=== PATIENT | female | born 1945 | race Caucasian/White ===

== ENCOUNTER 2018-04-07 05:28 | Emergency (ER) | payer MEDICARE, OTHER, SELFPAY ==
[2018-04-07 05:29] VITALS: BP 113/92; PULSE 96; RESP 18; TEMP 36.7; O2SAT 97; BMI 22.9
--- NOTE | 2018-04-07 06:00 | RAD_ITS ---
HISTORY: PT FELL HIT RT WRIST ON COUNTER AND HEARD A POP PAIN SWELLING BRUISING RT WRIST ALL OVER COMPARISON: None FINDINGS: XR right wrist 3 views Impacted, mildly comminuted fracture of the distal right radius with mild dorsal displacement and dorsal angulation of the major distal fracture fragment. The major component of the fracture is a transverse metaphyseal fracture. An additional longitudinal component of the radial fracture extends intra-articular. Additional mildly displaced fracture of the ulnar styloid process. No dislocation. RAD/Wrist min 3 Views IMPRESSION: 1. Comminuted, intra-articular fracture of the distal right radius. Details above. 2. Additional fracture of the ulnar styloid process. at 0642 Reported and signed by: Tushar Mcclendon MD Electronically Signed: Tushar Mcclendon, at 6:41 EST Tel , Service support ,
[2018-04-07] MEDS: oxyCODONE 5 MG Tablet 10 MG PO (06:09)
--- NOTE | 2018-04-07 07:15 | ED.VISSUMM ---
- ER Visit Summary Date of Service: 04/07/18 Chief Complaint: Wrist pain History of Present Illness: The patient is a 72 F who is right-hand dominant. She started to fall this morning and caught herself on a counter. She complains of pain to her right wrist. No other injuries or complaints. She is in pain management for chronic pain. She does not have an orthopedist currently. Physical Examination: Afebrile and vital signs unremarkable. Right wrist is tender to palpation with swelling, bruising, and a deformity. Skin is intact. She is neurovascular intact distally. Compartments soft. Otherwise exam unremarkable. Test Results: X-rays show a comminuted intra-articular fracture of the distal radius as well as an ulnar styloid fracture. Emergency Department Course and Treatment: Patient treated with oxycodone while awaiting results. X-rays showed a fracture. Patient declined manipulation. She was placed in an Ortho-Glass AP splint. She tolerated this well. Neurovascular intact distally after splinting. Patient was discussed with Dr. Bean, and she will follow-up in the office. Rest, ice, elevate. She is on opiates from pain management. Return for any complications or problems. Treatment Plan: As above Disposition: Discharge Impression: 1. Right distal radius fracture This note was generated with [employer] dictation software. It may contain incorrect words, spelling, and punctuation that were not noted in review of the chart prior to signing ED Disposition - Plan for ED Patient: Referrals: Mercedes Leonard MD [Primary Care Provider] -
--- NOTE | 2018-04-07 07:18 | ED.DEP ---
ED Disposition - Plan for ED Patient: Instructions: ED Fx Wrist General Referrals: Jared Bean MD [STAFF PHYSICIAN] -
[2018-04-07 07:51] VITALS: PULSE 110; RESP 16; O2SAT 92
== END 2018-04-07 07:52 | disposition home or self-care (01) ==
LOC: ED 05:51
PROVIDERS: Emergency Provider Emergency Medicine; Family Provider Internal Medicine; PCP Internal Medicine
DX: S52.571A Other intraarticular fracture of lower end of right radius, initial encounter for closed fracture (principal); W18.39XA Other fall on same level, initial encounter; Y93.89 Activity, other specified; Y92.9 Unspecified place or not applicable; I10 Essential (primary) hypertension
CPT/HCPCS: 29125; 73110; 99285

== ENCOUNTER 2018-07-26 08:04 | Emergency (ER) | payer MEDICARE, OTHER, SELFPAY ==
[2018-07-26 08:06] VITALS: BP 140/64; PULSE 113; RESP 18; TEMP 37.3; O2SAT 96; BMI 17.7
--- NOTE | 2018-07-26 08:19 | RAD_ITS ---
STUDY: X-RAY - LEFT WRIST REASON FOR EXAM: Female, 72 years old. Pain and deformity following a fall. TECHNIQUE: 3 view(s) of the wrist were obtained. COMPARISON: None. FINDINGS: Comminuted nondisplaced fracture of the distal radial metaphysis with dorsal facing. Nondisplaced avulsion fracture of the ulnar styloid. Normal radiocarpal articulation. Normal distal radioulnar articulation. Normal carpal bones. Normal carpal articulations. Normal carpometacarpal articulation of the thumb. Normal second through fifth carpometacarpal articulations. Healed fracture of the midshaft of the fourth metacarpal. Soft tissue swelling. RAD/Wrist min 3 Views IMPRESSION: Comminuted nondisplaced fracture of the distal radius with dorsal facing. Nondisplaced avulsion fracture of the ulnar styloid. Soft tissue swelling. Healed fracture of the midportion of the fourth metacarpal. Electronically Signed: Robb West, at 9:01 EDT , Service support ,
[2018-07-26] MEDS: HYDROmorphone 1 MG/ML Syringe SC (08:25)
--- NOTE | 2018-07-26 08:26 | ED.VISSUMM ---
- ER Visit Summary Date of Service: 07/26/18 Chief Complaint: Left wrist pain History of Present Illness: The patient is a 72 F who sustained a mechanical fall this morning. She has a left wrist deformity and pain. No other injuries. Physical Examination: Afebrile and vital signs unremarkable. Head and neck are atraumatic. Alert and oriented. Left wrist shows swelling and diffuse tenderness. Neurovascular intact distally. Skin is intact. The remainder of her arm and exam show no evidence of trauma. Test Results: X-rays pending. Emergency Department Course and Treatment: Patient treated with ice pack and subcutaneous Dilaudid while awaiting x-ray results. X-rays show a comminuted nondisplaced and dorsally angulated distal radius fracture with a fracture of the ulnar styloid. Dr. Weston reviewed the images. He felt that this would likely need surgery and he recommended following up with Dr. Bean early next week. Patient was placed in a AP splint, Ortho-Glass, by hi. She tolerated this well. She is neurovascularly intact distally afterwards. Patient will be discharged. Rest, ice, elevate. Continue her home oxycodone. Treatment Plan: As above Disposition: Discharge Impression: 1. Left distal radius fracture This note was generated with [employer] dictation software. It may contain incorrect words, spelling, and punctuation that were not noted in review of the chart prior to signing ED Disposition - Plan for ED Patient: Referrals: Mercedes Leonard MD [Primary Care Provider] -
--- NOTE | 2018-07-26 08:30 | ED.DCSUM_ITS ---
- ER Visit Summary Date of Service: 07/26/18 Chief Complaint: Left wrist pain History of Present Illness: The patient is a 72 F who sustained a mechanical fall this morning. She has a left wrist deformity and pain. No other injuries. Physical Examination: Afebrile and vital signs unremarkable. Head and neck are atraumatic. Alert and oriented. Left wrist shows swelling and diffuse tenderness. Neurovascular intact distally. Skin is intact. The remainder of her arm and exam show no evidence of trauma. Test Results: X-rays pending. Emergency Department Course and Treatment: Patient treated with ice pack and arzola bcutaneous Dilaudid while awaiting x-ray results. X-rays show a comminuted nondisplaced and dorsally angulated distal radius fracture with a fracture of the ulnar styloid. Dr. Weston reviewed the images. He felt that this would likely need surgery and he recommended following up with Dr. Bean early next week. Patient was placed in a AP splint, Ortho-Glass, by me. She tolerated this well. She is neurovascularly intact distally afterwards. Patient will be discharged. Rest, ice, elevate. Continue her home oxycodone. Treatment Plan: As above Disposition: Discharge Impression: 1. Left distal radius fracture This note was generated with [employer] dictation software. It may contain incorrect words, spelling, and punctuation that were not noted in review of the chart prior to signing ED Disposition - Plan for ED Patient: Referrals: Mercedes Leonard MD [Primary Care Provider] -
--- NOTE | 2018-07-26 10:08 | ED.DEP ---
ED Disposition - Plan for ED Patient: Instructions: ED Fx Wrist General Referrals: Jared Bean MD [STAFF PHYSICIAN] -
[2018-07-26 10:13] VITALS: BP 109/57; PULSE 84; RESP 16; O2SAT 95
== END 2018-07-26 10:14 | disposition home or self-care (01) ==
PROVIDERS: Emergency Provider Emergency Medicine; Family Provider Internal Medicine; PCP Internal Medicine
DX: S52.502A Unspecified fracture of the lower end of left radius, initial encounter for closed fracture (principal); S52.615A Nondisplaced fracture of left ulna styloid process, initial encounter for closed fracture; W19.XXXA Unspecified fall, initial encounter; Y93.9 Activity, unspecified; Y92.9 Unspecified place or not applicable
CPT/HCPCS: 29125; 73110; 96372; 99282

== ENCOUNTER → 2018-08-06 10:16 | Outpatient (CLI) | payer MEDICARE, OTHER, SELFPAY ==
[2018-07-26 08:06] VITALS: BMI 17.7
--- NOTE | 2018-08-06 10:37 | EKG12_ITS ---
Test Reason : PRE-OP Blood Pressure : / mmHG Vent. Rate : 053 BPM Atrial Rate : 053 BPM P-R Int : 164 ms QRS Dur : 080 ms QT Int : 424 ms P-R-T Axes : 078 083 072 degrees QTc Int : 397 ms Sinus bradycardia Possible Left atrial enlargement Early repolarization Borderline ECG Confirmed by DENNIS ELLSWORTH, RAYMOND ([id number]), film editor supervisor DEON HINSON ([id number]) on 08/07/2018 7:49:57 AM Referred By: Jared Bean Confirmed By:RAYMOND COLLINS MD
[2018-08-06 10:46] LABS: Absolute Lymphocyte Count 0.95 X10^3/ul (0.83-4.51); Absolute Neutrophil Count 5.4 X10^3/uL (2.0-7.7); Basophil# 0.01 X10^3/uL; Basophil% 0.2 % (0-1); Hematocrit 41.3 % (37-47); Hemoglobin 13.2 g/dl (12.0-15.0); Lymphocyte # 0.95 X10^3/ul (4.0); Lymphocyte % 14.3 % (19-41); Mean Corpuscular Hgb 30.6 pg (27.0-32.0); Mean Corpuscular Volume 95.6 fL (81-99); Mean Platelet Vol. 10.7 fl (6.2-12.0); Monocyte# 0.32 X10^3/uL; Monocyte% 4.8 % (0-10); Neutrophil # 5.35 X10^3/uL (2.7-7.7); Neutrophil % 80.5 % (47-70); Platelet Count 314 K/mm3 (150-450); RBC Distribution Width CV 13.8 % (11.6-14.6); RBC Distribution Width SD 46.5 fl (35.1-43.9); Red Blood Count 4.32 M/mm3 (4.2-5.4); White Blood Count 6.6 K/mm3 (4.4-11.0)
[2018-08-06 10:48] LABS: POSITIVE COUNT NO; POSITIVE DIFFERENTIAL NO; POSITIVE MORPHOLOGY NO
[2018-08-06 11:04] LABS: Anion Gap 9 (5-15); BUN 13 mg/dL (7-18); BUN/Creat Ratio 16.1 RATIO (10-20); Calcium,Total 9.5 mg/dL (8.5-10.1); Chloride 103 mmol/L (98-107); EST Glomerular Filtration Rate 75 mL/min (>60); Est Glom Filt Rate - Afr Amer 90 mL/min (>60); Glucose 114 mg/dL (74-106); Potassium 4.3 mmol/L (3.5-5.1); Sodium Level 139 mmol/L (136-145)
== END ==
PROVIDERS: Physician Assistant Surgical; Family Provider Internal Medicine; PCP Internal Medicine; Referring Provider Specialist; Visit Provider Specialist
DX: Z01.818 Encounter for other preprocedural examination (principal); Z01.810 Encounter for preprocedural cardiovascular examination
CPT/HCPCS: 36415; 80048; 85025; 93005

== ENCOUNTER 2018-10-23 21:10 | Emergency (ER) | payer MEDICARE, OTHER, SELFPAY ==
[2018-10-23 21:11] VITALS: BP 127/80; PULSE 88; RESP 18; TEMP 37.7; O2SAT 94; BMI 18.6
--- NOTE | 2018-10-23 22:00 | CT_ITS ---
STUDY: CT CERVICAL SPINE WITHOUT CONTRAST REASON FOR EXAM: Female, 72 years old. : Hit head RADIATION DOSAGE (If Supplied By Facility): CTDIvol = ( 12.82 ) mGy, DLP = ( 291.04 ) mGycm TECHNIQUE: High resolution transaxial imaging was performed without contrast material. Sagittal and coronal images were reconstructed. Individualized dose optimization techniques were used for this CT. COMPARISON: None FINDINGS: Normal craniovertebral junction. Normal anterior atlantoaxial articulation. Normal odontoid process. Normal cervical lordosis. Normal vertebral bodies and posterior osseous elements. C2-3: Normal endplates. Normal disc height and morphology. Normal central canal and intervertebral neuroforamina. C3-4: Normal endplates. Normal disc height and morphology. Normal central canal and narrowed right intervertebral neuroforamina. C4-5: Normal endplates. Normal disc height and morphology. Normal central canal and narrowed right intervertebral neuroforamina. C5-6: Normal endplates. Normal disc height and morphology. Normal central canal and narrowed left intervertebral neuroforamina. C6-7: Normal endplates. Normal disc height and morphology. Normal central canal and intervertebral neuroforamina. C7-T1: Normal endplates. Normal disc height and morphology. Normal central canal and intervertebral neuroforamina. Normal visualized soft tissue structures. CT/Spine Cervical without Contras IMPRESSION: No fracture Electronically Signed: Curtis Mckeon MD at 22:50 EDT , Service support ,
--- NOTE | 2018-10-23 22:00 | CT_ITS ---
STUDY: CT BRAIN WITHOUT CONTRAST REASON FOR EXAM: Female, 72 years old. Head injury status post fall. Laceration posteriorly. RADIATION DOSAGE (If Supplied By Facility): CTDIvol = ( 44.99 ) mGy, DLP = ( 745.49 ) mGycm TECHNIQUE: Transaxial CT imaging of the brain was performed without administration of intravenous contrast material. Individualized dose optimization techniques were used for this CT. COMPARISON: September 18, 2011 CT head FINDINGS: Normal soft tissue structures. Normal calvarium. Normal size ventricles and extra-axial spaces for the patient's age. Normal white matter tracts of the cerebral hemispheres. Normal basal ganglia and thalami. Normal brainstem. Normal cerebellum. There is no intracranial hemorrhage. There are no findings of an acute ischemic infarction. Normal visualized paranasal sinuses. CT/Brain/Head without Contrast IMPRESSION: Normal unenhanced CT scan of the brain. Electronically Signed: Curtis Mckeon MD at 22:39 EDT , Service support ,
--- NOTE | 2018-10-23 22:01 | RAD_ITS ---
STUDY: X-RAY CHEST REASON FOR EXAM: Female, 72 years old. Chest injury status post fall TECHNIQUE: Frontal and lateral COMPARISON: April 15, 2016 FINDINGS: Elevated right hemidiaphragm. Right upper lobe airspace disease. There is no demonstrated pleural abnormality. Normal size heart. Normal mediastinum and ebony. Normal visualized pulmonary arteries. Normal visualized aortic arch and descending thoracic aorta. Normal visualized thoracic spine. Normal visualized ribs, clavicles, and shoulders. There is no demonstrated abnormality of the visualized soft tissue structures of the upper abdomen. RAD/Chest PA and Lateral IMPRESSION: Right upper lobe airspace disease. Electronically Signed: Curtis Mckeon MD at 22:43 EDT , Service support ,
--- NOTE | 2018-10-23 22:05 | RAD_ITS ---
STUDY: X-RAY - PELVIS AND LEFT HIP REASON FOR EXAM: Female, 72 years old. Fell and injured left hip TECHNIQUE: 3 views of the pelvis and hip. COMPARISON: July 24, 2014 FINDINGS: Soft tissue calcifications right and left pelvis. Normal visualized soft tissue structures. Bilateral total hip arthroplasties. Cerclage wires noted proximal left femur. Normal bilateral iliac wings, sacroiliac joints and visualized sacrum. Normal bilateral superior and inferior pubic rami. Normal pubic symphysis. Normal bilateral ischial tuberosities. Normal visualized femoral head. Normal acetabulum. Normal hip joint. RAD/HIP, UNI W/ Pelvis 2-3 Views IMPRESSION: Bilateral hip arthroplasties. No acute fracture noted but sensitivity is limited due to demineralization. Electronically Signed: Curtis Mckeon MD at 22:57 EDT , Service support ,
[2018-10-23] MEDS: oxyCODONE 5 MG Tablet 20 MG PO (22:07)
[2018-10-23 23:11] VITALS: BP 126/79; PULSE 87; RESP 17; O2SAT 97
--- NOTE | 2018-10-23 23:44 | ED.VIS.GEN ---
History of Present Illness Chief Complaint: Fall Informant: Patient Onset: Today Narrative: Is a 72-year-old female with history of Crohn's disease, osteoporosis among other problems presenting with mechanical fall. Patient states she slipped and fell in her bathroom and hit her head on the bathtub. She denies any loss of consciousness. She states she is not on any anticoagulation. Patient states that she has a history of nerve problems to her left leg and does not have feeling in her left leg. This makes her unsteady and prone to falls. Patient states that what happened today. She has bleeding in the back of her head which did not stop which is why she came in. She is not sure when her last tetanus was. Patient does comment that she had a low-grade fever for the past few days. She has had associated cough. Patient denies any chest pain or difficulty breathing. She is currently taking Cipro and Flagyl for presumed Crohn's flare. Patient states she does not have any change in her bowel movements or diarrhea but because of the fever she started taking these antibiotics. Past Medical History - Allergies and Home Meds Allergies/Adverse Reactions: Allergies amlodipine [From Norvasc] Allergy (Verified 10/23/18 21:14) Unknown ampicillin Allergy (Verified 10/23/18 21:14) Hives celecoxib [From Celebrex] Allergy (Verified 10/23/18 21:14) Unknown cephalexin Allergy (Verified 10/23/18 21:14) Unknown cyclobenzaprine [From Flexeril] Allergy (Verified 10/23/18 21:14) Unknown levofloxacin [From Levaquin] Allergy (Verified 10/23/18 21:14) Unknown mesalamine [From Pentasa] Allergy (Verified 10/23/18 21:14) Unknown NSAIDS (Non-Steroidal Anti-Inflamma Allergy (Verified 10/23/18 21:14) Unknown Penicillins Allergy (Verified 10/23/18 21:14) Rash prochlorperazine [From Compazine] Allergy (Verified 10/23/18 21:14) Unknown sulfamethoxazole [From Bactrim] Allergy (Verified 10/23/18 21:14) Rash trazodone Allergy (Verified 10/23/18 21:14) Unknown trimethoprim [From Bactrim] Allergy (Verified 10/23/18 21:14) Rash zolpidem [From Ambien] Allergy (Verified 10/23/18 21:14) Unknown Primary Care Physician: Mercedes Leonard MD [Primary Care Provider] - Surgical History: hysterectomy - salpingo-oopherectomy., total hip arthroplasty - Bilateral with revision. Smoking Status: Never smoker - Family History Maternal Family History: Reports: No pertinent history Paternal Family History: Reports: No pertinent history Review of Systems All systems negative except as indicated General: Reports: Fever Respiratory: Reports: Cough Gastrointestinal: Denies: Abdominal pain Musculoskeletal: Reports: Extremity Pain - left hip Skin: Reports: Wounds - scalp Physical Exam Vital Signs/Narrative: Vital Signs Temp Pulse Resp BP Pulse Ox 10/23/18 23:11 87 17 126/79 H 97 10/23/18 21:11 99.9 F H 88 18 127/80 H 94 Inital Vital Signs reviewed: Yes General: Well developed, Cachectic, No Acute Distress Head: Normocephalic, Trauma - 1.5 cm linear scalp laceration, full-thickness and gaping over occiput Eyes: Perrl, EOMI ENT: Moist mucous membranes, No rhinorrhea, TM's clear, - - Septal hematoma, no signs of basilar skull fracture, no malocclusion Neck: Supple, Nontender Cardiovascular: Regular rate, Regular rhythm, No murmurs Respiratory: No distress, CTA bilaterally, Chest nontender Abdomen: Soft, Nontender, Nondistended, Normal bowel sounds Back: Nontender, Normal Inspection Extremities: No edema, Tenderness - Mild tenderness to palpation of the left hip diffusely Skin: Normal color, No rash, - - Scalp laceration, see head Neurological: Alert, Oriented x3, Cranial nerves II-XII grossly intact, Normal Strength, Normal Sensation, - - Patient has multiple almost uncontrolled large movements of her extremities Psychological: Normal affect, Normal Mood Diagnostic/Tx/Re-eval Chest X-Ray - ED: 2 View, Read by ED Physician, Read by Radiologist, Right Infiltrate Diagnostic Data Brain CT 10/23/18 22:00 IMPRESSION: Normal unenhanced CT scan of the brain. Electronically Signed: Curtis Mckeon MD at 22:39 EDT , Service support , Cervical Spine CT 10/23/18 22:00 IMPRESSION: No fracture Electronically Signed: Curtis Mckeon MD at 22:50 EDT , Service support , Chest X-Ray 10/23/18 22:01 IMPRESSION: Right upper lobe airspace disease. Electronically Signed: Curtis Mckeon MD at 22:43 EDT , Service support , Hip/Pelvis X-Ray 10/23/18 22:05 IMPRESSION: Bilateral hip arthroplasties. No acute fracture noted but sensitivity is limited due to demineralization. Electronically Signed: Curtis Mckeon MD at 22:57 EDT , Service support , - Medical Decision Making Patient is evaluated after fall. She appears nontoxic in no acute distress. She has normal vital signs. She is not hypoxic or tachypneic. Patient states she has had a low-grade fever and a cough. Chest x-ray is obtained as well as a left hip and head CT/C-spine. Patient does have a right upper lobe infiltrate. She will be treated with doxycycline. Is given first dose in the emergency room. Patient states she had been taking Cipro and Flagyl which she is instructed to stop taking. Patient does have a linear laceration of her scalp. 2 cruzito were placed after the wound is irrigated. Patient's tetanus is updated. Patient is a given her home dose of oxycodone in the emergency room. An oars report is checked to confirm patient's dosage is in fact 20 mg. Patient is encouraged to follow-up with her primary care physician. Patient is counseled on signs and symptoms requiring return to the emergency room. Patient verbalizes agreement and understand this plan. Patient discharged home in stable and improved condition. ED Disposition - Plan for ED Patient: Disposition: Home or Assisted Living Diagnosis: Pneumonia, Laceration of head, Fall, Need for tetanus booster Instructions: FALL, Mechanical, LACERATION, Scalp, PNEUMONIA (Adult) Prescriptions: Doxycycline 100 mg PO BID #14 cap Prescription Printed Referrals: Mercedes Leonard MD [Primary Care Provider] - Additional Instructions: Please follow-up with your primary care doctor in the next few days for reevaluation. Return to the emergency room if you develop worsening symptoms. 2 cruzito were placed in your scalp. They need to be removed in 5 to 7 days.
[2018-10-23] MEDS: Diphth,Pertuss(Acell),Tet Vac 0.5 ML Vial IM (23:46)
[2018-10-23] MEDS: Doxycycline 100 MG CAPSULE PO (23:50)
[2018-10-24 00:10] VITALS: RESP 17
--- NOTE | 2018-10-24 11:28 | ED.RN ---
Pt called to inquire about home care. States her cruzito came out while she was sleeping. States wound has minmal bleeding and verbalized understanding of home care. pt was encouraged to watch for signs of infection and cleanse wound twice daily. She also understands that the wound wouldn't be closed again due to time of initial wound.
== END 2018-10-24 00:12 | disposition home or self-care (01) ==
PROVIDERS: Emergency Provider Emergency Medicine; Family Provider Internal Medicine; PCP Internal Medicine
DX: S01.01XA Laceration without foreign body of scalp, initial encounter (principal); W01.0XXA Fall on same level from slipping, tripping and stumbling without subsequent striking against object, initial encounter; Y93.89 Activity, other specified; Y92.002 Bathroom of unspecified non-institutional (private) residence as the place of occurrence of the external cause; J18.9 Pneumonia, unspecified organism; K50.90 Crohn's disease, unspecified, without complications; M81.0 Age-related osteoporosis without current pathological fracture; Z79.899 Other long term (current) drug therapy
CPT/HCPCS: 12001; 70450; 71046; 72125; 73502; 90471; 90715; 99283

== ENCOUNTER 2019-03-18 12:19 | Emergency (ER) | payer MEDICARE, OTHER, SELFPAY ==
[2019-03-18 12:21] VITALS: BP 139/83; PULSE 87; RESP 16; TEMP 37.1; O2SAT 99; BMI 19.3
--- NOTE | 2019-03-18 12:45 | ED.DCSUM_ITS ---
History of Present Illness Chief Complaint: Fall Detail of Chief Complaint: Hip pain. Informant: Patient Onset: Days Context: Sudden Onset Timing: Continuous Quality: Pain Location: Stem of right total hip arthroplasty Current Severity: Mild Maximum Severity: Severe Worsened by: Rotation, weightbearing and active flexion Relieved by: Rest Associated Symptoms: None Narrative: Patient presents because of right hip pain. She is status post total hip arthroplasty right and left. She had a near fall and fall. She landed on her right side. She was told to land on her left because of osteo- porosis/osteopenia. She had complications secondary to septicemia with infected left hip joint. She denies fever, chills night sweats. She denies radicular pain. Denies bowel bladder dysfunction. She localizes the pain to the right greater trochanteric region and inferior the right inguinal crease. She also complains of pain proximal third of the femur/mid proximal right thigh. Prior similar symptoms: Yes Recent Illness/Hospitalization: No - Past Medical History (1) Closed left hip fracture Status: Acute (2) Wound infection Status: Acute (3) Anemia Status: Chronic (4) B12 deficiency Status: Chronic (5) Calcium deficiency Status: Chronic (6) Chronic pain Status: Chronic (7) Hypertension Status: Chronic (8) Irregular heartbeat Status: Chronic (9) Irritable bowel syndrome Status: Chronic (10) Neuropathic pain Status: Chronic (11) Opioid dependence Status: Chronic (12) palliative care Status: Chronic Past Medical History - Allergies and Home Meds Allergies/Adverse Reactions: Allergies amlodipine [From Norvasc] Allergy (Verified 03/18/19 12:33) Unknown ampicillin Allergy (Verified 03/18/19 12:33) Hives celecoxib [From Celebrex] Allergy (Verified 03/18/19 12:33) Unknown cephalexin Allergy (Verified 03/18/19 12:33) Unknown cyclobenzaprine [From Flexeril] Allergy (Verified 03/18/19 12:33) Unknown levofloxacin [From Levaquin] Allergy (Verified 03/18/19 12:33) Unknown mesalamine [From Pentasa] Allergy (Verified 03/18/19 12:33) Unknown NSAIDS (Non-Steroidal Anti-Inflamma Allergy (Verified 03/18/19 12:33) Unknown Penicillins Allergy (Verified 03/18/19 12:33) Rash prochlorperazine [From Compazine] Allergy (Verified 03/18/19 12:33) Unknown sulfamethoxazole [From Bactrim] Allergy (Verified 03/18/19 12:33) Rash trazodone Allergy (Verified 03/18/19 12:33) Unknown trimethoprim [From Bactrim] Allergy (Verified 03/18/19 12:33) Rash zolpidem [From Ambien] Allergy (Verified 03/18/19 12:33) Unknown Primary Care Physician: Jeovanny Parker DO [STAFF PHYSICIAN] - Mercedes Leonard MD [Primary Care Provider] - Prior records reviewed: Yes Surgical History: hysterectomy - salpingo-oopherectomy., total hip arthroplasty - Bilateral with revision. Lives: Spouse/ Significant Other Smoking Status: Never smoker Alcohol: None Drugs: None - Family History Maternal Family History: Reports: No pertinent history Paternal Family History: Reports: No pertinent history Review of Systems General: Denies: Chills, Fever, Malaise, Subjective, Sweats, Weight loss, - Cardiovascular: Denies: Chest pain, Palpitations Respiratory: Denies: Dyspnea, Cough, Dyspnea on exertion Gastrointestinal: Denies: Nausea, Vomiting Musculoskeletal: Reports: Extremity Pain. Denies: Myalgias, Arthralgias, Neck pain, Back pain, Swelling Skin: Denies: Rash, Wounds Neurological: Denies: Weakness, Parasthesia, Numbness Hematologic: Denies: Easy bruising, Easy bleeding Physical Exam Vital Signs/Narrative: Vital Signs Temp Pulse Resp BP Pulse Ox 03/18/19 12:21 98.7 F 87 16 139/83 H 99 Inital Vital Signs reviewed: Yes General: Well nourished, Well developed, No Acute Distress Head: Normocephalic, Atraumatic Eyes: Perrl, EOMI. Negative for: Pale conjunctiva, Scleral icterus Neck: Supple, Nontender, No lymphadenopathy, No JVD Cardiovascular: Regular rate, No murmurs, Normal S1, Normal S2, Irregular Respiratory: No distress, CTA bilaterally, Chest nontender Back: Nontender, Normal Inspection Extremities: No edema, Tenderness, - - Internal/external rotation proximal right thigh. Pain ovation over the right greater trochanteric region. Slight discomfort over the right initial tuberosity. There is no pain the patient over the iliac wing or the pubic symphysis.. Negative for: Nontender Skin: Normal color, No rash, No Trauma. Negative for: Cyanosis, Diaphoresis, Jaundice Neurological: Alert, Oriented x3, Cranial nerves II-XII grossly intact, Normal Strength, Normal Sensation Psychological: Normal affect, Normal Mood Diagnostic/Tx/Re-eval Chest X-Ray - ED: Read by ED Physician, - - Review x-ray of the right hip was obtained and reveals a nondisplaced sub-trochanteric fracture in hip with prosthetic device. 03/18/19 12:42 HIP, UNI W/ Pelvis 2-3 Views [RAD] Stat - Medical Decision Making Patient was offered pain medicine, which she declined. She states she is in pain management. X-ray was obtained to evaluate for fracture versus contusion Patient has been seen by Dr. Bean for her right and left wrist. She states that Dr. Bean specializes in the type of prosthetic she has. Dr. caden garcia is on-call. Residential Direct Support Professional was asked to page Dr. Bean. G reveals a greater trochanteric fracture. She was told nonweightbearing. She is able to navigate with crutches. She also was given a prescription for a wheelchair. She understands a follow-up with Dr. Bean in a week. ED Disposition - Plan for ED Patient: Disposition: Home or Assisted Living Diagnosis: Nondisplaced fracture of greater trochanter of left femur, initial encounter for closed fracture Instructions: Hip Safety: Getting Into and Out of Bed, Understanding Hip Fractures Referrals: Mercedes Leonard MD [Primary Care Provider] - Jared Bean MD [STAFF PHYSICIAN] - 1 Week Additional Instructions: Put no weight on your right foot/lower extremity.
--- NOTE | 2019-03-18 12:54 | RAD_ITS ---
STUDY: X-RAY - PELVIS AND RIGHT HIP REASON FOR EXAM: Female, 73 years old. RIGHT HIP PAIN AND LROM -- HX OF BILATERAL HIP SURGERIES x4 TECHNIQUE: 3 views of the pelvis and hip. COMPARISON: Comparison is made with prior examination dated October 23, 2018. FINDINGS: Moderate amount of fecal material is seen in the right hemicolon. Soft tissue calcifications overlying the right and left hemipelvis. There is narrowing with cortical sclerosis and osteophyte formation of the sacroiliac joint consistent with degenerative osteoarthritic changes. Normal bilateral superior and inferior pubic rami. There are degenerative changes of the pubic symphysis with articular narrowing and sclerosis. Normal bilateral ischial tuberosities. The patient is status post bilateral total hip replacement. RAD/HIP, UNI W/ Pelvis 2-3 Views IMPRESSION: Status post bilateral hip arthroplasties. No acute abnormality is seen. Electronically Signed: Robb West, at 13:16 EST , Service support ,
--- NOTE | 2019-03-18 13:29 | CT_ITS ---
STUDY: CT SCAN HEAD RIGHT REASON FOR EXAM: Female, 73 years old. GREATER TROCHANTERIC FX INVOLVING PROSTHESIS. RADIATION DOSAGE (If Supplied By Facility): CTDIvol = ( 13.21 ) mGy, DLP = ( 514.71 ) mGycm. Individualized dose optimization techniques were used for this CT.? TECHNIQUE: Multiple axial tomographic images of the hip joints were obtained. Coronal and sagittal reconstruction was obtained as well. COMPARISON: Comparison is made with prior radiograph done earlier today. FINDINGS: There is evidence of a nondisplaced fracture involving the greater trochanter of the proximal left femur. This extends towards the lateral aspect of the femoral component of the prosthetic hip joint. Soft tissue swelling. Dense calcification seen along the posterior aspect of the subcutaneous tissues. CT/Extremity Lower without Contra IMPRESSION: Nondisplaced transverse fracture through the greater tuberosity of the proximal left femur. There is no evidence of dislocation. Soft tissue swelling and soft tissue calcification. Electronically Signed: Robb West, at 14:25 EST , Service support ,
[2019-03-18] MEDS: oxyCODONE 5 MG Tablet 20 MG PO (14:12)
[2019-03-18 14:54] VITALS: RESP 18
== END 2019-03-18 16:10 | disposition home or self-care (01) ==
PROVIDERS: Emergency Provider Emergency Medicine; PCP Internal Medicine
DX: S72.114A Nondisplaced fracture of greater trochanter of right femur, initial encounter for closed fracture (principal); W19.XXXA Unspecified fall, initial encounter; Y93.9 Activity, unspecified; Y92.9 Unspecified place or not applicable; I10 Essential (primary) hypertension; F11.20 Opioid dependence, uncomplicated; Z96.643 Presence of artificial hip joint, bilateral
CPT/HCPCS: 73502; 73700; 99284

== ENCOUNTER 2019-11-28 08:46 | Inpatient (IN) | payer MEDICARE, OTHER, SELFPAY ==
[2019-11-28 08:47] VITALS: BP 117/87; PULSE 120; RESP 20; TEMP 36.4; O2SAT 97; BMI 19.3
--- NOTE | 2019-11-28 09:00 | CT_ITS ---
STUDY: CT ABDOMEN AND PELVIS WITH CONTRAST REASON FOR EXAM: Female, 74 years old. ABD PAIN ?? OBSTRUCTION RADIATION DOSAGE (If Supplied By Facility): CTDIvol = ( 10.07 ) mGy, DLP = ( 369.92 ) mGycm TECHNIQUE: Transaxial images were obtained from the dome of the diaphragm to the symphysis pubis without oral contrast. was administered. Sagittal and coronal images were reconstructed. Individualized dose optimization techniques were used for this CT. COMPARISON: Comparison is made with prior study dated 07/23/2012. FINDINGS: Small left pleural effusion with increased markings at the lung bases more prominent on the left side. Fluid distention of the distal esophagus. There is calcification of the mitral valve annulus. There is decreased attenuation of the liver consistent with steatosis. Normal gallbladder and extrahepatic biliary system. Normal spleen. Normal pancreas. Normal bilateral adrenal glands. Normal right kidney. Normal left kidney. Gaseous distention of the stomach. Normal small intestine. Marked degree of colonic distention. A large amount of fecal material is seen in the colon especially in the rectosigmoid colon. Colonic ileus should be ruled out. The small bowel is decompressed. There is non-visualization of the appendix. There is diffuse atherosclerotic calcification of the abdominal aorta, without a demonstrated aneurysm. Normal inferior vena cava. Normal retroperitoneum. Normal urinary bladder. There is absence of the uterus consistent with a prior hysterectomy. Dense calcific densities are seen in the soft tissues overlying the buttocks. There are mild degenerative changes of the visualized lumbar spine. Status post bilateral total hip replacement. CT/Abdomen/Pelvis W IV Cont ONLY IMPRESSION: Moderate degree of gaseous distention of the colon with a mild degree of fecal material within the colon more prominent in the rectosigmoid colon. The small bowel is decompressed. Fatty infiltration of the liver Electronically Signed: Robb West, at 11:22 EDT , Service support ,
--- NOTE | 2019-11-28 09:05 | ED.VISSUMM ---
- ER Visit Summary Date of Service: 11/28/19 Chief Complaint: Abdominal pain History of Present Illness: The patient is a 74 F history of chronic abdominal pain, Crohn's, irritable bowel and hypertension. Prior gastrectomy, appendectomy, cholecystectomy, hysterectomy and bilateral hip replacements. tells me that she has chronic abdominal pain for years. Show episodes of diarrhea followed by episodes of constipation. Seems like her pain is gotten worse in the last 6 months with more frequency and intensity. She denies any melena. No fever. No dysuria. Diffuse pain. She is also concerned she may have developed a left-sided abdominal hernia. Physical Examination: Older female vital signs stable. Heart rate 120. H EENT exam dry mucous membranes. Pupils round reactive light. Neck nontender. No lymphadenopathy. Lungs clear to auscultation. Heart tachycardic rate about 1 10-1 20 no murmur. Abdomen distended. Diffusely tender. Diminished bowel sounds. No pulsatile mass. Currently no obvious hernia. But she is distended. This could be consistent with a obstruction pattern. No pulsatile mass. Equal symmetrical femoral pulses. Moving all 4 extremities. No edema. Back nontender. Patient overall is thin and atrophied. Neurologically she is awake and alert. Answering questions and following commands. No focal deficits. Test Results: CBC white count of 7. Hemoglobin low at 9.6 she is more anemic than her prior baseline of 12. Chemistries unremarkable sodium 133 normal creatinine and gap. Liver enzymes slightly elevated lipase normal. UA negative. EKG was obtained by nursing was unremarkable normal sinus rhythm rate of 97 unchanged from July 2018. CAT scan the abdomen pelvis with IV contrast showed marked colonic distention rule out an ileus per the radiologist. Also constipation. A lot of this may be chronic. Emergency Department Course and Treatment: Patient will be treated with IV morphine for pain, Zofran for nausea and IV fluids for dehydration. Screening labs along with urinalysis and CAT scan are being obtained. She has acute on chronic abdominal pain and we are also evaluating her for possible obstruction versus other causes. Treatment Plan: Repeat exam patient is doing well at 1148. In light of her weight loss, nausea and vomiting and CT findings speak to the hospitalist about admission. They can also get surgical consultation. Disposition: Admission Impression: Acute on chronic abdominal pain Dehydration Marked colonic distention rule out colonic ileus This note was generated with Dragon dictation software. It may contain incorrect words, spelling, and punctuation that were not noted in review of the chart prior to signing ED Disposition - Plan for ED Patient: Referrals: Mercedes Leonard MD [Primary Care Provider] -
[2019-11-28 09:24] LABS: Absolute Lymphocyte Count 0.85 X10^3/uL (0.83-4.51); Absolute Neutrophil Count 5.1 X10^3/uL (2.0-7.7); Basophil# 0.04 X10^3/uL; Basophil% 0.6 % (0-1); Eosinophil# 0.01 X10^3/uL; Eosinophils% 0.1 % (0-5); Hematocrit 29.9 % (37-47); Hemoglobin 9.6 g/dL (12.0-15.0); Lymphocyte # 0.85 X10^3/ul (4.0); Lymphocyte % 11.9 % (19-41); Mean Corp Hgb Conc 32.1 g/dL (32-36); Mean Corpuscular Volume 96.5 fL (81-99); Mean Platelet Vol. 8.8 fl (6.2-12.0); Monocyte# 1.13 X10^3/uL; Monocyte% 15.9 % (0-10); NRBC Flagged by Analyzer 0 % (0-5); Neutrophil # 5.05 X10^3/uL (2.7-7.7); Neutrophil % 70.9 % (47-70); POSITIVE MORPHOLOGY YES; Platelet Count 559 K/mm3 (150-450); RBC Distribution Width CV 18.8 % (11.6-14.6); RBC Distribution Width SD 66.3 fl (35.1-43.9); White Blood Count 7.1 K/mm3 (4.4-11.0)
[2019-11-28 09:26] LABS: Differential Indicated SCAN CRITERIA MET
[2019-11-28 09:51] LABS: Differential Comment SCANNED; Hypochromasia 2+; Poikilocytosis 2+
[2019-11-28] MEDS: 0.9% Normal Saline 1,000 ML 1000 ML IV (09:55)
[2019-11-28] MEDS: Morphine 4 MG/ML Syringe IV ×2 (09:55→12:21)
[2019-11-28] MEDS: Ondansetron 4 MG/2 ML Vial IV (09:55)
--- NOTE | 2019-11-28 10:05 | EKG12_ITS ---
Test Reason : Blood Pressure : / mmHG Vent. Rate : 097 BPM Atrial Rate : 097 BPM P-R Int : 146 ms QRS Dur : 074 ms QT Int : 364 ms P-R-T Axes : 070 069 071 degrees QTc Int : 462 ms Normal sinus rhythm Cannot rule out Anterior infarct , age undetermined Abnormal ECG Confirmed by MARY ELLSWORTH, PIPER ([id number]), editorial assistant OLAF BAER ([id number]) on 12/12/2019 9:30:01 A M Referred By: SULEMAN Confirmed By:LINDA HERNANDEZ MD
[2019-11-28 10:13] LABS: AST(SGOT) 15 U/L (15-37); Alanine Aminotransfer ALT/SGPT 17 U/L (13-56); Albumin, Serum 1.7 g/dL (3.2-5.0); Alkaline Phosphatase 143 U/L (45-117); Anion Gap 8 (5-15); BUN 12 mg/dL (7-18); BUN/Creat Ratio 26.5 RATIO (10-20); Bilirubin, Direct 0.44 mg/dL (0.00-0.30); Calcium,Total 7.7 mg/dL (8.5-10.1); Chloride 99 mmol/L (98-107); Creatinine, Serum 0.45 mg/dL (0.55-1.02); EST Glomerular Filtration Rate 145 mL/min (>60); Est Glom Filt Rate - Afr Amer 175 mL/min (>60); Globulin 4.1 g/dL (2.2-4.2); Glucose 89 mg/dL (74-106); Lipase < 10 U/L (73-393); Protein, Total 5.8 g/dL (6.4-8.2); Sodium Level 133 mmol/L (136-145)
[2019-11-28 11:30] VITALS: BP 144/92; PULSE 93; RESP 14; O2SAT 97
[2019-11-28 11:32] LABS: Bacteria 0 SEEN /hpf (None Seen); Red Blood Cells-Urine 0 SEEN /hpf (0-5); White Blood Cells 0 SEEN /hpf (0-5)
[2019-11-28 11:35] LABS: Color, Urine Yellow (Yellow); Glucose, Dipstick Normal (Normal); Ketone-Dipstick 15 mg/dl (Negative); Leukocyte Esterase-Dipstick 25 /ul (Negative); Nitrite-Dipstick Negative (Negative); Occult Blood-Urine 10 /ul (Negative); Protein-Dipstick 15 mg/dl (Negative); Urine Clarity Clear (Clear); Urine Urobilinogen 4 mg/dl (Normal)
[2019-11-28 11:36] LABS: Urine Bilirubin Dipstick 1 mg/dL (Negative)
[2019-11-28 11:42] LABS: Mucous, Urine 1+ /hpf (<or=2+); Squamous Epithelial Cells - UA 0-5 SEEN /hpf (5-10)
[2019-11-28 11:43] LABS: Amorphous Sediment 1+
--- NOTE | 2019-11-28 12:18 | PCM.HP.STD ---
Problem List (1) Severe protein-calorie malnutrition Status: Acute (2) Constipation Status: Acute Qualifiers: Constipation type: unspecified constipation type Qualified Code(s): K59.00 - Constipation, unspecified (3) Chronic pain Status: Chronic Qualifiers: Chronic pain type: other chronic pain Qualified Code(s): G89.29 - Other chronic pain (4) Hypertension Status: Chronic Qualifiers: Hypertension type: essential hypertension Qualified Code(s): I10 - Essential (primary) hypertension (5) Vitamin D deficiency Status: Chronic (6) Anemia Status: Chronic Qualifiers: Anemia type: unspecified type Qualified Code(s): D64.9 - Anemia, unspecified History of Present Illness Date of Admission: 11/29/19 Chief Complaint: Abdominal pain and distension - ongoing for 1 week The patient is a 74 year old F with PMHx of undifferentiated connective tissue disease, hypertension, h/o falls with fractures, chronic pain syndrome comes in with complains of abdominal pain and distension ongoing for 1 week. Patient denied nausea, vomiting or fever or chills. She is on chronic fentanyl patch. She last had a bowel movement 3 days ago and was liquid. She denied any sick contacts. She has been loosing weight steadily over the last 6 months. She admits to anorexia but no night sweats. She has a colonoscopy 1 year ago which was reportedly unremarkable. Her vitals in ED show temp of 97.5F, HR 120, BP 117/87, RR 20, Spo2 97% on room air. Her WBC was 7.1, Hb 9.6, Plt was 559. Na 133, K 4.0, Cl 99, CO2 26.0, BUN 12, Cr 0.45, LFTs are unremarkable except for albumin 1.7. UA is unremarkable. CT scan of abdomen showed moderate degree of gaseous distension with large amount of fecal material in rectosigmoid colon. Small bowel is decompressed. Past Medical History Past Medical History (Chronic Problems): Chronic Problems Chronic pain (Chronic) Malingering (Chronic) Chronic nausea (Chronic) Abdominal pain (Chronic) palliative care (Chronic) Opioid dependence (Chronic) Irregular heartbeat (Chronic) Neuropathic pain (Chronic) Irritable bowel syndrome (Chronic) Hypertension (Chronic) Vitamin D deficiency (Chronic) Calcium deficiency (Chronic) Muscle spasm (Chronic) B12 deficiency (Chronic) Anemia (Chronic) Allergies amlodipine [From Norvasc] Allergy (Verified 11/28/19 08:49) Unknown ampicillin Allergy (Verified 11/28/19 08:49) Hives celecoxib [From Celebrex] Allergy (Verified 11/28/19 08:49) Unknown cephalexin Allergy (Verified 11/28/19 08:49) Unknown cyclobenzaprine [From Flexeril] Allergy (Verified 11/28/19 08:49) Unknown levofloxacin [From Levaquin] Allergy (Verified 11/28/19 08:49) Unknown mesalamine [From Pentasa] Allergy (Verified 11/28/19 08:49) Unknown NSAIDS (Non-Steroidal Anti-Inflamma Allergy (Verified 11/28/19 08:49) Unknown Penicillins Allergy (Verified 11/28/19 08:49) Rash prochlorperazine [From Compazine] Allergy (Verified 11/28/19 08:49) Unknown sulfamethoxazole [From Bactrim] Allergy (Verified 11/28/19 08:49) Rash trazodone Allergy (Verified 11/28/19 08:49) Unknown trimethoprim [From Bactrim] Allergy (Verified 11/28/19 08:49) Rash zolpidem [From Ambien] Allergy (Verified 11/28/19 08:49) Unknown Home Medications: Ambulatory Orders Medication Instructions Recorded Hyoscyamine Sulfate 0.125 mg SL PRN PRN 09/05/16 Multivitamin [Multiple Vitamins] 1 each PO DAILY 09/05/16 Clonidine HCl [Catapres] 0.1 - 0.2 mg PO TID 04/07/18 Ondansetron [Zofran Odt] 4 mg PO Q6H PRN 04/07/18 Cholecalciferol (VIT D3) [Vitamin 1,000 unit PO DAILY 07/26/18 D] Lisinopril [Zestril] 10 mg PO DAILY 10/23/18 Acetaminophen [Tylenol Extra 1,000 mg PO BID PRN PRN 11/28/19 Strength] Calcium Carbonate [Tums] 1,000 mg PO DAILY@0800 11/28/19 Cyanocobalamin (Vitamin B-12) 1,000 mcg IJ QMONTH 11/28/19 [Cyanocobalamin Injection] Oxycodone HCl 30 mg PO Q4H PRN PRN 11/28/19 fentaNYL patch [Duragesic patch] 25 mcg TRANSDERM. Q72H 11/28/19 Surgical History: hysterectomy - salpingo-oopherectomy., total hip arthroplasty - Bilateral with revision. 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 Denies: Chills, Fever, Weight Change Eyes: Denies: Blurred vision, Cataracts, Drainage, Eyelid Inflammation, Vision Change HEENT: Denies: Difficulty Hearing, Difficulty Swallowing, Head Aches, Hearing Changes, Sinus Congestion, Sinus Drainage Cardiovascular: Denies: Chest Pain, Chest Tightness, Edema, Light Headedness, Palpitations Respiratory: Denies: Cough, Shortness of breath at rest, Sputum production Gastrointestinal: Reports: Abdominal Pain, Constipation, Diarrhea. Denies: Hematemesis, Nausea, Vomiting Genitourinary: Denies: Dysuria, Frequency, Incontinence, Nocturia Musculoskeletal: Denies: Joint Pain, Joint Tenderness Skin: Denies: Rash, Wounds Neurological: Denies: Numbness, Tingling, Focal weakness Psychiatric: Denies: Anxiety, Depression, Homicidal Ideations, Suicidal Ideations Hematologic/ Lymphatic: Denies: Easy Bruising, Easy Bleeding VTE Information - Inpt Only VTE Present on Admission: No VTE Pharm Prophylaxis ordered?: Yes Patient Problems: Active and Suspected Problems Constipation (Acute) Severe protein-calorie malnutrition (Acute) - Physical Exam Vitals/I&O's: Vital Signs Temp Pulse Resp BP Pulse Ox 97.5 F L 93 14 144/92 H 97 11/28/19 08:47 11/28/19 11:30 11/28/19 11:30 11/28/19 11:30 11/28/19 11:30 Oxygen Delivery Method Room Air Weight: 54.431 kg Body Mass Index (BMI) 19.3 Intake and Output for Last 24 Hours 11/26/19 11/27/19 11/28/19 23:59 23:59 23:59 Intake Total 1000 / 1000 Balance 1000 / 1000 General: Alert, Oriented x3, Cooperative, - - cachetic, pale, moderately dehydrated, in discomfort, looks chronically unwell HEENT: Atraumatic, PERRLA, EOMI, Normocephalic Oral: Dry Mucosa Neck: Supple Lungs: Clear to auscultation, Normal air movement Cardiovascular: Regular rate, Regular Rhythm, Normal S1, Normal S2, No murmurs Abdomen: Bowel Sounds Present, Soft, Non Tender, No Hepato-splenomegaly, Distended, - - midline scar. Rectal exam showed good anal tone, soft stool in rectal vault, brown in color. Extremities: No edema Skin: No rashes, No breakdown Musculoskeletal: Tenderness - over the hip joints Neurological: Cranial nerves II-XII grossly intact Psych/Mental Status: Normal Affect, Appropriate Laboratory Results 11/28/19 08:57: WBC 7.1, RBC 3.10 L, Hgb 9.6 L, Hct 29.9 L, MCV 96.5, MCH 31.0, MCHC 32.1, RDW Std Deviation 66.3 H, RDW Coeff of Ama 18.8 H, Plt Count 559 H, MPV 8.8, Immature Gran % (Auto) 0.600, Neut % (Auto) 70.9 H, Lymph % (Auto) 11.9 L, [place] % (Auto) 15.9 H, Eos % (Auto) 0.1, Baso % (Auto) 0.6, Absolute Neuts (auto) 5.1, Absolute Lymphs (auto) 0.85, Nucleated RBC % 0, Differential Comment SCANNED, Hypochromasia 2+, Poikilocytosis 2+ 11/28/19 08:57: Sodium 133 L, Potassium 4.0, Chloride 99, Carbon Dioxide 26.0, Anion Gap 8, BUN 12, Creatinine 0.45 L, Estim Creat Clear Calc 43.70, Est GFR (MDRD) Af Amer 175, Est GFR (MDRD) Non-Af 145, BUN/Creatinine Ratio 26.5 H, Glucose 89, Calcium 7.7 L, Total Bilirubin 0.70, Direct Bilirubin 0.44 H, AST 15, ALT 17, Alkaline Phosphatase 143 H, Total Protein 5.8 L, Albumin 1.7 L, Globulin 4.1, Lipase < 10 L 11/28/19 11:28: Urine Color Yellow, Urine Clarity Clear, Urine pH 6.0, Ur Specific [place] 1.020, Urine Protein 15 H, Urine Glucose (UA) Normal, Urine Ketones 15 H, Urine Occult Blood 10 H, Urine Nitrite Negative, Urine Bilirubin 1 H, Urine Urobilinogen 4 H, Ur Leukocyte Esterase 25 H, Urine RBC 0 SEEN, Urine WBC 0 SEEN, Ur Squamous Epith Cells 0-5 SEEN, Amorphous Sediment 1+, Urine Bacteria 0 SEEN, Urine Mucus 1+ Assessment/Plan All Active Problems Constipation (Acute) Severe protein-calorie malnutrition (Acute) Closed left hip fracture (Acute) Wound infection (Acute) 1. Abdominal pain, distension with dilated colon on CT scan of abd/pelvis secondary to constipation in the setting of chronic opioid use s/p warm water enema with success General surgery consulted, repeat enema, full liquid diet, KUB in am 2. Severe protein calorie malnutrition, BMI 15.3, weapons officer consulted Progressive weight loss over 6 months Will get records from [facility]. 3. Chronic pain secondary to h/o fractures- hip and left wrist, continue on fentanyl. 4. Hypertension, controlled, continue on home clonidine 5. Anemia likely of chronic disease, Hb is 9.6 Will check iron stores 6. Undifferentiated connective tissue disease, not on treatment, will get records from [facility] 7. DVT PPx- SCDs, Heparin SC 8. Code status - Full code Discussed code status with patient and I explained the various types of code statuses- Full code, DNR-CCA and DNR-CC. Patient opted to be full code and wants aggressive measures. Time spent discussing code status: 16 minutes Inpatient E&M: 62799 Init Hosp L3 Procedures: 64171 Advncd Care Plan 30 Min
[2019-11-28 12:19] VITALS: BP 141/86; PULSE 90; RESP 16; TEMP 36.3; O2SAT 97
--- NOTE | 2019-11-28 12:23 | ED.RN ---
fentanyl patch is on left shoulder.
[2019-11-28 13:49] VITALS: BP 143/87; PULSE 89; RESP 16; O2SAT 98
[2019-11-28 14:57] VITALS: BP 144/83; PULSE 95; RESP 18; TEMP 36.5; O2SAT 98
[2019-11-28 15:04] VITALS: BMI 15.2
[2019-11-28] MEDS: Morphine 2 MG/ML Syringe IV ×2 (16:08→20:33)
[2019-11-28] MEDS: 0.9% Normal Saline 1,000 ML 75 ML IV (16:09)
--- NOTE | 2019-11-28 16:35 | PCM.NTREPORT ---
Nutrition Therapy Report - History Nutrition Services has been consulted to:: Manage nutrient details of diet order Current diet / nutrition support order:: NPO - Anthropometric Measurements Height:: 5 ft 6 in Weight:: 43 kg Body Mass Index (BMI):: 15.3 - Relevant Labs Relevant Labs:: RBC 3.10 M/mm3 (4.2-5.4) L 11/28/19 08:57 Hgb 9.6 g/dL (12.0-15.0) L 11/28/19 08:57 Hct 29.9 % (37-47) L 11/28/19 08:57 RDW Std Deviation 66.3 fl (35.1-43.9) H 11/28/19 08:57 RDW Coeff of Ama 18.8 % (11.6-14.6) H 11/28/19 08:57 Plt Count 559 K/mm3 (150-450) H 11/28/19 08:57 Neut % (Auto) 70.9 % (47-70) H 11/28/19 08:57 Lymph % (Auto) 11.9 % (19-41) L 11/28/19 08:57 [place] % (Auto) 15.9 % (0-10) H 11/28/19 08:57 Sodium 133 mmol/L (136-145) L 11/28/19 08:57 Creatinine 0.45 mg/dL (0.55-1.02) L 11/28/19 08:57 BUN/Creatinine Ratio 26.5 RATIO (10-20) H 11/28/19 08:57 Calcium 7.7 mg/dL (8.5-10.1) L 11/28/19 08:57 Direct Bilirubin 0.44 mg/dL (0.00-0.30) H 11/28/19 08:57 Alkaline Phosphatase 143 U/L (45-117) H 11/28/19 08:57 Total Protein 5.8 g/dL (6.4-8.2) L 11/28/19 08:57 Albumin 1.7 g/dL (3.2-5.0) L 11/28/19 08:57 Lipase < 10 U/L (73-393) L 11/28/19 08:57 - Assessment Food / Nutrition-Related History:: Pt and pts report pt w/ unintentional wt loss x 6 weeks d/t abdominal pain and state wt 6 wks ago was 130#. CBW 94.8#, wt hx per EMR: 03/18/19 120# 10/23/2018 114.8#, 141.9#. Wt loss 25.2#/21% x 9 months (severe); 35.2#/27% x 6 weeks (severe) per pt wt recall. +NFPE: severe temporal scooping/depression, severe orbital bone hollow look/depression, several clavicle bone protrusion, severe dorsal hand interosseous muscle depression. Pt reports following vegetarian diet. States I eat little bits throughout the day; sips on 1 bottle Ensure per day at home. Experiencing diarrhea and constipation d/t IBS & Crohn's disease- currently constipated, pt notes diarrhea yesterday. Abdomen firm, distended, tender w/ hypoactive BS. States ongoing nausea w/ episodes of vomiting at home- notes It's normal for me because of the problems with my stomach. - Nutrition Diagnosis Problem / Etiology / Signs & Symptoms (PES):: Severe malnutrition in the context of chronic illness related to altered GI function and inadequate oral intake as evidenced by severe unintentional wt loss of 25.2#/21% x 9 months (35.2#/27% x 6 weeks per pt wt recall), </=50% energy intake compared to estimated energy needs >/= 1 month, severe loss of muscle and subcutaneous fat, and BMI 15.3. Evidence of Malnutrition Exists:: Yes Severe PCM:: Chronic Illness - Nutrition Intervention Nutrition Prescription:: [id number] calories, 50-60 gram protein. - Food / Nutrient Delivery Interventions Nutrition support ordered as / adjusted to:: Pt NPO at this time. Agreeable to ONS once diet order able to be advanced. Once advanced will provide fortified foods at pt meals and provide ONS w/ medpass and meals. Rec consideration of alternative nutrition support in view of pt severe malnutrition if it is unlikely pt will be able to progress to diet order. Nutrition education provided?: No - MNT Monitoring Further MNT monitoring and evaluation required?: Yes MNT Follow-up in:: 3-5 days
[2019-11-28 16:41] VITALS: BMI 15.3
--- NOTE | 2019-11-28 17:28 | CON.PCM_ITS ---
Problem List (1) Constipation Status: Acute Qualifiers: Constipation type: unspecified constipation type Qualified Code(s): K59.00 - Constipation, unspecified Reason for Consult Date of Consultation: 11/28/19 History of Present Illness: The patient is a 74 year old F presented to the emergency room with constipation and abdominal pain. Patient denies any nausea or vomiting. Pain does not ra diate. She is not having any dysuria. She reports that she occasionally has constipation. She says it is never been this bad. Past Medical History Past Medical History (Chronic Problems): Chronic Problems Chronic pain (Chronic) Malingering (Chronic) Chronic nausea (Chronic) Abdominal pain (Chronic) palliative care (Chronic) Opioid dependence (Chronic) Irregular heartbeat (Chronic) Neuropathic pain (Chronic) Irritable bowel syndrome (Chronic) Hypertension (Chronic) Vitamin D deficiency (Chronic) Calcium deficiency (Chronic) Muscle spasm (Chronic) B12 deficiency (Chronic) Anemia (Chronic) Allergies amlodipine [From Norvasc] Allergy (Verified 11/28/19 08:49) Unknown ampicillin Allergy (Verified 11/28/19 08:49) Hives celecoxib [From Celebrex] Allergy (Verified 11/28/19 08:49) Unknown cephalexin Allergy (Verified 11/28/19 08:49) Unknown cyclobenzaprine [From Flexeril] Allergy (Verified 11/28/19 08:49) Unknown levofloxacin [From Levaquin] Allergy (Verified 11/28/19 08:49) Unknown mesalamine [From Pentasa] Allergy (Verified 11/28/19 08:49) Unknown NSAIDS (Non-Steroidal Anti-Inflamma Allergy (Verified 11/28/19 08:49) Unknown Penicillins Allergy (Verified 11/28/19 08:49) Rash prochlorperazine [From Compazine] Allergy (Verified 11/28/19 08:49) Unknown sulfamethoxazole [From Bactrim] Allergy (Verified 11/28/19 08:49) Rash trazodone Allergy (Verified 11/28/19 08:49) Unknown trimethoprim [From Bactrim] Allergy (Verified 11/28/19 08:49) Rash zolpidem [From Ambien] Allergy (Verified 11/28/19 08:49) Unknown Home Medications: Ambulatory Orders Medication Instructions Recorded Hyoscyamine Sulfate 0.125 mg SL PRN PRN 09/05/16 Multivitamin [Multiple Vitamins] 1 each PO DAILY 09/05/16 Clonidine HCl [Catapres] 0.1 - 0.2 mg PO TID 04/07/18 Ondansetron [Zofran Odt] 4 mg PO Q6H PRN 04/07/18 Cholecalciferol (VIT D3) [Vitamin 1,000 unit PO DAILY 07/26/18 D] Lisinopril [Zestril] 10 mg PO DAILY 10/23/18 Acetaminophen [Tylenol Extra 1,000 mg PO BID PRN PRN 11/28/19 Strength] Calcium Carbonate [Tums] 1,000 mg PO DAILY@0800 11/28/19 Cyanocobalamin (Vitamin B-12) 1,000 mcg IJ QMONTH 11/28/19 [Cyanocobalamin Injection] Oxycodone HCl 30 mg PO Q4H PRN PRN 11/28/19 fentaNYL patch [Duragesic patch] 25 mcg TRANSDERM. Q72H 11/28/19 Surgical History: hysterectomy - salpingo-oopherectomy., total hip arthroplasty - Bilateral with revision. 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 Denies: Diarrhea, Dyspepsia, Hematemesis, Hematochezia, Nausea, Vomiting Genitourinary: Denies: Dysuria, Frequency Skin: Denies: Jaundice Neurological: Denies: Balance problems Psychiatric: Denies: Anxiety Patient Problems: Active and Suspected Problems Constipation (Acute) - Physical Exam Vitals/I&O's: Vital Signs Temp Pulse Resp BP Pulse Ox 97.7 F L 95 18 144/83 H 98 11/28/19 14:57 11/28/19 14:57 11/28/19 14:57 11/28/19 14:57 11/28/19 14:57 Oxygen Delivery Method Room Air Weight: 94 lb 12.784 oz Body Mass Index (BMI) 15.3 Intake and Output for Last 24 Hours 11/26/19 11/27/19 11/28/19 23:59 23:59 23:59 Intake Total 1000 / 1000 Balance 1000 / 1000 General: Alert, Oriented x3, Cooperative Neck: No JVD Lungs: Normal air movement Abdomen: Soft, Non Tender, Distended Laboratory Results 11/28/19 08:57: WBC 7.1, RBC 3.10 L, Hgb 9.6 L, Hct 29.9 L, MCV 96.5, MCH 31.0, MCHC 32.1, RDW Std Deviation 66.3 H, RDW Coeff of Ama 18.8 H, Plt Count 559 H, MPV 8.8, Immature Gran % (Auto) 0.600, Neut % (Auto) 70.9 H, Lymph % (Auto) 11.9 L, [place] % (Auto) 15.9 H, Eos % (Auto) 0.1, Baso % (Auto) 0.6, Absolute Neuts (auto) 5.1, Absolute Lymphs (auto) 0.85, Nucleated RBC % 0, Differential Comment SCANNED, Hypochromasia 2+, Poikilocytosis 2+ 11/28/19 08:57: Sodium 133 L, Potassium 4.0, Chloride 99, Carbon Dioxide 26.0, Anion Gap 8, BUN 12, Creatinine 0.45 L, Estim Creat Clear Calc 43.70, Est GFR (MDRD) Af Amer 175, Est GFR (MDRD) Non-Af 145, BUN/Creatinine Ratio 26.5 H, Glucose 89, Calcium 7.7 L, Total Bilirubin 0.70, Direct Bilirubin 0.44 H, AST 15, ALT 17, Alkaline Phosphatase 143 H, Total Protein 5.8 L, Albumin 1.7 L, Globulin 4.1, Lipase < 10 L 11/28/19 11:28: Urine Color Yellow, Urine Clarity Clear, Urine pH 6.0, Ur Specific [place] 1.020, Urine Protein 15 H, Urine Glucose (UA) Normal, Urine Ketones 15 H, Urine Occult Blood 10 H, Urine Nitrite Negative, Urine Bilirubin 1 H, Urine Urobilinogen 4 H, Ur Leukocyte Esterase 25 H, Urine RBC 0 SEEN, Urine WBC 0 SEEN, Ur Squamous Epith Cells 0-5 SEEN, Amorphous Sediment 1+, Urine Bacteria 0 SEEN, Urine Mucus 1+ Current Medications Acetaminophen (Acetaminophen 325 Mg Tablet) 650 mg PO Q6H PRN PRN PRN Reason: Pain Score 1-10/Temp > 100.7 F Al Hydroxide/Mg Hydroxide (Mag Hydrox/Al Hydrox/Simeth 30 Ml Udc) 30 ml PO Q6H PRN PRN PRN Reason: Gastric Burning Albuterol Sulfate (Albuterol 2.5 Mg/3 Ml Vial.Neb.) 2.5 mg INHALATION Q2H PRN PRN PRN Reason: Shortness of Breath/Wheezing Bisacodyl (Bisacodyl 10 Mg Suppository) 10 mg RECTAL DAILY [facility] Clonidine (Clonidine Hcl 0.1 Mg Tablet) 0.1 mg PO TID MARK Fentanyl (Fentanyl 25 Mcg Patch) 25 mcg TRANSDERM. Q72H [facility] Sodium Chloride () 1,000 mls @ 75 mls/hr IV .[id number] [facility] Stop: 11/29/19 04:04 Last Admin: 11/28/19 16:09 Dose: 75 mls/hr Documented by: Morphine Sulfate (Morphine 2 Mg/Ml Syringe) 2 mg IV Q3H PRN PRN PRN Reason: Pain Score 6-10 Last Admin: 11/28/19 16:08 Dose: 2 mg Documented by: Senna/Docusate Sodium (Senna/Docusate Sodium 1 Tablet) 2 tablet PO BID PRN PRN PRN Reason: Constipation Sodium Chloride (0.9% Saline Lock 10 Ml Syringe) 10 - 40 ml IV UD PRN PRN Reason: SALINE FLUSH Assessment/Plan All Active Problems Constipation (Acute) Closed left hip fracture (Acute) Wound infection (Acute) 74-year-old female with constipation 1. I reviewed the patient's CT scan. The patient has a copious amount of stool in the rectosigmoid colon. She also has a lot of gas proximally. I believe this is the cause of her distention. Her small bowel is nondilated. The patient was disimpacted by Dr. Santana and had a bowel movement after having a fleets enema and a soapsuds enema. Patient is still mildly distended and having some abdominal pain. I would recommend a repeat soapsuds enema. I will order her a full liquid diet and order a KUB for the morning. Brennan Shukla MD Pager: [facility] [address] [place] [address], [address] [place] [address] Office:
[2019-11-28] MEDS: Senna/Docusate Sodium 1 Tablet 2 TABLET PO (20:33)
[2019-11-28] MEDS: cloNIDine HCl 0.1 MG Tablet PO (20:34)
[2019-11-28] MEDS: Acetaminophen 325 MG Tablet 650 MG PO (20:35)
[2019-11-28 20:40] VITALS: BP 124/74; PULSE 97; RESP 16; TEMP 37.3; O2SAT 97
[2019-11-29 02:14] VITALS: BP 134/79; PULSE 87; RESP 16; TEMP 36.6; O2SAT 96
[2019-11-29] MEDS: cloNIDine HCl 0.1 MG Tablet PO ×3 (05:39→20:10)
[2019-11-29] MEDS: Acetaminophen 325 MG Tablet 650 MG PO ×2 (05:42→15:36)
[2019-11-29] MEDS: Morphine 2 MG/ML Syringe IV (05:42)
[2019-11-29 05:45] LABS: Absolute Lymphocyte Count 0.88 X10^3/uL (0.83-4.51); Absolute Neutrophil Count 4.1 X10^3/uL (2.0-7.7); Basophil# 0.03 X10^3/uL; Basophil% 0.5 % (0-1); Eosinophil# 0.01 X10^3/uL; Eosinophils% 0.2 % (0-5); Hematocrit 30.3 % (37-47); Hemoglobin 9.4 g/dL (12.0-15.0); Lymphocyte # 0.88 X10^3/ul (4.0); Lymphocyte % 14.8 % (19-41); Mean Platelet Vol. 8.8 fl (6.2-12.0); Monocyte% 15.1 % (0-10); NRBC Flagged by Analyzer 0 % (0-5); Neutrophil # 4.07 X10^3/uL (2.7-7.7); Neutrophil % 68.2 % (47-70); POSITIVE MORPHOLOGY YES; Platelet Count 487 K/mm3 (150-450); RBC Distribution Width CV 19.5 % (11.6-14.6); RBC Distribution Width SD 70.8 fl (35.1-43.9); Red Blood Count 3.03 M/mm3 (4.2-5.4)
[2019-11-29 05:51] LABS: Differential Indicated SCAN CRITERIA MET
--- NOTE | 2019-11-29 05:55 | RAD_ITS ---
STUDY: X-RAY - ABDOMEN/PELVIS REASON FOR EXAM: Female, 74 years old. Ileus TECHNIQUE: Single AP view of the abdomen / pelvis. COMPARISON: Comparison is made with prior CT scan of the abdomen dated 11/28/2019. FINDINGS: There is an abundance of fecal material throughout the colon. There is less gaseous distention of the colon at this time. Contrast is seen within the bladder from the recent CT scan. A rectal tube is seen. Soft tissue calcifications overlying both buttocks. The patient is status post bilateral hip replacement. RAD/Abdomen Single View (Portable) IMPRESSION: Large amount of residual fecal material is seen in the colon. There is less colonic distention at this time. A rectal tube is seen. Electronically Signed: Robb West, at 9:47 EDT , Service support ,
[2019-11-29 06:05] LABS: ALB/GLOB Ratio 0.4 RATIO (0.9-2.4); AST(SGOT) 19 U/L (15-37); Alanine Aminotransfer ALT/SGPT 15 U/L (13-56); Albumin, Serum 1.5 g/dL (3.2-5.0); Alkaline Phosphatase 122 U/L (45-117); Anion Gap 5 (5-15); BUN 12 mg/dL (7-18); BUN/Creat Ratio 38.6 RATIO (10-20); Calcium,Total 7.1 mg/dL (8.5-10.1); Chloride 98 mmol/L (98-107); Creatinine, Serum 0.31 mg/dL (0.55-1.02); EST Glomerular Filtration Rate 223 mL/min (>60); Est Glom Filt Rate - Afr Amer 270 mL/min (>60); Estimated Creatinine Clearance 34.52 ml/min; Globulin 3.8 g/dL (2.2-4.2); Glucose 58 mg/dL (74-106); Potassium 3.6 mmol/L (3.5-5.1); Protein, Total 5.3 g/dL (6.4-8.2); Sodium Level 131 mmol/L (136-145)
[2019-11-29 06:10] LABS: Ferritin 381 ng/mL (8-252); Iron 39 ug/dL (50-170); Iron Binding Capacity,Total 59 ug/dL (250-450); PERCENT IRON SATURATION 66.1 % (15.0-55.0)
[2019-11-29 06:32] LABS: Differential Comment SCANNED
[2019-11-29 06:33] LABS: Anisocytosis 1+; Macrocytosis 1+
[2019-11-29 06:34] LABS: Hypochromasia 1+; Schistocytes RARE
[2019-11-29] MEDS: Magnesium Citrate 300 ML PO (08:14)
[2019-11-29] MEDS: Bisacodyl 10 MG Suppository RECTAL (08:14)
--- NOTE | 2019-11-29 08:35 | PN_ITS ---
Patient Problems: Active and Suspected Problems Constipation (Acute) Severe protein-calorie malnutrition (Acute) Reason for Visit: Follow-up on constipation/abdominal distention Subjective: Patient was seen and examined. She had 2 large bowel movements last night. Her abdominal distention and pain is improved. Complains of pain in her hips. Denies any fever or chills or nausea or vomiting. KUB still shows a large amount of stool. Objective: Physical exam: General: Alert, Oriented x3, Cooperative, - - cachetic, pale, moderately dehydrated, in discomfort, looks chronically unwell HEENT: Atraumatic, PERRLA, EOMI, Normocephalic Oral: Dry Mucosa Neck: Supple Lungs: Clear to auscultation, Normal air movement Cardiovascular: Regular rate, Regular Rhythm, Normal S1, Normal S2, No murmurs Abdomen: Bowel Sounds Present, Soft, Non Tender, No Hepato-splenomegaly, improved distention, - - midline scar. Extremities: No edema Skin: No rashes, No breakdown Musculoskeletal: Tenderness - over the hip joints Neurological: Cranial nerves II-XII grossly intact Psych/Mental Status: Normal Affect, Appropriate Vitals/I&O's: Vital Signs Temp Pulse Resp BP Pulse Ox 98 F 87 16 134/79 H 96 11/29/19 02:14 11/29/19 02:14 11/29/19 02:14 11/29/19 02:14 11/29/19 02:14 Oxygen Delivery Method Room Air Weight: 42.003 kg Body Mass Index (BMI) 15.3 Intake and Output for Last 24 Hours 11/27/19 11/28/19 11/29/19 23:59 23:59 23:59 Intake Total 1000 / 1000 1100 / 1100 Balance 1000 / 1000 1100 / 1100 Laboratory Results 11/28/19 08:57: WBC 7.1, RBC 3.10 L, Hgb 9.6 L, Hct 29.9 L, MCV 96.5, MCH 31.0, MCHC 32.1, RDW Std Deviation 66.3 H, RDW Coeff of Ama 18.8 H, Plt Count 559 H, MPV 8.8, Immature Gran % (Auto) 0.600, Neut % (Auto) 70.9 H, Lymph % (Auto) 11.9 L, [place] % (Auto) 15.9 H, Eos % (Auto) 0.1, Baso % (Auto) 0.6, Absolute Neuts (auto) 5.1, Absolute Lymphs (auto) 0.85, Nucleated RBC % 0, Differential Comment SCANNED, Hypochromasia 2+, Poikilocytosis 2+ 11/28/19 08:57: Sodium 133 L, Potassium 4.0, Chloride 99, Carbon Dioxide 26.0, Anion Gap 8, BUN 12, Creatinine 0.45 L, Estim Creat Clear Calc 43.70, Est GFR (MDRD) Af Amer 175, Est GFR (MDRD) Non-Af 145, BUN/Creatinine Ratio 26.5 H, Glucose 89, Calcium 7.7 L, Total Bilirubin 0.70, Direct Bilirubin 0.44 H, AST 15, ALT 17, Alkaline Phosphatase 143 H, Total Protein 5.8 L, Albumin 1.7 L, Globulin 4.1, Lipase < 10 L 11/28/19 11:28: Urine Color Yellow, Urine Clarity Clear, Urine pH 6.0, Ur Specific [place] 1.020, Urine Protein 15 H, Urine Glucose (UA) Normal, Urine Ketones 15 H, Urine Occult Blood 10 H, Urine Nitrite Negative, Urine Bilirubin 1 H, Urine Urobilinogen 4 H, Ur Leukocyte Esterase 25 H, Urine RBC 0 SEEN, Urine WBC 0 SEEN, Ur Squamous Epith Cells 0-5 SEEN, Amorphous Sediment 1+, Urine Bacteria 0 SEEN, Urine Mucus 1+ 11/29/19 05:35: WBC 6.0, RBC 3.03 L, Hgb 9.4 L, Hct 30.3 L, MCV 100.0 H, MCH 31.0, MCHC 31.0 L, RDW Std Deviation 70.8 H, RDW Coeff of Ama 19.5 H, Plt Count 487 H, MPV 8.8, Immature Gran % (Auto) 1.200 H, Neut % (Auto) 68.2, Lymph % (Auto) 14.8 L, [place] % (Auto) 15.1 H, Eos % (Auto) 0.2, Baso % (Auto) 0.5, Absolute Neuts (auto) 4.1, Absolute Lymphs (auto) 0.88, Nucleated RBC % 0, Differential Comment SCANNED, Hypochromasia 1+, Anisocytosis 1+, Macrocytosis 1+, Schistocytes RARE 11/29/19 05:35: Sodium 131 L, Potassium 3.6, Chloride 98, Carbon Dioxide 28.0, Anion Gap 5, BUN 12, Creatinine 0.31 L, Estim Creat Clear Calc 34.52, Est GFR (MDRD) Af Amer 270, Est GFR (MDRD) Non-Af 223, BUN/Creatinine Ratio 38.6 H, Glucose 58 L, Calcium 7.1 L, Total Bilirubin 0.70, AST 19, ALT 15, Alkaline Phosphatase 122 H, Total Protein 5.3 L, Albumin 1.5 L, Globulin 3.8, Albumin/Globulin Ratio 0.4 L 11/29/19 05:35: Iron 39 L, TIBC 59 L, Iron Saturation 66.1 H, Ferritin 381 H Current Medications Acetaminophen (Acetaminophen 325 Mg Tablet) 650 mg PO Q6H PRN PRN PRN Reason: Pain Score 1-10/Temp > 100.7 F Last Admin: 11/29/19 05:42 Dose: 650 mg Documented by: Al Hydroxide/Mg Hydroxide (Mag Hydrox/Al Hydrox/Simeth 30 Ml Udc) 30 ml PO Q6H PRN PRN PRN Reason: Gastric Burning Albuterol Sulfate (Albuterol 2.5 Mg/3 Ml Vial.Neb.) 2.5 mg INHALATION Q2H PRN PRN PRN Reason: Shortness of Breath/Wheezing Bisacodyl (Bisacodyl 10 Mg Suppository) 10 mg RECTAL DAILY [facility] Last Admin: 11/29/19 08:14 Dose: 10 mg Documented by: Bisacodyl (Bisacodyl 5 Mg Tablet) 5 mg PO DAILY [facility] Clonidine (Clonidine Hcl 0.1 Mg Tablet) 0.1 mg PO TID [facility] Last Admin: 11/29/19 05:39 Dose: 0.1 mg Documented by: Fentanyl (Fentanyl 25 Mcg Patch) 25 mcg TRANSDERM. Q72H [facility] Heparin Sodium (Porcine) (Heparin Injection (Vial) 5,000 Unit/Ml Vial) 5,000 unit SC Q12 [facility] Ferric Sodium Gluconate Complex 250 mg/ Sodium Chloride 270 mls @ 135 mls/hr IV DAILY [facility] Stop: 12/01/19 11:59 Sodium Chloride () 250 mls @ 15 mls/hr IV .[id number] PRN PRN Reason: Saline Flush Sodium Chloride () 250 mls @ 15 mls/hr IV .[id number] PRN PRN Reason: Additional IVPB Infusion Morphine Sulfate (Morphine 2 Mg/Ml Syringe) 2 mg IV Q3H PRN PRN PRN Reason: Pain Score 6-10 Last Admin: 11/29/19 05:42 Dose: 2 mg Documented by: Nutritional Formula (Lactose Free) (Ensure Enlive 120 Ml Liquid) 120 ml PO 4X/DAY MARK Last Admin: 11/29/19 08:13 Dose: 120 ml Documented by: Ondansetron HCl (Ondansetron 4 Mg/2 Ml Vial) 4 mg IV Q6H PRN PRN PRN Reason: NAUSEA/VOMITING Senna/Docusate Sodium (Senna/Docusate Sodium 1 Tablet) 2 tablet PO BID MARK Sodium Chloride (0.9% Saline Lock 10 Ml Syringe) 10 - 40 ml IV UD PRN PRN Reason: SALINE FLUSH Medical Necessity - Tobacco Use Smoking Status: Never smoker Tobacco Use: Non-smoker Assessment/Plan All Active Problems Constipation (Acute) Severe protein-calorie malnutrition (Acute) Closed left hip fracture (Acute) Wound infection (Acute) 1. Abdominal pain/distension with dilated colon on CT scan of abd/pelvis secondary to constipation in the setting of chronic opioid use Pain and distension has improved a lot. s/p warm water enema with success yesterday Repeat KUB still shows a large amount of stool. General surgery following, repeat enema, full liquid diet 2. Severe protein calorie malnutrition, BMI 15.3, traveling sales representative consulted Progressive weight loss over 6 months Waiting on records from [facility]. 3. Chronic pain secondary to h/o fractures- hip and left wrist, continue on fentanyl. 4. Hypertension, controlled, continue on home clonidine 5. Anemia likely of chronic disease/iron deficiency, Hb is 9.4 Continue on IV venofer 6. Undifferentiated connective tissue disease, not on treatment, waiting on records from [facility] 7. DVT PPx- SCDs, Heparin SC 8. Code status - Full code Inpatient E&M: 63873 Subs Hosp L2
[2019-11-29 08:57] VITALS: BP 128/69; PULSE 73; RESP 20; TEMP 37; O2SAT 94
[2019-11-29] MEDS: Ondansetron 4 MG/2 ML Vial IV (08:59)
[2019-11-29] MEDS: 0.9% Saline Lock 10 ML Syringe IV ×2 (08:59→11:50)
--- NOTE | 2019-11-29 10:20 | CASEMGMT ---
PEACE BARAKAT Face to Face with patient for initial transition planning/care coordination assessment. RN CM introduced self and role at [facility]. Patient lying in bed, alert and oriented, at bedside. Patient willing to participate in assessment and is able to answer all questions appropriately. Care providers, pharmacy, and demographics verified. Patient wishes to discharge home, with possible HHC. Also discussed possible SNF if recommended by therapy . Patient states she has no further needs or concerns at this time. CM to follow for discharge planning needs that may arise. PCP: Horacio Specialists: none Preferred Pharmacy: [facility] Insurance[facility] Benefit: yes Living Will/HPOA: yes, Heri Mazariegos LNOK: Living Arrangements: Patient lives with in a 1 story home with 2 steps and railing to enter the home. Patient states she is normally independent at home but has been assisting some. Transportation: DME/HHC: Patient states has shower chair, raised toilet, cane, walker, grab bars. Patient has previously been to TCU in the past. Disposition Plan: TBD by progress with therapy. Will provide list of HHC to patient to review. Claudia PAUL, RN, CM
[2019-11-29] MEDS: Sodium Ferric Gluconat 250 MG in 0.9% Normal Saline 250 ML 135 MG IV (10:31)
[2019-11-29] MEDS: Senna/Docusate Sodium 1 Tablet 2 TABLET PO ×2 (10:34→20:10)
[2019-11-29] MEDS: Heparin Injection (Vial) 5,000 UNIT/ML VIAL 5000 UNIT SC ×2 (10:34→20:11)
[2019-11-29] MEDS: Bisacodyl 5 MG Tablet PO (10:34)
--- NOTE | 2019-11-29 11:13 | CASEMGMT ---
Addendum entered by Claudia Huang 11/29/19 11:24: SW also spoke with pt regarding Palliative Care. Pt states she used to have Palliative Care services but not anymore. Pt denied wanting new referral being sent. Pt denied needing any additional help at home. Pt denied needing any DME or HHC. Pt states her plan is to return home at discharge. Original Note: Social Work Note SW received consult for helping pt cope with new diagnosis. SW in to speak with pt. Pt's Heri present in room. Pt gave this worker permission to speak with pt in front of her guest. Pt states that she lives with her at home, denied having any children. Pt states that she has good relationship with her and he is supportive. Pt states that she has additional family members that are supportive. SW asked pt how she is handling new diagnosis and pt stated I am used to it. Pt states that she feels supportive, denies any feelings of anxiety or depression. Pt denied any mental health hx. Pt denied additional needs or concerns at this time. Claudia Huang CHARGE COORDINATOR, CALKER
[2019-11-29] MEDS: Morphine 2 MG/ML Syringe 1 MG IV ×2 (11:49→20:07)
[2019-11-29 12:54] VITALS: BP 128/71; PULSE 102; RESP 20; TEMP 36.8; O2SAT 98
--- NOTE | 2019-11-29 14:25 | CASEMGMT ---
PEACE CM in to discuss HHC with patient and . RN CM provided list of HHC to patient and to review and select preferences. RN CM will follow-up with patient to make HHC referral.
[2019-11-29 15:33] VITALS: BP 143/71; PULSE 97; RESP 20; TEMP 37.2; O2SAT 100
[2019-11-29] MEDS: oxyCODONE 5 MG Tablet 30 MG PO ×2 (15:34→21:48)
[2019-11-29] MEDS: fentaNYL 25 MCG Patch TRANSDERM. (15:39)
--- NOTE | 2019-11-29 15:43 | NURSING ---
pt own duragesic patch removed from left shoulder area and wasted in narc container/liquid in med room - verified by Lucian RN.
[2019-11-29 19:57] VITALS: BP 140/81; PULSE 83; RESP 18; TEMP 36.8; O2SAT 96
[2019-11-30] MEDS: Ondansetron 4 MG/2 ML Vial IV (01:59)
[2019-11-30] MEDS: 0.9% Saline Lock 10 ML Syringe IV (02:00)
[2019-11-30] MEDS: Acetaminophen 325 MG Tablet 650 MG PO (02:09)
[2019-11-30] MEDS: Morphine 2 MG/ML Syringe 1 MG IV ×2 (02:10→08:50)
--- NOTE | 2019-11-30 06:21 | RAD_ITS ---
STUDY: X-RAY - ABDOMEN/PELVIS REASON FOR EXAM: Female, 74 years old. ABDOMINAL DISTENSION. TECHNIQUE: Single AP view of the abdomen / pelvis. COMPARISON: 11/29/2019. FINDINGS: Lung bases are excluded from [id number]. Moderately distended loops of primarily large bowel seen throughout the abdomen could represent ileus. No evidence for obstruction. Contrast in the area of the stomach is seen and not definitely seen previously. Probable fecal impaction in the rectosigmoid. Stable appearance of bilateral hip arthroplasties. Stable appearance of soft tissue calcifications in both lungs. RAD/Abdomen Single View (Portable) IMPRESSION: Probable diffuse ileus with fecal retention, probable fecal impaction in the rectosigmoid. Electronically Signed: Rick Hensley MD at 20:57 EDT , Service support ,
[2019-11-30 06:52] VITALS: BP 123/80; PULSE 82
[2019-11-30] MEDS: cloNIDine HCl 0.1 MG Tablet PO ×2 (06:52→13:23)
[2019-11-30] MEDS: oxyCODONE 5 MG Tablet 30 MG PO ×2 (07:00→13:14)
[2019-11-30 08:00] VITALS: BP 130/85; PULSE 88; RESP 18; TEMP 36.6; O2SAT 97
[2019-11-30] MEDS: Bisacodyl 5 MG Tablet PO (08:33)
[2019-11-30] MEDS: Senna/Docusate Sodium 1 Tablet 2 TABLET PO (08:33)
[2019-11-30] MEDS: Heparin Injection (Vial) 5,000 UNIT/ML VIAL 5000 UNIT SC (08:34)
--- NOTE | 2019-11-30 08:41 | PN.SURG_ITS ---
Patient Problems: Active and Suspected Problems Constipation (Acute) Severe protein-calorie malnutrition (Acute) Subjective: Patient is not complaining of any abdominal pain now. Objective: Abdomen is soft nontender - Physical Exam Vitals/I&O's: Vital Signs Temp Pulse Resp BP Pulse Ox 97.9 F 88 18 130/85 H 97 11/30/19 08:00 11/30/19 08:00 11/30/19 08:00 11/30/19 08:00 11/30/19 08:00 Oxygen Delivery Method Room Air Weight: 91 lb 4.342 oz Body Mass Index (BMI) 15.3 Intake and Output for Last 24 Hours 11/28/19 11/29/19 11/30/19 23:59 23:59 23:59 Intake Total 1000 / 1000 1974.5 / 2194.5 375.5 / 375.5 Balance 1000 / 1000 1974.5 / 2194.5 375.5 / 375.5 Current Medications Acetaminophen (Acetaminophen 325 Mg Tablet) 650 mg PO Q6H PRN PRN PRN Reason: Pain Score 1-10/Temp > 100.7 F Last Admin: 11/30/19 02:09 Dose: 650 mg Documented by: Al Hydroxide/Mg Hydroxide (Mag Hydrox/Al Hydrox/Simeth 30 Ml Udc) 30 ml PO Q6H PRN PRN PRN Reason: Gastric Burning Albuterol Sulfate (Albuterol 2.5 Mg/3 Ml Vial.Neb.) 2.5 mg INHALATION Q2H PRN PRN PRN Reason: Shortness of Breath/Wheezing Bisacodyl (Bisacodyl 10 Mg Suppository) 10 mg RECTAL DAILY [facility] Last Admin: 11/30/19 08:34 Dose: Not Given Documented by: Bisacodyl (Bisacodyl 5 Mg Tablet) 5 mg PO DAILY [facility] Last Admin: 11/30/19 08:33 Dose: 5 mg Documented by: Clonidine (Clonidine Hcl 0.1 Mg Tablet) 0.1 mg PO TID [facility] Last Admin: 11/30/19 06:52 Dose: 0.1 mg Documented by: Fentanyl (Fentanyl 25 Mcg Patch) 25 mcg TRANSDERM. Q72H [facility] Last Admin: 11/29/19 15:39 Dose: 25 mcg Documented by: Heparin Sodium (Porcine) (Heparin Injection (Vial) 5,000 Unit/Ml Vial) 5,000 unit SC Q12 [facility] Last Admin: 10/17/20 08:34 Dose: 5,000 unit Documented by: Ferric Sodium Gluconate Complex 250 mg/ Sodium Chloride 270 mls @ 135 mls/hr IV DAILY [facility] Stop: 12/01/19 11:59 Last Infusion: 11/29/19 12:54 Dose: Infused Documented by: Sodium Chloride () 250 mls @ 15 mls/hr IV .[id number] PRN PRN Reason: Saline Flush Last Admin: 11/30/19 05:40 Dose: 15 mls/hr Documented by: Sodium Chloride () 250 mls @ 15 mls/hr IV .[id number] PRN PRN Reason: Additional IVPB Infusion Pantoprazole Sodium 40 mg/ (Sodium Chloride) 110 mls @ 330 mls/hr IV Q12 [facility] Last Admin: 11/30/19 08:37 Dose: 330 mls/hr Documented by: Morphine Sulfate (Morphine 2 Mg/Ml Syringe) 1 mg IV Q4H PRN PRN PRN Reason: Pain Score 6-10 Last Admin: 11/30/19 02:10 Dose: 1 mg Documented by: Nutritional Formula (Lactose Free) (Ensure Enlive 120 Ml Liquid) 120 ml PO 4X/DAY [facility] Last Admin: 11/30/19 08:37 Dose: 120 ml Documented by: Ondansetron HCl (Ondansetron 4 Mg/2 Ml Vial) 4 mg IV Q6H PRN PRN PRN Reason: NAUSEA/VOMITING Last Admin: 11/30/19 01:59 Dose: 4 mg Documented by: Oxycodone HCl (Oxycodone 5 Mg Tablet) 30 mg PO Q6H PRN PRN PRN Reason: Pain Score 6-10 Last Admin: 11/30/19 07:00 Dose: 30 mg Documented by: Senna/Docusate Sodium (Senna/Docusate Sodium 1 Tablet) 2 tablet PO BID [facility] Last Admin: 11/30/19 08:33 Dose: 2 tablet Documented by: Sodium Chloride (0.9% Saline Lock 10 Ml Syringe) 10 - 40 ml IV UD PRN PRN Reason: SALINE FLUSH Last Admin: 11/30/19 02:00 Dose: 10 ml Documented by: Medical Necessity - Tobacco Use Smoking Status: Never smoker Tobacco Use: Non-smoker Assessment/Plan All Active Problems Constipation (Acute) Severe protein-calorie malnutrition (Acute) Closed left hip fracture (Acute) Wound infection (Acute) We will sign off Inpatient E&M: 74134 Subs Hosp L2
--- NOTE | 2019-11-30 09:57 | DCINST_ITS ---
- Discharge Diagnoses Current Active Problems: Current Active and Chronic Problems Constipation (Acute) Severe protein-calorie malnutrition (Acute) Chronic pain (Chronic) Hypertension (Chronic) Vitamin D deficiency (Chronic) Anemia (Chronic) Reason(s) for Visit for Discharge Instructions: Abdominal pain, distension, c onstipation You will use the following diet at home:: Regular Your food should be the consistency of: Regular Your liquids should be the consistency of: Regular/Thin Discharge Activity: Return to Normal Activity Additional Instructions: Take note off your stool softeners. Continue on your nutritional supplements. Follow-up with your primary care doctor and domestic travel consultant in 2 weeks. Allergies/Adverse Reactions: Allergies amlodipine [From Norvasc] Allergy (Verified 11/28/19 08:49) Unknown ampicillin Allergy (Verified 11/28/19 08:49) Hives celecoxib [From Celebrex] Allergy (Verified 11/28/19 08:49) Unknown cephalexin Allergy (Verified 11/28/19 08:49) Unknown cyclobenzaprine [From Flexeril] Allergy (Verified 11/28/19 08:49) Unknown levofloxacin [From Levaquin] Allergy (Verified 11/28/19 08:49) Unknown mesalamine [From Pentasa] Allergy (Verified 11/28/19 08:49) Unknown NSAIDS (Non-Steroidal Anti-Inflamma Allergy (Verified 11/28/19 08:49) Unknown Penicillins Allergy (Verified 11/28/19 08:49) Rash prochlorperazine [From Compazine] Allergy (Verified 11/28/19 08:49) Unknown sulfamethoxazole [From Bactrim] Allergy (Verified 11/28/19 08:49) Rash trazodone Allergy (Verified 11/28/19 08:49) Unknown trimethoprim [From Bactrim] Allergy (Verified 11/28/19 08:49) Rash zolpidem [From Ambien] Allergy (Verified 11/28/19 08:49) Unknown Medications to take at Discharge Hyoscyamine Sulfate 0.125 mg SL PRN PRN 09/05/16 Multivitamin [Multiple Vitamins] 1 each PO DAILY 09/05/16 Clonidine HCl [Catapres] 0.1 - 0.2 mg PO TID 04/07/18 Ondansetron [Zofran Odt] 4 mg PO Q6H PRN 04/07/18 Cholecalciferol (VIT D3) [Vitamin D3] 1,000 unit PO DAILY 07/26/18 Lisinopril [Zestril] 10 mg PO DAILY 10/23/18 Acetaminophen [Tylenol Extra Strength] 1,000 mg PO BID PRN PRN 11/28/19 Calcium Carbonate [Tums] 1,000 mg PO DAILY@0800 11/28/19 Cyanocobalamin (Vitamin B-12) [Cyanocobalamin Injection] 1,000 mcg IJ QMONTH 11/28/19 Oxycodone HCl 30 mg PO Q4H PRN PRN 11/28/19 fentaNYL patch [Duragesic patch] 25 mcg TRANSDERM. Q72H 11/28/19 Acetaminophen [Tylenol Tablet] 650 mg PO Q6H PRN PRN tab 11/30/19 Bisacodyl [Dulcolax] 5 mg PO DAILY #30 tab 11/30/19 Ensure Enlive 120 ml PO 4X/DAY 30 Days #120 liquid 11/30/19 Senna/Docusate Sodium [Senokot-S] 2 tab PO BID 30 Days #120 tab 11/30/19 The following prescriptions were given: Bisacodyl [Dulcolax] 5 mg PO DAILY #30 tab Transmission Status: Pending to [facility]/pharmacy #[id number] Ensure Enlive 120 ml PO 4X/DAY 30 Days #120 liquid Transmission Status: Pending to [facility]/pharmacy #[id number] Primary Care Physician: Mercedes Leonard MD [Primary Care Provider] - Please follow up with your Primary Care Physician in: within 2 weeks Test Results: Test results from this visit will be discussed in further detail at your follow- up appointment, if applicable. Proposed Discharge Date: 11/30/19
--- NOTE | 2019-11-30 10:01 | DS.PCM_ITS ---
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 - Secondary Discharge Diagnosis Chronic Problems: Chronic Problems Chronic pain (Chronic) Malingering (Chronic) Chronic nausea (Chronic) Abdominal pain (Chronic) palliative care (Chronic) Opioid dependence (Chronic) Irregular heartbeat (Chronic) Neuropathic pain (Chronic) Irritable bowel syndrome (Chronic) Hypertension (Chronic) Vitamin D deficiency (Chronic) Calcium deficiency (Chronic) Muscle spasm (Chronic) B12 deficiency (Chronic) Anemia (Chronic) Hospital Course and Treatment Imaging Results: Clinical Impression(s) from Imaging Studies Abdomen/Pelvis CT 11/28/19 09:00 IMPRESSION: Moderate degree of gaseous distention of the colon with a mild degree of fecal material within the colon more prominent in the rectosigmoid colon. The small bowel is decompressed. Fatty infiltration of the liver Electronically Signed: Robb West, at 11:22 EDT , Service support , KUB X-Ray 11/29/19 05:55 IMPRESSION: Large amount of residual fecal material is seen in the colon. There is less colonic distention at this time. A rectal tube is seen. Electronically Signed: Robb West at 9:47 EDT , Service support , General surgery Operations: None Procedures: None Summary of Care Provided: The patient is a 74 year old F with past medical history of autoimmune pernicious anemia with history of gastrectomy with conversion loop gastrojejunostomy, Carolee-en-Y gastrojejunostomy, history of Crohn's colitis Enterobacter diagnosed in 2017 but not on any medications, chronic back pain status post lumbar microdiscectomy with decompression x2, history of bilateral hip replacements who comes in with complaints of abdominal distention and pain. Her vitals were stable in the ED. Her labs were remarkable for anemia and severe hypoalbuminemia. CT of the abdomen/pelvis showed fluid distention of the distal esophagus, steatosis, gaseous distention of the colon with a large amount of fecal material in the colon especially rectosigmoid colon. Rectal exam showed the rectal vault filled with soft stools. Manual de-compaction was done followed by warm soap suds enema. Patient was also kept on a bowel regimen. She had episodes of vomiting which is not new for her. She will follow-up with her primary care doctor. Patient Problems: Active and Suspected Problems Constipation (Acute) Severe protein-calorie malnutrition (Acute) Subjective: On the day of discharge, patient was seen and examined. She denied any abdominal pain. She felt much improved. She had a bowel movement on morning of discharge. Objective: Physical exam: General: Alert, Oriented x3, Cooperative, - - cachetic, pale, looks chronically unwell HEENT: Atraumatic, PERRLA, EOMI, Normocephalic Oral: Dry Mucosa Neck: Supple Lungs: Clear to auscultation, Normal air movement Cardiovascular: Regular rate, Regular Rhythm, Normal S1, Normal S2, No murmurs Abdomen: Bowel Sounds Present, Soft, Non Tender, No Hepato-splenomegaly, improved distention, - - midline scar. Extremities: No edema Skin: No rashes, No breakdown Musculoskeletal: Tenderness - over the hip joints Neurological: Cranial nerves II-XII grossly intact Psych/Mental Status: Normal Affect, Appropriate - Physical Exam Vitals/I&O's: Vital Signs Temp Pulse Resp BP Pulse Ox 97.9 F 88 18 130/85 H 97 11/30/19 08:00 11/30/19 08:00 11/30/19 08:00 11/30/19 08:00 11/30/19 08:00 Oxygen Delivery Method Room Air Weight: 41.4 kg Body Mass Index (BMI) 15.3 Intake and Output for Last 24 Hours 11/28/19 11/29/19 11/30/19 23:59 23:59 23:59 Intake Total 1000 / 1000 1974.5 / 2194.5 485.5 / 485.5 Balance 1000 / 1000 1974.5 / 2194.5 485.5 / 485.5 Current Medications Acetaminophen (Acetaminophen 325 Mg Tablet) 650 mg PO Q6H PRN PRN PRN Reason: Pain Score 1-10/Temp > 100.7 F Last Admin: 11/30/19 02:09 Dose: 650 mg Documented by: Al Hydroxide/Mg Hydroxide (Mag Hydrox/Al Hydrox/Simeth 30 Ml Udc) 30 ml PO Q6H PRN PRN PRN Reason: Gastric Burning Albuterol Sulfate (Albuterol 2.5 Mg/3 Ml Vial.Neb.) 2.5 mg INHALATION Q2H PRN PRN PRN Reason: Shortness of Breath/Wheezing Bisacodyl (Bisacodyl 10 Mg Suppository) 10 mg RECTAL DAILY [facility] Last Admin: 11/30/19 08:34 Dose: Not Given Documented by: Bisacodyl (Bisacodyl 5 Mg Tablet) 5 mg PO DAILY [facility] Last Admin: 11/30/19 08:33 Dose: 5 mg Documented by: Clonidine (Clonidine Hcl 0.1 Mg Tablet) 0.1 mg PO TID [facility] Last Admin: 11/30/19 06:52 Dose: 0.1 mg Documented by: Fentanyl (Fentanyl 25 Mcg Patch) 25 mcg TRANSDERM. Q72H [facility] Last Admin: 11/29/19 15:39 Dose: 25 mcg Documented by: Heparin Sodium (Porcine) (Heparin Injection (Vial) 5,000 Unit/Ml Vial) 5,000 unit SC Q12 [facility] Last Admin: 11/30/19 08:34 Dose: 5,000 unit Documented by: Ferric Sodium Gluconate Complex 250 mg/ Sodium Chloride 270 mls @ 135 mls/hr IV DAILY [facility] Stop: 12/01/19 11:59 Last Infusion: 11/29/19 12:54 Dose: Infused Documented by: Sodium Chloride () 250 mls @ 15 mls/hr IV .[id number] PRN PRN Reason: Saline Flush Last Admin: 11/30/19 05:40 Dose: 15 mls/hr Documented by: Sodium Chloride () 250 mls @ 15 mls/hr IV .[id number] PRN PRN Reason: Additional IVPB Infusion Pantoprazole Sodium 40 mg/ (Sodium Chloride) 110 mls @ 330 mls/hr IV Q12 [facility] Last Infusion: 11/30/19 08:58 Dose: Infused Documented by: Morphine Sulfate (Morphine 2 Mg/Ml Syringe) 1 mg IV Q4H PRN PRN PRN Reason: Pain Score 6-10 Last Admin: 11/30/19 08:50 Dose: 1 mg Documented by: Nutritional Formula (Lactose Free) (Ensure Enlive 120 Ml Liquid) 120 ml PO 4X/DAY [facility] Last Admin: 11/30/19 08:37 Dose: 120 ml Documented by: Ondansetron HCl (Ondansetron 4 Mg/2 Ml Vial) 4 mg IV Q6H PRN PRN PRN Reason: NAUSEA/VOMITING Last Admin: 11/30/19 01:59 Dose: 4 mg Documented by: Oxycodone HCl (Oxycodone 5 Mg Tablet) 30 mg PO Q6H PRN PRN PRN Reason: Pain Score 6-10 Last Admin: 11/30/19 07:00 Dose: 30 mg Documented by: Senna/Docusate Sodium (Senna/Docusate Sodium 1 Tablet) 2 tablet PO BID [facility] Last Admin: 11/30/19 08:33 Dose: 2 tablet Documented by: Sodium Chloride (0.9% Saline Lock 10 Ml Syringe) 10 - 40 ml IV UD PRN PRN Reason: SALINE FLUSH Last Admin: 11/30/19 02:00 Dose: 10 ml Documented by: Discharge Diet: No Restrictions Discharge Activity: Return to Normal Activity Home Medications: Medications to take at Discharge Hyoscyamine Sulfate 0.125 mg SL PRN PRN 09/05/16 Multivitamin [Multiple Vitamins] 1 each PO DAILY 09/05/16 Clonidine HCl [Catapres] 0.1 - 0.2 mg PO TID 04/07/18 Ondansetron [Zofran Odt] 4 mg PO Q6H PRN 04/07/18 Cholecalciferol (VIT D3) [Vitamin D3] 1,000 unit PO DAILY 07/26/18 Lisinopril [Zestril] 10 mg PO DAILY 10/23/18 Acetaminophen [Tylenol Extra Strength] 1,000 mg PO BID PRN PRN 11/28/19 Calcium Carbonate [Tums] 1,000 mg PO DAILY@0800 11/28/19 Cyanocobalamin (Vitamin B-12) [Cyanocobalamin Injection] 1,000 mcg IJ QMONTH 11/28/19 Oxycodone HCl 30 mg PO Q4H PRN PRN 11/28/19 fentaNYL patch [Duragesic patch] 25 mcg TRANSDERM. Q72H 11/28/19 Acetaminophen [Tylenol Tablet] 650 mg PO Q6H PRN PRN tab 11/30/19 Bisacodyl [Dulcolax] 5 mg PO DAILY #30 tab 11/30/19 Ensure Enlive 120 ml PO 4X/DAY 30 Days #120 liquid 11/30/19 Senna/Docusate Sodium [Senokot-S] 2 tab PO BID 30 Days #120 tab 11/30/19 Following Prescriptions Were Given to Patient: Bisacodyl [Dulcolax] 5 mg PO DAILY #30 tab Transmission Status: Received by [facility]/pharmacy #[id number] Ensure Enlive 120 ml PO 4X/DAY 30 Days #120 liquid Transmission Status: Received by [facility]/pharmacy #[id number] Senna/Docusate Sodium [Senokot-S] 2 tab PO BID 30 Days #120 tab Transmission Status: Received by [facility]/pharmacy #[id number] Primary Care Physician: Mercedes Leonard MD [Primary Care Provider] - Please follow up with your Primary Care Physician in: within 2 weeks Disposition: Home Minutes spent on discharge:: 40 Patient Condition:: Stable Medical Necessity - Tobacco Use Smoking Status: Never smoker Tobacco Use: Non-smoker Meaningful Use Info Meaningful Use Diagnoses (Choose all that apply): None applicable Inpatient E&M: 70023 Disch Hosp
[2019-11-30] MEDS: Sodium Ferric Gluconat 250 MG in 0.9% Normal Saline 250 ML 135 MG IV (10:21)
--- NOTE | 2019-11-30 10:46 | CM.UR ---
Followed up with patient regarding HHC. Patient declines stating that she does this all the time. 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 Family present doesn't object. Alerted Lottie RN, Charge nurse. Rebecca Lang RN, [facility].
[2019-11-30 13:27] VITALS: BP 125/67; PULSE 89; RESP 18; TEMP 36.9; O2SAT 99
== END 2019-11-30 13:40 | disposition home or self-care (01) | DRG 391 ==
LOC: ED 09:14 → MS3 13:42
PROVIDERS: Admitting Provider Internal Medicine; Emergency Provider Emergency Medicine; PCP Internal Medicine; Visit Provider Internal Medicine
DX: K59.00 Constipation, unspecified (principal); E43 Unspecified severe protein-calorie malnutrition; Z68.1 Body mass index [BMI] 19.9 or less, adult; K50.10 Crohn's disease of large intestine without complications; K58.9 Irritable bowel syndrome, unspecified; D50.9 Iron deficiency anemia, unspecified; D51.0 Vitamin B12 deficiency anemia due to intrinsic factor deficiency; I10 Essential (primary) hypertension; E86.0 Dehydration; E55.9 Vitamin D deficiency, unspecified; E58 Dietary calcium deficiency; M62.838 Other muscle spasm; M79.2 Neuralgia and neuritis, unspecified; I49.9 Cardiac arrhythmia, unspecified; G89.4 Chronic pain syndrome; Z51.5 Encounter for palliative care; Z76.5 Malingerer [conscious simulation]; Z90.3 Acquired absence of stomach [part of]; Z90.710 Acquired absence of both cervix and uterus; Z90.49 Acquired absence of other specified parts of digestive tract; Z79.891 Long term (current) use of opiate analgesic; Z79.899 Other long term (current) drug therapy
CPT/HCPCS: 36415; 74018; 74177; 80048; 80053; 80076; 81001; 82728; 83540; 83550; 83690; 85025; 93005; 97162; 97166; 97530; 97535; 97802; 99251; 99285; J7030; J7050; P9612; Q9967; A4216; G0463; J2405; J2916

== ENCOUNTER 2019-12-10 20:57 | Emergency (ER) | payer MEDICARE, OTHER, SELFPAY ==
[2019-12-10 20:58] VITALS: TEMP 36.2; BMI 14.8
--- NOTE | 2019-12-10 20:59 | ED.RN ---
CALLED FOR EKG PER RN REQUEST, PULLED OLD EKGS FOR
[2019-12-10 21:03] VITALS: BP 151/99; PULSE 117; RESP 22; O2SAT 94
--- NOTE | 2019-12-10 21:04 | EKG12_ITS ---
Test Reason : SOB Blood Pressure : / mmHG Vent. Rate : 116 BPM Atrial Rate : 116 BPM P-R Int : 150 ms QRS Dur : 072 ms QT Int : 328 ms P-R-T Axes : 082 084 079 degrees QTc Int : 455 ms Sinus tachycardia Otherwise normal ECG Confirmed by MÓNICA ELLSWORTH, VICKY ([id number]), purchase request editor OLAF BAER ([id number]) on 12/12/2019 9:12:35 AM Referred By: MASSIMO Confirmed By:VICKY SALES MD
[2019-12-10 21:29] LABS: Absolute Lymphocyte Count 0.88 X10^3/uL (0.83-4.51); Absolute Neutrophil Count 14.2 X10^3/uL (2.0-7.7); Basophil# 0.04 X10^3/uL; Basophil% 0.3 % (0-1); Eosinophil# 0.02 X10^3/uL; Eosinophils% 0.1 % (0-5); Hematocrit 36.5 % (37-47); Hemoglobin 11.2 g/dL (12.0-15.0); Lymphocyte # 0.88 X10^3/ul (4.0); Lymphocyte % 5.5 % (19-41); Mean Corp Hgb Conc 30.7 g/dL (32-36); Mean Corpuscular Volume 107.7 fL (81-99); Mean Platelet Vol. 8.6 fl (6.2-12.0); Monocyte# 0.66 X10^3/uL; Monocyte% 4.1 % (0-10); NRBC Flagged by Analyzer 0 % (0-5); Neutrophil # 14.17 X10^3/uL (2.7-7.7); Neutrophil % 88.7 % (47-70); POSITIVE COUNT YES; POSITIVE MORPHOLOGY YES; RBC Distribution Width CV 21.6 % (11.6-14.6); RBC Distribution Width SD 87.5 fl (35.1-43.9); Red Blood Count 3.39 M/mm3 (4.2-5.4)
[2019-12-10 21:37] LABS: Differential Indicated SCAN CRITERIA MET
--- NOTE | 2019-12-10 21:51 | ED.VIS.GEN ---
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 Patient had difficulty getting off of her toilet today. Squad was called for lift assist. On arrival, the patient was tachypneic and hypoxic. She was brought in for further evaluation. Patient does not give much history at baseline. She was on a nonrebreather and was rather dyspneic. We had a difficult time obtaining a peripheral pulse ox. She does have some diminished aeration without wheezing or rhonchi. The patient was recently admitted for functional decline and constipation. At that time, she was noted to have rather significant weight loss. No definitive abnormalities were found to explain it. She has been at home. She states that she has been taking her medications. Prior similar symptoms: No Recent Illness/Hospitalization: Yes Past Medical History - Allergies and Home Meds Allergies/Adverse Reactions: Allergies amlodipine [From Norvasc] Allergy (Verified 11/28/19 08:49) Unknown ampicillin Allergy (Verified 11/28/19 08:49) Hives celecoxib [From Celebrex] Allergy (Verified 11/28/19 08:49) Unknown cephalexin Allergy (Verified 11/28/19 08:49) Unknown cyclobenzaprine [From Flexeril] Allergy (Verified 11/28/19 08:49) Unknown levofloxacin [From Levaquin] Allergy (Verified 11/28/19 08:49) Unknown mesalamine [From Pentasa] Allergy (Verified 11/28/19 08:49) Unknown NSAIDS (Non-Steroidal Anti-Inflamma Allergy (Verified 11/28/19 08:49) Unknown Penicillins Allergy (Verified 11/28/19 08:49) Rash prochlorperazine [From Compazine] Allergy (Verified 11/28/19 08:49) Unknown sulfamethoxazole [From Bactrim] Allergy (Verified 11/28/19 08:49) Rash trazodone Allergy (Verified 11/28/19 08:49) Unknown trimethoprim [From Bactrim] Allergy (Verified 11/28/19 08:49) Rash zolpidem [From Ambien] Allergy (Verified 11/28/19 08:49) Unknown Primary Care Physician: Mercedes Leonard MD [Primary Care Provider] - Prior records reviewed: Yes Past Medical History: - - Crohn's disease, chronic pain, hypertension Surgical History: hysterectomy - salpingo-oopherectomy., total hip arthroplasty - Bilateral with revision. Smoking Status: Never smoker - Family History Paternal Family History: Reports: Heart Disease, Hypertension Maternal Family History: Reports: No pertinent history Review of Systems ROS: Unable to Obtain Physical Exam Vital Signs/Narrative: Vital Signs Temp Pulse Resp BP Pulse Ox 12/10/19 21:03 117 H 22 H 151/99 H 94 12/10/19 20:58 97.2 F L Inital Vital Signs reviewed: Yes General: Cachectic, Acute Distress Head: Normocephalic, Atraumatic Eyes: Perrl, EOMI ENT: No rhinorrhea, Dry mucous membranes Neck: Supple, Nontender Cardiovascular: No murmurs, Tachycardia Respiratory: No distress, Chest nontender, Diminished Abdomen: Soft, Nontender, Nondistended, Normal bowel sounds Back: Nontender, Normal Inspection Extremities: Nontender, No edema Skin: Normal color, No rash Neurological: Cranial nerves II-XII grossly intact, Normal Strength, Normal Sensation, Inattentive Psychological: Normal affect, Normal Mood Diagnostic/Tx/Re-eval Clinical Impression(s) from Imaging Studies Chest X-Ray 12/10/19 21:54 IMPRESSION: No acute pulmonary findings. Electronically Signed: Wilber Laughlin MD at 22:18 EDT Tel , Service support , Chest CTA 12/10/19 22:16 IMPRESSION: No demonstrated pulmonary embolism or arterial dissection. Electronically Signed: Wilber Laughlin MD at 23:33 EDT Tel , Service support , Abnormal Lab Results 12/10/19 12/10/19 12/10/19 21:15 21:15 21:15 WBC 16.0 H RBC 3.39 L Hgb 11.2 L Hct 36.5 L MCV 107.7 H MCH 33.0 H MCHC 30.7 L RDW Std Deviation 87.5 H RDW Coeff of Ama 21.6 H Plt Count 788 H* MPV 8.6 Immature Gran % (Auto) 1.300 H Neut % (Auto) 88.7 H Lymph % (Auto) 5.5 L [place] % (Auto) 4.1 Eos % (Auto) 0.1 Baso % (Auto) 0.3 Absolute Neuts (auto) 14.2 H Absolute Lymphs (auto) 0.88 Nucleated RBC % 0 Diff Path Review May foll Platelet Estimate MKD INC RBC Morphology N CHROM Anisocytosis 1+ Macrocytosis 1+ Specimen Type Sample Site pH Bicarbonate Actual Total CO2 Base Excess O2 Saturation O2 % ABG pCO2 ABG pO2 O2 Delivery Device Sodium 133 L Potassium 4.8 Chloride 101 Carbon Dioxide 22.0 Anion Gap 10 BUN 25 H Creatinine 0.86 Estim Creat Clear Calc 35.56 Est GFR (MDRD) Af Amer 83 Est GFR (MDRD) Non-Af 69 BUN/Creatinine Ratio 29.0 H Glucose 243 H Lactic Acid 8.3 H* Calcium 8.7 Total Bilirubin 0.60 AST 17 ALT 21 Alkaline Phosphatase 155 H Troponin I 0.027 Total Protein 7.2 Albumin 2.2 L Globulin 5.0 H Albumin/Globulin Ratio 0.4 L Urine Color Urine Clarity Urine pH Ur Specific [place] Urine Protein Urine Glucose (UA) Urine Ketones Urine Occult Blood Urine Nitrite Urine Bilirubin Urine Urobilinogen Ur Leukocyte Esterase 12/10/19 12/10/19 22:01 23:30 WBC RBC Hgb Hct MCV MCH MCHC RDW Std Deviation RDW Coeff of Ama Plt Count MPV Immature Gran % (Auto) Neut % (Auto) Lymph % (Auto) [place] % (Auto) Eos % (Auto) Baso % (Auto) Absolute Neuts (auto) Absolute Lymphs (auto) Nucleated RBC % Diff Path Review Platelet Estimate RBC Morphology Anisocytosis Macrocytosis Specimen Type ART Sample Site R Radial pH 7.43 Bicarbonate Actual 20.9 L Total CO2 22 Base Excess -3 L O2 Saturation 100 H O2 % 100 ABG pCO2 31.5 L ABG pO2 278 H O2 Delivery Device NRB Sodium Potassium Chloride Carbon Dioxide Anion Gap BUN Creatinine Estim Creat Clear Calc Est GFR (MDRD) Af Amer Est GFR (MDRD) Non-Af BUN/Creatinine Ratio Glucose Lactic Acid Calcium Total Bilirubin AST ALT Alkaline Phosphatase Troponin I Total Protein Albumin Globulin Albumin/Globulin Ratio Urine Color Yellow Urine Clarity Clear Urine pH 5.0 Ur Specific [place] 1.015 Urine Protein 15 H Urine Glucose (UA) Normal Urine Ketones Negative Urine Occult Blood 10 H Urine Nitrite Positive H Urine Bilirubin Negative Urine Urobilinogen 1 H Ur Leukocyte Esterase 100 H - Rhythm Strip Rhythm Strip: Sinus Tach Rate: 110 Ectopy: None - EKG Initial EKG Interpretation: No Acute Injury Pattern, Sinus Tachycardia Prior: Unchanged - Medical Decision Making The patient presents with generalized weakness. She was not hypotensive. She was tachycardic on arrival. With fluids, she became much more alert. I did obtain a blood gas she had peripheral hypoxia, but there was no hypoxemia on her blood gas. I do feel it is likely because of her significant cachexia and diminished peripheral feet perfusion was causing the reported hypoxia. However, broad metabolic work-up was pursued. Patient does have leukocytosis. She is also thrombocytopenic. She underwent CT of the chest. There was no evidence of pulmonary embolus or infiltrative process. The patient's lactic is markedly elevated which I feel is likely multifactorial. She was given IV fluids and was feeling markedly improved. CT the abdomen does not show inflammatory process. Her urine does show evidence of infection. I did discuss options with the patient. She does not want to be hospitalized. She is aware that she has severe sepsis and this could be overwhelming. She states that she just wants to go home. She states she feels more comfortable at home. She is very aware of her significant debility with her Crohn's disease and malnutrition. She has no interest in hospitalization. She states she would never want to be on a ventilator or have CPR. The patient is awake and alert. I discussed this with she and her . She still wants to leave AGAINST MEDICAL ADVICE. The patient does have good insight to her comorbidities. I will treat her with Bactrim. I did children counselor her that if anything changes she should return. She is comfortable with this plan of care. Impression 1. Severe sepsis 2. UTI 3. Cachexia 4. Lactic acidosis ED Disposition - Plan for ED Patient: Instructions: ED CYSTITIS Female Adult Prescriptions: Smz/Tmp Ds [Bactrim Ds] 1 tab PO BID #14 tab Prescription Printed Referrals: Mercedes Leonard MD [Primary Care Provider] -
[2019-12-10 21:52] LABS: Platelet Count 788 K/mm3 (150-450)
[2019-12-10 21:53] LABS: ALB/GLOB Ratio 0.4 RATIO (0.9-2.4); AST(SGOT) 17 U/L (15-37); Alanine Aminotransfer ALT/SGPT 21 U/L (13-56); Albumin, Serum 2.2 g/dL (3.2-5.0); Alkaline Phosphatase 155 U/L (45-117); Anion Gap 10 (5-15); BUN 25 mg/dL (7-18); Calcium,Total 8.7 mg/dL (8.5-10.1); Chloride 101 mmol/L (98-107); Creatinine, Serum 0.86 mg/dL (0.55-1.02); EST Glomerular Filtration Rate 69 mL/min (>60); Est Glom Filt Rate - Afr Amer 83 mL/min (>60); Estimated Creatinine Clearance 35.56 ml/min; Glucose 243 mg/dL (74-106); Platelet Estimate MKD INC (ADEQ); Potassium 4.8 mmol/L (3.5-5.1); Protein, Total 7.2 g/dL (6.4-8.2); Red Cell Morphology N CHROM NORMAL (NORM C&C); Sodium Level 133 mmol/L (136-145)
[2019-12-10 21:54] LABS: Anisocytosis 1+; Macrocytosis 1+
--- NOTE | 2019-12-10 21:54 | RAD_ITS ---
STUDY: X-RAY CHEST REASON FOR EXAM: Female, 74 years old. SOB ... 70% ON ROOM AIR TECHNIQUE: Single frontal view of the chest. COMPARISON: 10/23/2018 FINDINGS: The lungs are clear and expanded. There is no demonstrated pleural abnormality. Normal size heart. Normal mediastinum and ebony. Normal visualized pulmonary arteries. Normal visualized aortic arch and descending thoracic aorta. Normal visualized thoracic spine. Normal visualized ribs, clavicles, and shoulders. There is no demonstrated abnormality of the visualized soft tissue structures of the upper abdomen. RAD/Chest 1 View (Portable) IMPRESSION: No acute pulmonary findings. Electronically Signed: Wilber Laughlin MD at 22:18 EDT Tel , Service support ,
[2019-12-10 21:58] LABS: Lactic Acid 8.3 mmol/L (0.4-1.9)
[2019-12-10 22:05] LABS: Base Excess -3 mmol/L (-2 to +2); Bicarbonate 20.9 mmol/L (22-26); Blood Gas Specimen Type ART; FI02 100; O2 Delivery Device NRB; PO2 278 mmHG (75-100); SITE R Radial; SO2 100 % (95-99); Total Carbon Dioxide 22 mmol/L; pCO2 31.5 mmHg (35-45); pH 7.43 (7.35-7.45)
--- NOTE | 2019-12-10 22:16 | CT_ITS ---
STUDY: CTA CHEST REASON FOR EXAM: Female, 74 years old. HYPOXIA,ABDOMINAL PAIN,ELEVATED WBC AND LACTIC ACID -- HX:HTN,CROHN''S,KIDNEY STONES -- SURGERY:APPY,GB,GASTRECTOMY,BACK X 3,LOW/BSO,BILAT HIPS RADIATION DOSAGE (If Supplied By Facility): CTDIvol = ( 8.36 ) mGy, DLP = ( 555.50 ) mGycm TECHNIQUE: The examination was performed with the intravenous administration of IV 75mL [id number]-370. Post-processing of the angiographic images was performed, with multiplanar reformation and 3D reconstruction. Individualized dose optimization techniques were used for this CT. COMPARISON: None. FINDINGS: Normal enhancement of the main pulmonary artery and right and left pulmonary arteries. Normal enhancement of the bilateral peripheral pulmonary arteries. There is no demonstrated pulmonary embolism. Normal thoracic aorta and visualized great vessels. There is no demonstrated aortic dissection. Normal heart and pericardium. Normal mediastinum. Normal hilar regions. Normal visualized trachea and bronchi. The lungs are well expanded. Normal pulmonary parenchyma. Normal pleura. Normal chest wall structures. Normal osseous structures. Normal visualized upper abdomen. CT/CTA Chest W/WO Contrast IMPRESSION: No demonstrated pulmonary embolism or arterial dissection. Electronically Signed: Wilber Laughlin MD at 23:33 EDT Tel , Service support ,
--- NOTE | 2019-12-10 22:17 | CT_ITS ---
STUDY: CT ABDOMEN AND PELVIS WITH CONTRAST REASON FOR EXAM: Female, 74 years old. HYPOXIA,ABDOMINAL PAIN,ELEVATED WBC -- HX:HTN,KIDNEY STONES,CROHN''S -- SURGERY:APPY,GB,BACK X 3,BILAT HIPS,LOW/BSO,GASTRECTOMY RADIATION DOSAGE (If Supplied By Facility): CTDIvol = ( 8.36 ) mGy, DLP = ( 555.50 ) mGycm TECHNIQUE: Transaxial images were obtained from the dome of the diaphragm to the symphysis pubis without oral contrast. IV 75mL Isovue-370 was administered. Sagittal and coronal images were reconstructed. Individualized dose optimization techniques were used for this CT. COMPARISON: 11/28/2019, 07/23/2012 FINDINGS: The visualized lung bases are unremarkable. The visualized portions of the heart are within normal limits. There is decreased attenuation of the liver consistent with steatosis. Cholecystectomy. The common bile duct measures 12 mm in diameter, and is stable in appearance compared to 2012. Normal spleen. Normal pancreas. Normal bilateral adrenal glands. Normal right kidney. Normal left kidney. Postoperative gastric changes. Normal small intestine. Normal colon. Appendectomy. Normal abdominal aorta. Normal inferior vena cava. Normal retroperitoneum. Normal urinary bladder. Normal abdominal wall. There are diffuse degenerative changes of the visualized lumbar spine. Bilateral hip prostheses. CT/Abdomen/Pelvis W IV Cont ONLY IMPRESSION: No evidence of acute intestinal pathology or acute obstructive uropathy. No evidence of abscess. Electronically Signed: Wilber Laughlin MD at 23:39 EDT Tel , Service support ,
[2019-12-10] MEDS: 0.9% Normal Saline 1,000 ML 999 ML IV ×2 (22:18→23:45)
[2019-12-10 22:20] VITALS: BP 117/87; PULSE 100; RESP 15; TEMP 36.4; O2SAT 96
[2019-12-10 23:35] LABS: Mucous, Urine 0 SEEN /hpf (<or=2+); Squamous Epithelial Cells - UA 0 SEEN /hpf (5-10)
[2019-12-10 23:37] LABS: Glucose, Dipstick Normal (Normal); Ketone-Dipstick Negative (Negative); Leukocyte Esterase-Dipstick 100 /ul (Negative); Nitrite-Dipstick Positive (Negative); Occult Blood-Urine 10 /ul (Negative); Protein-Dipstick 15 mg/dl (Negative); Specific Gravity, Urine 1.015 (1.002-1.030); Urine Bilirubin Dipstick Negative (Negative); Urine Urobilinogen 1 mg/dl (Normal)
[2019-12-10 23:39] LABS: Color, Urine Yellow (Yellow); Urine Clarity Clear (Clear)
[2019-12-10 23:44] VITALS: BP 144/97; PULSE 99; RESP 18; TEMP 36.6; O2SAT 97
[2019-12-10 23:49] LABS: Bacteria 4+ /hpf (None Seen); Red Blood Cells-Urine 0-5 SEEN /hpf (0-5); White Blood Cells 0-5 SEEN /hpf (0-5)
[2019-12-11 00:11] VITALS: BP 132/83; PULSE 95; RESP 14; O2SAT 100
[2019-12-11] MEDS: Smz/Tmp Ds Tablet 1 TABLET PO (00:16)
[2019-12-11 01:26] LABS: Reflex Lactate? Y
[2019-12-11 13:42] LABS: Pathologist Review Reviewed
== END 2019-12-11 00:31 | disposition left against medical advice (07) ==
PROVIDERS: Emergency Provider Emergency Medicine; PCP Internal Medicine
DX: A41.9 Sepsis, unspecified organism (principal); N39.0 Urinary tract infection, site not specified; R65.20 Severe sepsis without septic shock; R64 Cachexia; E87.2 Acidosis; I10 Essential (primary) hypertension; K50.90 Crohn's disease, unspecified, without complications; Z53.29 Procedure and treatment not carried out because of patient's decision for other reasons
CPT/HCPCS: 36600; 71045; 71275; 74177; 80053; 81001; 82803; 83605; 84484; 85025; 87040; 87635; 93005; 96360; 96361; 99285; P9612; Q9967; A4216; U0002

== ENCOUNTER 2021-06-18 02:32 | Emergency (ER) | payer MEDICARE, OTHER, SELFPAY ==
[2021-06-18] VITALS (8 sets, daily range): BP systolic 115–173; BP diastolic 67–98; PULSE 110–139; RESP 15–22; TEMP 36.1–36.9; O2SAT 88–95
--- NOTE | 2021-06-18 02:49 | EDS_ITS ---
HPI History of Present Illness Chief Complaint: Lower Extremity Injury Narrative Narrative: Patient presents via EMS with pain in her right hip and inability to ask she states she has had total hip arthroplasty in the past, but there is a fracture along the trochanter up high in her right hip that was diagnosed 4 years ago. She has been unable to have surgery because she has had problems like pneumonia, and multiple medical problems. She states she uses a wheelchair and crutches when she can and takes opiate medication. She states that she was lying in bed and was unable to put her right knee down because of pain in her groin area. She has multiple medication allergies as well. [facility] Medical History (Updated 06/18/21 @ 04:[address] Bonilla Lott, DO) Anemia B12 deficiency Hypertension Irritable bowel syndrome Neuropathic pain Opioid dependence Severe protein-calorie malnutrition Home Medications hyoscyamine sulfate 0.125 mg SUBLINGUAL PRN PRN 09/05/16 [History Last Taken 11/26/19] multivitamin [Multiple Vitamins] 1 ea PO DAILY 09/05/16 [History Last Taken 11/27/19] clonidine HCl 0.1 - 0.2 mg PO TID 04/07/18 [History Last Taken 11/28/19] ondansetron 4 mg PO Q6H PRN 04/07/18 [History Last Taken Unknown] cholecalciferol (vitamin D3) [Vitamin D3] 1,000 unit PO DAILY 07/26/18 [History Last Taken 11/26/19] lisinopril 10 mg PO DAILY 10/23/18 [History Last Taken Unknown] acetaminophen 1,000 mg PO BID PRN PRN 11/28/19 [History Last Taken 11/26/19] calcium carbonate 1,000 mg PO DAILY@0800 11/28/19 [History Last Taken 11/27/19] cyanocobalamin (vitamin B-12) 1,000 mcg IM QMONTH 11/28/19 [History Last Taken 11/13/19] fentanyl 12 mcg TRANSDERM. Q72H 11/28/19 [History Last Taken 11/27/19] oxycodone 20 mg PO Q4H PRN PRN 11/28/19 [History Last Taken 11/27/19] Allergy/AdvReac Type Severity Reaction Status Date / Time amlodipine [From [facility]] Allergy Unknown Verified 11/28/19 08:49 ampicillin Allergy Hives Verified 11/28/19 08:49 celecoxib [From Celebrex] Allergy Unknown Verified 11/28/19 08:49 cephalexin Allergy Unknown Verified 11/28/19 08:49 cyclobenzaprine Allergy Unknown Verified 11/28/19 08:49 [From Flexeril] levofloxacin [From Levaquin] Allergy Unknown Verified 11/28/19 08:49 mesalamine [From Pentasa] Allergy Unknown Verified 11/28/19 08:49 NSAIDS (Non-Steroidal Allergy Unknown Verified 11/28/19 08:49 Anti-Inflamma Penicillins Allergy Rash Verified 11/28/19 08:49 prochlorperazine Allergy Unknown Verified 11/28/19 08:49 [From Compazine] sulfamethoxazole Allergy Rash Verified 11/28/19 08:49 [From Bactrim] trazodone Allergy Unknown Verified 11/28/19 08:49 trimethoprim [From Bactrim] Allergy Rash Verified 11/28/19 08:49 zolpidem [From Ambien] Allergy Unknown Verified 11/28/19 08:49 Family History (Updated 06/18/21 @ 03:[address] Magdalene Krishnamurthy MD) Father Heart disease Hypertension Surgical History (Updated 06/18/21 @ 03:[address] Magdalene Krishnamurthy MD) History of bilateral salpingo-oophorectomy History of hysterectomy Status post bilateral total hip replacement Social History (Updated 06/18/21 @ 03:[address] Magdalene Krishnamurthy MD) household members: spouse Smoking Status: Never smoker alcohol intake: never substance use type: does not use ROS ROS ED ROS Narrative Constitutional: No fever, no chills. HEENT: No sore throat. No neck pain. No loss of vision. No rhinorrhea. Cardiovascular: No chest pain. No palpitations. No pedal edema. Respiratory: No cough, no shortness of breath. Abdominal: No abdominal pain. No nausea. No vomiting. Genitourinary: No dysuria. No hematuria. Musculoskeletal: No myalgias. Right hip and groin pain. Unable to straighten out right lower extremity secondary to pain. Neurologic: No headaches. No dizziness. No lightheadedness. Skin: No rash. No change in color. Psychiatric: No depression. No anxiety. EXAM Physical Exam Narrative Exam Narrative: Afebrile. Vital signs noted. HEENT: Normocephalic. Atraumatic. PERRL, EOMI. Neck soft and supple. No point tenderness or step off. Cardiovascular: Tachycardia. No murmurs, rubs, or gallops appreciated. Respiratory: No tachypnea. Lungs clear to auscultation bilaterally. Gastrointestinal: Abdomen soft, nontender, with normoactive bowel sounds. No rebound or guarding. Neurological: Awake. Alert. Nonfocal, nonlateralizing. Skin: No rash. Normal color. No pallor. Musculoskeletal: No pedal edema. Decreased range of motion right hip secondary to pain. Pelvis stable. Able to move toes on right foot. Right knee held in flexed position. Const Vital Signs: 06/18/21 02:33 06/18/21 03:51 06/18/21 04:05 Temperature 97 F L Temperature Source Temporal Pulse Rate 122 H Pulse Rate [1 (Initial Baseline)] 139 H Pulse Rate [2] 122 H Pulse Rate [3] 132 H Respiratory Rate 20 H Respiratory Rate [1 (Initial Baseline)] 21 H Respiratory Rate [2] 15 Respiratory Rate [3] 18 Blood Pressure 156/89 H Blood Pressure [1 (Initial Baseline)] 173/89 H Blood Pressure [2] 115/71 Blood Pressure [3] 128/81 H Blood Pressure Mean 111 Pulse Ox 92 Oxygen Delivery Method Room Air Nasal Cannula Oxygen Delivery Method [1 (Initial Baseline)] Nasal Cannula Oxygen Delivery Method [2] Nasal Cannula Oxygen Delivery Method [3] Non-Rebreather Oxygen Flow Rate (L/min) 2 Oxygen Flow Rate (L/min) [1 (Initial Baseline)] 2 Oxygen Flow Rate (L/min) [2] 5 Oxygen Flow Rate (L/min) [3] 15 06/18/21 04:08 06/18/21 04:38 06/18/21 04:45 Temperature Temperature Source Pulse Rate 139 H Pulse Rate [1 (Initial Baseline)] 129 H Pulse Rate [2] Pulse Rate [3] Respiratory Rate 21 H Respiratory Rate [1 (Initial Baseline)] 22 H Respiratory Rate [2] Respiratory Rate [3] Blood Pressure 173/98 H Blood Pressure [1 (Initial Baseline)] 160/92 H Blood Pressure [2] Blood Pressure [3] Blood Pressure Mean Pulse Ox 95 Oxygen Delivery Method Nasal Cannula Nasal Cannula Oxygen Delivery Method [1 (Initial Baseline)] Nasal Cannula Oxygen Delivery Method [2] Oxygen Delivery Method [3] Oxygen Flow Rate (L/min) 2 2 Oxygen Flow Rate (L/min) [1 (Initial Baseline)] 4 Oxygen Flow Rate (L/min) [2] Oxygen Flow Rate (L/min) [3] 06/18/21 04:49 06/18/21 04:59 06/18/21 05:31 Temperature 98.4 F Temperature Source Pulse Rate 110 H Pulse Rate [1 (Initial Baseline)] Pulse Rate [2] Pulse Rate [3] Respiratory Rate 20 H Respiratory Rate [1 (Initial Baseline)] Respiratory Rate [2] Respiratory Rate [3] Blood Pressure 138/80 H Blood Pressure [1 (Initial Baseline)] Blood Pressure [2] Blood Pressure [3] Blood Pressure Mean Pulse Ox 92 Oxygen Delivery Method Nasal Cannula Nasal Cannula Oxygen Delivery Method [1 (Initial Baseline)] Oxygen Delivery Method [2] Oxygen Delivery Method [3] Oxygen Flow Rate (L/min) 2 2 Oxygen Flow Rate (L/min) [1 (Initial Baseline)] Oxygen Flow Rate (L/min) [2] Oxygen Flow Rate (L/min) [3] MDM MDM MDM Narrative Medical decision making narrative: She was administered morphine and Zofran. X- rays were obtained of the right hip and pelvis. X-ray was interpreted by myself, the emergency physician, which does show dislocation of her artificial hip on the right. There is no evidence of fracture, and there is noted osteopenia. In discussion with the patient and her , they state that this is her seventh hip dislocation. Her was concerned about the left- sided fracture. He was told that this is the right side and that there is no evidence of fracture, and that there is need to get her right hip in place/reduced. Initial attempt was made after placing the patient on a optical effects camera operator and oxygen. She received a total of 200 mg of propofol intravenously. She experienced a brief oxygen desaturation which resolved after turning up her oxygen and temporarily placing her on a nonrebreather. Jaw thrust maneuver was performed and she had return of good oxygenation. However, attempt was made at closed reduction by myself, but was unsuccessful as moderate sedation had not been achieved and she was resisting closed reduction techniques. I discussed the patient with Dr. Lott. An additional 100 mg of propofol was given, and he performed closed reduction of her right hip prosthesis. She was placed in a knee immobilizer. Postreduction x-rays were interpreted by myself, the ED physician, shows reduction of her right YAA. She was told to keep her leg straight even while in a seated position and to use her crutches which she has at home. She will follow-up with orthopedics, either Dr. Bean or Dr. Lott next week. She will continue her analgesics. She was discharged home in improved and stable condition. Radiography Diagnostic Testing: Clinical Impression(s) from Imaging Studies Hip/Pelvis X-Ray 06/18/21 03:15 IMPRESSION: There is dislocation of right hip arthroplasty. Osteoporosis based on there is no evidence of fracture. Electronically Signed: Demario Lopez MD at 3:54 EDT , Hip X-Ray 06/18/21 04:50 IMPRESSION: Reduced dislocation of the right hip joint. Electronically Signed: Demario Lopez MD at 5:32 EDT , Discharge Plan Triage Chief Complaint: Lower Extremity Injury ED Provider: Elia Amor Dx/Rx/DC Orders Clinical Impression: Hip dislocation, right, S/P closed reduction of dislocated total hip prosthesis, Tachycardia Instructions: ED Procedural Sedation, (Adult), ED Hip Replace Dislocation Reduc Prescriptions: No Action multivitamin [Multiple Vitamins] 1 EACH tablet 1 ea PO DAILY RF: 0 hyoscyamine sulfate 0.125 MG tablet, sublingual 0.125 mg sublingual PRN PRN (Reason: CROHNS) RF: 0 clonidine HCl 0.1 MG tablet 0.1 - 0.2 mg PO TID RF: 0 ondansetron 4 MG tablet 4 mg PO Q6H PRN RF: 0 cholecalciferol (vitamin D3) [Vitamin D3] 1,000 UNIT tablet 1,000 unit PO DAILY RF: 0 lisinopril 10 tablet 10 mg PO DAILY RF: 0 acetaminophen 500 MG tablet 1,000 mg PO BID PRN PRN (Reason: Pain 1-10 Or Fever) RF: 0 cyanocobalamin (vitamin B-12) 1,000 MCG/ML solution 1,000 mcg IM QMONTH RF: 0 oxycodone 30 MG tablet 20 mg PO Q4H PRN PRN (Reason: Pain 1-10 Or Fever) RF: 0 calcium carbonate 500 MG tablet 1,000 mg PO DAILY@0800 RF: 0 fentanyl 25 MCG patch 12 mcg TRANSDERM. Q72H RF: 0 Primary Care Provider: Mercedes Leonard Referrals: Mercedes Leonard MD [Primary Care Provider] - Bonilla Lott DO [STAFF PHYSICIAN] - 5-7 Days Jared Bean MD [STAFF PHYSICIAN] - 5-7 Days Activity Restrictions/Additional Instructions: Your right hip prosthesis was dislocated. You underwent procedural sedation for closed reduction. Keep knee immobilizer in place. Do not sit and your wh eelchair or in a seated position with your right knee bent. Follow-up in [address] Bean or Dr. Lott with orthopedics. Continue your analgesics as previously directed. Disposition Disposition: Home, Self Care Discharge Date/Time: 06/18/21 05:34
[2021-06-18] MEDS: Morphine 4 MG/ML Syringe IV (02:50)
[2021-06-18] MEDS: Ondansetron 4 MG/2 ML Vial IV (02:57)
--- NOTE | 2021-06-18 03:15 | RAD_ITS ---
STUDY: X-RAY - PELVIS AND RIGHT HIP REASON FOR EXAM: Female, 75 years old. Pain TECHNIQUE: 3 views of the pelvis and hip. COMPARISON: None. FINDINGS: There is a non-specific bowel gas pattern. Normal visualized soft tissue structures. There is diffuse demineralization of the osseous structures. There is narrowing with cortical sclerosis and osteophyte formation of the sacroiliac joint consistent with degenerative osteoarthritic changes. Normal bilateral superior and inferior pubic rami. There is narrowing with sclerosis of the pubic symphysis. Normal bilateral ischial tuberosities. There is dislocation of right hip arthroplasty. RAD/HIP, UNI W/ Pelvis 2-3 Views IMPRESSION: There is dislocation of right hip arthroplasty. Osteoporosis based on there is no evidence of fracture. Electronically Signed: Demario Lopez MD at 3:54 EDT ,
[2021-06-18] MEDS: Propofol 200 MG/20 ML Vial IV BOLUS ×2 (04:06→04:57)
--- NOTE | 2021-06-18 04:49 | CONS.ORTHO ---
HPI Consult Data Date of Consult: 06/18/21 HPI Narrative HPI Narrative: MYNOR ROMERO, is a 75 F who presents to [facility] emergency department after dislocating her right total hip arthroplasty in bed earlier this evening. She states she has dislocated her right hip 7 times since the index procedure performed 15 years ago. She states she has had discussions of revision surgery in the past but due to multiple comorbidities has not been a candidate for revision right total hip arthroplasty. She states she was simply straightening out her knee in bed tonight and felt her hip dislocate. She thinks she may have internally rotated her hip around the same time. Denies any numbness or tingling. ED physician attempted closed reduction earlier this morning and was unable to. I was consulted from the emergency department for another attempted closed reduction. [facility] Medical History (Updated 06/18/21 @ 04:[address] Bonilla Lott, ) Anemia B12 deficiency Hypertension Irritable bowel syndrome Neuropathic pain Opioid dependence Severe protein-calorie malnutrition Home Medications hyoscyamine sulfate 0.125 mg SUBLINGUAL PRN PRN 09/05/16 [History Last Taken 11/26/19] multivitamin [Multiple Vitamins] 1 ea PO DAILY 09/05/16 [History Last Taken 11/27/19] clonidine HCl 0.1 - 0.2 mg PO TID 04/07/18 [History Last Taken 11/28/19] ondansetron 4 mg PO Q6H PRN 04/07/18 [History Last Taken Unknown] cholecalciferol (vitamin D3) [Vitamin D3] 1,000 unit PO DAILY 07/26/18 [History Last Taken 11/26/19] lisinopril 10 mg PO DAILY 10/23/18 [History Last Taken Unknown] acetaminophen 1,000 mg PO BID PRN PRN 11/28/19 [History Last Taken 11/26/19] calcium carbonate 1,000 mg PO DAILY@0800 11/28/19 [History Last Taken 11/27/19] cyanocobalamin (vitamin B-12) 1,000 mcg IM QMONTH 11/28/19 [History Last Taken 11/13/19] fentanyl 12 mcg TRANSDERM. Q72H 11/28/19 [History Last Taken 11/27/19] oxycodone 20 mg PO Q4H PRN PRN 11/28/19 [History Last Taken 11/27/19] bisacodyl 5 mg PO DAILY #30 tab 11/30/19 [Rx Last Taken Unknown] sulfamethoxazole-trimethoprim 1 tab PO BID #14 tab 12/10/19 [Rx Last Taken Unknown] Allergy/AdvReac Type Severity Reaction Status Date / Time amlodipine [From Norvasc] Allergy Unknown Verified 11/28/19 08:49 ampicillin Allergy Hives Verified 11/28/19 08:49 celecoxib [From Celebrex] Allergy Unknown Verified 11/28/19 08:49 cephalexin Allergy Unknown Verified 11/28/19 08:49 cyclobenzaprine Allergy Unknown Verified 11/28/19 08:49 [From Flexeril] levofloxacin [From Levaquin] Allergy Unknown Verified 11/28/19 08:49 mesalamine [From Pentasa] Allergy Unknown Verified 11/28/19 08:49 NSAIDS (Non-Steroidal Allergy Unknown Verified 11/28/19 08:49 Anti-Inflamma Penicillins Allergy Rash Verified 11/28/19 08:49 prochlorperazine Allergy Unknown Verified 11/28/19 08:49 [From Compazine] sulfamethoxazole Allergy Rash Verified 11/28/19 08:49 [From Bactrim] trazodone Allergy Unknown Verified 11/28/19 08:49 trimethoprim [From Bactrim] Allergy Rash Verified 11/28/19 08:49 zolpidem [From Ambien] Allergy Unknown Verified 11/28/19 08:49 Family History (Updated 06/18/21 @ 03:[address] Magdalene Krishnamurthy MD) Father Heart disease Hypertension Surgical History (Updated 06/18/21 @ 03:[address] Magdalene Krishnamurthy MD) History of bilateral salpingo-oophorectomy History of hysterectomy Status post bilateral total hip replacement Social History (Updated 06/18/21 @ 03:[address] Magdalene Krishnamurthy MD) household members: spouse Smoking Status: Never smoker alcohol intake: never substance use type: does not use ROS ROS Narrative 12 point review of systems obtained, negative unless otherwise noted in HPI. Vital Signs Vital Signs Vital Signs: 06/18/21 02:33 06/18/21 03:51 06/18/21 04:05 Temperature 97 F L Temperature Source Temporal Pulse Rate 122 H Pulse Rate [1 (Initial Baseline)] 139 H Pulse Rate [2] 122 H Pulse Rate [3] 132 H Respiratory Rate 20 H Respiratory Rate [1 (Initial Baseline)] 21 H Respiratory Rate [2] 15 Respiratory Rate [3] 18 Blood Pressure 156/89 H Blood Pressure [1 (Initial Baseline)] 173/89 H Blood Pressure [2] 115/71 Blood Pressure [3] 128/81 H Blood Pressure Mean 111 Pulse Ox 92 Oxygen Delivery Method Room Air Nasal Cannula Oxygen Delivery Method [1 (Initial Baseline)] Nasal Cannula Oxygen Delivery Method [2] Nasal Cannula Oxygen Delivery Method [3] Non-Rebreather Oxygen Flow Rate (L/min) 2 Oxygen Flow Rate (L/min) [1 (Initial Baseline)] 2 Oxygen Flow Rate (L/min) [2] 5 Oxygen Flow Rate (L/min) [3] 15 06/18/21 04:08 06/18/21 04:38 06/18/21 04:45 Temperature Temperature Source Pulse Rate 139 H Pulse Rate [1 (Initial Baseline)] 129 H Pulse Rate [2] Pulse Rate [3] Respiratory Rate 21 H Respiratory Rate [1 (Initial Baseline)] 22 H Respiratory Rate [2] Respiratory Rate [3] Blood Pressure 173/98 H Blood Pressure [1 (Initial Baseline)] 160/92 H Blood Pressure [2] Blood Pressure [3] Blood Pressure Mean Pulse Ox 95 Oxygen Delivery Method Nasal Cannula Nasal Cannula Oxygen Delivery Method [1 (Initial Baseline)] Nasal Cannula Oxygen Delivery Method [2] Oxygen Delivery Method [3] Oxygen Flow Rate (L/min) 2 2 Oxygen Flow Rate (L/min) [1 (Initial Baseline)] 4 Oxygen Flow Rate (L/min) [2] Oxygen Flow Rate (L/min) [3] Weight Weight: 120 lb Body Mass Index (BMI) 20.0 Physical Exam Narrative General -A&Ox3, NAD, appears stated age. Vital signs stable, afebrile. Respiratory -normal work of breathing, no intercostal retractions. CV -pulses regular, brisk capillary refill ?4 limbs. Abdomen-soft, nontender, nondistended. No guarding, rigidity, rebound tenderness. Musculoskeletal/neurologic -full range of motion nontender throughout bilateral upper extremities, left lower extremity with full sensation and strength in all dermatomes and myotomes. No midline cervical tenderness. Right lower extremity-shortened, internally rotated and flexed right hip. Pain with logroll of the right lower extremity. Nontender throughout the right knee femoral shaft, tibial shaft and left foot/ankle. Brisk capillary refill. Sensation intact light touch L3-S1 dermatomes. DF, PF, EHL intact. DP, PT 2+. Pelvis is stable, nontender. Skin is intact without lacerations, abrasions. No ecchymosis noted. Radiology Impression Hip/Pelvis X-Ray 06/18/21 03:15 IMPRESSION: There is dislocation of right hip arthroplasty. Osteoporosis based on there is no evidence of fracture. Electronically Signed: Demario Lopez MD at 3:54 EDT Reading Location ID and State: [facility] / [place] Tel , Service support , Assessment & Plan Assessment/Plan (1) Dislocation of internal right hip prosthesis: QUALIFIERS: Encounter type: initial encounter Qualified Code(s): T84.020A - Dislocation of internal right hip prosthesis, initial encounter PLAN: Patient sustained a closed, atraumatic right total hip dislocation. Recommending a repeat attempt at closed reduction under conscious sedation in the emergency department. Informed consent obtained from patient. Procedure note: Preprocedure diagnosis: Closed right total hip arthroplasty dislocation Post procedure diagnosis: Closed right total hip arthroplasty dislocation Procedure: Closed reduction right total hip arthroplasty dislocation Complications: None apparent Anesthesia: Propofol per ED physician EBL: None Procedure details: Informed consent obtained. We performed timeout with all parties in attendance in agreement with side, site, procedure to be performed. No concerns were voiced and elected to proceed. Conscious sedation was administered by the emergency room physician. After adequate anesthesia, I applied a combination of forces of hip flexion, internal rotation, and longitudinal traction. A palpable and audible clunk was appreciated. The hip was then externally rotated and brought into extension. The knee immobilizer was placed. Leg lengths were restored. Post procedure x-rays were obtained and revealed a reduced right total hip arthroplasty. Patient was neurovascularly intact following closed reduction. Post procedure plan: Knee immobilizer at all times except for hygiene Follow-up with myself or Dr. Bean who she has seen in the past in the next 5 to 7 days. Weightbearing as tolerated right lower extremity
--- NOTE | 2021-06-18 04:50 | RAD_ITS ---
STUDY: X-RAY - PELVIS AND RIGHT HIP REASON FOR EXAM: Female, 75 years old. post reduction TECHNIQUE: 2 views of the pelvis and hip. COMPARISON: None. FINDINGS: There is a non-specific bowel gas pattern. Normal visualized soft tissue structures. There is diffuse demineralization of the osseous structures. There is narrowing with cortical sclerosis and osteophyte formation of the sacroiliac joint consistent with degenerative osteoarthritic changes. Normal bilateral superior and inferior pubic rami. There are degenerative changes of the pubic symphysis with articular narrowing and sclerosis. Normal bilateral ischial tuberosities. Reduced dislocation of the right hip joint. RAD/Hip Min 2 Views (Portable) IMPRESSION: Reduced dislocation of the right hip joint. Electronically Signed: Demario Lopez MD at 5:32 EDT ,
--- NOTE | 2021-06-22 14:42 | CM.ED ---
ER RNCM DC F/u Call: ED Visit 06/18/21 for Rt hip dislocation, Reduction of Rt YAA with brace placed. Called patient's listed home number on demographics. Patient answered and this greeting card writer introduced self and role. Patient states doing much better and the pain to her Rt hip has resolved. Has been wearing the brace. Has not f/u with Dr Lott or dr Bean yet and states just needs to call. Told to f/u in a week. Denies any further concerns at this time and states trying to be really careful as her Rt hip has dislocated several times. Sarahy Ramirez RNCM
== END 2021-06-18 05:34 | disposition home or self-care (01) ==
PROVIDERS: Emergency Provider Emergency Medicine; PCP Internal Medicine; Visit Provider Emergency Medicine
DX: T84.020A Dislocation of internal right hip prosthesis, initial encounter (principal); X58.XXXA Exposure to other specified factors, initial encounter; I10 Essential (primary) hypertension; D64.9 Anemia, unspecified; Z79.899 Other long term (current) drug therapy
CPT/HCPCS: 27265; 73502; 96361; 96374; 96375; 99156; 99285; A4216; J2405

== ENCOUNTER 2021-07-12 02:58 | Emergency (ER) | payer MEDICARE, OTHER, SELFPAY ==
[2021-07-12] VITALS (7 sets, daily range): BP systolic 138–157; BP diastolic 86–94; PULSE 103–127; RESP 17–29; TEMP 37; O2SAT 92–100; BMI 18.6
--- NOTE | 2021-07-12 03:13 | EDS_ITS ---
HPI History of Present Illness Chief Complaint: Lower Extremity Injury Informant: patient Narrative Narrative: Patient complains of right hip dislocation. She states she got up to go the bathroom. She tightened her brace. She was walking and her hip came out. She did not fall or hurt her self in any way. She has had 7 or 8 prior hip dislocations including one earlier this month. Her original replacement was either 1994 or 1997. She denies any other complaints today except that right hip. [facility] Medical History Anemia B12 deficiency Hypertension Irritable bowel syndrome Neuropathic pain Opioid dependence Severe protein-calorie malnutrition Home Medications hyoscyamine sulfate 0.125 mg SUBLINGUAL PRN PRN 09/05/16 [History Last Taken 11/26/19] multivitamin [Multiple Vitamins] 1 ea PO DAILY 09/05/16 [History Last Taken 11/27/19] clonidine HCl 0.1 - 0.2 mg PO TID 04/07/18 [History Last Taken 11/28/19] ondansetron 4 mg PO Q6H PRN 04/07/18 [History Last Taken Unknown] cholecalciferol (vitamin D3) [Vitamin D3] 2,000 unit PO DAILY 07/26/18 [History Last Taken 11/26/19] lisinopril 10 mg PO DAILY 10/23/18 [History Last Taken Unknown] acetaminophen 1,000 mg PO BID PRN PRN 11/28/19 [History Last Taken 11/26/19] cyanocobalamin (vitamin B-12) 1,000 mcg IM QMONTH 11/28/19 [History Last Taken 11/13/19] fentanyl 12 mcg TRANSDERM. Q72H 11/28/19 [History Last Taken 11/27/19] oxycodone 20 mg PO Q4H PRN PRN 11/28/19 [History Last Taken 11/27/19] calcium carbonate-vitamin D2 [Calcium + Vitamin D] 2 tab PO DAILY 07/12/21 [History Last Taken Unknown] Allergy/AdvReac Type Severity Reaction Status Date / Time amlodipine [From Norvasc] Allergy Unknown Verified 11/28/19 08:49 ampicillin Allergy Hives Verified 11/28/19 08:49 celecoxib [From Celebrex] Allergy Unknown Verified 11/28/19 08:49 cephalexin Allergy Unknown Verified 11/28/19 08:49 cyclobenzaprine Allergy Unknown Verified 11/28/19 08:49 [From Flexeril] levofloxacin [From Levaquin] Allergy Unknown Verified 11/28/19 08:49 mesalamine [From Pentasa] Allergy Unknown Verified 11/28/19 08:49 NSAIDS (Non-Steroidal Allergy Unknown Verified 11/28/19 08:49 Anti-Inflamma Penicillins Allergy Rash Verified 11/28/19 08:49 prochlorperazine Allergy Unknown Verified 11/28/19 08:49 [From Compazine] sulfamethoxazole Allergy Rash Verified 11/28/19 08:49 [From Bactrim] trazodone Allergy Unknown Verified 11/28/19 08:49 trimethoprim [From Bactrim] Allergy Rash Verified 11/28/19 08:49 zolpidem [From Ambien] Allergy Unknown Verified 11/28/19 08:49 Family History Father Heart disease Hypertension Surgical History History of bilateral salpingo-oophorectomy History of hysterectomy Status post bilateral total hip replacement Social History household members: spouse Smoking Status: Never smoker alcohol intake: never substance use type: does not use ROS ROS ED Constitutional Constitutional ED: Denies chills or fever(s) ENT ENT ED: Denies sore throat Cardiovascular Cardiovascular: Denies chest pain or palpitations Respiratory/Chest Respiratory/Chest: Denies cough or dyspnea Gastrointestinal Gastrointestinal: Denies diarrhea, nausea or vomiting Genitourinary Genitourinary ED: Denies dysuria Musculoskeletal Musculoskeletal: Reports arthralgias and other Details: See history of present illness Integumentary Denies rash Neurologic Neurologic: Denies headache(s) Endocrine Endocrinology: Denies polydipsia or polyuria Allergic/Immunologic Allergic/Immunologic ED: Denies urticaria EXAM Physical Exam Narrative Exam Narrative: Last meal was about 4 PM yesterday. Const Vital Signs: 07/12/21 02:59 07/12/21 04:04 07/12/21 05:45 Temperature 98.6 F Temperature Source Temporal Pulse Rate 127 H Respiratory Rate 20 H Blood Pressure 147/86 H Blood Pressure Mean 106 Pulse Ox 92 Oxygen Delivery Method Room Air Room Air Oxygen Delivery Method [1 (Initial Baseline)] Non-Rebreather Oxygen Delivery Method [2] Non-Rebreather Oxygen Flow Rate (L/min) Oxygen Flow Rate (L/min) [1 (Initial Baseline)] 15 Oxygen Flow Rate (L/min) [2] 15 07/12/21 05:47 07/12/21 05:50 07/12/21 05:55 Temperature Temperature Source Pulse Rate 112 H Respiratory Rate 29 H Blood Pressure 156/91 H Blood Pressure Mean Pulse Ox 99 Oxygen Delivery Method Nasal Cannula Non-Rebreather Nasal Cannula Oxygen Delivery Method [1 (Initial Baseline)] Oxygen Delivery Method [2] Oxygen Flow Rate (L/min) 2 15 2 Oxygen Flow Rate (L/min) [1 (Initial Baseline)] Oxygen Flow Rate (L/min) [2] Positive well nourished and well developed General Appearance ED: well developed; Negative for cyanotic or diaphoretic HEENT Reports moist mucous membranes HEENT Narrative: Mallampati 1?2. Negative for trauma Eyes General Eye ED: Negative for pale conjunctiva Neck no lymphadenopathy General: Negative for tenderness Chest Wall inspection of chest normal Resp normal respiratory effort and clear to auscultation bilaterally Cardio regular rate GI normal to inspection, nondistended, normoactive bowel sounds and non-tender Palpation: soft Extremity Extremity Narrative: Right hip does appear to be shortened compared to the left Neuro oriented x3 Sensorium / Orientation: alert Psych mental status grossly normal Skin no rashes or lesions noted MDM MDM MDM Narrative Medical decision making narrative: X-rays show superior dislocation of the right hip without signs of fracture. Procedure: Procedural sedation and hip reduction: I discussed risks benefits and options with the patient. She has had this done about 7 times before so she was comfortable. I explained we would use the same medication. I had reviewed her prior reports and noted that she took a little bit more meds than 1 would normally expect for somebody of her size. Her last meal was over 12 hours ago. No complications with anesthesia. Normal airway and exam. Timeout was done with her nursing staff and myself in the room. Patient was on end-tidal CO2. I noticed that she had a very subtle desaturation on the last sedation. Therefore I did put her on 15 L nonrebreather for extra oxygen. We gave her 40 mg of propofol initially as a trial. This had almost no effect at all on her. I then gave an additional 60. We attempted reduction but she was still not relaxed and more awake. We gave another 50 mg for a total of 150 mg of propofol. With internal rotation and traction we were able to get it reduced. We had tried Captain Michael and vertical traction without success. We had good solid click. Good range of motion afterwards. Good length. Patient then woke up. She felt good. Pain was much relieved. Post reduction films are ordered and pending. Post reduction hip film 2 view looked at by me looks to be in good position. No fracture. Patient is rechecked. She feels great now. She states she has pain medicine at home through Dr. Leonard. She does not need anything. She has talked to Dr. Bean about hip surgery. They are trying to hold off because she has some illness issues and autoimmune diseases. All questions were answered. Her and her were okay with plan for follow-up Radiography Diagnostic Testing: Clinical Impression(s) from Imaging Studies Hip/Pelvis X-Ray 07/12/21 04:00 IMPRESSION: Superior dislocation of right hip arthroplasty. Electronically Signed: Tushar Palma MD at 5:12 EDT , Procedures Other Procedures Procedure(s): See MDM Discharge Plan Triage Chief Complaint: Lower Extremity Injury ED Provider: Byron Saldivar Dx/Rx/DC Orders Clinical Impression: Dislocation of hip, right, closed, S/P closed reduction of dislocated total hip prosthesis Instructions: ED Hip Replace Dislocation Reduc Prescriptions: No Action multivitamin [Multiple Vitamins] 1 EACH tablet 1 ea PO DAILY RF: 0 hyoscyamine sulfate 0.125 MG tablet, sublingual 0.125 mg sublingual PRN PRN (Reason: CROHNS) RF: 0 clonidine HCl 0.1 MG tablet 0.1 - 0.2 mg PO TID RF: 0 ondansetron 4 MG tablet 4 mg PO Q6H PRN RF: 0 cholecalciferol (vitamin D3) [Vitamin D3] 1,000 UNIT tablet 2,000 unit PO DAILY RF: 0 lisinopril 10 tablet 10 mg PO DAILY RF: 0 acetaminophen 500 MG tablet 1,000 mg PO BID PRN PRN (Reason: Pain 1-10 Or Fever) RF: 0 cyanocobalamin (vitamin B-12) 1,000 MCG/ML solution 1,000 mcg IM QMONTH RF: 0 oxycodone 30 MG tablet 20 mg PO Q4H PRN PRN (Reason: Pain 1-10 Or Fever) RF: 0 fentanyl 25 MCG patch 12 mcg TRANSDERM. Q72H RF: 0 Calcium + Vitamin D 600 mg calcium- 200 unit Tablet 2 tab PO DAILY RF: 0 Primary Care Provider: Mercedes Leonard Referrals: Mercedes Leonard MD [Primary Care Provider] - Jared eBan MD [STAFF PHYSICIAN] - 3-5 Days Disposition Disposition: Home, Self Care
[2021-07-12] MEDS: Ondansetron 4 MG/2 ML Vial IV (03:29)
[2021-07-12] MEDS: Morphine 4 MG/ML Syringe IV (03:30)
--- NOTE | 2021-07-12 04:00 | RAD_ITS ---
STUDY: X-RAY - PELVIS AND RIGHT HIP REASON FOR EXAM: Female, 75 years old. pain TECHNIQUE: 4 views of the pelvis and right hip. COMPARISON: June 18, 2021. FINDINGS: Superior dislocation of the right femoral head prosthesis relative to glenoid. No perihardware lucency or evidence of hardware failure. No fracture. Left hip arthroplasty in appropriate position without evidence of hardware failure. RAD/HIP, UNI W/ Pelvis 2-3 Views IMPRESSION: Superior dislocation of right hip arthroplasty. Electronically Signed: Tushar Palma MD at 5:12 EDT ,
[2021-07-12] MEDS: Propofol 200 MG/20 ML Vial IV BOLUS (05:44)
--- NOTE | 2021-07-12 06:03 | RAD_ITS ---
STUDY: X-RAY - PELVIS AND RIGHT HIP REASON FOR EXAM: Female, 75 years old. Post reduction TECHNIQUE: AP pelvis with crosstable lateral right hip COMPARISON: None. FINDINGS: Right hip arthroplasty femoral head appears centered within the acetabular cup. Unchanged normal left hip arthroplasty alignment. No perihardware lucency or fracture. RAD/Hip 1 view with Pelvis IMPRESSION: Successful right hip arthroplasty reduction. Electronically Signed: Tushar Palma MD at 6:56 EDT ,
== END 2021-07-12 06:36 | disposition home or self-care (01) ==
PROVIDERS: Emergency Provider Emergency Medicine; PCP Internal Medicine; Visit Provider Emergency Medicine
DX: T84.020A Dislocation of internal right hip prosthesis, initial encounter (principal); X58.XXXA Exposure to other specified factors, initial encounter; Z96.643 Presence of artificial hip joint, bilateral; I10 Essential (primary) hypertension; D64.9 Anemia, unspecified; Z79.891 Long term (current) use of opiate analgesic; Z79.899 Other long term (current) drug therapy
CPT/HCPCS: 27265; 73501; 73502; 96374; 96375; 99156; 99285; A4216; J2405

== ENCOUNTER 2021-10-03 20:23 | Emergency (ER) | payer MEDICARE, OTHER, SELFPAY ==
[2021-10-03 20:25] VITALS: BP 139/85; PULSE 60; RESP 25; TEMP 36.2; O2SAT 92; BMI 18.5
--- NOTE | 2021-10-03 20:48 | EDS_ITS ---
HPI History of Present Illness Chief Complaint: Lower Extremity Injury Detail of Chief Complaint: Right hip dislocation Informant: patient Onset/Context/Timing Onset: Today Current Severity: Moderate Maximum Severity: Moderate Narrative Narrative: Patient presents with recurrent right hip dislocation. She reportedly was lying in bed tonight reading when her right hip dislocated. This would be her ninth hip dislocation. She states that she has been referred to a specialist at [facility] as far as whether she will need another surgery. Last p.o. intake was 3 hours ago. [facility] Medical History Anemia B12 deficiency Hypertension Irritable bowel syndrome Neuropathic pain Opioid dependence Severe protein-calorie malnutrition Home Medications hyoscyamine sulfate 0.125 mg sublingual tablet 0.125 mg sublingual PRN PRN CROHNS 09/05/16 [History Last Taken 11/26/19] multivitamin (Multiple Vitamins tablet) 1 ea PO DAILY SUPPLEMENT 09/05/16 [Hist ory Last Taken 11/27/19] clonidine HCl 0.1 mg tablet 0.1 - 0.2 mg PO TID BP 04/07/18 [History Last Taken 11/28/19] ondansetron 4 mg disintegrating tablet 4 mg PO Q6H PRN NAUSEA 04/07/18 [History Last Taken Unknown] cholecalciferol (vitamin D3) 25 mcg (1,000 unit) tablet (Vitamin D3) 2,000 unit PO DAILY SUPPLEMENT 07/26/18 [History Last Taken 11/26/19] lisinopril 10 mg tablet 10 mg PO DAILY BP 10/23/18 [History Last Taken Unknown] acetaminophen 500 mg tablet 1,000 mg PO BID PRN PRN Pain 1-10 Or Fever 11/28/19 [History Last Taken 11/26/19] cyanocobalamin (vitamin B-12) 1,000 mcg/mL injection solution 1,000 mcg IM QMONTH SUPPLEMENT 11/28/19 [History Last Taken 11/13/19] oxycodone 30 mg tablet 20 mg PO Q4H PRN PRN Pain 1-10 Or Fever 11/28/19 [History Last Taken 11/27/19] calcium carb-ergocalciferol (vit D2) 600 mg calcium-200 unit tablet 2 tab PO DAILY 07/12/21 [History Last Taken Unknown] Allergy/AdvReac Type Severity Reaction Status Date / Time amlodipine [From Norvasc] Allergy Unknown Verified 11/28/19 08:49 ampicillin Allergy Hives Verified 11/28/19 08:49 celecoxib [From Celebrex] Allergy Unknown Verified 11/28/19 08:49 cephalexin Allergy Unknown Verified 11/28/19 08:49 cyclobenzaprine Allergy Unknown Verified 11/28/19 08:49 [From Flexeril] levofloxacin [From Levaquin] Allergy Unknown Verified 11/28/19 08:49 mesalamine [From Pentasa] Allergy Unknown Verified 11/28/19 08:49 NSAIDS (Non-Steroidal Allergy Unknown Verified 11/28/19 08:49 Anti-Inflamma Penicillins Allergy Rash Verified 11/28/19 08:49 prochlorperazine Allergy Unknown Verified 11/28/19 08:49 [From Compazine] sulfamethoxazole Allergy Rash Verified 11/28/19 08:49 [From Bactrim] trazodone Allergy Unknown Verified 11/28/19 08:49 trimethoprim [From Bactrim] Allergy Rash Verified 11/28/19 08:49 zolpidem [From Ambien] Allergy Unknown Verified 11/28/19 08:49 Family History Father Heart disease Hypertension Surgical History History of bilateral salpingo-oophorectomy History of hysterectomy Status post bilateral total hip replacement Social History household members: spouse Smoking Status: Never smoker alcohol intake: never substance use type: does not use ROS ROS ED Constitutional Constitutional ED: Denies chills or fever(s) Eyes Eyes: Denies change in vision or discharge from eye(s) ENT ENT ED: Denies discharge from eye(s), rhinorrhea or sore throat Cardiovascular Cardiovascular: Denies chest pain or palpitations Respiratory/Chest Respiratory/Chest: Denies cough or dyspnea Gastrointestinal Gastrointestinal: Denies abdominal pain, diarrhea, nausea or vomiting Genitourinary Genitourinary ED: Denies dysuria Musculoskeletal Musculoskeletal: Reports extremity pain; Denies back pain Integumentary Denies Abrasions or rash Neurologic Neurologic: Denies headache(s), paresthesias or weakness Allergic/Immunologic Allergic/Immunologic ED: Denies lip swelling or urticaria EXAM Physical Exam Const Vital Signs: 10/03/21 20:25 10/03/21 21:31 10/03/21 21:38 Temperature 97.2 F L 99 F Temperature Source Oral Pulse Rate 60 109 H Pulse Rate [1 (Initial Baseline)] 112 H Pulse Rate [2] 100 Pulse Rate [3] 101 H Pulse Rate [4] 106 H Respiratory Rate 25 H 18 Respiratory Rate [1 (Initial Baseline)] 19 H Respiratory Rate [2] 13 Respiratory Rate [3] 24 H Respiratory Rate [4] 22 H Blood Pressure 139/85 H 140/80 H Blood Pressure [1 (Initial Baseline)] 149/82 H Blood Pressure [3] 115/62 Blood Pressure Mean 103 Pulse Ox 92 95 Oxygen Delivery Method Room Air Nasal Cannula Oxygen Delivery Method [1 (Initial Baseline)] Non-Rebreather Oxygen Delivery Method [2] Non-Rebreather Oxygen Delivery Method [3] Non-Rebreather Oxygen Delivery Method [4] Nasal Cannula Oxygen Flow Rate (L/min) 2 Oxygen Flow Rate (L/min) [1 (Initial Baseline)] 10 Oxygen Flow Rate (L/min) [2] 10 Oxygen Flow Rate (L/min) [3] 10 Oxygen Flow Rate (L/min) [4] 6 10/03/21 21:54 10/03/21 21:59 10/03/21 22:05 Temperature Temperature Source Pulse Rate Pulse Rate [1 (Initial Baseline)] Pulse Rate [2] Pulse Rate [3] Pulse Rate [4] Respiratory Rate Respiratory Rate [1 (Initial Baseline)] Respiratory Rate [2] Respiratory Rate [3] Respiratory Rate [4] Blood Pressure Blood Pressure [1 (Initial Baseline)] Blood Pressure [3] Blood Pressure Mean Pulse Ox Oxygen Delivery Method Nasal Cannula Nasal Cannula Room Air Oxygen Delivery Method [1 (Initial Baseline)] Oxygen Delivery Method [2] Oxygen Delivery Method [3] Oxygen Delivery Method [4] Oxygen Flow Rate (L/min) 6 3 Oxygen Flow Rate (L/min) [1 (Initial Baseline)] Oxygen Flow Rate (L/min) [2] Oxygen Flow Rate (L/min) [3] Oxygen Flow Rate (L/min) [4] Positive well nourished and well developed General Appearance ED: well developed HEENT Reports normocephalic and head/scalp atraumatic Eyes PERRL and EOMs intact bilaterally Neck supple Chest Wall inspection of chest normal and palpation of chest normal Resp normal respiratory effort and clear to auscultation bilaterally Cardio regular rate and regular rhythm GI normal to inspection, nondistended, normoactive bowel sounds GI Narrative: Mild epigastric tenderness. Palpation: soft Back/Spine no CVA tenderness Extremity Extremity Narrative: Right leg shortened. Tenderness of the right hip. Good distal pulses and can wiggle toes. Normal sensation. Neuro oriented x3 and no sensory deficits noted Sensorium / Orientation: alert Psych mental status grossly normal Skin no rashes or lesions noted MDM MDM MDM Narrative Medical decision making narrative: Patient given morphine and Zofran for pain control. Patient sent for x-rays of the pelvis and right hip. Radiography Diagnostic Testing: Clinical Impression(s) from Imaging Studies Hip/Pelvis X-Ray 10/03/21 21:10 IMPRESSION: Dislocation of the right hip arthroplasty. Electronically Signed: Theo Louie MD at 21:25 EDT , Treatment and Re-Evaluation Narrative: Pelvis and right hip x-rays from interpretation reveal dislocation of the right hip. Patient is consented for procedural sedation and closed reduction of her hip. Patient is given propofol and right hip was reduced. Please see procedure note for details. Repeat x-rays reveal good reduction of the dislocation per my review. Knee immobilizer is in place. Patient be discharged home and will follow up with her orthopedic physician at [facility]. Procedures Procedural Sedation Right hip reduction: Consent Signed: Yes Any Problems With Anesthesia: No You/Your family experience fever (hyperthermia) w/anesthesia: No Sedation medication: Propofol Dose: 100 Route: IV Total Moderate Sedation Units: 9 Mallampati Score: Class I ASA Classification: I Comment:: I did review prior notes indicating patient did require anywhere from 150 to 200 mg of propofol for sedation. Patient initially given 70 mg IV. She received good sedation. Attempt at right hip reduction was performed with traction and internal rotation. Patient began to wake up and sit up. She was given an additional 30 mg of propofol for a total of 100 mg. With traction and internal rotation right hip was able to be reduced. He was placed in immobilizer. Total sedation time was 9 minutes. Discharge Plan Triage Chief Complaint: Lower Extremity Injury ED Provider: Chhaya Real Dx/Rx/DC Orders Clinical Impression: Dislocation of right hip Instructions: ED Hip Replace Dislocation Reduc Prescriptions: No Action multivitamin [Multiple Vitamins] 1 EACH tablet 1 ea PO DAILY hyoscyamine sulfate 0.125 MG tablet, sublingual 0.125 mg sublingual PRN PRN (Reason: CROHNS) Rx Instructions: 1-2 tabs under the tongue before meals and at bedtime clonidine HCl 0.1 MG tablet 0.1 - 0.2 mg PO TID Rx Instructions: BP DEPENDENT ondansetron 4 MG tablet 4 mg PO Q6H PRN cholecalciferol (vitamin D3) [Vitamin D3] 1,000 UNIT tablet 2,000 unit PO DAILY lisinopril 10 tablet 10 mg PO DAILY Rx Instructions: 1-2 tabs, adjust based on blood pressure readings at home acetaminophen 500 MG tablet 1,000 mg PO BID PRN PRN (Reason: Pain 1-10 Or Fever) cyanocobalamin (vitamin B-12) 1,000 MCG/ML solution 1,000 mcg IM QMONTH oxycodone 30 MG tablet 20 mg PO Q4H PRN PRN (Reason: Pain 1-10 Or Fever) Calcium + Vitamin D 600 mg calcium- 200 unit Tablet 2 tab PO DAILY Primary Care Provider: Mercedes Leonard Referrals: Mercedes Leonard MD [Primary Care Provider] - Activity Restrictions/Additional Instructions: Follow-up with your orthopedic physician at [facility]. Disposition Disposition: Home, Self Care
[2021-10-03] MEDS: Morphine 4 MG/ML Syringe IV (20:59)
[2021-10-03] MEDS: Ondansetron 4 MG/2 ML Vial IV (20:59)
--- NOTE | 2021-10-03 21:10 | RAD_ITS ---
STUDY: X-RAY - PELVIS AND RIGHT HIP REASON FOR EXAM: Female, 75 years old. dislocation TECHNIQUE: 3 views of the pelvis and hip. COMPARISON: 06/18/2021 FINDINGS: There is a non-specific bowel gas pattern. Normal visualized soft tissue structures. Normal bilateral iliac wings, sacroiliac joints and visualized sacrum. Normal bilateral superior and inferior pubic rami. Normal pubic symphysis. Normal bilateral ischial tuberosities. Status post right hip arthroplasty. Superior dislocation of the femoral head portion of the prosthesis.. RAD/HIP, UNI W/ Pelvis 2-3 Views IMPRESSION: Dislocation of the right hip arthroplasty. Electronically Signed: Theo Louie MD at 21:25 EDT ,
[2021-10-03 21:31] VITALS: BP 140/80; PULSE 109; RESP 18; TEMP 37.2; O2SAT 95
[2021-10-03 21:38] VITALS: BP 115/62; BP 149/82; PULSE 100; PULSE 101; PULSE 106; PULSE 112; RESP 13; RESP 19; RESP 22; RESP 24; O2SAT 100; O2SAT 98
[2021-10-03] MEDS: Propofol 200 MG/20 ML Vial IV BOLUS (21:41)
[2021-10-03 21:54] VITALS: BP 140/76; O2SAT 99
[2021-10-03 21:59] VITALS: BP 137/75; O2SAT 98
[2021-10-03 22:05] VITALS: BP 138/78; O2SAT 95
--- NOTE | 2021-10-03 22:10 | RAD_ITS ---
STUDY: X-RAY - PELVIS AND RIGHT HIP REASON FOR EXAM: Female, 75 years old. post reduction TECHNIQUE: 2 views of the pelvis and hip. COMPARISON: 10/04/2019 04/05/2018 FINDINGS: There is a non-specific bowel gas pattern. Normal visualized soft tissue structures. Normal bilateral iliac wings, sacroiliac joints and visualized sacrum. Normal bilateral superior and inferior pubic rami. Normal pubic symphysis. Normal bilateral ischial tuberosities. Interval reduction of the hip arthroplasty prosthesis.. RAD/Hip Min 2 Views (Portable) IMPRESSION: Interval reduction of the hip arthroplasty prosthesis. Electronically Signed: Theo Louie MD at 22:27 EDT ,
== END 2021-10-03 22:44 | disposition home or self-care (01) ==
PROVIDERS: Emergency Provider Emergency Medicine; PCP Internal Medicine; Visit Provider Emergency Medicine
DX: T84.020A Dislocation of internal right hip prosthesis, initial encounter (principal); X58.XXXA Exposure to other specified factors, initial encounter; I10 Essential (primary) hypertension; Z96.643 Presence of artificial hip joint, bilateral; Z79.899 Other long term (current) drug therapy
CPT/HCPCS: 27265; 73502; 96374; 96375; 99285; J7030; A4216; J2405

== ENCOUNTER 2023-02-15 22:18 | Emergency (ER) | payer MEDICARE, OTHER, SELFPAY ==
[2023-02-15 22:21] VITALS: BP 111/80; PULSE 86; RESP 16; TEMP 36.7; O2SAT 95
[2023-02-15 22:23] VITALS: BP 105/64; PULSE 79; RESP 16; TEMP 36.6; O2SAT 90
--- NOTE | 2023-02-15 22:24 | ED.VIS.LOWEX ---
HPI History of Present Illness Chief Complaint: Lower Extremity Injury Informant: patient and EMS Narrative Narrative: 77-year-old female states she dislocated her hip just prior to arrival. She states this has happened multiple times before, probably 11. She states she is not well enough to have it repaired. Following with Dr. Widmer. Mccann she was just walking when this spontaneously occurred, without a fall or injury. She denies falling as a result of this and injuring anything else. This has pain in her right hip. She denies turning, twisting, bending the cause of this. Patient has been n.p.o. for approximately 6 hours or more. [facility] Medical History Anemia B12 deficiency Hypertension Irritable bowel syndrome Neuropathic pain Opioid dependence Severe protein-calorie malnutrition Home Medications hyoscyamine sulfate 0.125 mg sublingual tablet 0.125 mg sublingual PRN PRN CROHNS 09/05/16 [History Last Taken 11/26/19] multivitamin (Multiple Vitamins tablet) 1 ea PO DAILY SUPPLEMENT 09/05/16 [History Last Taken 11/27/19] clonidine HCl 0.1 mg tablet 0.1 - 0.2 mg PO TID BP 04/07/18 [History Last Taken 11/28/19] ondansetron 4 mg disintegrating tablet 4 mg PO Q6H PRN NAUSEA 04/07/18 [History Last Taken Unknown] cholecalciferol (vitamin D3) 25 mcg (1,000 unit) tablet (Vitamin D3) 2,000 unit PO DAILY SUPPLEMENT 07/26/18 [History Last Taken 11/26/19] lisinopril 10 mg tablet 10 mg PO DAILY BP 10/23/18 [History Last Taken Unknown] acetaminophen 500 mg tablet 1,000 mg PO BID PRN PRN Pain 1-10 Or Fever 11/28/19 [History Last Taken 11/26/19] cyanocobalamin (vitamin B-12) 1,000 mcg/mL injection solution 1,000 mcg IM QMONTH SUPPLEMENT 11/28/19 [History Last Taken 11/13/19] oxycodone 30 mg tablet 20 mg PO Q4H PRN PRN Pain 1-10 Or Fever 11/28/19 [History Last Taken 11/27/19] calcium carb-ergocalciferol (vit D2) 600 mg calcium-200 unit tablet 2 tab PO DAILY 07/12/21 [History Last Taken Unknown] Allergy/AdvReac Type Severity Reaction Status Date / Time amlodipine [From Norvasc] Allergy Unknown Verified 11/28/19 08:49 ampicillin Allergy Hives Verified 11/28/19 08:49 celecoxib [From Celebrex] Allergy Unknown Verified 11/28/19 08:49 cephalexin Allergy Unknown Verified 11/28/19 08:49 cyclobenzaprine Allergy Unknown Verified 11/28/19 08:49 [From Flexeril] levofloxacin [From Levaquin] Allergy Unknown Verified 11/28/19 08:49 mesalamine [From Pentasa] Allergy Unknown Verified 11/28/19 08:49 NSAIDS (Non-Steroidal Allergy Unknown Verified 11/28/19 08:49 Anti-Inflamma Penicillins Allergy Rash Verified 11/28/19 08:49 prochlorperazine Allergy Unknown Verified 11/28/19 08:49 [From Compazine] sulfamethoxazole Allergy Rash Verified 11/28/19 08:49 [From Bactrim] trazodone Allergy Unknown Verified 11/28/19 08:49 trimethoprim [From Bactrim] Allergy Rash Verified 11/28/19 08:49 zolpidem [From Ambien] Allergy Unknown Verified 11/28/19 08:49 Family History Father Heart disease Hypertension Surgical History History of bilateral salpingo-oophorectomy History of hysterectomy Status post bilateral total hip replacement Social History household members: spouse Smoking Status: Never smoker alcohol intake: never substance use type: does not use ROS ROS ED Constitutional Constitutional ED: Denies chills or fever(s) Musculoskeletal Musculoskeletal: Reports extremity pain; Denies neck pain Integumentary Denies Abrasions, rash or wounds Neurologic Neurologic: Denies paresthesias or weakness EXAM Physical Exam Const Vital Signs: 02/15/23 22:21 02/15/23 22:23 02/15/23 23:08 Temperature 98.1 F 98 F Temperature Source Oral Pulse Rate 86 79 Pulse Rate [2] 78 Pulse Rate [3] 81 Pulse Rate [4] 74 Pulse Rate [Right hip reduction] 91 Respiratory Rate 16 16 Respiratory Rate [2] 11 L Respiratory Rate [3] 10 L Respiratory Rate [4] 13 Respiratory Rate [Right hip reduction] 13 Blood Pressure 111/80 105/64 Blood Pressure [2] 110/57 L Blood Pressure [3] 110/57 L Blood Pressure [4] 122/79 H Blood Pressure [Right hip reduction] 105/64 Blood Pressure Mean 90 Pulse Ox 95 90 Oxygen Delivery Method Room Air Nasal Cannula Oxygen Delivery Method [2] Nasal Cannula Oxygen Delivery Method [3] Nasal Cannula Oxygen Delivery Method [4] Nasal Cannula Oxygen Delivery Method [Right hip reduction] Nasal Cannula Oxygen Flow Rate (L/min) 2 Oxygen Flow Rate (L/min) [2] 2 Oxygen Flow Rate (L/min) [3] 6 Oxygen Flow Rate (L/min) [4] 4 Oxygen Flow Rate (L/min) [Right hip reduction] 2 Fraction of Inspired Oxygen (FIO2) [Right hip reduction] 2 02/15/23 23:20 02/15/23 23:30 02/15/23 23:25 Temperature Temperature Source Pulse Rate Pulse Rate [2] Pulse Rate [3] Pulse Rate [4] Pulse Rate [Right hip reduction] Respiratory Rate Respiratory Rate [2] Respiratory Rate [3] Respiratory Rate [4] Respiratory Rate [Right hip reduction] Blood Pressure Blood Pressure [2] Blood Pressure [3] Blood Pressure [4] Blood Pressure [Right hip reduction] Blood Pressure Mean Pulse Ox Oxygen Delivery Method Nasal Cannula Nasal Cannula Oxygen Delivery Method [2] Oxygen Delivery Method [3] Oxygen Delivery Method [4] Oxygen Delivery Method [Right hip reduction] Oxygen Flow Rate (L/min) 6 2 2 Oxygen Flow Rate (L/min) [2] Oxygen Flow Rate (L/min) [3] Oxygen Flow Rate (L/min) [4] Oxygen Flow Rate (L/min) [Right hip reduction] Fraction of Inspired Oxygen (FIO2) [Right hip reduction] 02/16/23 00:11 02/16/23 00:21 02/16/23 00:24 Temperature 98 F Temperature Source Pulse Rate 68 76 Pulse Rate [2] Pulse Rate [3] Pulse Rate [4] 84 Pulse Rate [Right hip reduction] Respiratory Rate 16 14 Respiratory Rate [2] Respiratory Rate [3] Respiratory Rate [4] 16 Respiratory Rate [Right hip reduction] Blood Pressure 107/68 132/89 H Blood Pressure [2] Blood Pressure [3] Blood Pressure [4] 118/53 L Blood Pressure [Right hip reduction] Blood Pressure Mean 81 Pulse Ox 94 93 Oxygen Delivery Method Nasal Cannula Nasal Cannula Oxygen Delivery Method [2] Oxygen Delivery Method [3] Oxygen Delivery Method [4] Nasal Cannula Oxygen Delivery Method [Right hip reduction] Oxygen Flow Rate (L/min) 2 2 Oxygen Flow Rate (L/min) [2] Oxygen Flow Rate (L/min) [3] Oxygen Flow Rate (L/min) [4] 2 Oxygen Flow Rate (L/min) [Right hip reduction] Fraction of Inspired Oxygen (FIO2) [Right hip reduction] 02/16/23 00:26 02/16/23 00:30 02/16/23 00:35 Temperature Temperature Source Pulse Rate Pulse Rate [2] Pulse Rate [3] Pulse Rate [4] Pulse Rate [Right hip reduction] Respiratory Rate Respiratory Rate [2] Respiratory Rate [3] Respiratory Rate [4] Respiratory Rate [Right hip reduction] Blood Pressure Blood Pressure [2] Blood Pressure [3] Blood Pressure [4] Blood Pressure [Right hip reduction] Blood Pressure Mean Pulse Ox Oxygen Delivery Method Nasal Cannula Nasal Cannula Nasal Cannula Oxygen Delivery Method [2] Oxygen Delivery Method [3] Oxygen Delivery Method [4] Oxygen Delivery Method [Right hip reduction] Oxygen Flow Rate (L/min) 2 2 2 Oxygen Flow Rate (L/min) [2] Oxygen Flow Rate (L/min) [3] Oxygen Flow Rate (L/min) [4] Oxygen Flow Rate (L/min) [Right hip reduction] Fraction of Inspired Oxygen (FIO2) [Right hip reduction] Positive well nourished and well developed General Appearance ED: well developed and NAD Neck full ROM and supple Back/Spine normal ROM and normal to inspection Extremity Extremity Narrative: Right lower extremity held shortened and in internal rotation with limited range of motion about the hip due to pain. No tenderness in the thigh or the knee, all compartments are soft and nondistended. Diminished but present pulse dorsalis pedis. Neuro oriented x3, no focal motor deficits and no sensory deficits noted Sensorium / Orientation: alert Psych mental status grossly normal and thought process normal Skin no wounds Rashes: no rashes MDM MDM MDM Narrative Medical decision making narrative: Three-view x-ray series of the right hip and pelvis confirm a posterior dislocation of the right hip with no acute fractures noted on my interpretation. Radiology in agreement. In sedating the patient and attempting reduction we were unable. I had another physician assisting me as well as nurses. We tried multiple angulation and internal and external rotation techniques. We could feel a grinding on the edge of the acetabular cup but were not able to perform reduction. Postreduction films confirmed that it is still dislocated. Discussed with Dr. Monteiro with orthopedics. He came in and together we were able to successfully perform closed reduction sedating the patient again. She will follow-up with Dr. Bean, discharged in a knee immobilizer. She is ambulatory and recovered from anesthesia at the time of discharge. Radiography Diagnostic Testing: Clinical Impression(s) from Imaging Studies Hip/Pelvis X-Ray 02/15/23 22:35 IMPRESSION: Dislocation of the right femoral prosthesis in relation to the right acetabular component as described. No acute fracture. Electronically Signed: Sameera Villalobos MD at 22:55 EST , Pelvis X-Ray 02/15/23 23:40 IMPRESSION: Dislocation of the right hip prosthesis, similar to the prior exam. Electronically Signed: Carlos Coleman MD at 0:24 EST , Procedures Procedural Sedation 1 (Initial Baseline): Consent Signed: Yes Any Problems With Anesthesia: No Sedation medication: Propofol Dose: 100 (in 3 separate aliquots) Route: IV Total Moderate Sedation Units: 12 Maliampati Score: Class III ASA Classification: II Comment:: no complications. on monitor, EtCO2 monitoring, airway equipment at bedside. IVF and prophylactic O2 via NC gong during procedure. 2: Consent Signed: Yes Any Problems With Anesthesia: No Sedation medication: Propofol Dose: 60 Route: IV Total Moderate Sedation Units: 14 Maliampati Score: Class III ASA Classification: II Comment:: On monitor with prophylactic nasal cannula oxygenation and IV fluids, end-tidal CO2 monitoring, airway equipment at the bedside. Tolerated well with no complications. Other Procedures Procedure(s): Closed reduction right posterior hip dislocation: Multiple attempts with different techniques including Captain Michael and forced anterior distraction by myself with another physician assisting, unsuccessful. Postreduction x-rays confirm persistent posterior dislocation without acute fracture. Patient neurovascularly intact distally after awaking from anesthesia. Repeat closed reduction performed by Dr. Monteiro and assisted by myself results in successful clunk and resolution of patient's acute length discrepancy, postreduction x-rays as interpreted by myself 1 view shows good reduction into the acetabular cup. Discharge Plan Triage Chief Complaint: Lower Extremity Injury ED Provider: Jean Paul Mcelroy Dx/Rx/DC Orders Clinical Impression: Dislocation of internal right hip prosthesis Instructions: ED Hip Replace Dislocation Reduc Prescriptions: No Action multivitamin [Multiple Vitamins] 1 EACH tablet 1 ea PO DAILY hyoscyamine sulfate 0.125 MG tablet, sublingual 0.125 mg sublingual PRN PRN (Reason: CROHNS) Rx Instructions: 1-2 tabs under the tongue before meals and at bedtime clonidine HCl 0.1 MG tablet 0.1 - 0.2 mg PO TID Rx Instructions: BP DEPENDENT ondansetron 4 MG tablet 4 mg PO Q6H PRN cholecalciferol (vitamin D3) [Vitamin D3] 1,000 UNIT tablet 2,000 unit PO DAILY lisinopril 10 tablet 10 mg PO DAILY Rx Instructions: 1-2 tabs, adjust based on blood pressure readings at home acetaminophen 500 MG tablet 1,000 mg PO BID PRN PRN (Reason: Pain 1-10 Or Fever) cyanocobalamin (vitamin B-12) 1,000 MCG/ML solution 1,000 mcg IM QMONTH oxycodone 30 MG tablet 20 mg PO Q4H PRN PRN (Reason: Pain 1-10 Or Fever) Calcium + Vitamin D 600 mg calcium- 200 unit Tablet 2 tab PO DAILY Primary Care Provider: Mercedes Leonard Referrals: Mercedes Leonard MD [Primary Care Provider] - Jared Bean MD [Med Staff - Active Staff] - 5-7 Days Disposition Disposition: Home, Self Care
--- NOTE | 2023-02-15 22:35 | RAD_ITS ---
STUDY: X-RAY - PELVIS AND RIGHT HIP REASON FOR EXAM: Female, 77 years old. deformity TECHNIQUE: 3 views of the pelvis and hip. COMPARISON: 10/03/2021. FINDINGS: Increased fecal debris suggestive of constipation. Normal visualized soft tissue structures. There is diffuse demineralization of the osseous structures. There is narrowing with cortical sclerosis and osteophyte formation of the sacroiliac joint consistent with degenerative osteoarthritic changes. Normal bilateral superior and inferior pubic rami. Normal pubic symphysis. Normal bilateral ischial tuberosities. There is a right-sided hip prosthesis in place. There is posterior and superior dislocation of the femoral component in relation to the acetabular component. No acute fracture seen. There is a left-sided hip prosthesis in place with normal alignment. There are soft tissue calcification projecting over the bilateral buttock region. RAD/HIP, UNI W/ Pelvis 2-3 Views IMPRESSION: Dislocation of the right femoral prosthesis in relation to the right acetabular component as described. No acute fracture. Electronically Signed: Sameera Villalobos MD at 22:55 EST ,
[2023-02-15] MEDS: fentaNYL 100 MCG/2 ML Ampul 50 MCG IV (22:53)
--- NOTE | 2023-02-15 23:00 | ED.RN ---
ed bed does not have weight function. pt estimates wt @ 120lbs
[2023-02-15 23:08] VITALS: BP 105/64; BP 110/57; BP 122/79; PULSE 74; PULSE 78; PULSE 81; PULSE 91; RESP 10; RESP 11; RESP 13; O2SAT 87; O2SAT 90; O2SAT 91
--- OUTSIDE RECORDS SUMMARY | 2023-02-15 23:12 | XMS RPT_ITS | CCD ---
Author Name Unknown Address [address] [facility] [address] [place] [address] Organization [facility] Care Team Providers Care Solar Lab Technician Name Role Phone Destini Leonard MD Primary Care Provider OKSANA SAHA Attending Unavailable TALAMPAS, DESTINI Tatyana Primary Care Unavailable Destini Leonard MD Primary Care Provider TALAMPAS, DESTINI D Referring Unavailable TALAMPAS, DESTINI D Primary Care Unavailable TALAMPAS, DESTINI D Referring Unavailable TALAMPAS, DESTINI D Primary Care Unavailable TALAMPAS, DESTINI D Attending Unavailable TALAMPAS, DESTINI D Primary Care Unavailable TALAMPAS, DESTINI D Primary Care Unavailable TALAMPAS, DESTINI D Attending Unavailable TALAMPAS, DESTINI D Primary Care Unavailable MORENA, BENJAMIN Referring Unavailable TALAMPAS, DESTINI D Primary Care Unavailable TALAMPAS, DESTINI D Attending Unavailable TALAMPAS, DESTINI D Referring Unavailable MORENA, BENJAMIN Attending Unavailable TALAMPAS, DESTINI D Primary Care Unavailable Allergies Allergy Classification Reported Allergen(s) Allergy Type Date of Onset Reaction(s) Facility (20 sources) amLODIPine; Translations: [AMLODIPINE BESYLATE] Drug Allergy 1 Shortness of Breath [facility] Work Phone: (20 sources) Ampicillin; Translations: [AMPICILLIN] Drug Allergy 1 [facility] Work Phone: (20 sources) celecoxib; Translations: [CELECOXIB] Drug Allergy 9 GI Upset [facility] Work Phone: (20 sources) Cephalexin; Translations: [CEPHALEXIN] Drug Allergy 3 GI Upset [facility] Work Phone: (20 sources) cyclobenzaprine ; Translations: [CYCLOBENZAPRIN E HCL] Drug Allergy 7 Mental Status Change [facility] Work Phone: (20 sources) diphenhydrAMINE ; Translations: [DIPHENHYDRAMIN E HCL] Drug Allergy 2 Other: See Comments [facility] Work Phone: (20 sources) levoFLOXacin; Translations: [LEVOFLOXACIN] Drug Allergy 2 Other: See Comments [facility] Work Phone: [phone] (20 sources) mesalamine; Translations: [MESALAMINE] Drug Allergy 2 Rash [facility] (12 sources) Non-steroidal anti-inflammato ry agent; Translations: [NSAIDS (NON-STEROIDAL ANTI-INFLAMMATO RY DRUG)] Propensity to adverse reactions 3 [facility] (12 sources) Penicillins; Translations: [PENICILLINS] Drug Allergy 2 Hives [facility] Work Phone: (20 sources) Prochlorperazin e; Translations: [PROCHLORPERAZI NE EDISYLATE] Drug Allergy 1 Other: See Comments [facility] Work Phone: [phone] (20 sources) Sulfamethoxazol e; Translations: [SULFAMETHOXAZO LE] Drug Allergy 2 Hives [facility] Work Phone: (20 sources) traZODone; Translations: [TRAZODONE HCL] Drug Allergy 2 Mental Status Change, GI Upset [facility] Work Phone: (20 sources) zolpidem; Translations: [ZOLPIDEM] Drug Allergy 2 Mental Status Change [facility] Work Phone: [phone] (20 sources) Non-steroidal anti-inflammato ry agent Propensity to adverse reactions 3 [facility] (20 sources) Penicillins Drug Allergy 2 Hives [facility] Work Phone: [phone] Medications Current Medications Medication Drug Class(es) Dates Sig (Normalized) Sig (Original) morphine sulfate 20 mg/ml oral solution (20 sources) Opioid Agonist Start: 12-23-2022 End: 01-14-2023 take 1 mL by mouth every four hours as needed morphine concentrate (ROXANOL) 100 mg/5 mL (20 mg/mL) Indications: Intervertebral disc disorder with radiculopathy of lumbar region , Bilateral sciatica , Pain in prosthetic joint, sequela , RLS (restless legs syndrome) , Closed fracture of right hip, sequela , Closed fracture of left foot, sequela , 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 Persistent hip fractures (surgery postponed) ;with nausea and vomiting--needs oral liquid for when not able to take pills. 30 mL 0 01/04/2023 01/14/2023 Active Completed/Discontinued Medications Medication Drug Class(es) Dates Sig (Normalized) Sig (Original) Calcium (20 sources) Phosphate Binder, Calcium Start: 01-09-2001 CALCIUM 600 TABLET 600-125 PO x2 qd 0 01/09/2001 Active Problems Active Problems Problem Classification Problem Date Documented Da te Episodic/Chronic Cardiac dysrhythmias (1 source) Tachycardia, unspecified; Translations: [Tachycardia] Onset: 3 Episodic Deficiency and other anemia (20 sources) Pernicious anemia; Translations: [Vitamin B12 deficiency anemia due to intrinsic factor deficiency] 01-05-2005 Episodic Deficiency and other anemia (1 source) Anemia; Translations: [Anemia, unspecified] Episodic Essential hypertension (20 sources) Hypertensive disorder; Translations: [Essential (primary) hypertension] Onset: 6 04-28-2015 Chronic Fracture of lower limb (20 sources) Closed fracture of left foot; Translations: [Unspecified fracture of left foot, sequela] Onset: 3 Episodic Fracture of neck of femur (hip) (20 sources) Closed fracture of hip; Translations: [Fracture of unspecified part of neck of right femur, sequela] Onset: 3 Episodic Joint disorders and dislocations; trauma-related (1 source) Closed anterior dislocation of hip; Translations: [Other anterior dislocation of right hip, sequela] Episodic Miscellaneous mental health disorders (20 sources) Psychophysiologic insomnia; Translations: [Psychophysiologic insomnia] Onset: 2 06-01-2011 Chronic Nutritional deficiencies (20 sources) Vitamin D deficiency; Translations: [Vitamin D deficiency, unspecified] Onset: 8 12-31-2017 Chronic Osteoarthritis (1 source) Primary gonarthrosis, bilateral; Translations: [Bilateral primary osteoarthritis of knee] 11-24-2022 Chronic Osteoporosis (1 source) Osteoporosis; Translations: [Age-related osteoporosis without current pathological fracture] Chronic Other aftercare (1 source) Encounter for therapeutic drug level monitoring; Translations: [Encounter for therapeutic drug monitoring] Onset: 3 Episodic Other connective tissue disease (1 source) Presence of unspecified artificial hip joint; Translations: [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, sequela] Onset: 7 Chronic Other diseases of kidney and ureters (1 source) Acute renal insufficiency; Translations: [Disorder of kidney and ureter, unspecified] Episodic Other endocrine disorders (20 sources) Hypoglycemia; Translations: [Hypoglycemia, unspecified] Onset: 6 01-16-2006 Chronic Other gastrointestinal disorders (20 sources) Irritable bowel syndrome; Translations: [Irritable bowel syndrome without diarrhea] Onset: 6 05-13-2005 Chronic Other gastrointestinal disorders (20 sources) Malabsorption - iron; Translations: [Intestinal malabsorption, unspecified] 12-07-2010 Chronic Other gastrointestinal disorders (1 source) Abnormal intestinal absorption; Translations: [Intestinal malabsorption, unspecified] Chronic Other gastrointestinal disorders (1 source) Intestinal malabsorption, unspecified; Translations: [Impaired intestinal absorption] Onset: 3 Chronic Other gastrointestinal disorders (1 source) Intestinal bypass and anastomosis status; Translations: [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] Onset: 3 Chronic Other hereditary and degenerative nervous system conditions (20 sources) Restless legs; Translations: [Restless legs syndrome] Onset: 2 06-01-2011 Chronic Other hereditary and degenerative nervous system conditions (1 source) Restless legs syndrome; Translations: [RLS (restless legs syndrome)] Onset: 2 Chronic Other nervous system disorders (20 sources) Chronic pain; Translations: [Other chronic pain] Onset: 1 12-31-2020 Chronic Other nervous system disorders (1 source) Other chronic pain; Translations: [Other chronic pain] Onset: 1 Chronic Other screening for suspected conditions (not mental disorders or infectious disease) (5 sources) Patient encounter status; Translations: [Encounter for screening mammogram for malignant neoplasm of breast] Episodic Other skin disorders (1 source) Eruption; Translations: [Rash and other nonspecific skin eruption] Episodic Other upper respiratory disease (20 sources) Allergic rhinitis due to pollen; Translations: [Allergic rhinitis due to pollen] 01-05-2005 Chronic Other upper respiratory disease (20 sources) Allergic rhinitis; Translations: [Allergic rhinitis, unspecified] 01-05-2005 Chronic Regional enteritis and ulcerative colitis (20 sources) Crohn's disease; Translations: [Crohn's disease, unspecified, without complications] Onset: 0 10-09-2019 Chronic Residual codes; unclassified (1 source) H/O: major abdominal surgery; Translations: [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]] Episodic Spondylosis; intervertebral disc disorders; other back problems (1 source) Lumbar spondylosis; Translations: [Spondylosis without myelopathy or radiculopathy, lumbar region] 11-24-2022 Chronic Substance-related disorders (20 sources) Opioid dependence; Translations: [Opioid dependence, uncomplicated] Onset: 3 Chronic Systemic lupus erythematosus and connective tissue disorders (20 sources) Connective tissue disease overlap syndrome; Translations: [Other overlap syndromes] Onset: 3 Chronic Unclassified (1 source) NO SHOW Past or Other Problems Problem Classification Problem Date Documented Date Episodic/Chronic Complication of device; implant or graft (20 sources) Joint pain; Translations: [Pain due to internal orthopedic prosthetic devices, implants and grafts, initial encounter] Onset: 06-23-2005 12-16-2015 Episodic Complications of surgical procedures or medical care (20 sources) Postgastric surgery syndrome; Translations: [Postgastric surgery syndromes] Onset: 10-24-2000 11-17-2016 Episodic Deficiency and other anemia (20 sources) Iron deficiency anemia; Translations: [Other iron deficiency anemias] Onset: 01-07-2010 02-08-2021 Episodic Deficiency and other anemia (1 source) Anemia, unspecified; Translations: [Anemia, unspecified type] Onset: 07-16-2022 Episodic Fluid and electrolyte disorders (4 sources) Hyperkalemia; Translations: [Hyperkalemia] Onset: 07-16-2022 Episodic Nutritional deficiencies (20 sources) Cobalamin deficiency; Translations: [Deficiency of other specified B group vitamins] Onset: 01-27-2011 01-27-2011 Episodic Other aftercare (20 sources) Antibiotic prophylaxis indicated; Translations: [[facility] (current) use of antibiotics] Onset: 03-25-2013 02-08-2021 Episodic Other aftercare (1 source) Other long-term (current) drug therapy; Translations: [Encounter for long-term (current) drug use] Onset: 07-13-2022 Episodic Other diseases of kidney and ureters (1 source) Disorder of kidney and ureter, unspecified; Translations: [Acute renal insufficiency] Onset: 07-16-2022 Episodic Residual codes; unclassified (1 source) 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]; Translations: [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] Onset: 07-13-2022 Episodic Spondylosis; intervertebral disc disorders; other back problems (20 sources) Radiculopathy due to lumbar intervertebral disc disorder; Translations: [Intervertebral disc disorders with radiculopathy, lumbar region] Onset: 01-07-2005 12-05-2014 Episodic Substance-related disorders (20 sources) Continuous opioid dependence; Translations: [Opioid use, unspecified, uncomplicated] Onset: 12-31-2020 12-31-2020 Episodic Viral infection (20 sources) Herpetic gingivostomatitis; Translations: [Herpesviral gingivostomatitis and pharyngotonsillitis] Onset: 11-09-2004 11-09-2004 Episodic Results Test Name Value Interpretation Reference Range Facil ity Vital Signs Date Time Vital Sign Value Performing Clinician Nick mejia 11-24-2022 11:12-0400 Heart rate 86 /min Oksana Saha MD Work Phone: [facility] 11-24-2022 11:12-0400 Respiratory rate 16 /min Oksana Saha MD Work Phone: [facility] 11-24-2022 11:12-0400 SaO2% (BldA) [Mass fraction] 97 % Oksana Saha MD Work Phone: [facility] 08-17-2022 10:39-0400 Body weight 41.1 kg Benjamin Morena WIRELINE OPERATOR.METAL FURNITURE POLISHER Work Phone: [facility] 08-17-2022 10:39-0400 Diastolic blood pressure 94 mm[Hg] Benjamin Morena WIRELINE OPERATOR.METAL FURNITURE POLISHER Work Phone: [facility] 08-17-2022 10:39-0400 Heart rate 108 /min Benjamin Morena WIRELINE OPERATOR.METAL FURNITURE POLISHER Work Phone: [facility] 08-17-2022 10:39-0400 Respiratory rate 16 /min Benjamin Morena WIRELINE OPERATOR.METAL FURNITURE POLISHER Work Phone: [facility] 08-17-2022 10:39-0400 Systolic blood pressure 148 mm[Hg] Benjamin Morena WIRELINE OPERATOR.METAL FURNITURE POLISHER Work Phone: [facility] 07-13-2022 08:09-0400 Body temperature 96.8 [degF] Destini Leonard MD Work Phone: [facility] 07-13-2022 08:09-0400 Body weight 40.23 kg Destini Leoanrd MD Work Phone: [facility] 07-13-2022 08:09-0400 Diastolic blood pressure 68 mm[Hg] Destini Leonard MD Work Phone: [facility] 07-13-2022 08:09-0400 Heart rate 56 /min Destini Leonard MD Work Phone: [facility] 07-13-2022 08:09-0400 Respiratory rate 18 /min Destini Leonard MD Work Phone: [facility] 07-13-2022 08:09-0400 SaO2% (BldA) [Mass fraction] 99 % Destini Leonard MD Work Phone: [facility] 07-13-2022 08:09-0400 Systolic blood pressure 128 mm[Hg] Destini Leonard MD Work Phone: [facility] 09-04-2021 10:43-0400 Diastolic blood pressure 58 mm[Hg] Destini Leonard MD Work Phone: [facility] 09-04-2021 10:43-0400 Heart rate 72 /min Destini Leonard MD Work Phone: [facility] 09-04-2021 10:43-0400 Respiratory rate 16 /min Destini Leonard MD Work Phone: [facility] 09-04-2021 10:43-0400 Systolic blood pressure 98 mm[Hg] Destini Leonard MD Work Phone: [facility] Encounters Encounter Date Encounter Type Care Provider Facility Start: 01-17-2023 End: 01-18-2023 ambulatory DESTINI LEONARD Facility:[facility] Start: 01-11-2023 Refill Destini mauro MD Work Phone: [facility] [place] Procedures Date Procedure Procedure Detail Performing Clinician Start: 10-28-2020 Lipid 1996 panel - S mine or Plasma Aubrey Patel MD Work Phone: Start: 06-10-2020 Adult depression scr eening assessment Destini Leonard MD Work Phone: Start: 08-14-2017 Mammography Destini durham MD Work Phone: Start: 03-16-2016 Colonoscopy Destini durham MD Work Phone: Plan of Treatment Date Care Activity Detail Author Start: 10-23-2028 Urine microalbumin profile [facility] Start: 03-16-2026 Colonoscopy COLONOSCOPY [facility] Start: 03-16-2026 COLORECTAL CANCER SCREENING COLORECTAL CANCER SCREENING [facility] Start: 11-11-2025 Diabetes Screening Diabetes Screenin g [facility] Start: 10-28-2025 Lipid 1996 panel - S mine or Plasma Lipid Screening [facility] Start: 10-28-2025 LIPID SCREEN LIPID SCREEN [facility] Start: 07-16-2025 DIABETES SCREEN DIABETES SCREEN [facility] Start: 07-16-2025 Diabetes Screening Diabetes Screenin g [facility] Start: 07-13-2025 DIABETES SCREEN DIABETES SCREEN [facility] Start: 11-12-2023 Annual PCP Team City Editor aleyda Disease Visit Annual PCP Team Chronic Disease Visit [facility] Start: 11-12-2023 Hepatitis A Vaccine (1 of 2 - Risk 2-dose series) Hepatitis A Vaccine (1 of 2 - Risk 2-dose series) [facility] Immunizations Immunization Date Immunization Notes Care Provider Fa cili 10-23-2018 tetanus toxoid, reduced diphtheria toxoid, and acellular pertussis vaccine, adsorbed Destini Leonard MD Work Phone: [facility] 10-13-2010 tetanus toxoid, reduced diphtheria toxoid, and acellular pertussis vaccine, adsorbed Destini Leonard MD Work Phone: [facility] 11-06-1997 diphtheria and tetan us toxoids, adsorbed for pediatric use Destini Leonard MD Work Phone: [facility] Work Phone: NEGATED: Highlighted row has not occurred!12-08-2020 COVID-19 vaccine, age 12+ yr (PFIZER-BIONTGeckoLife - PURPLE TOP) Destini Leonard MD Work Phone: [facility] Work Phone: Payers Date Payer Category Payer Medicare [id number] 2015 Private Health Insurance CIGANALISA Arreola ALFA NAINC 2ND [id number] 2015-Present [phone] [id number] [place] [id number] 2015 Private Health Insurance CIGNA C IGNA NALC 2ND [id number] 2015-Present [phone] [id number] [place] [id number] 2012 Medicare MEDICARE MEDICAR E A AND B [id number] 2012-Present [phone] [place] [address] Medicare [id number] 2012 Medicare [id number] Social History Date Type Detail Facility Start: 09-09-2010 End: 11-11-2022 Tobacco smoking status NHIS Never smoked tobacco [facility] Start: 12-28-2020 End: 11-24-2022 Alcohol intake Current non-drinker of alcohol (finding) [facility] Start: 04-01-2019 End: 07-10-2022 History SDOH Alcohol Frequency 1 [facility] Start: 07-31-2019 History SDOH Social Connections Phone 5 [facility] Start: 04-01-2019 History SDOH Social Connections Get Together 98 [facility] Start: 04-01-2019 End: 07-10-2022 History SDOH Social Connections Membership 2 [facility] Start: 04-01-2019 History SDOH Social Connections Living 3 [facility] Start: 04-01-2019 History SDOH Physica l Activity DPW 0 [facility] Start: 07-31-2019 History SDOH Financial 4 [facility] Start: 04-01-2019 Education 17 [facility] Start: 1945 Sex Assigned At Female C [facility] Start: 08-25-2021 End: 11-09-2021 Exposure to SARS-CoV-2 (event) Unable to assess [facility] Start: 09-09-2010 End: 11-11-2022 Tobacco use and exposure Smokeless tobacco non-user [facility] Start: 11-01-2021 End: 11-11-2021 Exposure to SARS-CoV-2 (event) Not sure [facility] Work Phone: Start: 07-31-2019 End: 06-22-2022 History of Social function [facility] Start: 07-31-2019 End: 06-22-2022 Social connection and isolation panel [facility] Frequency of Social Gatherings with Friends and Family Not on file [facility] Work Phone: How often do you hav e 6 or more drinks on 1 occasion? Never [facility] How hard is it for y ou to pay for the very basics like food, housing, medical care, and heating Not very hard [facility] Do you feel stress - tense, restless, nervous, or anxious, or unable to sleep at night because your mind is troubled all the time - these days [OSQ] Not at all [facility] (I/We) worried wheth er (my/our) food would run out before (I/we) got money to buy more. Never true [facility] In the past 12 month s, was there a time when you were not able to pay the mortgage or rent on time? No [facility] Start: 06-10-2020 Gender identity Identifies as female gender (finding) [facility] Start: 10-26-2018 Sexual orientation Heterosexual (constance larose) [facility] Medical Equipment Procedure Code Equipment Code Equipment Origin al Text Equipment Identifier Dates Cable 1.7mm Cocr 750mm Orthopedic Titanium Crimp Cerclage Sterile - [id number] Start: 03-27-2016 Cable 1.7mm Cocr 750mm Orthopedic Titanium Crimp Cerclage Sterile - [id number] Start: 03-27-2016 Cable 1.7mm Cocr 750mm Orthopedic Titanium Crimp Cerclage Sterile - [id number] Start: 03-27-2016 Cable 1.7mm Cocr 750mm Orthopedic Titanium Crimp Cerclage Sterile - [id number] Start: 03-27-2016 Cable 1.7mm Cocr 750mm Orthopedic Titanium Crimp Cerclage Sterile - [id number] Start: 03-27-2016 Cable 1.7mm Cocr 750mm Orthopedic Titanium Crimp Cerclage Sterile - [id number] Start: 03-27-2016 Cable 1.7mm Cocr 750mm Orthopedic Titanium Crimp Cerclage Sterile - [id number] Start: 03-27-2016 Stem Ilana Sts 1 3mm Taper Titanium 190mm Femoral Press Fit Spline Modular - [id number] Start: 03-27-2016 Body Ilana A Standard Offset Titanium 60mm Cone Modular Revision System - [id number] Start: 03-27-2016 Cable 1.7mm Cocr 750mm Orthopedic Titanium Crimp Cerclage Sterile - [id number] Start: 03-27-2016 Insert System 12 32mm 10d Crossfire Acetabular Liner Congruent Robust Lock - [id number] Start: 03-27-2016 Head G7 Biolox D elta Femoral 32mm Hip - [id number] Start: 03-27-2016 Sleeve G7 -3mm Offset Taper Biolox Delta Option Titanium Centering Type 1 - [id number] Start: 03-27-2016 USE FOR B12 IM S HOTS ONCE MONTHLY DIRECTED Start: 10-30-2020 Clinical Notes 09-09-2010 to 01-11-2023 Telephone Encounter - Destini Leonard MD - 01/11/2023 1:18 PM ESTTelephone Encounter - Taylor Groves LPN - 01/11/2023 1:04 PM Becky Byers LPN - 11/24/2022 11:08 AM EDT Note Date & Type Note Facility 01-11-2023 Miscellaneous Notes Added pharmacy note since going to another pharmacy to let them know she has been to pain management and plan was to stay on current meds until able to try other things for pain control to see if able to titrate down some of her meds. Hope that prevents delays in getting med filled. The following approved medication requests have been transmitted electronically. Requested Prescriptions Signed Prescriptions Disp Refills oxyCODONE IR (ROXICODONE) 20 mg tab 84 tablet 0 Sig: Take 1 tablet by mouth every 4 hours as needed for pain for up to 14 days. Authorizing Provider: DESTINI LEONARD MD [place] calling in, [facility]. Asking if Dr. Leonard will sent new RX high priority. Taylor Groves LPN documented in this encounter [facility] 01-10-2023 Miscellaneous Notes The following approved medication requests have been transmitted electronically. Requested Prescriptions Signed Prescriptions Disp Refills oxyCODONE IR (ROXICODONE) 20 mg tab 84 tablet 0 Sig: Take 1 tablet by mouth every 4 hours as needed for pain for up to 14 days. Authorizing Provider: DESTINI LEONARD MD Patient has been identified by name and date of : Yes Patient phones for refill(s): Requested Prescriptions Pending Prescriptions Disp Refills oxyCODONE IR (ROXICODONE) 20 mg tab 84 tablet 0 Sig: Take 1 tablet by mouth every 4 hours as needed for pain for up to 14 days. Date of last office visit in primary care: 11/11/2022 Date of next office visit in primary care: 01/17/2023 Last 2 Encounter Wt Readings: Date: Wt: 11/11/2022 47.7 kg (105 lb 1.6 oz) 08/17/2022 41.1 kg (90 lb 9.6 oz) Previous labs/tests for medication: Not applicable Please advise. Thank you. Taylor Groves LPN. documented in this encounter [facility] 01-04-2023 Miscellaneous Notes Noted getting 30ml at a time now The following approved medication requests have been transmitted electronically. Requested Prescriptions Signed Prescriptions Disp Refills morphine concentrate (ROXANOL) 100 mg/5 mL (20 mg/mL) 30 mL 0 Sig: Take 1 mL by mouth every 4 hours as needed for up to 10 days. Persistent hip fractures (surgery postponed) ;with nausea and vomiting--needs oral liquid for when not able to take pills. Authorizing Provider: DESTINI LEONARD MD Patient has been identified by name and date of : Yes, Provider Dr. Leonard Date 01/04/23 Time 2:36 pm Patient phones for refill(s): Requested Prescriptions Pending Prescriptions Disp Refills morphine concentrate (ROXANOL) 100 mg/5 mL (20 mg/mL) 30 mL 0 Sig: Take 1 mL by mouth every 4 hours as needed for up to 10 days. Persistent hip fractures (surgery postponed) ;with nausea and vomiting--needs oral liquid for when not able to take pills. Needs filled now due to acute nausea and vomiting episode so that RX from 10/25 used up. Date of last office visit in primary care: 11/11/22 Date of next office visit in primary care: 01/17/23 Last 2 Encounter Wt Readings: Date: Wt: 11/11/2022 47.7 kg (105 lb 1.6 oz) 08/17/2022 41.1 kg (90 lb 9.6 oz) Previous labs/tests for medication: Not applicable Please advise. Thank you. Lianet Ceballos LPN. documented in this encounter [facility] 12-23-2022 Miscellaneous Notes Requested Prescriptions Refused Prescriptions Disp Refills oxyCODONE IR (ROXICODONE) 20 mg tab 84 tablet 0 Sig: Take 1 tablet by mouth every 4 hours as needed for pain for up to 14 days. Refused By: AUBREY PATEL Reason for Refusal: Patient has requested refill too soon Hold for PCP . Aubrey Patel MD This has to go to doc transport operations inspector or PCP due to MME level. Last office visit: 11/11/22 Next appointment scheduled: 01/17/23 Patient phones requesting refills as follows: Requested Prescriptions Pending Prescriptions Disp Refills oxyCODONE IR (ROXICODONE) 20 mg tab 84 tablet 0 Sig: Take 1 tablet by mouth every 4 hours as needed for pain for up to 14 days. Please review and advise. Edda Smith LPN documented in this encounter [facility] 11-30-2022 Miscellaneous Notes The following approved medication requests have been transmitted electronically. Requested Prescriptions Signed Prescriptions Disp Refills morphine concentrate (ROXANOL) 100 mg/5 mL (20 mg/mL) 30 mL 0 Sig: Take 1 mL by mouth every 4 hours as needed for up to 10 days. Persistent hip fractures (surgery postponed) ;with nausea and vomiting--needs oral liquid for when not able to take pills. Needs filled now due to acute nausea and vomiting episode so that RX from 10/25 used up. Authorizing Provider: DESTINI LEONARD MD Noted RE; partial refill Niecy with [facility] calls to report they were only able to give pt a partial fill (30 ml) of the morphine concentrate 100 mg/5 ml rx for 60 ml. Niecy reports when they do a partial fill then they need a new rx for the rest of the medication. Patient has been identified by name and date of : Yes Requested Prescriptions Pending Prescriptions Disp Refills morphine concentrate (ROXANOL) 100 mg/5 mL (20 mg/mL) 30 mL 0 Sig: Take 1 mL by mouth every 4 hours as needed for up to 10 days. Persistent hip fractures (surgery postponed) ;with nausea and vomiting--needs oral liquid for when not able to take pills. Needs filled now due to acute nausea and vomiting episode so that RX from 10/25 used up. RX INSTRUCTIONS: Pharmacy initiated this request. No need to notify patient. Minnie Gamboa LPN documented in this encounter [facility] 11-24-2022 Note HNO ID: [id number] Author: Becky Gibson LPN Service: ? Author Type: LICENSED NURSE Type: Progress Notes Filed: 11/24/2022 12:30 PM Note Text: Review of Systems Constitutional: Negative for activity change, chills, fever and unexpected weight change. Genitourinary: Negative for difficulty urinating. Musculoskeletal: Positive for arthralgias, back pain, gait problem and myalgias. Negative for joint swelling, neck pain and neck stiffness. Neurological: Positive for weakness and numbness. Negative for headaches. Psychiatric/Behavioral: Negative for dysphoric mood, sleep disturbance and suicidal ideas. The patient is not nervous/anxious. [facility] 11-24-2022 History of Presen t illness Narrative Review of Systems Constitutional: Negative for activity change, chills, fever and unexpected weight change. Genitourinary: Negative for difficulty urinating. Musculoskeletal: Positive for arthralgias, back pain, gait problem and myalgias. Negative for joint swelling, neck pain and neck stiffness. Neurological: Positive for weakness and numbness. Negative for headaches. Psychiatric/Behavioral: Negative for dysphoric mood, sleep disturbance and suicidal ideas. The patient is not nervous/anxious. Images from the original note were not included. [facility] Today's Date: 11/24/2022 Last Visit: N/A Name: Mynor Romero : 1945 Purpose: New Patient Consultation Chief complaint: low back pain Referring Clinician: Destini Leonard MD Pertinent Past Medical History: RLS, Intervertebral disc disorder with radiculopathy of lumbar , Hypertension (HTN), Post gastric sx syndrome , Dislocation of prosthetic joint , Psychophysiologic insomnia , Mixed connective tissue disease, Uncomplicated opioid dependence, Pertinent Past Surgeries: Right hip, Left femoral periprosthetic fracture, Gastrectomy, Laminectomy History of Present Illness (HPI): 11/24/2022 - Initial HPI (Oksana Saha MD). DURATION AND ONSET: The pain complaint has been present for approximately over 20 years. The pain had a gradual onset. The mechanism of injury is unknown. PRIOR TREATMENTS: Medications, Physical Therapy, Chiropractic Treatment She has had both hips replaced for AVN. In 1999, she had sepsis in the hardware, fell and fractured both hips. She has had left hip revised, right is on hold due to Pneumonia. She has Chron's and was down to 89 pounds (currently at 105 pounds). She is currently non-operative. She reports a chronic neck and low back pain, prior low back surgery (laminectomy) x 3. She walks with crutches or a rollator, sometimes uses a wheelchair. PAIN DESCRIPTION: Currently, the pain is experienced as constant. It is described as being Sharp. The pain is primarily localized in the bilateral groin. There is bilateral anteromedial thigh radiation to the knees. She also reports tingling and numbness in both feet. The pain is exacerbated by Getting Up from Sitting, Standing, Walking. The pain is alleviated by Sitting, Lying Down. The pain interferes with physical activity. RED FLAG SYMPTOMS: denies red flags. Has had total gastrectomy. 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 MEDICATIONS Taken TO DATE (for the chief complaint(s)): Neuropathics: Neurontin (Gabapentin): Discontinued - Intolerance: (GI Distress), Effexor (Venlafaxine): Discontinued - Intolerance: Does not recall NSAIDS: None (Gastrectomy) Opioids: Oxycodone (eg Percocet): Discontinued - Beneficial, Hydrocodone (eg [place]): Discontinued - Intolerance: (GI distress), Morphine (Immediate-Release): Beneficial (Liquid form) Muscle Relaxants: Lioresol (Baclofen): Discontinued - Beneficial - helped with muscle spasms, but no longer having muscle spasms Topicals: None Other Prescription or OTC Pain Medications: Tylenol (Acetaminophen): Beneficial - helps sometimes, takes prior to Oxycodone Past Therapies Attended: Chiropractic and PT - 20 years ago Data Reviewed Today: Allergies: ALLERGIES Allergen Reactions Trazodone Hcl Mental Status Change, GI Upset also very dizzy Ambien [Zolpidem] Mental Status Change confusion and feels like in a fog all day Ampicillin hives; has tolerated Cefazolin in the past Bactrim [Sulfametho* Hives Benadryl [Diphenhyd* Other: See Comments hyperactivity Celebrex [Celecoxib] GI Upset Cephalexin GI Upset Cephalexin capsules cause severe abdominal pain, nausea and vomiting since has to open the capsules to take them; can tolerate the tablet form Compazine [Prochlor* Other: See Comments dysarthria and confusion Flexeril [Cyclobenz* Mental Status Change Hyperactivity & slurred speech Levaquin [Levofloxa* Other: See Comments tendinitis Norvasc [Amlodipine* Shortness of Breath Nsaids (Non-Steroid* s/p gastrectomy Penicillins Hives Pentasa [Mesalamine] Rash Severe n and v and terrible rash INTAKE PAIN ASSESSMENT 11/11/2022 11/22/2022 Are you having pain associated with your visit today? Yes, Provider notified Yes, Provider notified Pain Scales Verbal (Numeric Rating or Visual Analog Scale) - Pain Level 6 8 Pain Location Hip-Right Hip-Right Description Sharp Cramping;Numbness;Radiating;Errol p;Throbbing Duration Amount of Time 2 10 Duration Units Months Months Frequency Continuous Continuous Intervention/Comfort measure Medication Medication;Reposition;Pillow support;Positioning Comments Oxycodone effective for pain relief - Pain Assessment - - Compliance: PDMP website checked and validated on 11/24/2022 by Oksana Saha MD All prescriptions have been APPROPRIATELY filled. No suspicious activity was identified. Oxycodone 20mg, #84/mo (PCP), last 11/15/2022 Morphine 100mg/5ml, #60ml/mo (PCP) Recent Drug screens: [facility] SPINE COMBINATION 11/24/2022 Questionnaire GREENLIGHT Completed Date 11/24/2022 Questionnaire Opiod Risk Tool Completed Date 11/24/2022 Comments low Greenlight Questionnaire GREENLIGHT Completed Date 11/24/2022 Opioid Risk Tool Opiod Risk Tool Date Completed 11/24/2022 Comments low KATE-7 Anxiety Score 0 Completed Date 11/24/2022 PHQ9P Score 0 Completed Date 11/24/2022 (All drug screens are appropriate unless indicated otherwise) Risk Assessment: KATE-7: KATE - 7 SCORES 11/24/2022 KATE-7 Score 0 (0-4) minimal anxiety, (5-9) mild anxiety, (10-14) moderate anxiety, (15-21) severe anxiety PHQ-9: PHQ-9 06/01/2011 09/20/2017 11/24/2022 Score 3 0 0 (0-4) minimal depression, (5-9) mild depression, (10-14) moderate depression, (15-19) moderately severe depression, (20-27) severe depression Opioid Risk Tool: Family History of Substance Abuse: 0 - No Personal History of Substance Abuse: 0 - No Age between 16-45: 0 - No History of Pre-Adolescence Sexual Abuse: 0 - No Psychological Disease: 0 - No Risk Total: 0 Total Score Risk Category: Low Risk 0-3 (0-3, low risk or no risk; 4-7, moderate risk, 8+, high risk) Diagnostic Studies: Relevant Imaging: MRI Spine Report MRI CERVICAL SPINE WWO CONTRAST Collected: 12/19/2008 2:39 PM (Final result) X-ray Thoracic 09/2018 RESULT: Frontal, lateral and swimmer's views of the thoracic spine demonstrate osteopenia, scoliotic curvature and mild multilevel degenerative change with vertebral body osteophytosis. 2 to 3 mm anterolisthesis of C3 on C4 and a 1 to 2 mm anterolisthesis of C4 on C5 is present with intact spinolaminal line suggesting degenerative etiology. There are no compression deformities and alignment is otherwise well maintained. There are no paraspinal abnormalities. IMPRESSION: Osteopenia, scoliotic curvature and degenerative change. Electrodiagnostic Study (EMG): None Recent Labs: Creatinine Date Value Ref Range Status 11/11/2022 0.67 0.58 - 0.96 mg/dL Final eGFR, Date Value Ref Range Status 04/20/2011 >60 Final Glucose, Point of Care Date Value Ref Range Status 03/27/2016 155 (A) 65 - 100 mg/dL Final Current Medications, Past Medical History, Past Surgical History, Family History, Social History and Review of Systems: On today's date, noted above, I have confirmed and edited as necessary, the PFSH and ROS obtained by others. Physical Exam: 11/24/22 1112 Pulse: 86 Resp: 16 SpO2: 97% Neuro-Lower: Neural Tension Signs: Negative slump in Bilateral lower limbs Sensation: intact to light touch in the L2-S2 Bilateral lower limb dermatomes Muscle Tone: Normal and symmetric throughout without clonus Strength: Iliopsoas (L2): 5 Left, 5 Right Quadriceps (L3) 5 Left, 5 Right Anterior Tibialis (L4): 5 Left, 5 Right Extensor Hallucis Longus (L5): 5 Left, 5 Right Gastrocnemius (S1): 5 Left, 5 Right Musculoskeletal-Lower: Inspection: Symmetric without atrophy Palpation: Lumbar Paraspinal Tenderness: None on Bilateral side(s) Paraspinal Spasms: None PSIS Tenderness: None on Bilateral side(s) Greater Trochanter Tenderness: None on Bilateral side(s) Spine Range of Motion: Flexion: Decreased 50% Without end range pain Extension: Decreased 25% With end range pain Combination extension and rotation pain: Concordant Hip Range of Motion: Right Hip: Internal Rotation: Decreased 50%; Pain at end range: Concordant External Rotation: Normal; Pain at end range: None Left Hip: Internal Rotation: No Motion; Pain at end range: None External Rotation: Normal; Pain at end range: None Sacroiliac Maneuvers: Deferred Bilateral Knee(s): Inspection: No edema Palpation: Concordant tenderness to palpation of medial joint line, left knee Range of Motion: Painful active extension and flexion Crepitus appreciated Special Tests: No ligamentous laxity with Anterior drawer, Posterior drawer, Clint, Varus stress, Valgus stress IMPRESSION: 77 year old female presents with complaint(s) of diffuse aches and pains. Low back pain is facet-mediated, presumably in presence of spinal stenosis. Bilateral knee pain due to osteoarthritis. Bilateral hip pain s/p AVN, s/p hip replacements, s/p hardware infection. History complicated by Chron's, Gastrectomy. Her pain is adequately managed for ADL's. We discussed that injections would not be optimal given her history of hardware infection, which she was in agreement with. We discussed that PT or Chiropractics could be an option if there were concerns about her ability to complete her ADL's, but at this juncture, it would not likely improve her daily pain levels. We discussed that, while there are concerns about side effects, she may benefit from trialing another anti-epileptic drug or neuropathic pain medication, such as Lyrica (25mg BID) or Cymbalta (20mg daily), or even Pamelor (10mg qHS), starting at a low dose as noted - looking primarily for side effects/tolerance and then slowly titrating to effect. This would offer her more consistent baseline pain management, and she might have less restless legs - she might even need less daily opioids (currently at 180 MME). She would like to discuss with her PCP, Dr. Leonard. There may also be benefits to changing over to a long-acting opioid (eg Oxycodone 30mg q8h) with breakthrough (eg 10mg BID or TID PRN) to reduce the reactive dosing. We did not discuss this today, but it could be considered. The one disadvantage of this approach would be that she periodically has GI upset and vomits her pills up, so that would make it difficult for long-acting medications. Diagnoses: (M54.42, G89.29) Chronic bilateral low back pain with left-sided sciatica (primary encounter diagnosis) (M17.0) Primary osteoarthritis of both knees (T84.84XS) Pain in prosthetic joint, sequela (M47.816) Lumbar spondylosis (M48.061) Spinal stenosis, lumbar region, without neurogenic claudication PLAN: Mynor Romero would benefit from the following to reach personal goals for decreasing pain, improving function and work participation, and/or improving quality of life: Medications: No Changes - Continue Current Medications - she will discuss with Dr. Leonard Interventional Procedures: None Studies: None Functional Pentecostalism: NONE Referrals: No additional considerations at present Follow-up: PRN basis Depending on response to the above plan, consider: TBD Patient Education, Compliance and Clinic Policies Reviewed and/or Discussed Today: None Attribution: In addition to reviewing the information noted above, some elements copied from my most recent clinical note(s), including the physical exam (completed in entirety today), and the impression and plan sections, have been updated where appropriate. All reflect current medical decision making from today's date. Oksana Saha MD Pain Management [facility] documented in this encounter [facility] 11-24-2022 Note HNO ID: [id number] Author: Oksana Saha MD Service: ? Author Type: Physician Type: Progress Notes Filed: 11/24/2022 12:31 PM Note Text: [facility] Today's Date: 11/24/2022 Last Visit: N/A Name: Mynor Romero : 1945 Purpose: New Patient Consultation Chief complaint: low back pain Referring Clinician: Destini Leonard MD Pertinent Past Medical History: RLS, Intervertebral disc disorder with radiculopathy of lumbar , Hypertension (HTN), Post gastric sx syndrome , Dislocation of prosthetic joint , Psychophysiologic insomnia , Mixed connective tissue disease, Uncomplicated opioid dependence, Pertinent Past Surgeries: Right hip, Left femoral periprosthetic fracture, Gastrectomy, Laminectomy History of Present Illness (HPI): 11/24/2022 - Initial HPI (Oksana Saha MD). DURATION AND ONSET: The pain complaint has been present for approximately over 20 years. The pain had a gradual onset. The mechanism of injury is unknown. PRIOR TREATMENTS: Medications, Physical Therapy, Chiropractic Treatment She has had both hips replaced for AVN. In 1999, she had sepsis in the hardware, fell and fractured both hips. She has had left hip revised, right is on hold due to Pneumonia. She has Chron's and was down to 89 pounds (currently at 105 pounds). She is currently non-operative. She reports a chronic neck and low back pain, prior low back surgery (laminectomy) x 3. She walks with crutches or a rollator, sometimes uses a wheelchair. PAIN DESCRIPTION: Currently, the pain is experienced as constant. It is described as being Sharp. The pain is primarily localized in the bilateral groin. There is bilateral anteromedial thigh radiation to the knees. She also reports tingling and numbness in both feet. The pain is exacerbated by Getting Up from Sitting, Standing, Walking. The pain is alleviated by Sitting, Lying Down. The pain interferes with physical activity. RED FLAG SYMPTOMS: denies red flags. Has had total gastrectomy. 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 MEDICATIONS Taken TO DATE (for the chief complaint(s)): Neuropathics: Neurontin (Gabapentin): Discontinued - Intolerance: (GI Distress), Effexor (Venlafaxine): Discontinued - Intolerance: Does not recall NSAIDS: None (Gastrectomy) Opioids: Oxycodone (eg Percocet): Discontinued - Beneficial, Hydrocodone (eg [place]): Discontinued - Intolerance: (GI distress), Morphine (Immediate-Release): Beneficial (Liquid form) Muscle Relaxants: Lioresol (Baclofen): Discontinued - Beneficial - helped with muscle spasms, but no longer having muscle spasms Topicals: None Other Prescription or OTC Pain Medications: Tylenol (Acetaminophen): Beneficial - helps sometimes, takes prior to Oxycodone Past Therapies Attended: Chiropractic and PT - 20 years ago Data Reviewed Today: Allergies: ALLERGIES Allergen Reactions Trazodone Hcl Mental Status Change, GI Upset also very dizzy Ambien [Zolpidem] Mental Status Change confusion and feels like in a fog all day Ampicillin hives; has tolerated Cefazolin in the past Bactrim [Sulfametho* Hives Benadryl [Diphenhyd* Other: See Comments hyperactivity Celebrex [Celecoxib] GI Upset Cephalexin GI Upset Cephalexin capsules cause severe abdominal pain, nausea and vomiting since has to open the capsules to take them; can tolerate the tablet form Compazine [Prochlor* Other: See Comments dysarthria and confusion Flexeril [Cyclobenz* Mental Status Change Hyperactivity AND slurred speech Levaquin [Levofloxa* Other: See Comments tendinitis Norvasc [Amlodipine* Shortness of Breath Nsaids (Non-Steroid* s/p gastrectomy Penicillins Hives Pentasa [Mesalamine] Rash Severe n and v and terrible rash INTAKE PAIN ASSESSMENT 11/11/2022 11/22/2022 Are you having pain associated with your visit today? Yes, Provider notified Yes, Provider notified Pain Scales Verbal (Numeric Rating or Visual Analog Scale) - Pain Level 6 8 Pain Location Hip-Right Hip-Right Description Sharp Cramping;Numbness;Radiating;Errol p;T (more content not included)... [facility] 11-15-2022 Miscellaneous Notes Patient aware RX's were approved and escripted to [facility] as requested. Kristi Diana LPN documented in this encounter [facility] 11-11-2022 Note HNO ID: [id number] Author: Destini Leonard MD Service: ? Author Type: Physician Type: Progress Notes Filed: 12/15/2022 4:16 PM Note Text: This note was created using Ybrain[employer]. Subjective Mynor Romero is a 76 year old female. Patient presents with: 2 month follow up SUBJECTIVE: Mynor Romero is a 76 year old year old lady here today for 2 month follow up appointment for review of medical conditions. BP doing fine at home. No palpitations. Not feeling heart racing. Cuff has been validated. Does have. Advanced directed. Can upload or drop off. Spouse is surrogate decision maker PAST MEDICAL HISTORY Diagnosis Date Allergic rhinitis, cause unspecified Allergic rhinitis Crohn's disease without complication (HCC) 10/09/2019 Not sure if acute diarrhea a flare up but diarrhea already improving. Monitor for now. 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 morphine concentrate (ROXANOL) 100 mg/5 mL (20 mg/mL) Take 1 mL by mouth every 4 hours as needed for up to 30 days. Persistent hip fractures (surgery postponed) ;with nausea and vomiting--needs oral liquid for when not able to take pills.May fill now due to acute nausea and vomiting episode. oxyCODONE IR (ROXICODONE) 20 mg tab Take 1 tablet by mouth every 4 hours as needed for pain for up to 14 days. Do not start before October 06, 2022. dicyclomine (BENTYL) 20 mg tablet Take 1 tablet by mouth three times daily. ondansetron orally disintegrating (ZOFRAN ODT) 4 mg disintegrating tablet Take 1 tablet by mouth every 6 hours as needed for nausea/vomiting. cloNIDine HCl (CATAPRES) 0.1 mg tablet Take 1-2 tablets by mouth three times daily. As directed for labile blood pressure lisinopril (ZESTRIL) 10 mg tablet TAKE 1-2 TABLETS BY MOUTH ONCE DAILY. ADJUST BASED ON BLOOD PRESSURE READINGS AT HOME Insulin Syringe-Needle U-100 (BD INSULIN SYRINGE ULTRA-FINE) 1 mL 31 gauge x 5/16 USE FOR B12 IM SHOTS ONCE MONTHLY DIRECTED cyanocobalamin 1,000 mcg/mL Inject 1 mL intramuscularly once every month. hyoscyamine sublingual (LEVSIN SL) 0.125 mg Dissolve 1-2 tablets under the tongue before meals and at bedtime. Cholecalciferol, Vitamin D3, 50 mcg (2,000 unit) cap Take 1 capsule by mouth once daily. Plans taking 2000 to 4000 units in gummy form. erythromycin ophthalmic ointment Use 1 application in both eyes daily at bedtime. diphenhydrAMINE (BENADRYL) 25 mg capsule Take 1 capsule by mouth every 6 hours as needed. CALCIUM 600 TABLET 600-125 PO x2 qd MULTIVITAMIN TABLET PO qd No current facility-administered medications for this visit. Review of Systems Objective BP 185/111 Pulse 119 Temp 36.2 ?C (97.2 ?F) Resp 18 Wt 47.7 kg (105 lb 1.6 oz) SpO2 99% BMI 20.19 kg/m? 11/11/22 1002 11/11/22 1030 BP: 185/111 158/88 Pulse: 119 Resp: 18 Temp: 36.2 ?C (97.2 ?F) SpO2: 99% Weight: 47.7 kg (105 lb 1.6 oz) Last 5 Encounter Wt Readings: Date: Wt: 11/11/2022 47.7 kg (105 lb 1.6 oz) 08/17/2022 41.1 kg (90 lb 9.6 oz) 07/13/2022 40.2 kg (88 lb 11.2 oz) 08/24/2020 49.9 kg (110 lb) 06/15/2020 0 kg () No waist measurement recorded Estimated body mass index is 20.19 kg/m? as calculated from the following: Height as of 01/26/18: 153.7 cm (5' 0.5 ). Weight as of this encounter: 47.7 kg (105 lb 1.6 oz). Last 5 Encounter BP Readings: Date: BP: 11/11/2022 158/88 08/17/2022 148/94 07/13/2022 128/68 09/04/2021 98/58 10/30/2020 101/67 Physical Exam Constitutional: Appearance: Normal appearance. HENT: Head: Normocephalic. Eyes: Conjunctiva/sclera: Conjunctivae normal. Cardiovascular: Rate and Rhythm: Regular rhythm. Tachycardia present. Heart sounds: Normal heart sounds. Pulmonary: Effort: Pulmonary effort is normal. Breath sounds: Normal breath sounds. Musculoskeletal: Right lower leg: No edema. Left lower leg: No edema. Skin: General: Skin is warm and dry. Neurological: General: No focal deficit present. Mental Status: She is alert and oriented to person, place, and time. Psychiatric: Mood and Affect: Mood normal. Behavior: Behavior normal. Thought Content: Thought content normal. Judgment: Judgment normal. Labs on way out Assessment and Plan ASSESSMENT/PLAN: 1. Primary hypertension - ICD9: 401.9, ICD10: I10 (primary diagnosi (more content not included)... [facility] 10-28-2022 Miscellaneous Notes Pt called in reporting she filled Oxycodone IR on 10/17/22. I told her the Rx was not put in until 10/20/22. She said the bottle said she picked it up on 10/17. Called [facility] and they said they had her picking it up on . Called the Pt back and let lori know she should be good until 11/03/22. She states she counted her pills and she has enough to get her through until 11/03/22. She was saying she wanted someone to know that the wrong date was put on her bottle. I told her she would need to call [facility] about that. documented in this encounter [facility] 10-20-2022 Miscellaneous Notes Patient's request for medication is as follows Requested Prescriptions Signed Prescriptions Disp Refills oxyCODONE IR (ROXICODONE) 20 mg tab 84 tablet 0 Sig: Take 1 tablet by mouth every 4 hours as needed for pain for up to 14 days. Authorizing Provider: AUBREY PATEL Order entered - please phone pharmacy and notify patient. Aubrey Patel MD Patient has been identified by name and date of : Yes, Provider Dr. Leonard Date 10/18/22 Time 4:39 pm Patient phones for refill(s): Requested Prescriptions Pending Prescriptions Disp Refills oxyCODONE IR (ROXICODONE) 20 mg tab 84 tablet 0 Sig: Take 1 tablet by mouth every 4 hours as needed for pain for up to 14 days. Date of last office visit in primary care: 08/17/22 next apt 11/11/22 Last 2 Encounter Wt Readings: Date: Wt: 08/17/2022 41.1 kg (90 lb 9.6 oz) 07/13/2022 40.2 kg (88 lb 11.2 oz) Previous labs/tests for medication: Not applicable Please advise. Thank you. Lianet Ceballos LPN documented in this encounter [facility] 10-06-2022 Miscellaneous Notes The following approved medication requests have been transmitted electronically. Requested Prescriptions Signed Prescriptions Disp Refills oxyCODONE IR (ROXICODONE) 20 mg tab 84 tablet 0 Sig: Take 1 tablet by mouth every 4 hours as needed for pain for up to 14 days. Authorizing Provider: DESTINI LEONARD MD Has follow up appointments in IM as well as appointment with pain management. Last office visit: 08/17/22 Next appointment scheduled: 10/12/22 Patient phones requesting refills as follows: Requested Prescriptions Pending Prescriptions Disp Refills oxyCODONE IR (ROXICODONE) 20 mg tab 84 tablet 0 Sig: Take 1 tablet by mouth every 4 hours as needed for pain for up to 14 days. Please review and advise. Edda Smith LPN documented in this encounter [facility] 10-05-2022 Miscellaneous Notes Spoke with pt and information listed below given. Pt verbalizes understanding. Lianet Ceballos LPN The following approved medication requests have been transmitted electronically. Requested Prescriptions Signed Prescriptions Disp Refills oxyCODONE IR (ROXICODONE) 20 mg tab 84 tablet 0 Sig: Take 1 tablet by mouth every 4 hours as needed for pain for up to 14 days. Do not start before October 06, 2022. Authorizing Provider: DESTINI LEONARD MD Patient has been identified by name and date of : Yes Patient phones for refill(s): Requested Prescriptions Pending Prescriptions Disp Refills oxyCODONE IR (ROXICODONE) 20 mg tab 84 tablet 0 Sig: Take 1 tablet by mouth every 4 hours as needed for pain for up to 14 days. Date of last office visit in primary care: MARIZA 08/17/22 NOV 10/12/22 Last 2 Encounter Wt Readings: Date: Wt: 08/17/2022 41.1 kg (90 lb 9.6 oz) 07/13/2022 40.2 kg (88 lb 11.2 oz) Please advise. Thank you. DENNIS Corado documented in this encounter [facility] 09-28-2022 Miscellaneous Notes The following approved medication requests have been transmitted electronically. Requested Prescriptions Signed Prescriptions Disp Refills dicyclomine (BENTYL) 20 mg tablet 270 tablet 3 Sig: Take 1 tablet by mouth three times daily. Authorizing Provider: DESTINI LEONARD Refused Prescriptions Disp Refills hyoscyamine sulfate 0.125 mg ODT [Pharmacy Med Name: HYOSCYAMINE 0.125 MG ODT] Sig: Take 1 tablet by mouth every 4 hours. Refused By: DESTINI LEONARD Reason for Refusal: No attempt will be made to obtain Prior Authorization Destini Leonard MD Spoke with patient and she would like to try the dicyclomine again. Dicyclomine is covered med--last prescribed 03/23/2017. Would she like to try this again? Hyoscyamine has a coverage exclusion (insurance does not want to pay for it) and also and age limit (they do not want to cover for age over 64) Mynor has not filled the prescription in a long time, due to cost, it does help . Mynor talked to someone at the pharmacy, advised her that a PA would need to be done. She is asking if there is an alternative Dr. Leonard would recommend. Please advise. Taylor Groves LPN Verify how many patient needs per day--last time was written for 720 with 3 refills but no record of last time RX filled under Medication Reconciliation history. If does not need 6 every day, would change RX to reflect how needs to take it. Also, according to the computer, looks like this med might not be covered with insurance.Not sure what out of pocket expense might be. documented in this encounter [facility] 09-26-2022 Miscellaneous Notes The following approved medication requests have been transmitted electronically. Requested Prescriptions Signed Prescriptions Disp Refills morphine concentrate (ROXANOL) 100 mg/5 mL (20 mg/mL) 60 mL 0 Sig: Take 1 mL by mouth every 4 hours as needed for up to 30 days. Persistent hip fractures (surgery postponed) ;with nausea and vomiting--needs oral liquid for when not able to take pills.May fill now due to acute nausea and vomiting episode. Do not start before September 28, 2022. Authorizing Provider: DESTINI LEONARD MD Updated to fill on 09/28/22 Yi Barrios MA Verify if to be filled next Monday as usual 30 day prescription (last filled 08/29/22). Filling oxycodone pill tomorrow. MARIZA: 08/17/2022 Last refill: 08/29/2022 QTY: 60mL Refills: 0 documented in this encounter [facility] 08-29-2022 Miscellaneous Notes The following approved medication requests have been transmitted electronically. Requested Prescriptions Signed Prescriptions Disp Refills morphine concentrate (ROXANOL) 100 mg/5 mL (20 mg/mL) 60 mL 0 Sig: Take 1 mL by mouth every 4 hours as needed for up to 30 days. Persistent hip fractures (surgery postponed) ;with nausea and vomiting--needs oral liquid for when not able to take pills.May fill now due to acute nausea and vomiting episode. Authorizing Provider: DESTINI LEONARD ondansetron orally disintegrating (ZOFRAN ODT) 4 mg disintegrating tablet 360 tablet 1 Sig: Take 1 tablet by mouth every 6 hours as needed for nausea/vomiting. Authorizing Provider: DESTINI LEONARD cloNIDine HCl (CATAPRES) 0.1 mg tablet 540 tablet 3 Sig: Take 1-2 tablets by mouth three times daily. As directed for labile blood pressure Authorizing Provider: DESTINI LEONARD MD Patient has been identified by name and date of : Yes, Provider Horacio Date 08/29/22 Time 12:19pm Patient phones for refill(s): Requested Prescriptions Pending Prescriptions Disp Refills morphine concentrate (ROXANOL) 100 mg/5 mL (20 mg/mL) 60 mL 0 Sig: Take 1 mL by mouth every 4 hours as needed for up to 30 days. Persistent hip fractures (surgery postponed) ;with nausea and vomiting--needs oral liquid for when not able to take pills.May fill now due to acute nausea and vomiting episode. ondansetron orally disintegrating (ZOFRAN ODT) 4 mg disintegrating tablet 360 tablet 1 Sig: Take 1 tablet by mouth every 6 hours as needed for nausea/vomiting. cloNIDine HCl (CATAPRES) 0.1 mg tablet 540 tablet 3 Sig: Take 1-2 tablets by mouth three times daily. As directed for labile blood pressure Date of last office visit in primary care: 08/17/22 Last 2 Encounter Wt Readings: Date: Wt: 08/17/2022 41.1 kg (90 lb 9.6 oz) 07/13/2022 40.2 kg (88 lb 11.2 oz) Please advise. Thank you. Hali Barraza LPN documented in this encounter [facility] 08-24-2022 Miscellaneous Notes Noted. The following approved medication requests have been transmitted electronically. Requested Prescriptions Signed Prescriptions Disp Refills oxyCODONE IR (ROXICODONE) 20 mg tab 84 tablet 0 Sig: Take 1 tablet by mouth every 4 hours as needed for pain for up to 14 days. Do not start before August 25, 2022. Authorizing Provider: DESTINI LEONARD MD Per Mady Heck, Oxycodone IR (Roxicodone) 20mg tab failed to transmit to [facility]. Patient will need new RX. Taylor Groves LPN documented in this encounter [facility] 08-23-2022 Miscellaneous Notes Prescription sent in by provider on 08/23/2022. See refill request 08/22/2022. Becky Min RN Patient's calls and states that she went to [facility] in [place] for oxycodone IR. Patient states that they only had 36 tablets and there are no deliveries of medication on the weekend. Patient chose to take the 36 tablets. Patient states that provider will have to write a new prescription so that patient can get more medication in 9 days. Called and spoke with Alexander at [facility] who confirmed this. Patient to see pain management on 08/25/2022 Please review and advise, Becky Min RN Patient calls back and is asking if Benjamin had talked to Dr. Leonard about pain medications. Per office note, pain medication was discussed. Patient had told Benjamin that she had enough MS left at home. Patient was advised to use this until she could refill oxycodone. Patient today states that she does not have any MS left. Patient states that she has been out of that for a couple of days. Patient states that she currently does not have any pain medication left. Patient is asking for Vicodin. Patient states that Dr. Leonard normally orders this for her. Patient is scheduled for oxycodone to be refilled tomorrow 08/19/2022. Please review and advise, Becky Min RN documented in this encounter [facility] 08-23-2022 Miscellaneous Notes The following approved medication requests have been transmitted electronically. Requested Prescriptions Signed Prescriptions Disp Refills oxyCODONE IR (ROXICODONE) 20 mg tab 84 tablet 0 Sig: Take 1 tablet by mouth every 4 hours as needed for pain for up to 14 days. Do not start before August 25, 2022. Authorizing Provider: DESTINI LEONARD MD Below noted regarding partial fill Last office visit: 08/17/2022 2 month follow-up: 10/12/2022 Taylor Groves LPN Patient has been identified by name and date of : Yes Last office visit in this department: 08/17/2022 RX INSTRUCTIONS: The pharmacy only had 36 pills for the prescription that was called in on 08/19 (which called for 84), so the patient will be entirely out of medication on 08/25 and will need a new prescription then. Patient aware RX will be sent to pharmacy. No need to notify patient. Patient phones requesting refills as follows: Requested Prescriptions Pending Prescriptions Disp Refills oxyCODONE IR (ROXICODONE) 20 mg tab 84 tablet 0 Sig: Take 1 tablet by mouth every 4 hours as needed for up to 14 days. Please review and advise. Subha Garcia documented in this encounter [facility] 08-17-2022 Miscellaneous Notes Noted that patient saw Benjamin today. 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 Noted will see pain management next week. Would make sure keeping clonidine down since this would help both BP as well tendency to nausea and vomiting being exacerbated by opiate withdrawal symptoms when not able to keep pain meds down. The following approved medication requests have been transmitted electronically. Requested Prescriptions Signed Prescriptions Disp Refills oxyCODONE IR (ROXICODONE) 20 mg tab 84 tablet 0 Sig: Take 1 tablet by mouth every 4 hours as needed for up to 14 days. Do not start before August 19, 2022. Authorizing Provider: DESTINI LEONARD MD Patient has been identified by name and date of : Yes, Patient phones for refill(s): Requested Prescriptions Pending Prescriptions Disp Refills oxyCODONE IR (ROXICODONE) 20 mg tab 84 tablet 0 Sig: Take 1 tablet by mouth every 4 hours as needed for up to 14 days. Date of last office visit in primary care: 08/17/2022 2 month follow-up: 10/12/2022 Last 2 Encounter Wt Readings: Date: Wt: 08/17/2022 41.1 kg (90 lb 9.6 oz) 07/13/2022 40.2 kg (88 lb 11.2 oz) Previous labs/tests for medication: Not applicable Please advise. Thank you. Taylor Groves LPN documented in this encounter [facility] 08-17-2022 Note HNO ID: [id number] Author: Benjamin Wang APRN.[employer] Service: ? Author Type: Nurse Practitioner Type: Progress Notes Filed: 08/17/2022 1:13 PM Note Text: SUBJECTIVE Mynor Romero is a 76 year old female here today for a check up on her medical problems. Chief Complaint Patient presents with: Recheck: 2 month follow up HPI Mynor Romero is a 76 year old female established patient of Destini Leonard MD. In regards to medications currently taken for pain management, the patient is tolerating these medications, notes issues with nausea frequently but this is secondary to her GI issues. Despite the side effects of nausea and vomiting, she reports that the medications improve her quality of life and ability to function. She denies misuse, abuse or diversion of medications. Overall her pain is maybe a little worse than the last visit. Has always had some absorption issues. Checks blood pressure at home, usually on the low side but thinks she did not get her full dose of medication today. Having increased pain. Fractured right hip replacement, could not do surgery because of pneumonia. Currently taking the oxycodone 20 mg about every 4-5 hours. Takes her morphine concentrate when vomiting, was vomiting so vomited up the oxycodone and used it up earlier than next refill. Nausea is manageable at this point. Has a small amount of the morphine at home. Seeing pain management next week. Her medications were reviewed today and her list is now up to date. Medications Current Outpatient Medications Medication Sig morphine concentrate (ROXANOL) 100 mg/5 mL (20 mg/mL) Take 1 mL by mouth every 4 hours as needed for up to 30 days. Persistent hip fractures (surgery postponed) ;with nausea and vomiting--needs oral liquid for when not able to take pills.May fill now due to acute nausea and vomiting episode. oxyCODONE IR (ROXICODONE) 20 mg tab Take 1 tablet by mouth every 4 hours as needed for up to 14 days. Do not start before August 05, 2022. lisinopril (ZESTRIL) 10 mg tablet TAKE 1-2 TABLETS BY MOUTH ONCE DAILY. ADJUST BASED ON BLOOD PRESSURE READINGS AT HOME Insulin Syringe-Needle U-100 (BD INSULIN SYRINGE ULTRA-FINE) 1 mL 31 gauge x 5/16 USE FOR B12 IM SHOTS ONCE MONTHLY DIRECTED cyanocobalamin 1,000 mcg/mL Inject 1 mL intramuscularly once every month. ondansetron orally disintegrating (ZOFRAN ODT) 4 mg disintegrating tablet Take 1 tablet by mouth every 6 hours as needed for nausea/vomiting. hyoscyamine sublingual (LEVSIN SL) 0.125 mg Dissolve 1-2 tablets under the tongue before meals and at bedtime. cloNIDine HCl (CATAPRES) 0.1 mg tablet Take 1-2 tablets by mouth three times daily. As directed for labile blood pressure Cholecalciferol, Vitamin D3, 50 mcg (2,000 unit) cap Take 1 capsule by mouth once daily. Plans taking 2000 to 4000 units in gummy form. erythromycin ophthalmic ointment Use 1 application in both eyes daily at bedtime. diphenhydrAMINE (BENADRYL) 25 mg capsule Take 1 capsule by mouth every 6 hours as needed. CALCIUM 600 TABLET 600-125 PO x2 qd MULTIVITAMIN TABLET PO qd No current facility-administered medications for this visit. ALLERGIES Allergen Reactions Trazodone Hcl Mental Status Change, GI Upset also very dizzy Ambien [Zolpidem] Mental Status Change confusion and feels like in a fog all day Ampicillin hives; has tolerated Cefazolin in the past Bactrim [Sulfametho* Hives Benadryl [Diphenhyd* Other: See Comments hyperactivity Celebrex [Celecoxib] GI Upset Cephalexin GI Upset Cephalexin capsules cause severe abdominal pain, nausea and vomiting since has to open the capsules to take them; can tolerate the tablet form Compazine [Prochlor* Other: See Comments dysarthria and confusion Flexeril [Cyclobenz* Mental Status Change Hyperactivity AND slurred speech Levaquin [Levofloxa* Other: See Comments tendinitis Norvasc [Amlodipine* Shortness of Breath Nsaids (Non-Steroid* s/p gastrectomy Penicillins Hives Pentasa [Mesalamine] Rash Severe n and v and terrible rash ACTIVE PROBLEM LIST Mixed Connective Tissue Disease (Hcc) - 08/07/2022 Uncomplicated Opioid Dependence (Hcc) - 08/07/2022 Chronic, Continuous Use of Opioids - 12/31/2020 Other Chronic Pain - 12/31/2020 Moderate Protein-Calorie Malnutrition (Hcc) - 05/04/2020 Comment: Continues to work on nutrition and controlling N/V issues. Crohn's Disease Without Complication ([facility]) - 10/09/2019 Comment: Not sure if acute diarrhea a flare up but diarrhea already improving. Monitor for now. 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 [facility] 08-17-2022 Miscellaneous Notes In for appt today, 08/17 Patient calls and states that she has been having issues of vomiting. Patient at times has not been able to keep down her oxycodone. Patient is not scheduled for another refill of oxycodone till Monday. Patient states that Dr. Leonard normally will prescribe Vicodin to help her get through until she is able to fill oxycodone. Patient asking if provider is able to do this? Please review and advise, Becky Min RN documented in this encounter [facility] 08-17-2022 History of Presen t illness Narrative SUBJECTIVE Mynor Romero is a 76 year old female here today for a check up on her medical problems. Chief Complaint Patient presents with: Recheck: 2 month follow up HPI Mynor Romero is a 76 year old female established patient of Destini Leonard MD. In regards to medications currently taken for pain management, the patient is tolerating these medications, notes issues with nausea frequently but this is secondary to her GI issues. Despite the side effects of nausea and vomiting, she reports that the medications improve her quality of life and ability to function. She denies misuse, abuse or diversion of medications. Overall her pain is maybe a little worse than the last visit. Has always had some absorption issues. Checks blood pressure at home, usually on the low side but thinks she did not get her full dose of medication today. Having increased pain. Fractured right hip replacement, could not do surgery because of pneumonia. Currently taking the oxycodone 20 mg about every 4-5 hours. Takes her morphine concentrate when vomiting, was vomiting so vomited up the oxycodone and used it up earlier than next refill. Nausea is manageable at this point. Has a small amount of the morphine at home. Seeing pain management next week. Her medications were reviewed today and her list is now up to date. Medications Current Outpatient Medications Medication Sig morphine concentrate (ROXANOL) 100 mg/5 mL (20 mg/mL) Take 1 mL by mouth every 4 hours as needed for up to 30 days. Persistent hip fractures (surgery postponed) ;with nausea and vomiting--needs oral liquid for when not able to take pills.May fill now due to acute nausea and vomiting episode. oxyCODONE IR (ROXICODONE) 20 mg tab Take 1 tablet by mouth every 4 hours as needed for up to 14 days. Do not start before August 05, 2022. lisinopril (ZESTRIL) 10 mg tablet TAKE 1-2 TABLETS BY MOUTH ONCE DAILY. ADJUST BASED ON BLOOD PRESSURE READINGS AT HOME Insulin Syringe-Needle U-100 (BD INSULIN SYRINGE ULTRA-FINE) 1 mL 31 gauge x 5/16 USE FOR B12 IM SHOTS ONCE MONTHLY DIRECTED cyanocobalamin 1,000 mcg/mL Inject 1 mL intramuscularly once every month. ondansetron orally disintegrating (ZOFRAN ODT) 4 mg disintegrating tablet Take 1 tablet by mouth every 6 hours as needed for nausea/vomiting. hyoscyamine sublingual (LEVSIN SL) 0.125 mg Dissolve 1-2 tablets under the tongue before meals and at bedtime. cloNIDine HCl (CATAPRES) 0.1 mg tablet Take 1-2 tablets by mouth three times daily. As directed for labile blood pressure Cholecalciferol, Vitamin D3, 50 mcg (2,000 unit) cap Take 1 capsule by mouth once daily. Plans taking 2000 to 4000 units in gummy form. erythromycin ophthalmic ointment Use 1 application in both eyes daily at bedtime. diphenhydrAMINE (BENADRYL) 25 mg capsule Take 1 capsule by mouth every 6 hours as needed. CALCIUM 600 TABLET 600-125 PO x2 qd MULTIVITAMIN TABLET PO qd No current facility-administered medications for this visit. ALLERGIES Allergen Reactions Trazodone Hcl Mental Status Change, GI Upset also very dizzy Ambien [Zolpidem] Mental Status Change confusion and feels like in a fog all day Ampicillin hives; has tolerated Cefazolin in the past Bactrim [Sulfametho* Hives Benadryl [Diphenhyd* Other: See Comments hyperactivity Celebrex [Celecoxib] GI Upset Cephalexin GI Upset Cephalexin capsules cause severe abdominal pain, nausea and vomiting since has to open the capsules to take them; can tolerate the tablet form Compazine [Prochlor* Other: See Comments dysarthria and confusion Flexeril [Cyclobenz* Mental Status Change Hyperactivity & slurred speech Levaquin [Levofloxa* Other: See Comments tendinitis Norvasc [Amlodipine* Shortness of Breath Nsaids (Non-Steroid* s/p gastrectomy Penicillins Hives Pentasa [Mesalamine] Rash Severe n and v and terrible rash ACTIVE PROBLEM LIST Mixed Connective Tissue Disease (Hcc) - 08/07/2022 Uncomplicated Opioid Dependence ([facility]) - 08/07/2022 Chronic, Continuous Use of Opioids - 12/31/2020 Other Chronic Pain - 12/31/2020 Moderate Protein-Calorie Malnutrition ([facility]) - 05/04/2020 Comment: Continues to work on nutrition and controlling N/V issues. Crohn's Disease Without Complication ([facility]) - 10/09/2019 Comment: Not sure if acute diarrhea a flare up but diarrhea already improving. Monitor for now. 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 Htn (Hypertension) Bilateral Low Back Pain With Left-Sided Sciatica - 04/27/2015 Right-Sided Low Back Pain With Right-Sided Sciatica - 04/27/2015 Prophylactic Antibiotic - 03/25/2013 Comment: for preventing prosthetic hip infection; prior staph infection Psychophysiologic Insomnia - 06/01/2011 Rls (Restless Legs Syndrome) - 06/01/2011 Vitamin B12 Deficiency - 01/27/2011 Iron Malabsorption Other Specified Iron Deficiency Anemias - 01/07/2010 Comment: malabsorption issue s/p gastric bypass surgery Dislocation of Prosthetic Joint ([facility]) - 04/12/2007 Sciatica - 12/06/2006 HYPOGLYCEMIA, reactive - 01/16/2006 Comment: 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 Cardiovascular: Negative. Gastrointestinal: Positive for nausea and vomiting. Musculoskeletal: Positive for arthralgias, back pain, gait problem and myalgias. OBJECTIVE BP 148/94 Pulse 108 Resp 16 Wt 90 lb 9.6 oz (41.1kg) Physical Exam Vitals and nursing note reviewed. Constitutional: General: She is awake. She is not in acute distress. Appearance: Normal appearance. She is well-groomed and underweight. She is not ill-appearing, toxic-appearing or diaphoretic. Comments: Walking with support from crutches HENT: Head: Normocephalic. Right Ear: External ear normal. Left Ear: External ear normal. Nose: Nose normal. Eyes: General: Vision grossly intact. Conjunctiva/sclera: Conjunctivae normal. Pupils: Pupils are equal, round, and reactive to light. Neck: Vascular: No JVD. Trachea: Trachea normal. Cardiovascular: Rate and Rhythm: Normal rate and regular rhythm. Pulses: Normal pulses. Heart sounds: Normal heart sounds. No murmur heard. Pulmonary: Effort: Pulmonary effort is normal. No accessory muscle usage, prolonged expiration or respiratory distress. Breath sounds: Normal breath sounds. Musculoskeletal: Cervical back: Neck supple. Skin: General: Skin is warm and dry. Capillary Refill: Capillary refill takes less than 2 seconds. Neurological: General: No focal deficit present. Mental Status: She is alert and oriented to person, place, and time. Mental status is at baseline. Psychiatric: Attention and Perception: Attention and perception normal. Mood and Affect: Mood and affect normal. Speech: Speech normal. Behavior: Behavior normal. Behavior is cooperative. Thought Content: Thought content normal. Cognition and Memory: Cognition and memory normal. Judgment: Judgment normal. ASSESSMENT/PLAN: 1. Primary hypertension - ICD9: 401.9, ICD10: I10 (primary diagnosis) - Factors affecting control: suspected white coat hypertension Continue to monitor bp at home, call if 140/90 or higher - Continue current medications - Recommend home blood pressure monitoring, to bring results to next visit - Encouraged sodium restriction, DASH or Mediterranean diet - Recommend regular aerobic exercise 2. Other chronic pain - ICD9: 338.29, ICD10: G89.29 Pain is maybe somewhat more bothersome but ran out of oxycodone early because of vomiting, discussed using MS when vomiting, she has a small amount at home and should use that until refill due. Oxycodone 14 day script would be due around 08/19, MS 30 day script would be due around 08/26. Seeing pain provider next week. 3. 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 4. Impaired intestinal absorption - ICD9: 579.9, ICD10: K90.9 See above. 5. Encounter for therapeutic drug monitoring - ICD9: V58.83, ICD10: Z51.81 - CBC + DIFF - COMP METABOLIC PANEL - IRON + TIBC - MAGNESIUM BLD - TSH BLD Portions of this note have been entered by ancillary staff. I have reviewed and when necessary edited, so that they are an adequate record of my encounter with this patient Please note that parts of this document were created using voice recognition software and therefore may contain grammatical errors. Patient verbalizes understanding of instructions from today's visit and in agreement with treatment plan. Questions answered. Agrees to call the office if questions, concerns of issues with acute symptoms not improving or if they worsen. Return if symptoms worsen or fail to improve, for Keep next scheduled appointment.. Benjamin Wang APRN-SANDOVAL documented in this encounter [facility] 07-27-2022 Miscellaneous Notes Duplicate request for Roxanol. Taylor Groves LPN documented in this encounter [facility] 07-20-2022 Miscellaneous Notes PATIENT NOTIFIED OF SAME. Since labs improved and she is feeling better can wait until her follow up in about a month to plan for repeat labs unless she has symptoms of not feeling well, worsening diarrhea or other symptoms of possible high potassium (Dr. Leonard previously discussed with her signs to monitor for). Call in if noticing any changes and we repeat BMP/CBC prior to follow up appt. That is on 08/17. Patient aware of recent lab results. States feeling much better. Kristi Diana LPN ----- Message from Destini Leonard MD sent at 07/18/2022 5:38 PM EDT ----- Labs much improved. Potassium normal at 4.9 and Sodium at 137. Kidney function also back to normal range. CBC also improved. Make sure she is doing okay since last seen documented in this encounter [facility] 07-14-2022 Miscellaneous Notes Patient returns call and provider message reviewed. Patient reports she is feeling fine and will plan to come in to have labs done either tomorrow or Monday morning. Encouraged her to come in tomorrow and she said she would try. Patient denies chest pain, sob, or any cardiac symptoms. Patient reports she is pushing lots of fluids and keeping them down. Millie Callejas RN Called and left a voicemail for the Patient to call back and ask for a nurse to receive the providers message. Vianca Hadley RN Make sure patient comes in for labs tomorrow, or if does not, check on her to make sure she is doing okay and does not need to go to ER. If doing okay, could still get labs done Monday, but ideally gets Monday given how high her potassium was. Component Latest Ref Rng & Units 09/14/2017 06/19/2018 10/28/2020 07/13/2022 Protein, Total 6.3 - 8.0 g/dL 8.0 8.0 8.0 6.9 Albumin 3.9 - 4.9 g/dL 4.8 4.5 4.3 4.2 Calcium 8.5 - 10.2 mg/dL 9.9 9.6 9.6 9.1 Bilirubin, Total 0.2 - 1.3 mg/dL 0.5 0.4 0.2 0.2 Alkaline Phosphatase 34 - 123 U/L 70 92 103 100 AST 13 - 35 U/L 29 27 16 17 Glucose 74 - 99 mg/dL 95 88 107 (H) 103 (H) BUN 7 - 21 mg/dL 16 13 22 (H) 31 (H) Creatinine 0.58 - 0.96 mg/dL 0.62 0.67 0.63 1.17 (H) Sodium 136 - 144 mmol/L 139 137 135 (L) 132 (L) Potassium 3.7 - 5.1 mmol/L 4.3 4.3 4.0 6.1 (HH) Chloride 97 - 105 mmol/L 98 97 100 100 CO2 22 - 30 mmol/L 24 25 21 (L) 22 Anion Gap 9 - 18 mmol/L 17 15 14 10 ALT 7 - 38 U/L 12 13 9 8 eGFR- >60 >60 >60 eGFR-All Other Races . >60 >60 >60 eGFR >=60 mL/min/1.73m 49 (L) WBC 3.70 - 11.00 k/uL 5.25 3.52 (L) 4.58 4.69 RBC 3.90 - 5.20 m/uL 4.32 4.30 4.17 3.47 (L) Hemoglobin 11.5 - 15.5 g/dL 13.2 13.6 12.7 10.2 (L) Hematocrit 36.0 - 46.0 % 42.2 43.0 39.6 32.5 (L) MCV 80.0 - 100.0 fL 97.7 100.0 95.0 93.7 MCH 26.0 - 34.0 pg 30.6 31.6 30.5 29.4 MCHC 30.5 - 36.0 g/dL 31.3 31.6 32.1 31.4 RDW-CV 11.5 - 15.0 % 14.2 14.0 15.8 (H) 16.9 (H) Platelet Count 150 - 400 k/uL 246 239 426 (H) 369 MPV 9.0 - 12.7 fL 12.8 (H) 12.8 (H) 10.1 11.1 Absolute nRBC <0.01 k/uL <0.01 <0.01 <0.01 <0.01 Phencyclidine Negative Negative Negative Benzodiazepines Urine Negative Negative Negative Cocaine Urine Negative Negative Negative Amphetamines Negative Negative Negative Cannabinoids, Urine Negative Negative Negative Opiates Negative Negative Preliminary positive (A) Barbiturates Negative Negative Negative Ethanol, Urine <11 mg/dL <11 <11 Oxycodone, Urine Negative Negative Preliminary positive (A) Total Cholesterol, Nonfasting <200 mg/dL 243 (H) Triglycerides, Nonfasting <150 mg/dL 140 HDL Cholesterol, Nonfasting >39 mg/dL 83 LDL Cholesterol, Nonfasting <100 mg/dL 132 (H) Non HDL Cholesterol, Nonfasting <130 mg/dL 160 (H) VLDL Cholesterol, Nonfasting <30 mg/dL 28 Total Chol/HDL Ratio, Nonfasting <5.10 mg/dL 2.93 LDL/HDL Ratio, Nonfasting <2.54 mg/dL 1.59 Iron 41 - 186 ug/dL 68 46 TIBC 232 - 386 ug/dL 398 (H) 313 Transferrin Saturation 15.0 - 57.0 % 17 14.7 (L) PT Sec 9.7 - 13.0 sec 10.3 PT INR 0.9 - 1.3 1.0 Vitamin B12 232 - 1,245 pg/mL 897 750 590 1,069 Vitamin D 25 Hydroxy 31.0 - 80.0 ng/mL 16.0 (L) 18.5 (L) 10.8 (L) Folate >4.7 ng/mL >20.0 >20.0 17.6 Magnesium 1.7 - 2.3 mg/dL 2.3 2.6 (H) Ferritin 14.7 - 205.1 ng/mL 63.1 69.9 APTT 23.0 - 32.4 sec 26.1 WSR 0 - 20 mm/hr 34 (H) CRP <0.9 mg/dL <0.3 0.7 TSH 0.270 - 4.200 mIU/L 7.890 (H) Reviewed labs with patient. Critical high potassium and high BUN and Creatinine consistent with dehydration discussed--recommendation to go to ER for further evaluation and treatment given cardiac risk from high potassium discussed.Patient states that understands recommendation but does not wan to go to ER. Prefers to stay home and rehydrate, avoid high potassium foods, increase sodium intake and repeat labs in next day or two. Aware to go to ER if red flag symptoms or not able to keep fluids down. Discussed anemia--suspect that with hydration she will be more anemic than current labs reflecting and more iron deficient as well. After get rehydrated, will recheck iron studies if needed to verify needs iron infusions and get covered with insurance. Vitamin D level even lower--encouraged to increase intake and take routinely. High magnesium level should go down with rehydration. Make sure patient gets labs by Monday. Critical Values Notification Note Dr Leonard was notified of the Critical Test & result of Potassium at 6.1 These results were received 07/13/2022 at 1845. Results were verified with Kristi Diana LPN and read back took place. The clinical action plan to take place will be addressed by Dr Leonard. Signature: Kristi Diana LPN Date: July 13, 2022 Time: 6:56 PM documented in this encounter [facility] 07-13-2022 Note HNO ID: [id number] Author: Destini Leonard MD Service: ? Author Type: Physician Type: Progress Notes Filed: 08/07/2022 11:12 PM Note Text: This note was created using [employer]. Subjective Mynor Romero is a 76 year old female. Patient presents with: Follow Up SUBJECTIVE: Mynor Romero is a 76 year old year old lady here today for follow up appointment for review of medical conditions. Fell a couple weeks ago. Was on carpet. Had worst nosebleed. Hit left knee--hurts a lot but is getting better. Still with nausea and vomiting. Eats a little bit at a time. Does drink juice and nutrition drinks because not able to keep food down. Does use Zofran. Noted that nausea johnson been unpredictable. Does throw up pain med so needs to replace with another pill often Still trying to work out in garden. Noted rash that started after a viral illness a couple years ago. Mostly arms. Was on back as well when first got the rash. Suspects was COVID (friend that was exposed to had been diagnosed with COVID pneumonia) Starts ar red spots then like telangiectasias. Gets itchy. Heals with scarring with hypopigmented skin. RLS issues discussed. Was able to be on lower dose opiate when was not having the severe pain. Hip dislocation issue reviewed. Been 2 years since last time. Numbness due to back issues contributes. BPs well controlled at home now. Avoiding vaccines since they trigger autoimmune issues. Crohn's comes and goes with diarrhea and abdominal pain. No bleeding noted. Annoying diarrhea noted. Depression Screening 10/01/2018 04/01/2019 06/10/2020 07/13/2022 PHQ-2 Score 0 0 0 0 PHQ-9 Score - - - - KATE-2 Total Score - - - - Depression screening tool completed and reviewed. Based on score and interview, patient is not at risk for depression. Screening tool discussed with patient, and I recommended no further intervention at this time. PAST MEDICAL HISTORY Diagnosis Date Allergic rhinitis, cause unspecified Allergic rhinitis Crohn's disease without complication (HCC) 10/09/2019 Not sure if acute diarrhea a flare up but diarrhea already improving. Monitor for now. 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 morphine concentrate (ROXANOL) 100 mg/5 mL (20 mg/mL) Take 1 mL by mouth every 4 hours as needed for up to 30 days. Persistent hip fractures (surgery postponed) ;with nausea and vomiting--needs oral liquid for when not able to take pills. lisinopril (ZESTRIL) 10 mg tablet TAKE 1-2 TABLETS BY MOUTH ONCE DAILY. ADJUST BASED ON BLOOD PRESSURE READINGS AT HOME Insulin Syringe-Needle U-100 (BD INSULIN SYRINGE ULTRA-FINE) 1 mL 31 gauge x 5/16 USE FOR B12 IM SHOTS ONCE MONTHLY DIRECTED cyanocobalamin 1,000 mcg/mL Inject 1 mL intramuscularly once every month. ondansetron orally disintegrating (ZOFRAN ODT) 4 mg disintegrating tablet Take 1 tablet by mouth every 6 hours as needed for nausea/vomiting. hyoscyamine sublingual (LEVSIN SL) 0.125 mg Dissolve 1-2 tablets under the tongue before meals and at bedtime. cloNIDine HCl (CATAPRES) 0.1 mg tablet Take 1-2 tablets by mouth three times daily. As directed for labile blood pressure Cholecalciferol, Vitamin D3, 50 mcg (2,000 unit) cap Take 1 capsule by mouth once daily. Plans taking 2000 to 4000 units in gummy form. erythromycin ophthalmic ointment Use 1 application in both eyes daily at bedtime. diphenhydrAMINE (BENADRYL) 25 mg capsule Take 1 capsule by mouth every 6 hours as needed. CALCIUM 600 TABLET 600-125 PO x2 qd MULTIVITAMIN TABLET PO qd No current facility-administered medications for this visit. Review of Systems Objective BP 128/68 Pulse (!) 56 Temp 36 ?C (96.8 ?F) Resp 18 Wt 40.2 kg (88 lb 11.2 oz) SpO2 99% BMI 17.04 kg/m? Last 5 Encounter Wt Readings: Date: Wt: 07/13/2022 40.2 kg (88 lb 11.2 oz) 08/24/2020 49.9 kg (110 lb) 06/15/2020 0 kg () 04/18/2020 44 kg (97 lb) 01/04/2019 49.4 kg (109 lb) No waist measurement recorded Estimated body mass index is 17.04 kg/m? as calculated from the following: Height as of 01/26/18: 153.7 cm (5' 0.5 ). Weight as of this encounter: 40.2 kg (88 lb 11.2 oz). Last 5 Encounter BP Readings: Date: BP: 07/13/2022 128/68 09/04/2021 98/58 10/30/2020 101/67 08/24/2020 118/78 06/15/2020 122/76 Physical Exam Const (more content not included)... [facility] 07-13-2022 Instructions Destini Leonard MD - 07/13/2022 8:39 AM EDT Cerave Itch Relief lotion. documented in this encounter [facility] 07-13-2022 History of Presen t illness Narrative This note was created using [employer]. Subjective Mynor Romero is a 76 year old female. Patient presents with: Follow Up SUBJECTIVE: Mynor Romero is a 76 year old year old lady here today for follow up appointment for review of medical conditions. Fell a couple weeks ago. Was on carpet. Had worst nosebleed. Hit left knee--hurts a lot but is getting better. Still with nausea and vomiting. Eats a little bit at a time. Does drink juice and nutrition drinks because not able to keep food down. Does use Zofran. Noted that nausea johnson been unpredictable. Does throw up pain med so needs to replace with another pill often Still trying to work out in garden. Noted rash that started after a viral illness a couple years ago. Mostly arms. Was on back as well when first got the rash. Suspects was COVID (friend that was exposed to had been diagnosed with COVID pneumonia) Starts ar red spots then like telangiectasias. Gets itchy. Heals with scarring with hypopigmented skin. RLS issues discussed. Was able to be on lower dose opiate when was not having the severe pain. Hip dislocation issue reviewed. Been 2 years since last time. Numbness due to back issues contributes. BPs well controlled at home now. Avoiding vaccines since they trigger autoimmune issues. Crohn's comes and goes with diarrhea and abdominal pain. No bleeding noted. Annoying diarrhea noted. Depression Screening 10/01/2018 04/01/2019 06/10/2020 07/13/2022 PHQ-2 Score 0 0 0 0 PHQ-9 Score - - - - KATE-2 Total Score - - - - Depression screening tool completed and reviewed. Based on score and interview, patient is not at risk for depression. Screening tool discussed with patient, and I recommended no further intervention at this time. PAST MEDICAL HISTORY Diagnosis Date Allergic rhinitis, cause unspecified Allergic rhinitis Crohn's disease without complication (HCC) 10/09/2019 Not sure if acute diarrhea a flare up but diarrhea already improving. Monitor for now. 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 morphine concentrate (ROXANOL) 100 mg/5 mL (20 mg/mL) Take 1 mL by mouth every 4 hours as needed for up to 30 days. Persistent hip fractures (surgery postponed) ;with nausea and vomiting--needs oral liquid for when not able to take pills. lisinopril (ZESTRIL) 10 mg tablet TAKE 1-2 TABLETS BY MOUTH ONCE DAILY. ADJUST BASED ON BLOOD PRESSURE READINGS AT HOME Insulin Syringe-Needle U-100 (BD INSULIN SYRINGE ULTRA-FINE) 1 mL 31 gauge x 5/16 USE FOR B12 IM SHOTS ONCE MONTHLY DIRECTED cyanocobalamin 1,000 mcg/mL Inject 1 mL intramuscularly once every month. ondansetron orally disintegrating (ZOFRAN ODT) 4 mg disintegrating tablet Take 1 tablet by mouth every 6 hours as needed for nausea/vomiting. hyoscyamine sublingual (LEVSIN SL) 0.125 mg Dissolve 1-2 tablets under the tongue before meals and at bedtime. cloNIDine HCl (CATAPRES) 0.1 mg tablet Take 1-2 tablets by mouth three times daily. As directed for labile blood pressure Cholecalciferol, Vitamin D3, 50 mcg (2,000 unit) cap Take 1 capsule by mouth once daily. Plans taking 2000 to 4000 units in gummy form. erythromycin ophthalmic ointment Use 1 application in both eyes daily at bedtime. diphenhydrAMINE (BENADRYL) 25 mg capsule Take 1 capsule by mouth every 6 hours as needed. CALCIUM 600 TABLET 600-125 PO x2 qd MULTIVITAMIN TABLET PO qd No current facility-administered medications for this visit. Review of Systems Objective BP 128/68 Pulse (!) 56 Temp 36 C (96.8 F) Resp 18 Wt 40.2 kg (88 lb 11.2 oz) SpO2 99% BMI 17.04 kg/m Last 5 Encounter Wt Readings: Date: Wt: 07/13/2022 40.2 kg (88 lb 11.2 oz) 08/24/2020 49.9 kg (110 lb) 06/15/2020 0 kg () 04/18/2020 44 kg (97 lb) 01/04/2019 49.4 kg (109 lb) No waist measurement recorded Estimated body mass index is 17.04 kg/m as calculated from the following: Height as of 01/26/18: 153.7 cm (5' 0.5 ). Weight as of this encounter: 40.2 kg (88 lb 11.2 oz). Last 5 Encounter BP Readings: Date: BP: 07/13/2022 128/68 09/04/2021 98/58 10/30/2020 101/67 08/24/2020 118/78 06/15/2020 122/76 Physical Exam Constitutional: Appearance: Normal appearance. HENT: Head: Normocephalic. Eyes: Conjunctiva/sclera: Conjunctivae normal. Cardiovascular: Rate and Rhythm: Normal rate and regular rhythm. Heart sounds: Normal heart sounds. Pulmonary: Effort: Pulmonary effort is normal. Breath sounds: Normal breath sounds. Skin: General: Skin is warm and dry. Neurological: General: No focal deficit present. Mental Status: She is alert and oriented to person, place, and time. Psychiatric: Mood and Affect: Mood normal. Behavior: Behavior normal. Thought Content: Thought content normal. Judgment: Judgment normal. Assessment and Plan Encounter Diagnosis ICD-10-CM 1. 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 Vitamin D deficiency E55.9 VITAMIN D 25 HYDROXY 3. Vitamin B12 deficiency E53.8 VITAMIN B12 BLOOD 4. Essential hypertension I10 VITAMIN D 25 HYDROXY TSH BLD COMP METABOLIC PANEL CBC PAIN PANEL, UR QUANT TOX SCREEN ROUT UR VITAMIN B12 BLOOD VITAMIN A/RETINOL FOLATE SERUM IRON + TIBC FERRITIN BLD C-REACTIVE PROTEIN (CRP) 5. Encounter for long-term (current) drug use Z79.899 VITAMIN D 25 HYDROXY TSH BLD COMP METABOLIC PANEL CBC PAIN PANEL, UR QUANT TOX SCREEN ROUT UR VITAMIN B12 BLOOD VITAMIN A/RETINOL FOLATE SERUM IRON + TIBC FERRITIN BLD C-REACTIVE PROTEIN (CRP) MAGNESIUM BLD 6. Intervertebral disc disorder with radiculopathy of lumbar region M51.16 oxyCODONE IR (ROXICODONE) 20 mg tab oxyCODONE IR (ROXICODONE) 20 mg tab 7. Bilateral sciatica M54.31 oxyCODONE IR (ROXICODONE) 20 mg tab M54.32 oxyCODONE IR (ROXICODONE) 20 mg tab 8. Pain in prosthetic joint, sequela T84.84XS oxyCODONE IR (ROXICODONE) 20 mg tab oxyCODONE IR (ROXICODONE) 20 mg tab Pain seems to be a little better but still needs pain meds.Surgery still postponed due to her health status 9. RLS (restless legs syndrome) G25.81 oxyCODONE IR (ROXICODONE) 20 mg tab oxyCODONE IR (ROXICODONE) 20 mg tab 10. 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, sequela M97.8XXS oxyCODONE IR (ROXICODONE) 20 mg tab Z96.649 oxyCODONE IR (ROXICODONE) 20 mg tab 11. Rash and nonspecific skin eruption R21 Above issues addressed with patient. Keeps on working on getting enough calories and protein in diet. Patient and involved in shared decision making for management of medical issues. History and medications reviewed. Epic updated as needed Refills and/or prescriptions taken care of and meds adjusted as indicated after reviewed history, exam and labs. Health Maintenance reviewed. Updated record and/or ordered tests as recorded. Encouraged on efforts at healthy diet and regular exercise and adequate sleep. Recurrent rash discussed. Since improved and usually resolved spontaneously, okay to hold off on dermatology evaluation. Further evaluation and treatment as indicated. Stable with control of chronic pain with present meds and plans for when has flare ups and also for when cannot keep meds down due to s/p gastric bypass surgery. Needs liquid med so able to control pain and also prevent acute opiate withdrawal. At this time benefits outweigh risks. Continue to monitor for adverse effects and indications for decreasing dose or tapering off. She would like to keep trying to titrate down pain med use. Still needs liquid for when has flare up and cannot keep down pills. No signs of diversion or abuse of medication(s); no adverse effects. Continue present management. I spent a total of 47 minutes on the date of the service which included preparing to see the patient, [id number] patient care, completing clinical documentation, obtaining and/or reviewing separately obtained history, performing a medically appropriate examination, counseling and educating the patient/family/caregiver, ordering medications, tests, or procedures, independently interpreting results (not separately reported), and communicating results to the patient/family/caregiver. Destini Leonard MD documented in this encounter [facility] 07-08-2022 Miscellaneous Notes The following approved medication requests have been transmitted electronically. Requested Prescriptions Signed Prescriptions Disp Refills oxyCODONE IR (ROXICODONE) 20 mg tab 84 tablet 0 Sig: Take 1 tablet by mouth every 4 hours as needed for up to 14 days. Authorizing Provider: DESTINI LEONARD MD Patient has been identified by name and date of : Yes, Provider Horacio Date 07/07/22 Time 8:46am Patient phones for refill(s): Requested Prescriptions Pending Prescriptions Disp Refills oxyCODONE IR (ROXICODONE) 20 mg tab 84 tablet 0 Sig: Take 1 tablet by mouth every 4 hours as needed for up to 16 days. Date of last office visit in primary care: 07/13/22 Last 2 Encounter Wt Readings: Date: Wt: 08/24/2020 49.9 kg (110 lb) 06/15/2020 0 kg () Please advise. Thank you. Hali Barraza LPN documented in this encounter [facility] 07-06-2022 Note Patient Outreach (IN [facility]) MYNOR ROMERO ([id number]) 1945 F Date Time Provider Department 07/06/22 DESTINI LEONARD During your visit today, we recorded the following information about you: Allergies As of Date: 07/06/2022 Noted Allergy Reaction TRAZODONE HCL 04/04/2011 1 - Mental Status Change 8 - GI Upset Comments: also very dizzy AMBIEN (ZOLPIDEM) 01/04/2012 1 - Mental Status Change Comments: confusion and feels like in a fog all day AMPICILLIN 11/17/2000 Comments: hives; has tolerated Cefazolin in the past BACTRIM (SULFAMETHOXAZOLE) 02/08/2012 4 - Hives BENADRYL (DIPHENHYDRAMINE HCL) 10/26/2011 14 - Other: See Comments Comments: hyperactivity CELEBREX (CELECOXIB) 03/06/2008 8 - GI Upset CEPHALEXIN 02/21/2012 8 - GI Upset Comments: Cephalexin capsules cause severe abdominal pain, nausea and vomiting since has to open the capsules to take them; can tolerate the tablet form COMPAZINE (PROCHLORPERAZINE EDISY*03/18/2010 14 - Other: See Comments Comments: dysarthria and confusion FLEXERIL (CYCLOBENZAPRINE HCL) 03/27/2016 1 - Mental Status Change Comments: Hyperactivity AND slurred speech LEVAQUIN (LEVOFLOXACIN) 02/08/2012 14 - Other: See Comments Comments: tendinitis NORVASC (AMLODIPINE BESYLATE) 01/14/2011 12 - Shortness of Breath NSAIDS (NON-STEROIDAL ANTI-INFLAM*12/26/2002 Comments: s/p gastrectomy PENICILLINS 02/08/2012 4 - Hives PENTASA (MESALAMINE) 08/08/2011 2 - Rash Comments: Severe n and v and terrible rash Date Reviewed: 04/25/2022 Reviewed by: Aurelia Ramirez LPN - Fully Assessed Visit Diagnosis:Encounter for screening mammogram for breast cancer [Z12.31] Order(s):[facility] SCREENING [[id number]] Order #: [id number] FUTURE Prescriptions as of 07/11/2022 - oxyCODONE IR (ROXICODONE) 20 mg tab Take 1 tablet by mouth every 4 hours as needed for up to 14 days. - morphine concentrate (ROXANOL) 100 mg/5 mL (20 mg/mL) Take 1 mL by mouth every 4 hours as needed for up to 30 days. Persistent hip fractures (surgery postponed) ;with nausea and vomiting--needs oral liquid for when not able to take pills. - lisinopril (ZESTRIL) 10 mg tablet TAKE 1-2 TABLETS BY MOUTH ONCE DAILY. ADJUST BASED ON BLOOD PRESSURE READINGS AT HOME - Insulin Syringe-Needle U-100 (BD INSULIN SYRINGE ULTRA-FINE) 1 mL 31 gauge x 16 USE FOR B12 IM SHOTS ONCE MONTHLY DIRECTED - cyanocobalamin 1,000 mcg/mL Inject 1 mL intramuscularly once every month. - ondansetron orally disintegrating (ZOFRAN ODT) 4 mg disintegrating tablet Take 1 tablet by mouth every 6 hours as needed for nausea/vomiting. - hyoscyamine sublingual (LEVSIN SL) 0.125 mg Dissolve 1-2 tablets under the tongue before meals and at bedtime. - cloNIDine HCl (CATAPRES) 0.1 mg tablet Take 1-2 tablets by mouth three times daily. As directed for labile blood pressure - Cholecalciferol, Vitamin D3, 50 mcg (2,000 unit) cap Take 1 capsule by mouth once daily. Plans taking 2000 to 4000 units in gummy form. - erythromycin ophthalmic ointment Use 1 application in both eyes daily at bedtime. - diphenhydrAMINE (ALLERGY) 25 mg capsule Take 1 capsule by mouth every 6 hours as needed. 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.2] 11/09/2004 PERNICIOUS ANEMIA [D51.0] RHINITIS DUE TO POLLEN [J30.1] ALLERGIC RHINITIS NOS [J30.9] Intervertebral disc disorder with radiculopathy*01/07/2005 IRRITABLE COLON [K58.9] 05/13/2005 Pain in prosthetic joint (HCC) [T84.84XA] 06/23/2005 HYPOGLYCEMIA, reactive [E16.2] 01/16/2006 SCIATICA [M54.30] 12/06/2006 DISLOCATION OF PROSTHETIC JOINT [T84.029A] 04/12/2007 Lumbago [M54.50] 05/22/2008 04/27/2015 Other specified iron deficiency anemias [D50.8] 01/07/2010 Iron deficiency [E61.1] 09/09/2010 03/26/2013 Iron malabsorption [K90.9] Vitamin B12 deficiency [E53.8] 01/27/2011 Psychophysiologic insomnia [F51.04] 06/01/2011 RLS (restless legs syndrome) [G25.81] 06/01/2011 Prophylactic antibiotic [Z79.2] 03/25/2013 Bilateral low back pain with left-sided sciatic*04/27/2015 Right-sided low back pain with right-sided scia*04/27/2015 HTN (hypertension) [I10] Rosio-prosthetic fracture of femur following tot*03/25/2016 Vitamin D deficiency [E55.9] 12/31/2017 Crohn's disease without complication (HCC) [K50*10/09/2019 Moderate protein-calorie malnutrition (HCC) [E4*05/04/2020 Chronic, continuous use of opioids [F11.90] 12/31/2020 Other chronic pain [G89.29] 12/31/2020 Encounter Status:Closed by DARÍO COOPER on 07/11/22 [facility] 06-17-2022 Miscellaneous Notes Has upcoming appointment. Last appointment was [facility] in February. If not able to make it, needs rescheduled CAYDEN since needs seen at least once every 3 months but should be at least every 2 months with her current meds. Note that had discussed with option of palliative care medicine (saw her before) since they can see her at her home (has trouble getting in for appointments). She wants to taper off pain meds, but when she lowers oxycodone or skips a dose, gets severe RLS flare up. Frequent bouts of nausea and vomiting also noted. Reason for the concentrated oral pain med. The following approved medication requests have been transmitted electronically. Requested Prescriptions Signed Prescriptions Disp Refills oxyCODONE IR (ROXICODONE) 20 mg tab 84 tablet 0 Sig: Take 1 tablet by mouth every 4 hours as needed for up to 16 days. Do not start before June 20, 2022. Authorizing Provider: DESTINI LEONARD MD Patient has been identified by name and date of : Yes, Provider Dr. Leonard Date 06/15/22 Time 11:27 am Patient phones for refill(s): Requested Prescriptions Pending Prescriptions Disp Refills oxyCODONE IR (ROXICODONE) 20 mg tab 84 tablet 0 Sig: Take 1 tablet by mouth every 4 hours as needed for up to 16 days. Date of last office visit in primary care: 03/02/22 next apt 06/22/22 Last 2 Encounter Wt Readings: Date: Wt: 08/24/2020 49.9 kg (110 lb) 06/15/2020 0 kg () Previous labs/tests for medication: Not applicable Please advise. Thank you. Lianet Ceballos LPN documented in this encounter [facility] 06-15-2022 Miscellaneous Notes Okayed Patient has been identified by name and date of : Yes, Provider Dr. Leonard Date 06/15/22 Time 11:26 am Pharmacy phones for refill(s): Requested Prescriptions Pending Prescriptions Disp Refills lisinopril (ZESTRIL) 10 mg tablet [Pharmacy Med Name: LISINOPRIL 10 MG TABLET] 180 tablet 3 Sig: TAKE 1-2 TABLETS BY MOUTH ONCE DAILY. ADJUST BASED ON BLOOD PRESSURE READINGS AT HOME Date of last office visit in primary care: 03/02/22 next apt 06/22/22 Last 2 Encounter Wt Readings: Date: Wt: 08/24/2020 49.9 kg (110 lb) 06/15/2020 0 kg () Previous labs/tests for medication: Blood Pressure: BUN (mg/dL) Date Value 10/28/2020 22 Sodium (mmol/L) Date Value 10/28/2020 135 Last 1 Encounter BP Readings: Date: BP: 09/04/2021 98/58 Thank you. Lianet Ceballos LPN documented in this encounter [facility] 06-03-2022 Miscellaneous Notes Last filled 05/06 The following approved medication requests have been transmitted electronically. Requested Prescriptions Signed Prescriptions Disp Refills morphine concentrate (ROXANOL) 100 mg/5 mL (20 mg/mL) 60 mL 0 Sig: Take 1 mL by mouth every 4 hours as needed for up to 30 days. Persistent hip fractures (surgery postponed) ;with nausea and vomiting--needs oral liquid for when not able to take pills. Authorizing Provider: DESTINI LEONARD MD Patient has been identified by name and date of : Yes Patient phones for refill(s): Requested Prescriptions Pending Prescriptions Disp Refills morphine concentrate (ROXANOL) 100 mg/5 mL (20 mg/mL) 60 mL 0 Sig: Take 1 mL by mouth every 4 hours as needed for up to 30 days. Persistent hip fractures (surgery postponed) ;with nausea and vomiting--needs oral liquid for when not able to take pills. Date of last office visit in primary care: 09/04/2021 Please advise. Thank you. Cheryl Pimentel LPN documented in this encounter [facility] 06-02-2022 Miscellaneous Notes Spoke with pt and information listed below given. Pt verbalizes understanding. Lianet Ceballos LPN The following approved medication requests have been transmitted electronically. Requested Prescriptions Signed Prescriptions Disp Refills oxyCODONE IR (ROXICODONE) 20 mg tab 84 tablet 0 Sig: Take 1 tablet by mouth every 4 hours as needed for up to 16 days. Do not start before June 04, 2022. Authorizing Provider: DESTINI LEONARD MD Note to pharmacy done for picking up Monday; left refill date for next for 2 weeks after original date. If needing friend to pickers material handlers consistently on Saturdays, can change RX pick update. Patient phones requesting refills as follows: Requested Prescriptions Pending Prescriptions Disp Refills oxyCODONE IR (ROXICODONE) 20 mg tab 84 tablet 0 Sig: Take 1 tablet by mouth every 4 hours as needed for up to 14 days. MARIZA: 03/02/22 NOV: 06/22/22 Last Refill: 05/23/22 #84 0 refills Pt asking if Rx can be sent to the pharmacy to be picked up on Monday06/04/22 & pt states she will not start taking it until Monday06/06/22 Pt states she has a fx hip & spouse has 5 fx vertebrae so they are both unable to drive to the pharmacy but pt's friend can pick it up on the 06/04. Please notify pt. Helen Elise LPN documented in this encounter [facility] 05-20-2022 Miscellaneous Notes The following approved medication requests have been transmitted electronically. Requested Prescriptions Signed Prescriptions Disp Refills oxyCODONE IR (ROXICODONE) 20 mg tab 84 tablet 0 Sig: Take 1 tablet by mouth every 4 hours as needed for up to 14 days. Do not start before May 23, 2022. Authorizing Provider: DESTINI LEONARD MD Patient has been identified by name and date of : Yes, Provider Horacio Date 05/20/22 Time 10:53am Patient phones for refill(s): Requested Prescriptions Pending Prescriptions Disp Refills oxyCODONE IR (ROXICODONE) 20 mg tab 84 tablet 0 Sig: Take 1 tablet by mouth every 4 hours as needed for up to 14 days. Date of last office visit in primary care: 03/02/22 Next appt 06/22/22 Last 2 Encounter Wt Readings: Date: Wt: 08/24/2020 49.9 kg (110 lb) 06/15/2020 0 kg () Please advise. Thank you. Hali Barraza LPN documented in this encounter [facility] 05-16-2022 Miscellaneous Notes Form placed in envelope provided, already stamped and address on it. Patient aware will be sent out sometime today. Kristi Diana LPN In done bin Copy to scan and mail original as requested (except envelope without address so verify with patient) Patient dropped off manila envelope with form needing filled out and mailed in envelope provided, to the courts. Form is a medical excuse from Jury Duty. Forwarded to PCP to fill out. Kristi Diana LPN documented in this encounter [facility] 05-06-2022 Miscellaneous Notes TC to patient who picked up medication yesterday. TABBY Corado Did not see request till late The following approved medication requests have been transmitted electronically. Requested Prescriptions Signed Prescriptions Disp Refills morphine concentrate (ROXANOL) 100 mg/5 mL (20 mg/mL) 60 mL 0 Sig: Take 1 mL by mouth every 4 hours as needed for up to 30 days. Persistent hip fractures (surgery postponed) ;with nausea and vomiting--needs oral liquid for when not able to take pills. Authorizing Provider: DESTINI LEONARD MD Patient asking pcp to send her roxanol liquid to pharmacy. Reports she needs pcp to do this today. Reports she is having vomiting and diarrhea since yesterday due to her crohns. Reports she is unable to keep pills down. 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 Advised patient pcp is out of office today, and would need an appt for someone else to prescribe this. Patient states she cannot come in for an appt and asking this message be sent to pcp. Reports she is under pain management. Please advise patient. documented in this encounter [facility] 05-04-2022 Miscellaneous Notes The following approved medication requests have been transmitted electronically. Requested Prescriptions Signed Prescriptions Disp Refills oxyCODONE IR (ROXICODONE) 20 mg tab 84 tablet 0 Sig: Take 1 tablet by mouth every 4 hours as needed for up to 14 days. Do not start before May 09, 2022. Authorizing Provider: DESTINI LEONARD MD MARIZA: 09/04/2021 Last refill: QTY: 84 Refills: 0 documented in this encounter [facility] 04-07-2022 Miscellaneous Notes [employer] message sent to pt to let her know her prescription was sent to the pharmacy. Lianet Ceballos LPN The following approved medication requests have been transmitted electronically. Requested Prescriptions Signed Prescriptions Disp Refills oxyCODONE IR (ROXICODONE) 20 mg tab 84 tablet 0 Sig: Take 1 tablet by mouth every 4 hours as needed for up to 14 days. Do not start before April 11, 2022. Authorizing Provider: DESTINI LEONARD MD Patient has been identified by name and date of : Yes, Provider Dr. Leonard Date 04/07/21 Time 7:34 am Patient phones for refill(s): Requested Prescriptions Pending Prescriptions Disp Refills oxyCODONE IR (ROXICODONE) 20 mg tab 84 tablet 0 Sig: Take 1 tablet by mouth every 4 hours as needed for up to 14 days. Date of last office visit in primary care: 11/05/21 next apt 04/28/22 Last 2 Encounter Wt Readings: Date: Wt: 08/24/2020 49.9 kg (110 lb) 06/15/2020 0 kg () Previous labs/tests for medication: Not applicable Thank you. Lianet Ceballos LPN documented in this encounter [facility] 04-07-2022 Miscellaneous Notes Okayed Pt wanted Roxanol re-ordered, but it says it cannot be ordered as a prescription. She states she needs the Zofran to help keep her pills down. Patient has been identified by name and date of : Yes, Provider Dr Leonard Date 04/07/22 Time 0918. Patient phones for refill(s): Requested Prescriptions Pending Prescriptions Disp Refills ondansetron orally disintegrating (ZOFRAN ODT) 4 mg disintegrating tablet 360 tablet 1 Sig: Take 1 tablet by mouth every 6 hours as needed for nausea/vomiting. Date of last office visit in primary care: 03/02/22 Future visit: 04/28/22 Last 2 Encounter Wt Readings: Date: Wt: 08/24/2020 49.9 kg (110 lb) 06/15/2020 0 kg () Previous labs/tests for medication: Blood Pressure: BUN (mg/dL) Date Value 10/28/2020 22 Sodium (mmol/L) Date Value 10/28/2020 135 Last 1 Encounter BP Readings: Date: BP: 09/04/2021 98/58 Liver Function: ALT (U/L) Date Value 10/28/2020 9 AST (U/L) Date Value 10/28/2020 16 Please advise. Thank you. Vianca Hadley RN documented in this encounter [facility] 03-11-2022 Miscellaneous Notes Spoke with pt and information listed below given. Pt verbalizes understanding. Transferred to a ambulatory services representative. Lianet Ceballos LPN Needs her 2 month follow ups scheduled out at least 8 months. Just had telephone visit 03/02 Noted that had to cancel her pain management appointment due to illness. Not yet rescheduled. The following approved medication requests have been transmitted electronically. Requested Prescriptions Signed Prescriptions Disp Refills oxyCODONE IR (ROXICODONE) 20 mg tab 84 tablet 0 Sig: Take 1 tablet by mouth every 4 hours as needed for up to 14 days. Do not start before March 14, 2022. Authorizing Provider: DESTINI LEONARD MD Patient has been identified by name and date of : Yes, Provider Horacio Date 03/11/22 Time 8:33am Patient phones for refill(s): Requested Prescriptions Pending Prescriptions Disp Refills oxyCODONE IR (ROXICODONE) 20 mg tab 84 tablet 0 Sig: Take 1 tablet by mouth every 4 hours as needed for up to 14 days. Date of last office visit in primary care: 03/02/22 No follow up appt scheduled Last 2 Encounter Wt Readings: Date: Wt: 08/24/2020 49.9 kg (110 lb) 06/15/2020 0 kg () Please advise. Thank you. Hali Barraza LPN documented in this encounter [facility] 03-02-2022 Note HNO ID: [id number] Author: Destini Leonard MD Service: ? Author Type: Physician Type: Progress Notes Filed: 03/02/2022 7:52 PM Note Text: AMBULATORY TELEPHONE VISIT Mynor Romero has consented to this telephone encounter. Persons Present: patient and patient's spouse/significant other Chief Complaint/Reason: 2 month follow up HPI: No chief complaint on file. SUBJECTIVE: Mynor Romero is a 76 year old year old lady here today for 2 month follow up appointment for review of medical conditions. Doing well except for the hip. Does not know if will ever heal. Cannot pursue surgery. Physically and psychologically not ready. Reviewed that trying to go down on other med. Pain gets worse if takes too low an amount. Told to lay on left side to help med get moved to get digested. Absorption problems ongoing. She reviewed her total gastrectomy issues. Weight was down to 92 pounds but is gradually gaining weight. Eats small amounts of weight at a time. Getting fruits and protein in. Taking 2000 units Vitamin D still and 2020 level was only 18.5. Recommended would increase dose to 5000 units daily Takes Calcium in TUMS.Taking 2 to 3 per day. Found generic Ensure with lower sugars and more protein. Has to avoid too high of sugar 10g protein.Calories 200 so not too much sugar. Sips on this throughout the day. Gets as much as she can in. Thinks 1 to 2 per day Also eats eggs, cottage cheese and yogurt. Feels like filling out clothes better. Was down to size 4. Noted 's health issues too. BPs well controlled PAST MEDICAL HISTORY Diagnosis Date Allergic rhinitis, cause unspecified Allergic rhinitis Crohn's disease without complication (HCC) 10/09/2019 Not sure if acute diarrhea a flare up but diarrhea already improving. Monitor for now. 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 Do not start before February 28, 2022. hyoscyamine sublingual (LEVSIN SL) 0.125 mg Dissolve 1-2 tablets under the tongue before meals and at bedtime. morphine concentrate (ROXANOL) 20 mg/mL oral liquid Take 1 mL by mouth every 4 hours as needed for up to 30 days. Persistent hip fracture (surgery postponed) with nausea and vomiting--needs oral liquid for when not able to take pills. May fill today oxyCODONE IR (ROXICODONE) 20 mg tab Take 1 tablet by mouth every 4 hours as needed for up to 14 days. Do not start before January 17, 2022. oxyCODONE IR (ROXICODONE) 20 mg tab Take 1 tablet by mouth every 4 hours as needed for up to 14 days. Do not start before January 02, 2022. ondansetron orally disintegrating (ZOFRAN ODT) 4 mg disintegrating tablet Take 1 tablet by mouth every 6 hours as needed for nausea/vomiting. cloNIDine HCl (CATAPRES) 0.1 mg tablet Take 1-2 tablets by mouth three times daily. As directed for labile blood pressure lisinopril (ZESTRIL) 10 mg tablet Take 1-2 tablets by mouth once daily. Adjust based on blood pressure readings at home cyanocobalamin 1,000 mcg/mL Inject 1 mL intramuscularly once every month. Cholecalciferol, Vitamin D3, 50 mcg (2,000 unit) cap Take 1 capsule by mouth once daily. Plans taking 2000 to 4000 units in gummy form. Insulin Syringe-Needle U-100 (BD INSULIN SYRINGE ULTRA-FINE) 1 mL 31 gauge x 5/16 USE FOR B12 IM SHOTS ONCE MONTHLY DIRECTED erythromycin ophthalmic ointment Use 1 application in both eyes daily at bedtime. diphenhydrAMINE (ALLERGY) 25 mg capsule Take 1 capsule by mouth every 6 hours as needed. CALCIUM 600 TABLET 600-125 PO x2 qd MULTIVITAMIN TABLET PO qd No current facility-administered medications for this visit. Data Reviewed: No new labs Encounter Diagnosis ICD-10-CM 1. 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, sequela M97.8XXS Z96.649 2. Vitamin D deficiency E55.9 3. Pain in prosthetic joint, sequela T84.84XS morphine concentrate (ROXANOL) 20 mg/mL oral liquid Surgery still postponed due to her health status 4. Moderate protein-calorie malnutrition (HCC) E44.0 5. Crohn's disease without complication, unspecified gastrointestinal tract location (HCC) K50.90 Chronic issues with malabsorption; appreciates recommendations given by Dr. Bonner (GI) 6. 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 [facility] 03-02-2022 History of Presen t illness Narrative AMBULATORY TELEPHONE VISIT Mynor Romero has consented to this telephone encounter. Persons Present: patient and patient's spouse/significant other Chief Complaint/Reason: 2 month follow up HPI: No chief complaint on file. SUBJECTIVE: Mynor Romero is a 76 year old year old lady here today for 2 month follow up appointment for review of medical conditions. Doing well except for the hip. Does not know if will ever heal. Cannot pursue surgery. Physically and psychologically not ready. Reviewed that trying to go down on other med. Pain gets worse if takes too low an amount. Told to lay on left side to help med get moved to get digested. Absorption problems ongoing. She reviewed her total gastrectomy issues. Weight was down to 92 pounds but is gradually gaining weight. Eats small amounts of weight at a time. Getting fruits and protein in. Taking 2000 units Vitamin D still and 2020 level was only 18.5. Recommended would increase dose to 5000 units daily Takes Calcium in TUMS.Taking 2 to 3 per day. Found generic Ensure with lower sugars and more protein. Has to avoid too high of sugar 10g protein.Calories 200 so not too much sugar. Sips on this throughout the day. Gets as much as she can in. Thinks 1 to 2 per day Also eats eggs, cottage cheese and yogurt. Feels like filling out clothes better. Was down to size 4. Noted 's health issues too. BPs well controlled PAST MEDICAL HISTORY Diagnosis Date Allergic rhinitis, cause unspecified Allergic rhinitis Crohn's disease without complication ([facility]) 10/09/2019 Not sure if acute diarrhea a flare up but diarrhea already improving. Monitor for now. 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 Do not start before February 28, 2022. hyoscyamine sublingual (LEVSIN SL) 0.125 mg Dissolve 1-2 tablets under the tongue before meals and at bedtime. morphine concentrate (ROXANOL) 20 mg/mL oral liquid Take 1 mL by mouth every 4 hours as needed for up to 30 days. Persistent hip fracture (surgery postponed) with nausea and vomiting--needs oral liquid for when not able to take pills. May fill today oxyCODONE IR (ROXICODONE) 20 mg tab Take 1 tablet by mouth every 4 hours as needed for up to 14 days. Do not start before January 17, 2022. oxyCODONE IR (ROXICODONE) 20 mg tab Take 1 tablet by mouth every 4 hours as needed for up to 14 days. Do not start before January 02, 2022. ondansetron orally disintegrating (ZOFRAN ODT) 4 mg disintegrating tablet Take 1 tablet by mouth every 6 hours as needed for nausea/vomiting. cloNIDine HCl (CATAPRES) 0.1 mg tablet Take 1-2 tablets by mouth three times daily. As directed for labile blood pressure lisinopril (ZESTRIL) 10 mg tablet Take 1-2 tablets by mouth once daily. Adjust based on blood pressure readings at home cyanocobalamin 1,000 mcg/mL Inject 1 mL intramuscularly once every month. Cholecalciferol, Vitamin D3, 50 mcg (2,000 unit) cap Take 1 capsule by mouth once daily. Plans taking 2000 to 4000 units in gummy form. Insulin Syringe-Needle U-100 (BD INSULIN SYRINGE ULTRA-FINE) 1 mL 31 gauge x 5/16 USE FOR B12 IM SHOTS ONCE MONTHLY DIRECTED erythromycin ophthalmic ointment Use 1 application in both eyes daily at bedtime. diphenhydrAMINE (ALLERGY) 25 mg capsule Take 1 capsule by mouth every 6 hours as needed. CALCIUM 600 TABLET 600-125 PO x2 qd MULTIVITAMIN TABLET PO qd No current facility-administered medications for this visit. Data Reviewed: No new labs Encounter Diagnosis ICD-10-CM 1. 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, sequela M97.8XXS Z96.649 2. Vitamin D deficiency E55.9 3. Pain in prosthetic joint, sequela T84.84XS morphine concentrate (ROXANOL) 20 mg/mL oral liquid Surgery still postponed due to her health status 4. Moderate protein-calorie malnutrition (HCC) E44.0 5. Crohn's disease without complication, unspecified gastrointestinal tract location (HCC) K50.90 Chronic issues with malabsorption; appreciates recommendations given by Dr. Bonner (GI) 6. Intervertebral disc disorder with radiculopathy of lumbar region M51.16 morphine concentrate (ROXANOL) 20 mg/mL oral liquid 7. Bilateral sciatica M54.31 morphine concentrate (ROXANOL) 20 mg/mL oral liquid M54.32 8. RLS (restless legs syndrome) G25.81 morphine concentrate (ROXANOL) 20 mg/mL oral liquid 9. Closed fracture of right hip, sequela S72.001S morphine concentrate (ROXANOL) 20 mg/mL oral liquid Surgery postponed as noted in HPI 10. Closed fracture of left foot, sequela S92.902S morphine concentrate (ROXANOL) 20 mg/mL oral liquid 11. Osteoporosis, unspecified osteoporosis type, unspecified pathological fracture presence M81.0 Above issues addressed with patient. Patient involved in shared decision making for management of medical issues. History and medications reviewed. Epic updated as needed Refills and/or prescriptions taken care of and meds adjusted as indicated after reviewed history, exam and labs. Noted has appointment with pain management coming up end of this month. Continue present meds for now. Still needs Roxanol for when not able to swallow pills and keep them down due to being s/p gastrectomy. Stable with control of chronic pain. Needs higher doses of pain med to control her severe pain but note that had stopped the Fentanyl patches that used to be on and johnson been trying to titrate down the dose, but not able to stay at a lower dose without pain getting severe again. Not a surgical candidate. No signs of diversion or abuse of medication(s); no adverse effects. Continue present management. Discussed Vitamin D level was still very low last time checked in 2020. Will increase Vitamin D dose and continue getting calcium in. May help with hip fracture healing and with appetite and weight gain. Further evaluation and treatment as indicated. Total Time Spent: 32 minutes Destini Leonard MD documented in this encounter [facility] 02-09-2022 Miscellaneous Notes The following approved medication requests have been transmitted electronically. Requested Prescriptions Signed Prescriptions Disp Refills oxyCODONE IR (ROXICODONE) 20 mg tab 84 tablet 0 Sig: Take 1 tablet by mouth every 4 hours as needed for up to 14 days. Do not start before February 14, 2022. Authorizing Provider: DESTINI LEONARD MD Last office visit: 01/10/22 Next appointment scheduled: 03/02/22 Last labs: 06/19/18 Last tox screen documented in this encounter [facility] 02-08-2022 Miscellaneous Notes Last office visit: 01/10/22 Next appointment scheduled: 03/02/22 Patient phones requesting refills as follows: Requested Prescriptions Pending Prescriptions Disp Refills hyoscyamine sublingual (LEVSIN SL) 0.125 mg 720 tablet 3 Sig: Dissolve 1-2 tablets under the tongue before meals and at bedtime. Please review and advise. Edda Smith LPN documented in this encounter [facility] 02-03-2022 Miscellaneous Notes Called the pharmacy and it is qty issue. No PA is needed. Insurance will cover 180 ML is 25 days. Pharmacy will review with pt. Will call the pharmacy to see what this issue is. In July no PA needed, it was qty of 180ml for 25 days. Pt states she needs a PA done for morphine concentrate 20mg/ml liquid. PA can not be processed electronically. Helen Elise LPN documented in this encounter [facility] 01-10-2022 History of Presen t illness Narrative AMBULATORY TELEPHONE VISIT Mynor Romero has consented to this telephone encounter. Persons Present: patient Chief Complaint/Reason: follow up HPI: Patient presents with: Follow Up SUBJECTIVE: Mynor Romero is a 76 year old year old lady here today for follow up appointment for review of medical conditions. Doing fine Taking Oxycodone 20 mg dose adequate now. Severe obrien has subsided. Pain control stable now. RSL controlled. No adverse effects. Noted stressors with and his health issues. Handling things as well as they can. PAST MEDICAL HISTORY Diagnosis Date Allergic rhinitis, cause unspecified Allergic rhinitis Crohn's disease without complication ([facility]) 10/09/2019 Not sure if acute diarrhea a flare up but diarrhea already improving. Monitor for now. 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 Do not start before January 02, 2022. morphine concentrate (ROXANOL) 20 mg/mL oral liquid Take 1 mL by mouth every 4 hours as needed for up to 30 days. Persistent hip fracture (surgery postponed) with nausea and vomiting--needs oral liquid for when not able to take pills. May fill today oxyCODONE IR (ROXICODONE) 30 mg immediate release tablet Take 1 tablet by mouth every 4 hours as needed for up to 5 days. Instead of 20 mg tablets for 5 days due to acute increased pain from fall ondansetron orally disintegrating (ZOFRAN ODT) 4 mg disintegrating tablet Take 1 tablet by mouth every 6 hours as needed for nausea/vomiting. cloNIDine HCl (CATAPRES) 0.1 mg tablet Take 1-2 tablets by mouth three times daily. As directed for labile blood pressure lisinopril (ZESTRIL) 10 mg tablet Take 1-2 tablets by mouth once daily. Adjust based on blood pressure readings at home cyanocobalamin 1,000 mcg/mL Inject 1 mL intramuscularly once every month. hyoscyamine sublingual (LEVSIN SL) 0.125 mg Dissolve 1-2 tablets under the tongue before meals and at bedtime. Cholecalciferol, Vitamin D3, 50 mcg (2,000 unit) cap Take 1 capsule by mouth once daily. Plans taking 2000 to 4000 units in gummy form. Insulin Syringe-Needle U-100 (BD INSULIN SYRINGE ULTRA-FINE) 1 mL 31 gauge x 5/16 USE FOR B12 IM SHOTS ONCE MONTHLY DIRECTED erythromycin ophthalmic ointment Use 1 application in both eyes daily at bedtime. diphenhydrAMINE (ALLERGY) 25 mg capsule Take 1 capsule by mouth every 6 hours as needed. CALCIUM 600 TABLET 600-125 PO x2 qd MULTIVITAMIN TABLET PO qd No current facility-administered medications for this visit. Data Reviewed: No new labs ASSESSMENT/PLAN: 1. Intervertebral disc disorder with radiculopathy of lumbar region - ICD9: 724.4, ICD10: M51.16 Stable with control of chronic pain from multiple causes. At this time benefits outweigh risks. Continue to monitor for adverse effects and indications for decreasing dose or tapering off. No signs of diversion or abuse of medication(s); no adverse effects. Continue present management. - OXYCODONE 20 MG TABLET - OXYCODONE 20 MG TABLET 2. Bilateral sciatica - ICD9: 724.3, ICD10: M54.31, M54.32 As noted above - OXYCODONE 20 MG TABLET - OXYCODONE 20 MG TABLET 3. Pain in prosthetic joint, sequela - ICD9: 909.3, ICD10: T84.84XS Main source of persistent pain. As noted above - OXYCODONE 20 MG TABLET - OXYCODONE 20 MG TABLET 4. RLS (restless legs syndrome) - ICD9: 333.94, ICD10: G25.81 Not able to control without oxycodone - OXYCODONE 20 MG TABLET - OXYCODONE 20 MG TABLET 5. 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 Called [facility] and they state they will fill the order they have for her. They states it wasn't due to be filled until 01/02/22, and she may not have looked in the right place for it on their website. documented in this encounter [facility] 12-30-2021 Miscellaneous Notes The following approved medication requests have been transmitted electronically. Requested Prescriptions Signed Prescriptions Disp Refills oxyCODONE IR (ROXICODONE) 20 mg tab 84 tablet 0 Sig: Take 1 tablet by mouth every 4 hours as needed for up to 14 days. Do not start before January 02, 2022. Authorizing Provider: DESTINI LEONARD MD Last Office Visit: 11/05/2021 Future Office Visit: 01/10/2022 Requested Prescriptions Pending Prescriptions Disp Refills oxyCODONE IR (ROXICODONE) 20 mg tab 84 tablet 0 Sig: Take 1 tablet by mouth every 4 hours as needed for up to 14 days. Date of Last Labs: 10/28/2020 documented in this encounter [facility] 12-15-2021 Miscellaneous Notes Patient aware script sent to pharmacy. Noted The RX was filled 11/15. Okay The following approved medication requests have been transmitted electronically. Requested Prescriptions Signed Prescriptions Disp Refills morphine concentrate (ROXANOL) 20 mg/mL oral liquid 60 mL 0 Sig: Take 1 mL by mouth every 4 hours as needed for up to 30 days. Persistent hip fracture (surgery postponed) with nausea and vomiting--needs oral liquid for when not able to take pills. May fill today Authorizing Provider: DESTINI LEONARD MD Patient states she is having trouble keeping medication down and is asking for roxanol liquid. Is asking that this is addressed today. documented in this encounter [facility] 12-13-2021 Miscellaneous Notes The following approved medication requests have been transmitted electronically. Requested Prescriptions Signed Prescriptions Disp Refills oxyCODONE IR (ROXICODONE) 20 mg tab 84 tablet 0 Sig: Take 1 tablet by mouth every 4 hours as needed for up to 14 days. Do not start before December 17, 2021. Authorizing Provider: DESTINI LEONARD MD Patient requesting refill of oxycodone IR 20 mg. -Pended. States she will need a prior authorization once refill is ordered. Will send this message to PCP and PA member. Please call patient with update. Thank you. Prior Authorization Request\: Prior authorization requested for the following medication: Medication: oxycodone IR 20 mg Provider: Dr. Leonard REFILL: Patient has been identified by name and date of : Yes Patient phones for refill(s): Requested Prescriptions Pending Prescriptions Disp Refills oxyCODONE IR (ROXICODONE) 20 mg tab 84 tablet 0 Sig: Take 1 tablet by mouth every 4 hours as needed for up to 14 days. Date of last office visit in primary care: 11/05/21, NOV: 01/10/22 Last 2 Encounter Wt Readings: Date: Wt: 08/24/2020 49.9 kg (110 lb) 06/15/2020 0 kg () Please advise. Thank you. Kyra Martínez RN documented in this encounter [facility] 12-04-2021 Miscellaneous Notes On 11/29 patient called and stated that she fell on 11/28/21 and asked for increase in dose of oxycodone due to increase in pain. Patient is currently out of increased dose and asking for the 20 mg of oxycodone. Which requires a PA as previous one has . Attempted to complete prior authorization through Cover My Med and verification was denied each time. Will await fax from pharmacy. Attempted to call prior authorization through phone but [facility] is closed until Monday. Patient aware of same. patient calling pharmacy is telling her she needs prior auth done on Oxycodone IR 20 mg tablets. Patient said she is out of medication. Phoned [facility] pharmacy and patient does need PA done it has . Fax was sent to office this morning. documented in this encounter [facility] 12-01-2021 Miscellaneous Notes Pts called and is notified of providers message and instructions. He voices understanding. Vianca Hadley RN Left message to call office. 12/01/2021 5:08 PM. Helen Elise LPN The following approved medication requests have been transmitted electronically. Requested Prescriptions Signed Prescriptions Disp Refills oxyCODONE IR (ROXICODONE) 30 mg immediate release tablet 20 tablet 0 Sig: Take 1 tablet by mouth every 4 hours as needed for up to 5 days. Instead of 20 mg tablets for 5 days due to acute increased pain from fall Authorizing Provider: DESTINI LEONARD MD Given for 5 days to see if helps get her through a few days of severe pain. Let me know if need to adjust meds more. Might need to postpone filling of next 20 mg dose Pt's Heri calling. Rx for oxycodone 20mg was sent to the pharmacy. Heri states that pt is asking for an Rx for oxycodone 30mg to get her through a couple rough days she is having? Heri states pt is having a lot of pain, has not slept in days & is not eating. Spouse said with pt's complex issues & multiple symptoms, pt sometimes needs a little extra help with her pain. Heri reports pt is at the end of her rope with pain at this time, states it has been a rough few days. [facility] [place] Please call pt after review Helen Elise LPN Patient calls back to report that once prescription is written it will need prior-authorization. Millie Callejas RN Patient calls and states that she fell yesterday on her knee and hip that she got surgically repaired. Patient states that she is in increased pain. Patient asking if provider can send in prescription for oxycodone 30 mg? Patient states that she can not break the 20 mg tablets in half. Please review and advise, Becky Min RN documented in this encounter [facility] 11-30-2021 Miscellaneous Notes The following approved medication requests have been transmitted electronically. Requested Prescriptions Signed Prescriptions Disp Refills oxyCODONE IR (ROXICODONE) 20 mg tab 84 tablet 0 Sig: Take 1 tablet by mouth every 4 hours as needed for up to 14 days. Do not start before December 03, 2021. Authorizing Provider: DESTINI LEONARD MD Patient has been identified by name and date of : Yes Patient phones for refill(s): Requested Prescriptions Pending Prescriptions Disp Refills oxyCODONE IR (ROXICODONE) 20 mg tab 84 tablet 0 Sig: Take 1 tablet by mouth every 4 hours as needed for up to 14 days. Date of last office visit in primary care: 11/05/21 next apt 01/10/22 Last 2 Encounter Wt Readings: Date: Wt: 08/24/2020 49.9 kg (110 lb) 06/15/2020 0 kg () Previous labs/tests for medication: Not applicable Thank you. Lianet Ceballos LPN documented in this encounter [facility] 11-15-2021 Miscellaneous Notes Last filled in August. The following approved medication requests have been transmitted electronically. Requested Prescriptions Signed Prescriptions Disp Refills morphine concentrate (ROXANOL) 20 mg/mL oral liquid 60 mL 0 Sig: Take 1 mL by mouth every 4 hours as needed for up to 30 days. Persistent hip fracture (surgery postponed) with nausea and vomiting--needs oral liquid for when not able to take pills. May fill today Authorizing Provider: DESTINI LEONARD MD documented in this encounter [facility] 11-09-2021 Miscellaneous Notes Called patient and left a voicemail stating that we are only in that office once a week so I don't have any other appointment's sooner unless she would be willing to come to another location. Jeana Eddy ----- Message from Lorrie Devlin sent at 11/09/2021 11:11 AM EDT ----- Regarding: Spine/Drake Saha)/Appointment Request Subject Line Format: Medicine / [Provider Name] / [Issue] Patient has been identified by name and Date of (Y/N): Y Patient: Mynor Romero Date of : 1945 Provider for this encounter: Oksana Saha MD Reason for the call/escalation: Patient was referred by PCP. Referral stated patient was referred to Dr. Elan Saha. Due to Patient's location, [place] is only facility patient can travel to. Patient has first available appointment scheduled for 01/20/[address] Elan Saha and has been added to wait list. Patient would like to know if sooner appointment can be made available. Was Patient Referred to 911/Seek Emergency Treatment (Y/N): N Did Patient Agree (Y/N): na Was An Attempt Made To Transfer The Patient To The Office (Y/N): N Were You Able To Reach Someone At The Office (Y/N): na If Yes - Patient Was Transferred To (Caregivers Name): na If No - Which [facility] [employer] Lab Technician Did You Speak With Regarding This Patient: na Was an appointment scheduled (Y/N): Y Reason patient was requesting visit (RFV/signs and symptoms/diagnosis) : Appointment request Person calling if other than patient: Patient Return call to if other than patient: na Best contact number: [phone] Thank you, Lorrie Devlin November 09, 2021 11:11 AM documented in this encounter [facility] 11-09-2021 History of Presen t illness Narrative POPULATION HEALTH NAVIGATION OUTREACH Action/I [place] Support: Called pt to schedule an appt in Pain Management. See's provider closer to home Pt identified by name and : YES, via phone Outreach Outcome/Action Spoke to patient or caregiver: Patient declined Did you use a PCP flex slot to schedule this appointment? N/A Reason for Outreach Care Gap or Scheduling/Wellness visits Payer: Payor: MEDICARE / Plan: MEDICARE A AND B / Product Type: Medicare / Care Gap Reviewed:: Specialty Scheduling Reminder: Reminder note to check Health Maintenance for items below Health Maintenance items due: COVID-19 VACCINE(1) Never done HEPATITIS A(1 of 2 - Risk 2-dose series) Never done MENINGOCOCCAL B: Consider based on risk(1 of 4 - Increased Risk Bexsero 2-dose series) Never done MMR(1 of 2 - Risk 2-dose series) Never done HEPATITIS B(1 of 3 - Risk 3-dose series) Never done PNEUMOCOCCAL: 65+(1 - PCV) Never done MAMMOGRAM due on 08/14/2018 ADVANCE DIRECTIVE DISCUSSION Never done DEPRESSION ASSESSMENT Never done Message Sent to Practice: No Navigation Signature: Aviva Reddy November 09, 2021 9:44 AM documented in this encounter [facility] 11-05-2021 History of Presen t illness Narrative AMBULATORY TELEPHONE VISIT Mynor Romero has consented to this telephone encounter. Persons Present: patient Chief Complaint/Reason: Follow up; had to switch to phone visit instead of face to face in office due to Crohn's flare up. Does not have Virtual Visit cabapility HPI: No chief complaint on file. SUBJECTIVE: Mynor Romero is a 75 year old year old lady here today for follow up appointment for review of medical conditions. Issues with colon acting up today. Not able to come in. Doing really well. Knee is better--was really bad when first started and needed higher dose pain med. Was in wheelchair for a while. Needed in OR to have hip dislocation reduced--pain in knee started after that. Would like to titrate down the med to 20. Still ongoing RLS. Was controlled on 20 mg dose. Would like to try something else if RLS recurs while trying to taper off med. Doing well on rest of meds. Hyoscyamine--Dr. Bonner told her to take routinely rather than when things act up. Weight is doing better. Was down to 92 pounds and is up to 115 pounds. Current Outpatient Medications Medication Sig oxyCODONE IR (ROXICODONE) 30 mg immediate release tablet Take 1 tablet by mouth every 4 hours as needed for up to 14 days. Do not start before October 20, 2021. oxyCODONE IR (ROXICODONE) 30 mg immediate release tablet Take 1 tablet by mouth every 4 hours as needed for up to 14 days. Do not start before November 03, 2021. ondansetron orally disintegrating (ZOFRAN ODT) 4 mg disintegrating tablet Take 1 tablet by mouth every 6 hours as needed for nausea/vomiting. cloNIDine HCl (CATAPRES) 0.1 mg tablet Take 1-2 tablets by mouth three times daily. As directed for labile blood pressure morphine concentrate (ROXANOL) 20 mg/mL oral liquid Take 1 mL by mouth every 4 hours as needed for up to 30 days. Persistent hip fracture (surgery postponed) with nausea and vomiting--needs oral liquid for when not able to take pills. May fill today lisinopril (ZESTRIL) 10 mg tablet Take 1-2 tablets by mouth once daily. Adjust based on blood pressure readings at home cyanocobalamin 1,000 mcg/mL Inject 1 mL intramuscularly once every month. hyoscyamine sublingual (LEVSIN SL) 0.125 mg Dissolve 1-2 tablets under the tongue before meals and at bedtime. Cholecalciferol, Vitamin D3, 50 mcg (2,000 unit) cap Take 1 capsule by mouth once daily. Plans taking 2000 to 4000 units in gummy form. Insulin Syringe-Needle U-100 (BD INSULIN SYRINGE ULTRA-FINE) 1 mL 31 gauge x 5/16 USE FOR B12 IM SHOTS ONCE MONTHLY DIRECTED erythromycin ophthalmic ointment Use 1 application in both eyes daily at bedtime. diphenhydrAMINE (ALLERGY) 25 mg capsule Take 1 capsule by mouth every 6 hours as needed. CALCIUM 600 TABLET 600-125 PO x2 qd MULTIVITAMIN TABLET PO qd No current facility-administered medications for this visit. Data Revi Encounter Diagnosis ICD-10-CM 1. Pain in prosthetic joint, sequela T84.84XS CONSULT TO PAIN MGT oxyCODONE IR (ROXICODONE) 20 mg tab DISCONTINUED: oxyCODONE IR (ROXICODONE) 20 mg tab Pain seems to be a little better but still needs pain meds.Surgery still postponed due to her health status 2. Intervertebral disc disorder with radiculopathy of lumbar region M51.16 CONSULT TO PAIN MGT oxyCODONE IR (ROXICODONE) 20 mg tab DISCONTINUED: oxyCODONE IR (ROXICODONE) 20 mg tab 3. Bilateral sciatica M54.31 CONSULT TO PAIN MGT M54.32 oxyCODONE IR (ROXICODONE) 20 mg tab DISCONTINUED: oxyCODONE IR (ROXICODONE) 20 mg tab 4. 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 Crohn's disease without complication, unspecified gastrointestinal tract location (HCC) K50.90 Not able to come in for office visit today because of Crohn's flareup. Unpredictalbe episodes. 7. 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 Pain in prosthetic joint, sequela - ICD9: 909.3, ICD10: T84.84XS (primary diagnosis) 7. Periprosthetic hip fractures Still not a candidate for surgery for surgery after the periprosthetic fractures. Now that knee pain from hip dislocation procedure has resolved, will titrate back to 20 mg dose then proceed with plans to taper off again - OXYCODONE 20 MG TABLET - CONSULT TO PAIN MGT 2. Intervertebral disc disorder with radiculopathy of lumbar region - ICD9: 724.4, ICD10: M51.16 Stable control of pain. As noted above with goals to try to keep tapering the med - OXYCODONE 20 MG TABLET - CONSULT TO PAIN MGT 3. Bilateral sciatica - ICD9: 724.3, ICD10: M54.31, M54.32 As noted above - OXYCODONE 20 MG TABLET - CONSULT TO PAIN MGT 4. RLS (restless legs syndrome) - ICD9: 333.94, ICD10: G25.81 If RLS worsens as we taper the Oxycodone, will try other options for management of RLS. - CONSULT TO PAIN MGT 5. Postgastric surgery syndrome - ICD9: 564.2, ICD10: K91.1 Note that patient is given Roxanol to take if/when has flare up of nausea and vomiting and cannot keep pills down. At those times, takes Roxanol so will not go through acute opiate withdrawal again (happened in the past). - CONSULT TO PAIN MGT 6. Crohn's--as noted above. Continue present management. Levsin routinely per Dr. Bonner. Further evaluation and treatment as indicated. Discussed with patient need to have certified pain management provider evaluate patients with MMED over 120 to acknowledge if appropriate to continue on medication and plans for ongoing treatment. She has been seen by orthopedic surgeons who have noted she was not a surgical candidate given malnutrition and low BMI; weight and nutrition has been improving but still not adequate to do well with surgery for the periprosthetic hip fractures. Patient's goal is to be able to wean off opiates. She has gotten of fentanyl patches and RLS seems to be potentially the only other issue needing the opiate. Discussed there are other meds available and maybe Dr. Saha would have some options to recommend. Destini Leonard MD Total Time Spent: 25 minutes Destini Leonard MD documented in this encounter [facility] 10-19-2021 Miscellaneous Notes Sent tomorrrow's RX and for the one due in 2 weeks Has appointment 11/05 The following approved medication requests have been transmitted electronically. Requested Prescriptions Signed Prescriptions Disp Refills oxyCODONE IR (ROXICODONE) 30 mg immediate release tablet 84 tablet 0 Sig: Take 1 tablet by mouth every 4 hours as needed for up to 14 days. Do not start before October 20, 2021. Authorizing Provider: DESTINI LEONARD oxyCODONE IR (ROXICODONE) 30 mg immediate release tablet 84 tablet 0 Sig: Take 1 tablet by mouth every 4 hours as needed for up to 14 days. Do not start before November 03, 2021. Authorizing Provider: DESTINI LEONARD MD Last Office Visit: 09/04/2021 Future Office Visit: 11/05/2021 Last Medication Refill: oxycodone 10/06/2021 84 tab 0 refill Date of Last Labs: 10/30/2020 documented in this encounter [facility] 10-13-2021 Miscellaneous Notes Okayed Patient has been identified by name and date of : Yes Patient phones for refill(s): Requested Prescriptions Pending Prescriptions Disp Refills ondansetron orally disintegrating (ZOFRAN ODT) 4 mg disintegrating tablet 360 tablet 1 Sig: Take 1 tablet by mouth every 6 hours as needed for nausea/vomiting. cloNIDine HCl (CATAPRES) 0.1 mg tablet 540 tablet 3 Sig: Take 1-2 tablets by mouth three times daily. As directed for labile blood pressure Patient also wants to let provider know that her right hip pain is slightly better but now she is having a lot of right knee pain which she didn't have before. Patient wanted provider to be aware of this before she is due for a new prescription of oxycodone. Date of last office visit with pcp: 09/04/2021 Future appt: 11/05/2021 Last 2 Encounter Wt Readings: Date: Wt: 08/24/2020 49.9 kg (110 lb) 06/15/2020 0 kg () Previous labs/tests for medication: Blood Pressure: BUN (mg/dL) Date Value 10/28/2020 22 Sodium (mmol/L) Date Value 10/28/2020 135 Last 1 Encounter BP Readings: Date: BP: 09/04/2021 98/58 Liver Function: ALT (U/L) Date Value 10/28/2020 9 AST (U/L) Date Value 10/28/2020 16 Please advise. Thank you. Millei Callejas RN documented in this encounter [facility] 10-06-2021 Miscellaneous Notes Pt called and is notified of providers message and instructions. Pt voices understanding. Vianca Hadley RN Did not see comment form patient in the request from yesterday. Okay increased dose. Will reassess before refills when able to go back to 20mg dose. The following approved medication requests have been transmitted electronically. Requested Prescriptions Signed Prescriptions Disp Refills oxyCODONE IR (ROXICODONE) 30 mg immediate release tablet 84 tablet 0 Sig: Take 1 tablet by mouth every 4 hours as needed for up to 14 days. Authorizing Provider: DESTINI LEONARD MD Patient reports she asked pcp to increase the oxycodone IR from 20 to 30 mg. That part of her message was not sent to pcp yesterday, and you sent it for 20 mg. Reports she has the 20 mg tab and has been cutting it in half to make 30 mg. Advised patient, per [employer], she is not to break, chew, crush, or dissolve this medication, doing these things can cause very bad side effects or even . Patient agreeable not to do any of these. Reports her right hip popped out again and [facility] ER put it back in place. Reports this has happened 5 or 6 times, and she needs surgery but they won't do it, because she is not well enough. Reports it is very painful. documented in this encounter [facility] 10-06-2021 Miscellaneous Notes The following approved medication requests have been transmitted electronically. Requested Prescriptions Signed Prescriptions Disp Refills oxyCODONE IR (ROXICODONE) 20 mg tab 84 tablet 0 Sig: Take one tablet every four hours for 14 days. Do not start before October 12, 2021. Authorizing Provider: DESTINI LEONARD MD Patient has been identified by name and date of : Yes Patient phones for refill(s): Requested Prescriptions Pending Prescriptions Disp Refills oxyCODONE IR (ROXICODONE) 20 mg tab 84 tablet 0 Sig: Take one tablet every four hours for 14 days. Date of last office visit in primary care: 08/25/21 Next appointment scheduled 11/05/21 Please advise. Thank you. Cheryl Pimentel LPN documented in this encounter [facility] 09-25-2021 Miscellaneous Notes The following approved medication requests have been transmitted electronically. Requested Prescriptions Signed Prescriptions Disp Refills oxyCODONE IR (ROXICODONE) 20 mg tab 18 tablet 0 Sig: Take 1 tablet by mouth every 4 hours for 3 days. Authorizing Provider: DESTINI LEONARD MD Try to get med from [facility] to last till can get RX from [facility]. Phoned patient Heri and went over notes from Dr Leonard, asking for rx to be sent to [facility] pharmacy please. Below noted regarding his frustration with getting meds filled. Normally if pharmacy filling RX on time by having med ordered on time, I could have the next few RXs on file at the pharmacy. When they only give partial refills, will do our best to get a RX through to the pharmacy, but because she is on a high MMED (morphine mg equivalent per day) partners and CNPs cannot fill the RX when I am not in the office. Will send a short term RX now. I pended the RX--let us know which pharmacy to send to [facility]--After 10/23, [place] will allow only escript for narcotics with a few exceptions phoned to report [facility] Monday. expressed his frustration with this. States he is frustrated because when they request a refill from pcp, it takes too long for pcp to get the message, then there is always a reason why [facility] can't fill the Rx as prescribed, they don't have enough pills, or it's on back order. States they have to use [facility] because that is who their insurance covers. States he is growing very frustrated with how the system works, and he is about to his breaking point. Offered [facility] phone number for him to call and talk with them about his complaints. declined to take phone number at this time. asking if pcp could write an order for a short supply to get patient through to Monday, when the current Rx can be refilled? He will check with [facility] to see if they have any of the oxycodone. Please advise patient if this is an option for them. documented in this encounter [facility] 09-23-2021 Miscellaneous Notes We do not need a note from the pharmacy if it is documented on PMDD that only 52 pills were given. PMDD shows only 52 pills given. The following approved medication requests have been transmitted electronically. Requested Prescriptions Signed Prescriptions Disp Refills oxyCODONE IR (ROXICODONE) 20 mg tab 84 tablet 0 Sig: Take one tablet every four hours for 14 days. Pt was given #52 of #84 tabs at last fill. New rx needed filled today. Authorizing Provider: DESTINI LEONARD MD Pt calls to report that when she picked up her rx last time for Oxycodone 20 mg #84 that [facility] on gave her #52 because that is all they had. Pt reports she was advised that pharmacy was not allowed to give her the balance and pt would have to get a new rx sent. Pt was advised in order for insurance to cover it there will need to be a note on rx that pharmacy only gave pt #52 and that is why new rx is needed. Please review and advise. Patient has been identified by name and date of : Yes Requested Prescriptions Pending Prescriptions Disp Refills oxyCODONE IR (ROXICODONE) 20 mg tab 84 tablet 0 Sig: Take one tablet every four hours for 14 days. Pt was given #52 of #84 tabs at last fill. New rx needed. RX INSTRUCTIONS: Patient aware RX will be sent to pharmacy. No need to notify patient. Minnie Gamboa LPN documented in this encounter [facility] 09-06-2021 Miscellaneous Notes Electronic PA response is an error. Called the pharmacy and they report the rx is covered 180 ml for 25 days. Not sure what else to do. In July it was paid for akins with a discount care. That was 33$ then. Electronic PA requested. Patient calling and states she was informed that she needs a Prior Authorization for her morphine concentrate 20mg/mL oral liquid. Patient informed that a PA would be submitted to PA Staff member and patient would be contacted with update. Prior Authorization Documentation: Prior authorization requested for the following medication: Medication: morphine concentrate 20mg/mL oral liquid Provider: Dr. Greg Leonard Insurance Company Name: Medicare, with [employer] [facility] as secondary Insurance Company Phone number: Patient reports to call . Medicare Ph: Patient ID number: Medicare: [id number], [facility]: [id number] Pharmacy Name: [facility] Telephone number: [phone] Thank you. documented in this encounter [facility] 09-04-2021 History of Presen t illness Narrative This note was created using Ybrainriter. Subjective Mynor Romero is a 75 year old female. No chief complaint on file. SUBJECTIVE: Mynor Romero is a 75 year old year old lady here today for follow up appointment for review of medical conditions. Bruising has gotten better--was hemorrhagic type. Comes and goes. happened since illness prior to April 2019 (hospitalized and suspected COVID). Weaned off fentanyl patch. Was trying to wean off oxycodone. Twisted back when almost fell. Needing to take again. Med lasting about 5 hours now. Not able to pursue surgery at this point. Health issues, nutrition, etc. RLS worse if does not take oxycodone. Tried to skip dose sometimes, but RLS worse than before--arms affected to. PAST MEDICAL HISTORY Diagnosis Date Allergic rhinitis, cause unspecified Allergic rhinitis Crohn's disease without complication (HCC) 10/09/2019 Not sure if acute diarrhea a flare up but diarrhea already improving. Monitor for now. 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 lisinopril (ZESTRIL) 10 mg tablet Take 1-2 tablets by mouth once daily. Adjust based on blood pressure readings at home morphine concentrate (ROXANOL) 20 mg/mL oral liquid Take 1 mL by mouth every 4 hours as needed for up to 30 days. Persistent hip fracture (surgery postponed) with nausea and vomiting--needs oral liquid for when not able to take pills. May fill today cyanocobalamin 1,000 mcg/mL Inject 1 mL intramuscularly once every month. ondansetron orally disintegrating (ZOFRAN ODT) 4 mg disintegrating tablet Take 1 tablet by mouth every 6 hours as needed for nausea/vomiting. hyoscyamine sublingual (LEVSIN SL) 0.125 mg Dissolve 1-2 tablets under the tongue before meals and at bedtime. cloNIDine HCl (CATAPRES) 0.1 mg tablet Take 1-2 tablets by mouth three times daily. As directed for labile blood pressure Cholecalciferol, Vitamin D3, 50 mcg (2,000 unit) cap Take 1 capsule by mouth once daily. Plans taking 1999 to 4000 units in gummy form. Insulin Syringe-Needle U-100 (BD INSULIN SYRINGE ULTRA-FINE) 1 mL 31 gauge x 06/28 USE FOR B12 IM SHOTS ONCE MONTHLY DIRECTED erythromycin ophthalmic ointment Use 1 application in both eyes daily at bedtime. diphenhydrAMINE (ALLERGY) 25 mg capsule Take 1 capsule by mouth every 6 hours as needed. CALCIUM 600 TABLET 600-125 PO x2 qd MULTIVITAMIN TABLET PO qd No current facility-administered medications for this visit. Review of Systems Objective BP 98/58 Pulse 72 Resp 16 Last 5 Encounter Wt Readings: Date: Wt: 08/24/2020 49.9 kg (110 lb) 06/15/2020 0 kg () 04/18/2020 44 kg (97 lb) 01/04/2019 49.4 kg (109 lb) 10/30/2018 51.3 kg (113 lb) No waist measurement recorded Estimated body mass index is 21.13 kg/m as calculated from the following: Height as of 01/26/18: 153.7 cm (5' 0.5 ). Weight as of 08/24/20: 49.9 kg (110 lb). Last 5 Encounter BP Readings: Date: BP: 09/04/2021 98/58 10/30/2020 101/67 08/24/2020 118/78 06/15/2020 122/76 04/18/2020 138/86 Physical Exam Constitutional: Appearance: Normal appearance. HENT: Head: Normocephalic. Eyes: Conjunctiva/sclera: Conjunctivae normal. Cardiovascular: Rate and Rhythm: Normal rate and regular rhythm. Heart sounds: Normal heart sounds. Pulmonary: Effort: Pulmonary effort is normal. Breath sounds: Normal breath sounds. Skin: General: Skin is warm and dry. Neurological: General: No focal deficit present. Mental Status: She is alert and oriented to person, place, and time. Psychiatric: Mood and Affect: Mood normal. Behavior: Behavior normal. Thought Content: Thought content normal. Judgment: Judgment normal. Needs to use crutches to ambulate. Assessment and Plan ASSESSMENT/PLAN: 1. Pain in prosthetic joint, sequela - ICD9: 909.3, ICD10: T84.84XS (primary diagnosis) -Patient was able to titrate off the fentanyl patches Not yet able to titrate off oxtcodone. Some days can get by with 5 pills. If misses more doses, RLS gets severe and even gets some issues with upper extremities. - Still needs to Roxanol for when has severe nausea or vomiting issues and not able to keep down oxycodone pills; does not take in addition to Oxycodone. - MORPHINE CONCENTRATE 20 MG/ML ORAL SYRINGE (FOR ORAL USE ONLY) - OXYCODONE 20 MG TABLET - OXYCODONE 20 MG TABLET - OXYCODONE 20 MG TABLET 2. Essential hypertension - ICD9: 401.9, ICD10: I10 - good control - Adjusts meds as needed; checks BP before takes BP dose. Clonidine is prn. 3. RLS (restless legs syndrome) - ICD9: 333.94, ICD10: G25.81 As noted above - MORPHINE CONCENTRATE 20 MG/ML ORAL SYRINGE (FOR ORAL USE ONLY) - OXYCODONE 20 MG TABLET - OXYCODONE 20 MG TABLET - OXYCODONE 20 MG TABLET 4. Vitamin D deficiency - ICD9: 268.9, ICD10: E55.9 If not able to absorb Vitamin D3, consider Rocalcitriol - VITAMIN D 25 HYDROXY 5. Iron malabsorption - ICD9: 579.8, ICD10: K90.9 Iron infusion as needed. - CBC 6. Vitamin B12 deficiency - ICD9: 266.2, ICD10: E53.8 Continue present management. 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 Encounter for long-term current use of medication - ICD9: V58.69, ICD10: Z79.899 - COMP METABOLIC PANEL - CBC 9. Closed fracture of right hip, sequela - ICD9: 905.3, ICD10: S72.001S Not surgical candidate still. Continue pain medication management . - MORPHINE CONCENTRATE 20 MG/ML ORAL SYRINGE (FOR ORAL USE ONLY) - OXYCODONE 20 MG TABLET - OXYCODONE 20 MG TABLET - OXYCODONE 20 MG TABLET 10. Closed fracture of left foot, sequela - ICD9: 905.4, ICD10: S92.902S Chronic pain. Continue present management. - MORPHINE CONCENTRATE 20 MG/ML ORAL SYRINGE (FOR ORAL USE ONLY) - OXYCODONE 20 MG TABLET - OXYCODONE 20 MG TABLET - OXYCODONE 20 MG TABLET 11. Intervertebral disc disorder with radiculopathy of lumbar region - ICD9: 724.4, ICD10: M51.16 - MORPHINE CONCENTRATE 20 MG/ML ORAL SYRINGE (FOR ORAL USE ONLY) - OXYCODONE 20 MG TABLET - OXYCODONE 20 MG TABLET - OXYCODONE 20 MG TABLET 12. Bilateral sciatica - ICD9: 724.3, ICD10: M54.31, M54.32 - MORPHINE CONCENTRATE 20 MG/ML ORAL SYRINGE (FOR ORAL USE ONLY) - OXYCODONE 20 MG TABLET - OXYCODONE 20 MG TABLET - OXYCODONE 20 MG TABLET Destini Leonard MD documented in this encounter [facility] 09-01-2021 Miscellaneous Notes The following approved medication requests have been transmitted electronically. Signed Prescriptions Disp Refills oxyCODONE IR (ROXICODONE) 20 mg tab 84 tablet 0 Sig: Take 1 tablet by mouth every 4 hours for 14 days. ELSI Class: C-II HUANG: No Authorizing Provider: DESTINI LEONARD MD MARIZA: 12/31/2020 [facility] Elías Tyler NOV: 09/04/2021 Last refill: 08/19/2021 QTY: 84 Refills: 0 Patient's request for medication is as follows: Pending Prescriptions Disp Refills OXYCODONE 20 MG TABLET 84 tablet 0 Sig: Take 1 tablet by mouth every 4 hours for 14 days. ELSI Class: C-II HUANG: No Please approve the above prescription(s) to electronically send to pharmacy. Panchito Lopez Ma documented in this encounter [facility] 08-19-2021 Miscellaneous Notes duplicate documented in this encounter [facility] 08-19-2021 Miscellaneous Notes The following approved medication requests have been transmitted electronically. Signed Prescriptions Disp Refills oxyCODONE IR (ROXICODONE) 20 mg tab 84 tablet 0 Sig: Take 1 tablet by mouth every 4 hours for 14 days. ELSI Class: C-II HUANG: No Authorizing Provider: DESTINI LEONARD MD Please review in pcp's absence. See refill info below. Pt will be out of med today. Helen Elise LPN Patient has been identified by name and date of : Yes Patient phones for refill(s): Pending Prescriptions Disp Refills OXYCODONE 20 MG TABLET 84 tablet 0 Sig: Take 1 tablet by mouth every 4 hours for 14 days. ELSI Class: C-II HUANG: No Date of last office visit in primary care: 06/29/2021 2 month follow-up: 08/27/2021 Last 2 Encounter Wt Readings: Date: Wt: 08/24/2020 49.9 kg (110 lb) 06/15/2020 0 kg () Previous labs/tests for medication: Not applicable Please advise. Thank you. Taylor Groves LPN documented in this encounter [facility] 08-18-2021 Miscellaneous Notes Patient reports she is out of medication. Requesting refill as soon as possible. Thank you. (Also requesting Oxycodone refill in 08/16/21 encounter, if able) Patient has been identified by name and date of : Yes Patient phones for refill(s): Pending Prescriptions Disp Refills LISINOPRIL 10 MG TABLET 180 tablet 3 Sig: Take 1-2 tablets by mouth once daily. Adjust based on blood pressure readings at home HUANG: No Date of last office visit in primary care: 06/29/21 ([facility]), NOV: 08/27/21 Last 2 Encounter Wt Readings: Date: Wt: 08/24/2020 49.9 kg (110 lb) 06/15/2020 0 kg () Previous labs/tests for medication: Blood Pressure: BUN (mg/dL) Date Value 10/28/2020 22 Sodium (mmol/L) Date Value 10/28/2020 135 Last 1 Encounter BP Readings: Date: BP: 10/30/2020 101/67 Please advise. Thank you. Kyra Martínez RN documented in this encounter [facility] 07-24-2021 Miscellaneous Notes Spoke to Patient and reminded her of August appointment. She agreed that she should be able to have a F2F then Will be okay this time given recent ER visits, but at some point need F2F or VV with video Patient notified of below, states she is not able to do a video visit at all, is phone visit okay? Patient is off Fentanyl patches now and just on Oxycodone with morphine sulfate concentrate only when notable to keep pils down. Okay 30 mg dose for a week--will decide next week if needs to extend another week. Should still have 20 mg pills for taking after done with 30 mg dose and will decide when needs next refill on pills of either dose depending on how pain control is doing. Schedule a VV visit for next week--can send email link to VV if hard to connect via [employer] Patient reports she dislocated her right hip on 06-18, then again on . Was seen in [facility] ER. They put it back in socket and gave pain medicine. Reports she has a fracture across her trochanter, but cannot have surgery due to other medical problems, had been battling pneumonia, crohns is acting up, and her weight is low (110# / 5'6 ). 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 Reports she plans to have Dr. Bean re-do the hip but due to her health, cannot do now. Asking pcp if she could take her oxycodone 20 mg every 3 hours instead of every 4 hours? [facility]. Please advise patient. documented in this encounter [facility] 06-29-2021 History of Presen t illness Narrative No Show. documented in this encounter [facility] 06-28-2021 Miscellaneous Notes [facility] records obtained and placed in nursing pod for appt tomorrow. Has phone call appt same date. Check for hospital records please Patient calling to let PCP know she cancelled appointment on 06/29 due to right hip was out of place and she went to [facility] ER. She states there is also a fracture in that hip and she is awaiting surgery. Advised to try to re-schedule as a virtual visit. Transferred to ambulatory services representative for appointment. Nkechi White RN documented in this encounter [facility] 06-14-2021 Miscellaneous Notes The following approved medication requests have been transmitted electronically. Signed Prescriptions Disp Refills morphine concentrate (ROXANOL) 20 mg/mL oral liquid 60 mL 0 Sig: Take 1 mL by mouth every 4 hours as needed for up to 30 days. Persistent hip fracture (surgery postponed) with nausea and vomiting--needs oral liquid for when not able to take pills. May fill today ELSI Class: C-II HUANG: No Authorizing Provider: DESTINI LEONARD MD Last filled 05/11 Patient has been identified by name and date of : Yes Patient phones for refill(s): Pending Prescriptions Disp Refills MORPHINE CONCENTRATE 20 MG/ML ORAL SYRINGE (FOR ORAL USE ONLY) 60 mL 0 Sig: Take 1 mL by mouth every 4 hours as needed for up to 30 days. Persistent hip fracture (surgery postponed) with nausea and vomiting--needs oral liquid for when not able to take pills. May fill today ELSI Class: C-II HUANG: No Date of last office visit in primary care: 12/31/20 next apt 06/29/21 Last 2 Encounter Wt Readings: Date: Wt: 08/24/2020 49.9 kg (110 lb) 06/15/2020 0 kg () Previous labs/tests for medication: Not applicable Please advise. Thank you. Lianet Ceballos LPN documented in this encounter [facility] 06-02-2021 Miscellaneous Notes Images from the original note were not included. Prior authorization approved Payer: [facility] [phone] Your PA request has been approved. Additional information will be provided in the approval communication. (Message [id number]) Approval Details Authorized from June 02, 2021 to November 29, 2021 Electronic appeal: Not supported Completed and waiting for response. Electronic PA requested for oxycodone IR 20 mg tablets. Patient given only 100 pills on 05/19. Patient states needs prior authorization in the comment for the RX. The following approved medication requests have been transmitted electronically. Signed Prescriptions Disp Refills oxyCODONE IR (ROXICODONE) 20 mg tab 180 tablet 0 Sig: Take 1 tablet by mouth every 4 hours for 30 days. Do not start before June 04, 2021. ELSI Class: C-II HUANG: No Authorizing Provider: DESTINI LEONARD MD documented in this encounter [facility] 05-19-2021 Miscellaneous Notes Thought patient had requested printed RX to [employer], not printed to fax. Sorry for delay. The following approved medication requests have been transmitted electronically. Signed Prescriptions Disp Refills oxyCODONE IR (ROXICODONE) 20 mg tab 180 tablet 0 Sig: Take 1 tablet by mouth every 4 hours for 30 days. ELSI Class: C-II HUANG: No Authorizing Provider: DESTINI LEONARD MD Patient calling [facility] pharmacy will not accept the Oxycodone 20 mg tablet rx since it was faxed, has to be escripted to the pharmacy. Reset rx to file to pharmacy. Please advise Patient has been identified by name and date of : Yes Patient phones for refill(s): Pending Prescriptions Disp Refills OXYCODONE 20 MG TABLET 180 tablet 0 Sig: Take 1 tablet by mouth every 4 hours for 30 days. ELSI Class: C-II HUANG: No Date of last office visit in primary care: 12/31/2020, has appt 06/29/2021 Last 2 Encounter Wt Readings: Date: Wt: 08/24/2020 49.9 kg (110 lb) 06/15/2020 0 kg () Previous labs/tests for medication: Not applicable Please advise. Thank you. Odilia Vasquez LPN documented in this encounter [facility] 05-18-2021 Miscellaneous Notes Rx faxed, patient notified Pt called in and stated she could see where Dr. Leonard approved her pain medication but the pharmacy does not have it. After pulling it up, looks like the prescription printed. Please fax to TIMOTHY Muñoz. Please advise pt when done. Lianet Ceballos LPN documented in this encounter [facility] 05-10-2021 Miscellaneous Notes The following approved medication requests have been transmitted electronically. Signed Prescriptions Disp Refills morphine concentrate (ROXANOL) 20 mg/mL oral liquid 60 mL 0 Sig: Take 1 mL by mouth every 4 hours as needed for up to 30 days. Persistent hip fracture (surgery postponed) with nausea and vomiting--needs oral liquid for when not able to take pills. May fill today ELSI Class: C-II HUANG: No Authorizing Provider: DESTINI LEONARD MD Patient has been identified by name and date of : Yes Patient phones for refill(s): Pending Prescriptions Disp Refills MORPHINE CONCENTRATE 20 MG/ML ORAL SYRINGE (FOR ORAL USE ONLY) 60 mL 0 Sig: Take 1 mL by mouth every 4 hours as needed for up to 30 days. Persistent hip fracture (surgery postponed) with nausea and vomiting--needs oral liquid for when not able to take pills. May fill today ELSI Class: C-II HUANG: No Date of last office visit in primary care: 10/30/2020 2 month follow-up: 06/29/2021 Last 2 Encounter Wt Readings: Date: Wt: 08/24/2020 49.9 kg (110 lb) 06/15/2020 0 kg () Previous labs/tests for medication: Not applicable Please advise. Thank you. 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 03/26/2013 Lumbago 05/22/2008 04/27/2015 documented as of this encounter (statuses as of 05/19/2021) [facility]28-2011 History of Past illness Narrative* Problem Noted Date Resolved Date Iron deficiency 09/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 03/26/2013 Lumbago 05/22/2008 04/27/2015 documented as of this encounter (statuses as of 06/02/2021) [facility]2011 History of Past illness Narrative* Problem Noted Date Resolved Date Iron deficiency 09/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 03/26/2013 Lumbago 05/22/2008 04/27/2015 documented as of this encounter (statuses as of 06/07/2021) [facility] History of Past illness Narrative* Problem Noted Date Resolved Date Iron deficiency 09/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 03/26/2013 Lumbago 05/22/2008 04/27/2015 documented as of this encounter (statuses as of 06/14/2021) [address]28-2011 History of Past illness Narrative* Problem Noted Date Resolved Date Iron deficiency 09/09/2010 03/26/2013 Lumbago 05/22/2008 04/27/2015 documented as of this encounter (statuses as of 06/28/2021) [address]28-2011 History of Past illness Narrative* Problem Noted Date Resolved Date Iron deficiency 09/09/2010 03/26/2013 Lumbago 05/22/2008 04/27/2015 documented as of this encounter (statuses as of 07/24/2021) [address]28-2011 History of Past illness Narrative* Problem Noted Date Resolved Date Iron deficiency 09/09/2010 03/26/2013 Lumbago 05/22/2008 04/27/2015 documented as of this encounter (statuses as of 07/28/2021) [address]28-2011 History of Past illness Narrative* Problem Noted Date Resolved Date Iron deficiency 09/09/2010 03/26/2013 Lumbago 05/22/2008 04/27/2015 documented as of this encounter (statuses as of 08/02/2021) [facility] History of Past illness Narrative* Problem Noted Date Resolved Date Iron deficiency 09/09/2010 03/26/2013 Lumbago 05/22/2008 04/27/2015 documented as of this encounter (statuses as of 08/18/2021) [facility] History of Past illness Narrative* Problem Noted Date Resolved Date Iron deficiency 09/09/2010 03/26/2013 Lumbago 05/22/2008 04/27/2015 documented as of this encounter (statuses as of 08/19/2021) [place] [id number] History of Past illness Narrative* Problem Noted Date Resolved Date Iron deficiency 09/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 03/26/2013 Lumbago 05/22/2008 04/27/2015 documented as of this encounter (statuses as of 08/19/2021) [address]28-2011 History of Past illness Narrative* Problem Noted Date Resolved Date Iron deficiency 09/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 03/26/2013 Lumbago 05/22/2008 04/27/2015 documented as of this encounter (statuses as of 09/01/2021) [address]28-2011 History of Past illness Narrative* Problem Noted Date Resolved Date Iron deficiency 09/09/2010 03/26/2013 Lumbago 05/22/2008 04/27/2015 documented as of this encounter (statuses as of 09/05/2021) [address]28-2011 History of Past illness Narrative* Problem Noted Date Resolved Date Iron deficiency 09/09/2010 03/26/2013 Lumbago 05/22/2008 04/27/2015 documented as of this encounter (statuses as of 09/06/2021) [facility]2011 History of Past illness Narrative* Problem Noted Date Resolved Date Iron deficiency 09/09/2010 03/26/2013 Lumbago 05/22/2008 04/27/2015 documented as of this encounter (statuses as of 09/23/2021) [facility]2011 History of Past illness Narrative* Problem Noted Date Resolved Date Iron deficiency 09/09/2010 03/26/2013 Lumbago 05/22/2008 04/27/2015 documented as of this encounter (statuses as of 09/27/2021) [address]28-2011 History of Past illness Narrative* Problem Noted Date Resolved Date Iron deficiency 09/09/2010 03/26/2013 Lumbago 05/22/2008 04/27/2015 documented as of this encounter (statuses as of 10/06/2021) [facility] History of Past illness Narrative* Problem Noted Date Resolved Date Iron deficiency 09/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 03/26/2013 Lumbago 05/22/2008 04/27/2015 documented as of this encounter (statuses as of 10/06/2021) [facility]2011 History of Past illness Narrative* Problem Noted Date Resolved Date Iron deficiency 09/09/2010 03/26/2013 Lumbago 05/22/2008 04/27/2015 documented as of this encounter (statuses as of 10/13/2021) [facility]2011 History of Past illness Narrative* Problem Noted Date Resolved Date Iron deficiency 09/09/2010 03/26/2013 Lumbago 05/22/2008 04/27/2015 documented as of this encounter (statuses as of 10/20/2021) [facility] History of Past illness Narrative* Problem Noted Date Resolved Date Iron deficiency 09/09/2010 03/26/2013 Lumbago 05/22/2008 04/27/2015 documented as of this encounter (statuses as of 11/05/2021) [address]28-2011 History of Past illness Narrative* Problem Noted Date Resolved Date Iron deficiency 09/09/2010 03/26/2013 Lumbago 05/22/2008 04/27/2015 documented as of this encounter (statuses as of 11/09/2021) [address]28-2011 History of Past illness Narrative* Problem Noted Date Resolved Date Iron deficiency 09/09/2010 03/26/2013 Lumbago 05/22/2008 04/27/2015 documented as of this encounter (statuses as of 11/09/2021) [address]28-2011 History of Past illness Narrative* Problem Noted Date Resolved Date Iron deficiency 09/09/2010 03/26/2013 Lumbago 05/22/2008 04/27/2015 documented as of this encounter (statuses as of 11/16/2021) [address]28-2011 History of Past illness Narrative* Problem Noted Date Resolved Date Iron deficiency 09/09/2010 03/26/2013 Lumbago 05/22/2008 04/27/2015 documented as of this encounter (statuses as of 12/01/2021) [address]28-2011 History of Past illness Narrative* Problem Noted Date Resolved Date Iron deficiency 09/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 03/26/2013 Lumbago 05/22/2008 04/27/2015 documented as of this encounter (statuses as of 12/02/2021) [place] [address]28-2011 History of Past illness Narrative* Problem Noted Date Resolved Date Iron deficiency 09/09/2010 03/26/2013 Lumbago 05/22/2008 04/27/2015 documented as of this encounter (statuses as of 12/03/2021) [address]28-2011 History of Past illness Narrative* Problem Noted Date Resolved Date Iron deficiency 09/09/2010 03/26/2013 Lumbago 05/22/2008 04/27/2015 documented as of this encounter (statuses as of 12/10/2021) [place] [address]28-2011 History of Past illness Narrative* Problem Noted Date Resolved Date Iron deficiency 09/09/2010 03/26/2013 Lumbago 05/22/2008 04/27/2015 documented as of this encounter (statuses as of 12/13/2021) [address]28-2011 History of Past illness Narrative* Problem Noted Date Resolved Date Iron deficiency 09/09/2010 03/26/2013 Lumbago 05/22/2008 04/27/2015 documented as of this encounter (statuses as of 12/15/2021) [address]28-2011 History of Past illness Narrative* Problem Noted Date Resolved Date Iron deficiency 09/09/2010 03/26/2013 Lumbago 05/22/2008 04/27/2015 documented as of this encounter (statuses as of 12/30/2021) [address]28-2011 History of Past illness Narrative* Problem Noted Date Resolved Date Iron deficiency 09/09/2010 03/26/2013 Lumbago 05/22/2008 04/27/2015 documented as of this encounter (statuses as of 01/03/2022) [address]28-2011 History of Past illness Narrative* Problem Noted Date Resolved Date Iron deficiency 09/09/2010 03/26/2013 Lumbago 05/22/2008 04/27/2015 documented as of this encounter (statuses as of 02/04/2022) [address]28-2011 History of Past illness Narrative* Problem Noted Date Resolved Date Iron deficiency 09/09/2010 03/26/2013 Lumbago 05/22/2008 04/27/2015 documented as of this encounter (statuses as of 02/14/2022) [address]28-2011 History of Past illness Narrative* Problem Noted Date Resolved Date Iron deficiency 09/09/2010 03/26/2013 Lumbago 05/22/2008 04/27/2015 documented as of this encounter (statuses as of 02/16/2022) [address]28-2011 History of Past illness Narrative* Problem Noted Date Resolved Date Iron deficiency 09/09/2010 03/26/2013 Lumbago 05/22/2008 04/27/2015 documented as of this encounter (statuses as of 03/03/2022) [address]28-2011 History of Past illness Narrative* Problem Noted Date Resolved Date Iron deficiency 09/09/2010 03/26/2013 Lumbago 05/22/2008 04/27/2015 documented as of this encounter (statuses as of 03/11/2022) [address]28-2011 History of Past illness Narrative* Problem Noted Date Resolved Date Iron deficiency 09/09/2010 03/26/2013 Lumbago 05/22/2008 04/27/2015 documented as of this encounter (statuses as of 04/07/2022) [address]28-2011 History of Past illness Narrative* Problem Noted Date Resolved Date Iron deficiency 09/09/2010 03/26/2013 Lumbago 05/22/2008 04/27/2015 documented as of this encounter (statuses as of 04/07/2022) [address]28-2011 History of Past illness Narrative* Problem Noted Date Resolved Date Iron deficiency 09/09/2010 03/26/2013 Lumbago 05/22/2008 04/27/2015 documented as of this encounter (statuses as of 05/05/2022) [address]28-2011 History of Past illness Narrative* Problem Noted Date Resolved Date Iron deficiency 09/09/2010 03/26/2013 Lumbago 05/22/2008 04/27/2015 documented as of this encounter (statuses as of 05/06/2022) [address]28-2011 History of Past illness Narrative* Problem Noted Date Resolved Date Iron deficiency 09/09/2010 03/26/2013 Lumbago 05/22/2008 04/27/2015 documented as of this encounter (statuses as of 05/16/2022) [address]28-2011 History of Past illness Narrative* Problem Noted Date Resolved Date Iron deficiency 09/09/2010 03/26/2013 Lumbago 05/22/2008 04/27/2015 documented as of this encounter (statuses as of 05/24/2022) [address]28-2011 History of Past illness Narrative* Problem Noted Date Resolved Date Iron deficiency 09/09/2010 03/26/2013 Lumbago 05/22/2008 04/27/2015 documented as of this encounter (statuses as of 06/02/2022) [address]28-2011 History of Past illness Narrative* Problem Noted Date Resolved Date Iron deficiency 09/09/2010 03/26/2013 Lumbago 05/22/2008 04/27/2015 documented as of this encounter (statuses as of 06/03/2022) [address]28-2011 History of Past illness Narrative* Problem Noted Date Resolved Date Iron deficiency 09/09/2010 03/26/2013 Lumbago 05/22/2008 04/27/2015 documented as of this encounter (statuses as of 06/04/2022) [facility]28-2011 History of Past illness Narrative* Problem Noted Date Resolved Date Iron deficiency 09/09/2010 03/26/2013 Lumbago 05/22/2008 04/27/2015 documented as of this encounter (statuses as of 06/15/2022) [address]28-2011 History of Past illness Narrative* Problem Noted Date Resolved Date Iron deficiency 09/09/2010 03/26/2013 Lumbago 05/22/2008 04/27/2015 documented as of this encounter (statuses as of 06/20/2022) [place] [address]28-2011 History of Past illness Narrative* Problem Noted Date Resolved Date Iron deficiency 09/09/2010 03/26/2013 Lumbago 05/22/2008 04/27/2015 documented as of this encounter (statuses as of 07/11/2022) [facility]28-2011 History of Past illness Narrative* Problem Noted Date Resolved Date Iron deficiency 09/09/2010 03/26/2013 Lumbago 05/22/2008 04/27/2015 documented as of this encounter (statuses as of 07/12/2022) [facility]28-2011 History of Past illness Narrative* Problem Noted Date Resolved Date Iron deficiency 09/09/2010 03/26/2013 Lumbago 05/22/2008 04/27/2015 documented as of this encounter (statuses as of 07/15/2022) [place] [address]28-2011 History of Past illness Narrative* Problem Noted Date Resolved Date Iron deficiency 09/09/2010 03/26/2013 Lumbago 05/22/2008 04/27/2015 documented as of this encounter (statuses as of 07/20/2022) [address]28-2011 History of Past illness Narrative* Problem Noted Date Resolved Date Iron deficiency 09/09/2010 03/26/2013 Lumbago 05/22/2008 04/27/2015 documented as of this encounter (statuses as of 07/27/2022) [address]28-2011 History of Past illness Narrative* Problem Noted Date Resolved Date Iron deficiency 09/09/2010 03/26/2013 Lumbago 05/22/2008 04/27/2015 documented as of this encounter (statuses as of 08/08/2022) [facility]28-2011 History of Past illness Narrative* Problem Noted Date Resolved Date Iron deficiency 09/09/2010 03/26/2013 Lumbago 05/22/2008 04/27/2015 documented as of this encounter (statuses as of 08/17/2022) [facility]28-2011 History of Past illness Narrative* Problem Noted Date Resolved Date Iron deficiency 09/09/2010 03/26/2013 Lumbago 05/22/2008 04/27/2015 documented as of this encounter (statuses as of 08/17/2022) [facility]28-2011 History of Past illness Narrative* Problem Noted Date Resolved Date Iron deficiency 09/09/2010 03/26/2013 Lumbago 05/22/2008 04/27/2015 documented as of this encounter (statuses as of 08/18/2022) [facility]28[facility]2011 History of Past illness Narrative* Problem Noted Date Diagnosed Date Resolved Date Iron deficiency 09/09/2010 03/26/2013 Lumbago 05/22/2008 04/27/2015 documented as of this encounter (statuses as of 08/23/2022) [facility]28[facility]2011 History of Past illness Narrative* Problem Noted Date Diagnosed Date Resolved Date Iron deficiency 09/09/2010 03/26/2013 Lumbago 05/22/2008 04/27/2015 documented as of this encounter (statuses as of 08/23/2022) [facility] History of Past illness Narrative* Problem Noted Date Diagnosed Date Resolved Date Iron deficiency 09/09/2010 03/26/2013 Lumbago 05/22/2008 04/27/2015 documented as of this encounter (statuses as of 08/25/2022) [facility] History of Past illness Narrative* Problem Noted Date Diagnosed Date Resolved Date Iron deficiency 09/09/2010 03/26/2013 Lumbago 05/22/2008 04/27/2015 documented as of this encounter (statuses as of 08/29/2022) [facility]28[facility]2011 History of Past illness Narrative* Problem Noted Date Diagnosed Date Resolved Date Iron deficiency 09/09/2010 03/26/2013 Lumbago 05/22/2008 04/27/2015 documented as of this encounter (statuses as of 08/30/2022) [address]28-2011 History of Past illness Narrative* Problem Noted Date Diagnosed Date Resolved Date Iron deficiency 09/09/2010 03/26/2013 Lumbago 05/22/2008 04/27/2015 documented as of this encounter (statuses as of 09/26/2022) [address]28-2011 History of Past illness Narrative* Problem Noted Date Diagnosed Date Resolved Date Iron deficiency 09/09/2010 03/26/2013 Lumbago 05/22/2008 04/27/2015 documented as of this encounter (statuses as of 09/26/2022) [address]28-2011 History of Past illness Narrative* Problem Noted Date Diagnosed Date Resolved Date Iron deficiency 09/09/2010 03/26/2013 Lumbago 05/22/2008 04/27/2015 documented as of this encounter (statuses as of 09/29/2022) [address]28-2011 History of Past illness Narrative* Problem Noted Date Diagnosed Date Resolved Date Iron deficiency 09/09/2010 03/26/2013 Lumbago 05/22/2008 04/27/2015 documented as of this encounter (statuses as of 10/05/2022) [facility] History of Past illness Narrative* Problem Noted Date Diagnosed Date Resolved Date Iron deficiency 09/09/2010 03/26/2013 Lumbago 05/22/2008 04/27/2015 documented as of this encounter (statuses as of 10/07/2022) [facility] History of Past illness Narrative* Problem Noted Date Diagnosed Date Resolved Date Iron deficiency 09/09/2010 03/26/2013 Lumbago 05/22/2008 04/27/2015 documented as of this encounter (statuses as of 10/20/2022) [address]28-2011 History of Past illness Narrative* Problem Noted Date Diagnosed Date Resolved Date Iron deficiency 09/09/2010 03/26/2013 Lumbago 05/22/2008 04/27/2015 documented as of this encounter (statuses as of 10/28/2022) [place] [address]28-2011 History of Past illness Narrative* Problem Noted Date Diagnosed Date Resolved Date Iron deficiency 09/09/2010 03/26/2013 Lumbago 05/22/2008 04/27/2015 documented as of this encounter (statuses as of 10/28/2022) [address]28-2011 History of Past illness Narrative* Problem Noted Date Diagnosed Date Resolved Date Iron deficiency 09/09/2010 03/26/2013 Lumbago 05/22/2008 04/27/2015 documented as of this encounter (statuses as of 11/16/2022) [address]28-2011 History of Past illness Narrative* Problem Noted Date Diagnosed Date Resolved Date Iron deficiency 09/09/2010 03/26/2013 Lumbago 05/22/2008 04/27/2015 documented as of this encounter (statuses as of 11/24/2022) [address]28-2011 History of Past illness Narrative* Problem Noted Date Diagnosed Date Resolved Date Iron deficiency 09/09/2010 03/26/2013 Lumbago 05/22/2008 04/27/2015 documented as of this encounter (statuses as of 12/02/2022) [address]28-2011 History of Past illness Narrative* Problem Noted Date Diagnosed Date Resolved Date Iron deficiency 09/09/2010 03/26/2013 Lumbago 05/22/2008 04/27/2015 documented as of this encounter (statuses as of 12/27/2022) [place] [address]28-2011 History of Past illness Narrative* Problem Noted Date Diagnosed Date Resolved Date Iron deficiency 09/09/2010 03/26/2013 Lumbago 05/22/2008 04/27/2015 documented as of this encounter (statuses as of 01/06/2023) [place] [address]28-2011 History of Past illness Narrative* Problem Noted Date Diagnosed Date Resolved Date Iron deficiency 09/09/2010 03/26/2013 Lumbago 05/22/2008 04/27/2015 documented as of this encounter (statuses as of 01/11/2023) [address]28-2011 History of Past illness Narrative* Problem Noted Date Diagnosed Date Resolved Date Iron deficiency 09/09/2010 03/26/2013 Lumbago 05/22/2008 04/27/2015 documented as of this encounter (statuses as of 01/11/2023) [address]28-2011 History of Past illness Narrative* Problem Noted Date Diagnosed Date Resolved Date Iron deficiency 09/09/2010 03/26/2013 Lumbago 05/22/2008 04/27/2015 documented as of this encounter (statuses as of 01/11/2023) [facility] note* Diagnosis Closed fracture of right hip, sequela Closed fracture of left foot, sequela [facility] Diagnosis Intervertebral disc disorder with radiculopathy of lumbar region Thoracic or lumbosacral neuritis or radiculitis, unspecified Bilateral sciatica Sciatica Pain in prosthetic joint, sequela [facility] Diagnosis Intervertebral disc disorder with radiculopathy of lumbar region Thoracic or lumbosacral neuritis or radiculitis, unspecified Bilateral sciatica Sciatica Pain in prosthetic joint, sequela [facility]* Diagnosis Closed fracture of right hip, sequela Closed fracture of left foot, sequela [facility] Diagnosis Anterior dislocation of right hip, sequela- Primary [facility]* Diagnosis NO SHOW- Primary Intervertebral disc disorder with radiculopathy of lumbar region Thoracic or lumbosacral neuritis or radiculitis, unspecified Bilateral sciatica Sciatica Pain in prosthetic joint, sequela documented [facility]* Diagnosis Encounter for screening mammogram for breast cancer documented [facility]* Diagnosis Intervertebral disc disorder with radiculopathy of lumbar region Thoracic or lumbosacral neuritis or radiculitis, unspecified Bilateral sciatica Sciatica Pain in prosthetic joint, sequela documented [facility]* Diagnosis Intervertebral disc disorder with radiculopathy of lumbar region Thoracic or lumbosacral neuritis or radiculitis, unspecified Bilateral sciatica Sciatica Pain in prosthetic joint, sequela [facility] Diagnosis Intervertebral disc disorder with radiculopathy of lumbar region Thoracic or lumbosacral neuritis or radiculitis, unspecified Bilateral sciatica Sciatica Pain in prosthetic joint, sequela [facility] Diagnosis Pain in prosthetic joint, sequela- Primary Essential hypertension Unspecified essential hypertension RLS (restless legs syndrome) Restless legs syndrome (RLS) Vitamin D deficiency Unspecified vitamin D deficiency Iron malabsorption Other specified intestinal malabsorption Vitamin B12 deficiency Other B-complex deficiencies Postgastric surgery syndrome Postgastric surgery syndromes Encounter for long-term current use of medication Closed fracture of right hip, sequela Closed fracture of left foot, sequela Intervertebral disc disorder with radiculopathy of lumbar region Thoracic or lumbosacral neuritis or radiculitis, unspecified Bilateral sciatica Sciatica documented in this encounter [facility] Diagnosis Intervertebral disc disorder with radiculopathy of lumbar region Thoracic or lumbosacral neuritis or radiculitis, unspecified Bilateral sciatica Sciatica Pain in prosthetic joint, sequela Closed fracture of right hip, sequela Closed fracture of left foot, sequela RLS (restless legs syndrome) Restless legs syndrome (RLS) documented in this encounter [facility]* Diagnosis Intervertebral disc disorder with radiculopathy of lumbar region Thoracic or lumbosacral neuritis or radiculitis, unspecified Bilateral sciatica Sciatica Pain in prosthetic joint, sequela Closed fracture of right hip, sequela Closed fracture of left foot, sequela RLS (restless legs syndrome) Restless legs syndrome (RLS) documented [facility] this encounter [facility]* Diagnosis Intervertebral disc disorder with radiculopathy of lumbar region Thoracic or lumbosacral neuritis or radiculitis, unspecified Bilateral sciatica Sciatica Pain in prosthetic joint, sequela Closed fracture of right hip, sequela Closed fracture of left foot, sequela RLS (restless legs syndrome) Restless legs syndrome (RLS) documented [facility] encounter [facility] Diagnosis Intervertebral disc disorder with radiculopathy of lumbar region Thoracic or lumbosacral neuritis or radiculitis, unspecified Bilateral sciatica Sciatica Pain in prosthetic joint, sequela documented [facility] encounter [facility]* Diagnosis Pain in prosthetic joint, sequela- Primary Intervertebral disc disorder with radiculopathy of lumbar region Thoracic or lumbosacral neuritis or radiculitis, unspecified Bilateral sciatica Sciatica RLS (restless legs syndrome) Restless legs syndrome (RLS) Postgastric surgery syndrome Postgastric surgery syndromes Crohn's disease without complication, unspecified gastrointestinal tract location (HCC) 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 Diagnosis Intervertebral disc disorder with radiculopathy of lumbar region Thoracic or lumbosacral neuritis or radiculitis, unspecified Bilateral sciatica Sciatica Pain in prosthetic joint, sequela documented [facility] this encounter [facility]* Diagnosis Intervertebral disc disorder with radiculopathy of lumbar region Thoracic or lumbosacral neuritis or radiculitis, unspecified Bilateral sciatica Sciatica Pain in prosthetic joint, sequela RLS (restless legs syndrome) Restless legs syndrome (RLS) 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, sequela [facility] Diagnosis Intervertebral disc disorder with radiculopathy of lumbar region Thoracic or lumbosacral neuritis or radiculitis, unspecified Bilateral sciatica Sciatica Pain in prosthetic joint, sequela RLS (restless legs syndrome) Restless legs syndrome (RLS) 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, sequela documented [facility] this encounter [facility]* Diagnosis Closed fracture of right hip, sequela Closed fracture of left foot, sequela Intervertebral disc disorder with radiculopathy of lumbar region Thoracic or lumbosacral neuritis or radiculitis, unspecified Bilateral sciatica Sciatica Pain in prosthetic joint, sequela RLS (restless legs syndrome) Restless legs syndrome (RLS) documented [facility] this encounter [facility]* Diagnosis Intervertebral disc disorder with radiculopathy of lumbar region Thoracic or lumbosacral neuritis or radiculitis, unspecified Bilateral sciatica Sciatica Pain in prosthetic joint, sequela RLS (restless legs syndrome) Restless legs syndrome (RLS) 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, sequela documented [facility] encounter [facility]* Diagnosis Intervertebral disc disorder with radiculopathy of lumbar region Thoracic or lumbosacral neuritis or radiculitis, unspecified Bilateral sciatica Sciatica Pain in prosthetic joint, sequela RLS (restless legs syndrome) Restless legs syndrome (RLS) 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, sequela documented [facility] this encounter [facility]* Diagnosis 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, sequela- Primary Vitamin D deficiency Unspecified vitamin D deficiency Pain in prosthetic joint, sequela Moderate protein-calorie malnutrition (HCC) Malnutrition of moderate degree Crohn's disease without complication, unspecified gastrointestinal tract location (HCC) Intervertebral disc disorder with radiculopathy of lumbar region Thoracic or lumbosacral neuritis or radiculitis, unspecified Bilateral sciatica Sciatica RLS (restless legs syndrome) Restless legs syndrome (RLS) Closed fracture of right hip, sequela Closed fracture of left foot, sequela Osteoporosis, unspecified osteoporosis type, unspecified pathological fracture presence [facility] Diagnosis Intervertebral disc disorder with radiculopathy of lumbar region Thoracic or lumbosacral neuritis or radiculitis, unspecified Bilateral sciatica Sciatica Pain in prosthetic joint, sequela RLS (restless legs syndrome) Restless legs syndrome (RLS) 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, sequela [facility] encounter [facility]* Diagnosis Intervertebral disc disorder with radiculopathy of lumbar region Thoracic or lumbosacral neuritis or radiculitis, unspecified Bilateral sciatica Sciatica Pain in prosthetic joint, sequela RLS (restless legs syndrome) Restless legs syndrome (RLS) 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, sequela [facility] encounter [facility]* Diagnosis Intervertebral disc disorder with radiculopathy of lumbar region Thoracic or lumbosacral neuritis or radiculitis, unspecified Bilateral sciatica Sciatica Pain in prosthetic joint, sequela RLS (restless legs syndrome) Restless legs syndrome (RLS) 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, sequela documented in this encounter [facility]* Diagnosis 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, sequela- Primary Intervertebral disc disorder with radiculopathy of lumbar region Thoracic or lumbosacral neuritis or radiculitis, unspecified Bilateral sciatica Sciatica Pain in prosthetic joint, sequela RLS (restless legs syndrome) Restless legs syndrome (RLS) Closed fracture of right hip, sequela Closed fracture of left foot, 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 documented in this encounter [facility] note* Diagnosis Intervertebral disc disorder with radiculopathy of lumbar region Thoracic or lumbosacral neuritis or radiculitis, unspecified Bilateral sciatica Sciatica Pain in prosthetic joint, sequela RLS (restless legs syndrome) Restless legs syndrome (RLS) Closed fracture of right hip, sequela Closed fracture of left foot, sequela 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, 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 documented in this encounter [facility] note* Diagnosis Intervertebral disc disorder with radiculopathy of lumbar region Thoracic or lumbosacral neuritis or radiculitis, unspecified Bilateral sciatica Sciatica Pain in prosthetic joint, sequela RLS (restless legs syndrome) Restless legs syndrome (RLS) Closed fracture of right hip, sequela Closed fracture of left foot, sequela 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, 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 documented in this encounter [facility] note* Diagnosis Intervertebral disc disorder with radiculopathy of lumbar region Thoracic or lumbosacral neuritis or radiculitis, unspecified Bilateral sciatica Sciatica Pain in prosthetic joint, sequela RLS (restless legs syndrome) Restless legs syndrome (RLS) 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* Diagnosis Anemia, unspecified type- Primary Acute renal insufficiency Unspecified disorder of kidney and ureter Hyperkalemia Hyperpotassemia Hyponatremia Hyposmolality and/or hyponatremia documented [facility]* Diagnosis Intervertebral disc disorder with radiculopathy of lumbar region Thoracic or lumbosacral neuritis or radiculitis, unspecified Bilateral sciatica Sciatica Pain in prosthetic joint, sequela RLS (restless legs syndrome) Restless legs syndrome (RLS) Closed fracture of right hip, sequela Closed fracture of left foot, sequela 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, 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 [facility]* Diagnosis 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- Primary Other postprocedural status Vitamin D deficiency Unspecified vitamin D deficiency Vitamin B12 deficiency Other B-complex deficiencies Essential hypertension Unspecified essential hypertension Encounter for long-term (current) drug use Encounter for long-term (current) use of other medications Intervertebral disc disorder with radiculopathy of lumbar region Thoracic or lumbosacral neuritis or radiculitis, unspecified Bilateral sciatica Sciatica Pain in prosthetic joint, sequela RLS (restless legs syndrome) Restless legs syndrome (RLS) 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, sequela Rash and nonspecific skin eruption Rash and other nonspecific skin eruption Moderate protein-calorie malnutrition (HCC) Malnutrition of moderate degree Mixed connective tissue disease (HCC) Other specified diffuse disease of connective tissue Uncomplicated opioid dependence (HCC) Opioid type dependence, unspecified [facility] Diagnosis Primary hypertension- Primary Unspecified essential hypertension Other chronic pain Postgastric surgery syndrome Postgastric surgery syndromes Impaired intestinal absorption Unspecified intestinal malabsorption Encounter for therapeutic drug monitoring [facility]* Diagnosis Intervertebral disc disorder with radiculopathy of lumbar region Thoracic or lumbosacral neuritis or radiculitis, unspecified Bilateral sciatica Sciatica Pain in prosthetic joint, sequela RLS (restless legs syndrome) Restless legs syndrome (RLS) 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, sequela Closed fracture of right hip, sequela Closed fracture of left foot, 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 documented in this encounter [facility] note* Diagnosis Intervertebral disc disorder with radiculopathy of lumbar region Thoracic or lumbosacral neuritis or radiculitis, unspecified Bilateral sciatica Sciatica Pain in prosthetic joint, sequela RLS (restless legs syndrome) Restless legs syndrome (RLS) 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, sequela documented in this encounter [facility] note* Diagnosis Intervertebral disc disorder with radiculopathy of lumbar region Thoracic or lumbosacral neuritis or radiculitis, unspecified Bilateral sciatica Sciatica Pain in prosthetic joint, sequela RLS (restless legs syndrome) Restless legs syndrome (RLS) 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, sequela documented in this encounter [facility] note* Diagnosis Intervertebral disc disorder with radiculopathy of lumbar region Thoracic or lumbosacral neuritis or radiculitis, unspecified Bilateral sciatica Sciatica Pain in prosthetic joint, sequela RLS (restless legs syndrome) Restless legs syndrome (RLS) Closed fracture of right hip, sequela Closed fracture of left foot, sequela 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, 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 documented in this encounter [facility] note* Diagnosis Intervertebral disc disorder with radiculopathy of lumbar region Thoracic or lumbosacral neuritis or radiculitis, unspecified Bilateral sciatica Sciatica Pain in prosthetic joint, sequela RLS (restless legs syndrome) Restless legs syndrome (RLS) Closed fracture of right hip, sequela Closed fracture of left foot, sequela 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, 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 documented in this encounter [facility] note* Diagnosis Intervertebral disc disorder with radiculopathy of lumbar region Thoracic or lumbosacral neuritis or radiculitis, unspecified Bilateral sciatica Sciatica Pain in prosthetic joint, sequela RLS (restless legs syndrome) Restless legs syndrome (RLS) Closed fracture of right hip, sequela Closed fracture of left foot, sequela 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* Diagnosis Irritable bowel syndrome, unspecified type documented [facility] this 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* Diagnosis Chronic bilateral low back pain with left-sided sciatica- Primary Primary osteoarthritis of both knees Primary localized osteoarthrosis, lower leg Pain in prosthetic joint, sequela Lumbar spondylosis Lumbosacral spondylosis without myelopathy Spinal stenosis, lumbar region, without neurogenic claudication documented [facility] this 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, 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 [facility]* Diagnosis Intervertebral disc disorder with radiculopathy of lumbar region Thoracic or lumbosacral neuritis or radiculitis, unspecified Bilateral sciatica Sciatica Pain in prosthetic joint, sequela RLS (restless legs syndrome) Restless legs syndrome (RLS) 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, sequela [facility]* Diagnosis Intervertebral disc disorder with radiculopathy of lumbar region Thoracic or lumbosacral neuritis or radiculitis, unspecified Bilateral sciatica Sciatica Pain in prosthetic joint, sequela RLS (restless legs syndrome) Restless legs syndrome (RLS) 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, sequela documented in this encounter [facility] for referral (narrative)* Diagnostic Procedure Only (Routine) - Pending Review Specialty Diagnoses / Procedures Referred By Amanda gaona Referred To Contact [facility] Diagnoses Encounter for screening mammogram for breast cancer Procedures CATARINA SCREENING SCREENING MAMMOGRAPHY BI 2-VIEW BREAST INC Destini Campos MD [address] [place] [address] [place] [address] Referral ID Status Reason Start Date Expiration Date Visits Requested Visits Authorized [id number] Pending Review Auto-Generat ed Referral 07/28/2021 08/27/2022 1 1 [facility] for referral (narrative)* Diagnostic Procedure Only (Routine) - Pending Review Specialty Diagnoses / Procedures Referred By Amanda gaona Referred To Contact [facility] Diagnoses Encounter for screening mammogram for breast cancer Procedures CATARINA SCREENING SCREENING MAMMOGRAPHY BI 2-VIEW BREAST INC Destini Campos MD [address] [place] [address] [facility] [address] [place] [address] Referral ID Status Reason Start Date Expiration Date Visits Requested Visits Authorized [id number] Pending Review Auto-Generat ed Referral 07/06/2022 08/05/2023 1 1 [facility] Advance Directives No Advanced Directives Records FoundDocuments on File Type Date 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 Advance Directive(s) 03/26/2016 9:20 PM Advance Directive(s) 03/16/2016 8:26 AM Advance Directive(s) 01/13/2016 2:06 PM Advance Directive(s) 05/25/2011 12:00 AM Advance Directive(s) 03/30/2006 12:00 AM Documents on File Type Date 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 Advance Directive(s) 03/26/2016 9:20 PM Advance Directive(s) 03/16/2016 8:26 AM Advance Directive(s) 01/13/2016 2:06 PM Advance Directive(s) 05/25/2011 12:00 AM Advance Directive(s) 03/30/2006 12:00 AM Documents on File Type Date 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 Advance Directive(s) 05/25/2011 Advance Directive(s) 03/30/2006 Documents on File Type Date Recorded 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 Advance Directive(s) 05/25/2011 Advance Directive(s) 03/30/2006 Reason for Referral Specialty Diagnoses / Procedures Referred By Contac t Referred To Contact Diagnoses Intervertebral disc disorder with radiculopathy of lumbar region Bilateral sciatica Pain in prosthetic joint, Destini Mahoney MD [address] [place] [address] Referral ID Status Reason Start Date Expiration Date V isits Requested Visits Authorized [id number] Authorized 06/02/2021 11/29/2021 1 1 Specialty Diagnoses / Procedures Referred By Contac t Referred To Contact Diagnoses Anterior dislocation of right hip, Destini Mahoney MD [address] [place] [address] Referral ID Status Reason Start Date Expiration Date Visits Re quested Visits Authorized [id number] Closed 1 1 Referral ID Status Reason Start Date Expiration Date V isits Requested Visits Authorized [id number] Authorized 10/06/2021 04/04/2022 1 1 Specialty Diagnoses / Procedures Referred By Contac t Referred To Contact Pain Management Diagnoses Intervertebral disc disorder with radiculopathy of lumbar region Bilateral sciatica Pain in prosthetic joint, sequela RLS (restless legs syndrome) 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, sequela Procedures CONSULT TO PAIN MGT OFFICE/OUTPATIENT [facility] 60-74 MINUTES Destini Leonard MD [address] [place] [address] Oksana Saha MD [address] [place] [address] Referral ID Status Reason Start Date Expiration Date Visits Requested Visits Authorized [id number] Authorized PCP Requested Referral 11/05/2021 11/05/2022 1 1 Specialty Diagnoses / Procedures Referred By Amanda t Referred To Contact Destini Leonard MD [address] [place] [address] Referral ID Status Reason Start Date Expiration Date Visits Re quested Visits Authorized [id number] Closed 1 1 Specialty Diagnoses / Procedures Referred By Amanda t Referred To Contact Diagnoses Intervertebral disc disorder with radiculopathy of lumbar region Bilateral sciatica Pain in prosthetic joint, sequela RLS (restless legs syndrome) 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, sequela Destini Leonard MD [address] [place] [address] Referral ID Status Reason Start Date Expiration Date Visits Re quested Visits Authorized [id number] Closed 1 1 Referral ID Status Reason Start Date Expiration Date Visits Re quested Visits Authorized [id number] Closed 1 1 Specialty Diagnoses / Procedures Referred By Contac t Referred To Contact Diagnoses Intervertebral disc disorder with radiculopathy of lumbar region Bilateral sciatica Pain in prosthetic joint, sequela RLS (restless legs syndrome) Closed fracture of right hip, sequela Closed fracture of left foot, sequela 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, sequela Postgastric surgery syndrome Destini Leonard MD [address] [place] [address] Referral ID Status Reason Start Date Expiration Date Visits Re quested Visits Authorized [id number] Closed 1 1 Referral ID Status Reason Start Date Expiration Date Visits Re quested Visits Authorized [id number] Closed 1 1 Referral ID Status Reason Start Date Expiration Date Visits Re quested Visits Authorized [id number] Closed 1 1 Referral ID Status Reason Start Date Expiration Date Visits Re quested Visits Authorized [id number] Closed 1 1 Summary Purpose Family History No Family History Records FoundNo Family History Records Found Additional Source Comments Source Comments (unrecognize d section and content) In the event this informatio n is protected by the Federal Confidentiality of Alcohol and Drug Abuse Patient Records regulations: The Federal rules restrict any use of the information to criminally investigate or prosecute any alcohol or drug abuse patient.[facility] the event this information is protected by the Federal Confidentiality of Alcohol and Drug Abuse Patient Records regulations: The Federal rules restrict any use of the information to criminally investigate or prosecute any alcohol or drug abuse patient.[facility]In the event this information is protected by the Federal Confidentiality of Alcohol and Drug Abuse Patient Records regulations: The Federal rules restrict any use of the information to criminally investigate or prosecute any alcohol or drug abuse patient.[facility]In the event this information is protected by the Federal Confidentiality of Alcohol and Drug Abuse Patient Records regulations: The Federal rules restrict any use of the information to criminally investigate or prosecute any alcohol or drug abuse patient.[facility]In the event this information is protected by the Federal Confidentiality of Alcohol and Drug Abuse Patient Records regulations: The Federal rules restrict any use of the information to criminally investigate or prosecute any alcohol or drug abuse patient.[facility] HospitalIn the event this information is protected by the Federal Confidentiality of Alcohol and Drug Abuse Patient Records regulations: The Federal rules restrict any use of the information to criminally investigate or prosecute any alcohol or drug abuse patient.[facility] HospitalIn the event this information is protected by the Federal Confidentiality of Alcohol and Drug Abuse Patient Records regulations: The Federal rules restrict any use of the information to criminally investigate or prosecute any alcohol or drug abuse patient.[facility] HospitalIn the event this information is protected by the Federal Confidentiality of Alcohol and Drug Abuse Patient Records regulations: The Federal rules restrict any use of the information to criminally investigate or prosecute any alcohol or drug abuse patient.[facility]In the event this information is protected by the Federal Confidentiality of Alcohol and Drug Abuse Patient Records regulations: The Federal rules restrict any use of the information to criminally investigate or prosecute any alcohol or drug abuse patient.[facility] HospitalIn the event this information is protected by the Federal Confidentiality of Alcohol and Drug Abuse Patient Records regulations: The Federal rules restrict any use of the information to criminally investigate or prosecute any alcohol or drug abuse patient.[facility] HospitalIn the event this information is protected by the Federal Confidentiality of Alcohol and Drug Abuse Patient Records regulations: The Federal rules restrict any use of the information to criminally investigate or prosecute any alcohol or drug abuse patient.[facility] HospitalIn the event this information is protected by the Federal Confidentiality of Alcohol and Drug Abuse Patient Records regulations: The Federal rules restrict any use of the information to criminally investigate or prosecute any alcohol or drug abuse patient.[facility]In the event this information is protected by the Federal Confidentiality of Alcohol and Drug Abuse Patient Records regulations: The Federal rules restrict any use of the information to criminally investigate or prosecute any alcohol or drug abuse patient.[facility]In the event this information is protected by the Federal Confidentiality of Alcohol and Drug Abuse Patient Records regulations: The Federal rules restrict any use of the information to criminally investigate or prosecute any alcohol or drug abuse patient.[facility] HospitalIn the event this information is protected by the Federal Confidentiality of Alcohol and Drug Abuse Patient Records regulations: The Federal rules restrict any use of the information to criminally investigate or prosecute any alcohol or drug abuse patient.[facility] HospitalIn the event this information is protected by the Federal Confidentiality of Alcohol and Drug Abuse Patient Records regulations: The Federal rules restrict any use of the information to criminally investigate or prosecute any alcohol or drug abuse patient.[facility] HospitalIn the event this information is protected by the Federal Confidentiality of Alcohol and Drug Abuse Patient Records regulations: The Federal rules restrict any use of the information to criminally investigate or prosecute any alcohol or drug abuse patient.[facility] HospitalIn the event this information is protected by the Federal Confidentiality of Alcohol and Drug Abuse Patient Records regulations: The Federal rules restrict any use of the information to criminally investigate or prosecute any alcohol or drug abuse patient.[facility] HospitalIn the event this information is protected by the Federal Confidentiality of Alcohol and Drug Abuse Patient Records regulations: The Federal rules restrict any use of the information to criminally investigate or prosecute any alcohol or drug abuse patient.[facility] HospitalIn the event this information is protected by the Federal Confidentiality of Alcohol and Drug Abuse Patient Records regulations: The Federal rules restrict any use of the information to criminally investigate or prosecute any alcohol or drug abuse patient.[facility] HospitalIn the event this information is protected by the Federal Confidentiality of Alcohol and Drug Abuse Patient Records regulations: The Federal rules restrict any use of the information to criminally investigate or prosecute any alcohol or drug abuse patient.[facility] HospitalIn the event this information is protected by the Federal Confidentiality of Alcohol and Drug Abuse Patient Records regulations: The Federal rules restrict any use of the information to criminally investigate or prosecute any alcohol or drug abuse patient.[facility] HospitalIn the event this information is protected by the Federal Confidentiality of Alcohol and Drug Abuse Patient Records regulations: The Federal rules restrict any use of the information to criminally investigate or prosecute any alcohol or drug abuse patient.[facility] HospitalIn the event this information is protected by the Federal Confidentiality of Alcohol and Drug Abuse Patient Records regulations: The Federal rules restrict any use of the information to criminally investigate or prosecute any alcohol or drug abuse patient.[facility] HospitalIn the event this information is protected by the Federal Confidentiality of Alcohol and Drug Abuse Patient Records regulations: The Federal rules restrict any use of the information to criminally investigate or prosecute any alcohol or drug abuse patient.[facility] HospitalIn the event this information is protected by the Federal Confidentiality of Alcohol and Drug Abuse Patient Records regulations: The Federal rules restrict any use of the information to criminally investigate or prosecute any alcohol or drug abuse patient.[facility] HospitalIn the event this information is protected by the Federal Confidentiality of Alcohol and Drug Abuse Patient Records regulations: The Federal rules restrict any use of the information to criminally investigate or prosecute any alcohol or drug abuse patient.[facility] HospitalIn the event this information is protected by the Federal Confidentiality of Alcohol and Drug Abuse Patient Records regulations: The Federal rules restrict any use of the information to criminally investigate or prosecute any alcohol or drug abuse patient.[facility] HospitalIn the event this information is protected by the Federal Confidentiality of Alcohol and Drug Abuse Patient Records regulations: The Federal rules restrict any use of the information to criminally investigate or prosecute any alcohol or drug abuse patient.[facility] HospitalIn the event this information is protected by the Federal Confidentiality of Alcohol and Drug Abuse Patient Records regulations: The Federal rules restrict any use of the information to criminally investigate or prosecute any alcohol or drug abuse patient.[facility] HospitalIn the event this information is protected by the Federal Confidentiality of Alcohol and Drug Abuse Patient Records regulations: The Federal rules restrict any use of the information to criminally investigate or prosecute any alcohol or drug abuse patient.[facility] HospitalIn the event this information is protected by the Federal Confidentiality of Alcohol and Drug Abuse Patient Records regulations: The Federal rules restrict any use of the information to criminally investigate or prosecute any alcohol or drug abuse patient.[facility] HospitalIn the event this information is protected by the Federal Confidentiality of Alcohol and Drug Abuse Patient Records regulations: The Federal rules restrict any use of the information to criminally investigate or prosecute any alcohol or drug abuse patient.[facility] HospitalIn the event this information is protected by the Federal Confidentiality of Alcohol and Drug Abuse Patient Records regulations: The Federal rules restrict any use of the information to criminally investigate or prosecute any alcohol or drug abuse patient.[facility] HospitalIn the event this information is protected by the Federal Confidentiality of Alcohol and Drug Abuse Patient Records regulations: The Federal rules restrict any use of the information to criminally investigate or prosecute any alcohol or drug abuse patient.[facility] HospitalIn the event this information is protected by the Federal Confidentiality of Alcohol and Drug Abuse Patient Records regulations: The Federal rules restrict any use of the information to criminally investigate or prosecute any alcohol or drug abuse patient.[facility] HospitalIn the event this information is protected by the Federal Confidentiality of Alcohol and Drug Abuse Patient Records regulations: The Federal rules restrict any use of the information to criminally investigate or prosecute any alcohol or drug abuse patient.[facility] HospitalIn the event this information is protected by the Federal Confidentiality of Alcohol and Drug Abuse Patient Records regulations: The Federal rules restrict any use of the information to criminally investigate or prosecute any alcohol or drug abuse patient.[facility] HospitalIn the event this information is protected by the Federal Confidentiality of Alcohol and Drug Abuse Patient Records regulations: The Federal rules restrict any use of the information to criminally investigate or prosecute any alcohol or drug abuse patient.[facility] HospitalIn the event this information is protected by the Federal Confidentiality of Alcohol and Drug Abuse Patient Records regulations: The Federal rules restrict any use of the information to criminally investigate or prosecute any alcohol or drug abuse patient.[facility] HospitalIn the event this information is protected by the Federal Confidentiality of Alcohol and Drug Abuse Patient Records regulations: The Federal rules restrict any use of the information to criminally investigate or prosecute any alcohol or drug abuse patient.[facility] HospitalIn the event this information is protected by the Federal Confidentiality of Alcohol and Drug Abuse Patient Records regulations: The Federal rules restrict any use of the information to criminally investigate or prosecute any alcohol or drug abuse patient.[facility] HospitalIn the event this information is protected by the Federal Confidentiality of Alcohol and Drug Abuse Patient Records regulations: The Federal rules restrict any use of the information to criminally investigate or prosecute any alcohol or drug abuse patient.[facility] HospitalIn the event this information is protected by the Federal Confidentiality of Alcohol and Drug Abuse Patient Records regulations: The Federal rules restrict any use of the information to criminally investigate or prosecute any alcohol or drug abuse patient.[facility] HospitalIn the event this information is protected by the Federal Confidentiality of Alcohol and Drug Abuse Patient Records regulations: The Federal rules restrict any use of the information to criminally investigate or prosecute any alcohol or drug abuse patient.[facility] HospitalIn the event this information is protected by the Federal Confidentiality of Alcohol and Drug Abuse Patient Records regulations: The Federal rules restrict any use of the information to criminally investigate or prosecute any alcohol or drug abuse patient.[facility] HospitalIn the event this information is protected by the Federal Confidentiality of Alcohol and Drug Abuse Patient Records regulations: The Federal rules restrict any use of the information to criminally investigate or prosecute any alcohol or drug abuse patient.[facility] HospitalIn the event this information is protected by the Federal Confidentiality of Alcohol and Drug Abuse Patient Records regulations: The Federal rules restrict any use of the information to criminally investigate or prosecute any alcohol or drug abuse patient.[facility] HospitalIn the event this information is protected by the Federal Confidentiality of Alcohol and Drug Abuse Patient Records regulations: The Federal rules restrict any use of the information to criminally investigate or prosecute any alcohol or drug abuse patient.[facility] HospitalIn the event this information is protected by the Federal Confidentiality of Alcohol and Drug Abuse Patient Records regulations: The Federal rules restrict any use of the information to criminally investigate or prosecute any alcohol or drug abuse patient.[facility] HospitalIn the event this information is protected by the Federal Confidentiality of Alcohol and Drug Abuse Patient Records regulations: The Federal rules restrict any use of the information to criminally investigate or prosecute any alcohol or drug abuse patient.[facility] HospitalIn the event this information is protected by the Federal Confidentiality of Alcohol and Drug Abuse Patient Records regulations: The Federal rules restrict any use of the information to criminally investigate or prosecute any alcohol or drug abuse patient.[facility] HospitalIn the event this information is protected by the Federal Confidentiality of Alcohol and Drug Abuse Patient Records regulations: The Federal rules restrict any use of the information to criminally investigate or prosecute any alcohol or drug abuse patient.[facility] HospitalIn the event this information is protected by the Federal Confidentiality of Alcohol and Drug Abuse Patient Records regulations: The Federal rules restrict any use of the information to criminally investigate or prosecute any alcohol or drug abuse patient.[facility] HospitalIn the event this information is protected by the Federal Confidentiality of Alcohol and Drug Abuse Patient Records regulations: The Federal rules restrict any use of the information to criminally investigate or prosecute any alcohol or drug abuse patient.[facility] HospitalIn the event this information is protected by the Federal Confidentiality of Alcohol and Drug Abuse Patient Records regulations: The Federal rules restrict any use of the information to criminally investigate or prosecute any alcohol or drug abuse patient.[facility] HospitalIn the event this information is protected by the Federal Confidentiality of Alcohol and Drug Abuse Patient Records regulations: The Federal rules restrict any use of the information to criminally investigate or prosecute any alcohol or drug abuse patient.[facility] HospitalIn the event this information is protected by the Federal Confidentiality of Alcohol and Drug Abuse Patient Records regulations: The Federal rules restrict any use of the information to criminally investigate or prosecute any alcohol or drug abuse patient.[facility] HospitalIn the event this information is protected by the Federal Confidentiality of Alcohol and Drug Abuse Patient Records regulations: The Federal rules restrict any use of the information to criminally investigate or prosecute any alcohol or drug abuse patient.[facility] HospitalIn the event this information is protected by the Federal Confidentiality of Alcohol and Drug Abuse Patient Records regulations: The Federal rules restrict any use of the information to criminally investigate or prosecute any alcohol or drug abuse patient.[facility] HospitalIn the event this information is protected by the Federal Confidentiality of Alcohol and Drug Abuse Patient Records regulations: The Federal rules restrict any use of the information to criminally investigate or prosecute any alcohol or drug abuse patient.[facility] HospitalIn the event this information is protected by the Federal Confidentiality of Alcohol and Drug Abuse Patient Records regulations: The Federal rules restrict any use of the information to criminally investigate or prosecute any alcohol or drug abuse patient.[facility] HospitalIn the event this information is protected by the Federal Confidentiality of Alcohol and Drug Abuse Patient Records regulations: The Federal rules restrict any use of the information to criminally investigate or prosecute any alcohol or drug abuse patient.[facility] HospitalIn the event this information is protected by the Federal Confidentiality of Alcohol and Drug Abuse Patient Records regulations: The Federal rules restrict any use of the information to criminally investigate or prosecute any alcohol or drug abuse patient.[facility] HospitalIn the event this information is protected by the Federal Confidentiality of Alcohol and Drug Abuse Patient Records regulations: The Federal rules restrict any use of the information to criminally investigate or prosecute any alcohol or drug abuse patient.[facility] HospitalIn the event this information is protected by the Federal Confidentiality of Alcohol and Drug Abuse Patient Records regulations: The Federal rules restrict any use of the information to criminally investigate or prosecute any alcohol or drug abuse patient.[facility] HospitalIn the event this information is protected by the Federal Confidentiality of Alcohol and Drug Abuse Patient Records regulations: The Federal rules restrict any use of the information to criminally investigate or prosecute any alcohol or drug abuse patient.[facility] HospitalIn the event this information is protected by the Federal Confidentiality of Alcohol and Drug Abuse Patient Records regulations: The Federal rules restrict any use of the information to criminally investigate or prosecute any alcohol or drug abuse patient.[facility] HospitalIn the event this information is protected by the Federal Confidentiality of Alcohol and Drug Abuse Patient Records regulations: The Federal rules restrict any use of the information to criminally investigate or prosecute any alcohol or drug abuse patient.[facility] HospitalIn the event this information is protected by the Federal Confidentiality of Alcohol and Drug Abuse Patient Records regulations: The Federal rules restrict any use of the information to criminally investigate or prosecute any alcohol or drug abuse patient.[facility] HospitalIn the event this information is protected by the Federal Confidentiality of Alcohol and Drug Abuse Patient Records regulations: The Federal rules restrict any use of the information to criminally investigate or prosecute any alcohol or drug abuse patient.[facility] HospitalIn the event this information is protected by the Federal Confidentiality of Alcohol and Drug Abuse Patient Records regulations: The Federal rules restrict any use of the information to criminally investigate or prosecute any alcohol or drug abuse patient.[facility] HospitalIn the event this information is protected by the Federal Confidentiality of Alcohol and Drug Abuse Patient Records regulations: The Federal rules restrict any use of the information to criminally investigate or prosecute any alcohol or drug abuse patient.[facility] HospitalIn the event this information is protected by the Federal Confidentiality of Alcohol and Drug Abuse Patient Records regulations: The Federal rules restrict any use of the information to criminally investigate or prosecute any alcohol or drug abuse patient.[facility] HospitalIn the event this information is protected by the Federal Confidentiality of Alcohol and Drug Abuse Patient Records regulations: The Federal rules restrict any use of the information to criminally investigate or prosecute any alcohol or drug abuse patient.[facility] HospitalIn the event this information is protected by the Federal Confidentiality of Alcohol and Drug Abuse Patient Records regulations: The Federal rules restrict any use of the information to criminally investigate or prosecute any alcohol or drug abuse patient.[facility] HospitalIn the event this information is protected by the Federal Confidentiality of Alcohol and Drug Abuse Patient Records regulations: The Federal rules restrict any use of the information to criminally investigate or prosecute any alcohol or drug abuse patient.[facility] HospitalIn the event this information is protected by the Federal Confidentiality of Alcohol and Drug Abuse Patient Records regulations: The Federal rules restrict any use of the information to criminally investigate or prosecute any alcohol or drug abuse patient.[facility] HospitalIn the event this information is protected by the Federal Confidentiality of Alcohol and Drug Abuse Patient Records regulations: The Federal rules restrict any use of the information to criminally investigate or prosecute any alcohol or drug abuse patient.[facility] HospitalIn the event this information is protected by the Federal Confidentiality of Alcohol and Drug Abuse Patient Records regulations: The Federal rules restrict any use of the information to criminally investigate or prosecute any alcohol or drug abuse patient.[facility] HospitalIn the event this information is protected by the Federal Confidentiality of Alcohol and Drug Abuse Patient Records regulations: The Federal rules restrict any use of the information to criminally investigate or prosecute any alcohol or drug abuse patient.[facility] HospitalIn the event this information is protected by the Federal Confidentiality of Alcohol and Drug Abuse Patient Records regulations: The Federal rules restrict any use of the information to criminally investigate or prosecute any alcohol or drug abuse patient.[facility] HospitalIn the event this information is protected by the Federal Confidentiality of Alcohol and Drug Abuse Patient Records regulations: The Federal rules restrict any use of the information to criminally investigate or prosecute any alcohol or drug abuse patient.[facility] HospitalIn the event this information is protected by the Federal Confidentiality of Alcohol and Drug Abuse Patient Records regulations: The Federal rules restrict any use of the information to criminally investigate or prosecute any alcohol or drug abuse patient.[facility] HospitalIn the event this information is protected by the Federal Confidentiality of Alcohol and Drug Abuse Patient Records regulations: The Federal rules restrict any use of the information to criminally investigate or prosecute any alcohol or drug abuse patient.[facility] Reason for Visit (unrecogniz ed section and content) Reason Comments Medication Problem Reason Onset Date Comments Refill Request 05/19/2021 do not fax rx to pharmacy Reason Onset Date Comments Refill Request 05/30/2021 Refill Request 06/02/2021 Reason Onset Date Comments Refill Request 06/14/2021 Reason Comments Patient Update ER visit, hip fx Reason Comments Medication Question Reason Comments No Show Reason Onset Date Comments Refill Request 08/18/2021 Reason Onset Date Comments Refill Request 08/19/2021 Reason Onset Date Comments Refill Request 08/16/2021 Reason Onset Date Comments Refill Request 08/30/2021 Reason Comments Insurance Authorization Reason Onset Date Comments Refill Request 10/05/2021 Reason Comments Medication Problem Reason Onset Date Comments Refill Request 10/13/2021 Reason Onset Date Comments Refill Request 10/16/2021 Reason Comments 2 month follow up Chronic pain meds Reason Comments Appointment Reason Onset Date Comments Refill Request 11/14/2021 Reason Comments Patient Update Refill Request Reason Onset Date Comments Refill Request 11/27/2021 Reason Onset Date Comments Refill Request 12/13/2021 Insurance Authorization 12/13/2021 Reason Onset Date Comments Refill Request 12/15/2021 Reason Onset Date Comments Refill Request 12/30/2021 Reason Onset Date Comments Refill Request 02/08/2022 Reason Comments Follow Up Reason Comments Follow Up 2 month Reason Onset Date Comments Refill Request 03/10/2022 Reason Comments Refill Request Reason Onset Date Comments Refill Request 04/06/2022 Reason Onset Date Comments Refill Request 05/04/2022 Reason Onset Date Comments Refill Request 05/05/2022 Reason Comments Forms Reason Onset Date Comments Refill Request 05/20/2022 Reason Onset Date Comments Refill Request 06/01/2022 Reason Onset Date Comments Refill Request 06/02/2022 Reason Comments Refill Request Reason Onset Date Comments Refill Request 06/15/2022 Reason Onset Date Comments Refill Request 07/06/2022 Reason Comments Critical Results Reason Comments Results Reason Onset Date Comments Refill Request 07/27/2022 Reason Comments Patient Update Reason Comments Recheck 2 month follow up Reason Onset Date Comments Refill Request 08/16/2022 Reason Onset Date Comments Refill Request 08/22/2022 Reason Comments Patient Question Reason Onset Date Comments Refill Request 08/24/2022 Reason Onset Date Comments Refill Request 08/29/2022 Reason Onset Date Comments Refill Request 09/26/2022 Reason Onset Date Comments Refill Request 09/20/2022 Reason Comments Med Change Request Reason Onset Date Comments Refill Request 10/03/2022 Reason Onset Date Comments Refill Request 10/04/2022 Reason Onset Date Comments Refill Request 10/17/2022 Reason Onset Date Comments Refill Request 10/28/2022 Reason Comments New Patient R hip Fx, Left knee Reason Onset Date Comments Refill Request 12/23/2022 Reason Onset Date Comments Refill Request 01/04/2023 Reason Onset Date Comments Refill Request 01/07/2023 Reason Onset Date Comments Refill Request 01/11/2023 Reason Onset Date Comments Refill Request 01/11/2023 Care Teams (unrecognized sec tion and content) Solar Lab Technician Relationship Specialty Start Date End Date Destini Leonard MD [address] [place], [place] [id number] PCP - General 01/23/02 Solar Lab Technician Relationship Specialty Start Date End Date Destini Leonard MD [address] [place], [place] [id number] PCP - General 01/23/02 Solar Lab Technician Relationship Specialty Start Date End Date Destini Leonard MD [address] [place] [address] PCP - General 01/23/02 Solar Lab Technician Relationship Specialty Start Date End Date Destini Leonard MD [address] [place] [address] PCP - General 01/23/02 Solar Lab Technician Relationship Specialty Start Date End Date Destini Leonard MD [address] [place] [address] PCP - General 01/23/02 Solar Lab Technician Relationship Specialty Start Date End Date Destini Leonard MD [address] [place] [address] PCP - General 01/23/02 Solar Lab Technician Relationship Specialty Start Date End Date Destini Leonard MD [address] [place] [address] PCP - General 01/23/02 Solar Lab Technician Relationship Specialty Start Date End Date Destini Leonard MD [address] [place] [address] PCP - General 01/23/02 Solar Lab Technician Relationship Specialty Start Date End Date Destini Leonard MD [address] [place] [address] PCP - General 01/23/02 Solar Lab Technician Relationship Specialty Start Date End Date Destini Leonard MD [facility] [place] [address] PCP - General 01/23/02 Solar Lab Technician Relationship Specialty Start Date End Date Destini Leonard MD [facility] [place] [address] PCP - General 01/23/02 Solar Lab Technician Relationship Specialty Start Date End Date Destini Leonard MD [address] [place] [address] PCP - General 01/23/02 Solar Lab Technician Relationship Specialty Start Date End Date Destini Leonard MD [address] [place] [address] PCP - General 01/23/02 Solar Lab Technician Relationship Specialty Start Date End Date Destini Leonard MD [address] [place] [address] PCP - General 01/23/02 Solar Lab Technician Relationship Specialty Start Date End Date Destini Leonard MD [address] [place] [address], [place] [address] PCP - General 01/23/02 Solar Lab Technician Relationship Specialty Start Date End Date Destini Leonard MD [facility] [place] [address] PCP - General 01/23/02 Solar Lab Technician Relationship Specialty Start Date End Date Destini Leonard MD [address] [place] [address] PCP - General 01/23/02 Solar Lab Technician Relationship Specialty Start Date End Date Destini Leonard MD [address] [place] [address] PCP - General 01/23/02 Solar Lab Technician Relationship Specialty Start Date End Date Destini Leonard MD [facility] [place] [address] PCP - General 01/23/02 Solar Lab Technician Relationship Specialty Start Date End Date Destini Leonard MD [address] [place] [address] PCP - General 01/23/02 Solar Lab Technician Relationship Specialty Start Date End Date Destini Leonard MD [address] [place] [address] PCP - General 01/23/02 Solar Lab Technician Relationship Specialty Start Date End Date Destini Leonard MD [address] [place] [address], [place] [address] PCP - General 01/23/02 Solar Lab Technician Relationship Specialty Start Date End Date Destini Leonard MD [address] [place] [address], [place] [address] PCP - General 01/23/02 Solar Lab Technician Relationship Specialty Start Date End Date Destini Leonard MD [address] [place] [address], [place] [address] PCP - General 01/23/02 Solar Lab Technician Relationship Specialty Start Date End Date Destini Leonard MD [address] [place] [address], [place] [address] PCP - General 01/23/02 Solar Lab Technician Relationship Specialty Start Date End Date Destini Leonard MD [address] [place] [address], [place] [address] PCP - General 01/23/02 Solar Lab Technician Relationship Specialty Start Date End Date Destini Leonard MD [address] [place] [address], [place] [address] PCP - General 01/23/02 Solar Lab Technician Relationship Specialty Start Date End Date Destini Leonard MD [address] [place] [address], [place] [address] PCP - General 01/23/02 Solar Lab Technician Relationship Specialty Start Date End Date Destini Leonard MD [address] [place] [address], [place] [address] PCP - General 01/23/02 Solar Lab Technician Relationship Specialty Start Date End Date Destini Leonard MD [address] [place] [address] PCP - General 01/23/02 Solar Lab Technician Relationship Specialty Start Date End Date Destini Leonard MD [address] [place] [address] PCP - General 01/23/02 Solar Lab Technician Relationship Specialty [place] [address] [place] [address], [place] [address] PCP - General 01/23/02 Solar Lab Technician Relationship Specialty Start Date End Date Destini Leonard MD [address] [place] [address], [place] [address] PCP - General 01/23/02 Solar Lab Technician Relationship Specialty Start Date End Date Destini Leonard MD [facility] [place] [address] PCP - General 01/23/02 Solar Lab Technician Relationship Specialty Start Date End Date Destini Leonard MD [address] [place] [address], [place] [address] PCP - General 01/23/02 Solar Lab Technician Relationship Specialty Start Date End Date Destini Leonard MD [address] [place] [address] PCP - General 01/23/02 Solar Lab Technician Relationship Specialty Start Date End Date Destini Leonard MD [address] [place] [address], [place] [address] PCP - General 01/23/02 Solar Lab Technician Relationship Specialty Start Date End Date Destini Leonard MD [address] [place] [address], [place] [address] PCP - General 01/23/02 Solar Lab Technician Relationship Specialty Start Date End Date Destini Leonard MD [address] [place] [address] PCP - General 01/23/02 Solar Lab Technician Relationship Specialty Start Date End Date Destini Leonard MD [address] [place] [address] PCP - General 01/23/02 Solar Lab Technician Relationship Specialty Start Date End Date Destini Leonard MD [address] [place] [address] PCP - General 01/23/02 Solar Lab Technician Relationship Specialty Start Date End Date Destini Leonard MD [address] [place] [address] PCP - General 01/23/02 Solar Lab Technician Relationship Specialty Start Date End Date Destini Leonard MD [address] [place] [address] PCP - General 01/23/02 Solar Lab Technician Relationship Specialty Start Date End Date Destini Leonard MD [address] [place] [address] PCP - General 01/23/02 Solar Lab Technician Relationship Specialty Start Date End Date Destini Leonard MD [address] [place] [address] PCP - General 01/23/02 Solar Lab Technician Relationship Specialty Start Date End Date Destini Leonard MD [address] [place] [address] PCP - General 01/23/02 Solar Lab Technician Relationship Specialty Start Date End Date Destini Leonard MD [address] [place] [address] PCP - General 01/23/02 Solar Lab Technician Relationship Specialty Start Date End Date Destini Leonard MD [address] [place], [place] [address] PCP - General 01/23/02 Solar Lab Technician Relationship Specialty Start Date End Date Destini Leonard MD [address] [place], [place] [id number] PCP - General 01/23/02 INFORMATION SOURCE (unrecogn ized section and content) DATE CREATED AUTHOR AUTHOR'S ORGANIZ ATION 01/23/2023 [facility] FOR RECORDS PERTAINING TO PATIENTS WHO ARE OR HAVE BEEN ENROLLED IN A CHEMICAL DEPENDENCY/SUBSTANCEABUSE PROGRAM, SOME INFORMATION MAY BE OMITTED. This clinical summary was aggregated from multiple sources. Caution should be exercised in using it in the provision of clinical care. This summary normalizes information from multiple sources, and as a consequence, information in this document may materially change the coding, format and clinical context of patient data. In addition, data may be omitted in some cases. CLINICAL DECISIONS SHOULD BE BASED ON THE PRIMARY CLINICAL RECORDS. [facility]. provides no warranty or guarantee of the accuracy or completeness of information in this document.
[2023-02-15 23:20] VITALS: BP 112/62; O2SAT 96
[2023-02-15 23:25] VITALS: BP 98/56; O2SAT 96
[2023-02-15 23:30] VITALS: BP 90/65; O2SAT 95
--- NOTE | 2023-02-15 23:40 | RAD_ITS ---
INDICATION: postreduc EXAMINATION/TECHNIQUE: X-RAY - XR Pelvis 1 or 2 Views COMPARISON: XR pelvis and right hip February 15, 2023. FINDINGS: A single frontal view of the pelvis was obtained. Dislocation of the right hip prosthesis is again identified, similar to the prior exam. The left hip prosthesis is normally aligned as before. No acute fracture identified. Irregular calcifications project over the iliac bones bilaterally. RAD/Pelvis 1 or 2 Views IMPRESSION: Dislocation of the right hip prosthesis, similar to the prior exam. Electronically Signed: Carlos Coleman MD at 0:24 EST ,
[2023-02-15] MEDS: Propofol 200 MG/20 ML Vial IV BOLUS (23:46)
[2023-02-16 00:11] VITALS: BP 107/68; PULSE 68; RESP 16; O2SAT 94
[2023-02-16] MEDS: fentaNYL 100 MCG/2 ML Ampul 50 MCG IV (00:15)
[2023-02-16 00:21] VITALS: BP 132/89; PULSE 76; RESP 14; TEMP 36.6; O2SAT 93
[2023-02-16 00:24] VITALS: BP 118/53; PULSE 84; RESP 16; O2SAT 89
[2023-02-16 00:26] VITALS: BP 118/53; O2SAT 97
--- NOTE | 2023-02-16 00:28 | RAD_ITS ---
INDICATION: postreduction EXAMINATION/TECHNIQUE: X-RAY - XR Hip Right when performed; 2 Views COMPARISON: XR pelvis February 15, 2023 FINDINGS: 2 views of the right hip were obtained. Anatomic alignment of the right hip prosthesis postreduction. No acute fracture identified. Large irregular soft tissue calcification in the right posterolateral pelvic wall. Extensive vascular calcifications. RAD/Hip Min 2 Views (Portable) IMPRESSION: Anatomic alignment of the right hip prosthesis postreduction. Electronically Signed: Carlos Coleman MD at 2:59 EST ,
[2023-02-16 00:30] VITALS: BP 95/59; O2SAT 91
[2023-02-16 00:35] VITALS: BP 113/64; O2SAT 97
--- NOTE | 2023-02-16 00:39 | CONS.ORTHO ---
HPI Consult Data Date of Consult: 02/16/23 HPI Narrative HPI Narrative: MYNOR ROMERO, is a 77 F who presents with a right hip dislocation. Reportedly this is her 11th dislocation. Patient thinks she had a hip replaced in 1994. Not remember the doctor who did it. She has had successful reductions in the past. Reportedly she has seen Dr. Bean to discuss revision surgery. He denies head injury or loss of consciousness. ON LICENSE OF [facility] Medical History Anemia B12 deficiency Hypertension Irritable bowel syndrome Neuropathic pain Opioid dependence Severe protein-calorie malnutrition Home Medications hyoscyamine sulfate 0.125 mg sublingual tablet 0.125 mg sublingual PRN PRN CROHNS 09/05/16 [History Last Taken 11/26/19] multivitamin (Multiple Vitamins tablet) 1 ea PO DAILY SUPPLEMENT 09/05/16 [History Last Taken 11/27/19] clonidine HCl 0.1 mg tablet 0.1 - 0.2 mg PO TID BP 04/07/18 [History Last Taken 11/28/19] ondansetron 4 mg disintegrating tablet 4 mg PO Q6H PRN NAUSEA 04/07/18 [History Last Taken Unknown] cholecalciferol (vitamin D3) 25 mcg (1,000 unit) tablet (Vitamin D3) 2,000 unit PO DAILY SUPPLEMENT 07/26/18 [History Last Taken 11/26/19] lisinopril 10 mg tablet 10 mg PO DAILY BP 10/23/18 [History Last Taken Unknown] acetaminophen 500 mg tablet 1,000 mg PO BID PRN PRN Pain 1-10 Or Fever 11/28/19 [History Last Taken 11/26/19] cyanocobalamin (vitamin B-12) 1,000 mcg/mL injection solution 1,000 mcg IM QMONTH SUPPLEMENT 11/28/19 [History Last Taken 11/13/19] oxycodone 30 mg tablet 20 mg PO Q4H PRN PRN Pain 1-10 Or Fever 11/28/19 [History Last Taken 11/27/19] calcium carb-ergocalciferol (vit D2) 600 mg calcium-200 unit tablet 2 tab PO DAILY 07/12/21 [History Last Taken Unknown] Allergy/AdvReac Type Severity Reaction Status Date / Time amlodipine [From [facility]] Allergy Unknown Verified 11/28/19 08:49 ampicillin Allergy Hives Verified 11/28/19 08:49 celecoxib [From Celebrex] Allergy Unknown Verified 11/28/19 08:49 cephalexin Allergy Unknown Verified 11/28/19 08:49 cyclobenzaprine Allergy Unknown Verified 11/28/19 08:49 [From Flexeril] levofloxacin [From Levaquin] Allergy Unknown Verified 11/28/19 08:49 mesalamine [From Pentasa] Allergy Unknown Verified 11/28/19 08:49 NSAIDS (Non-Steroidal Allergy Unknown Verified 11/28/19 08:49 Anti-Inflamma Penicillins Allergy Rash Verified 11/28/19 08:49 prochlorperazine Allergy Unknown Verified 11/28/19 08:49 [From Compazine] sulfamethoxazole Allergy Rash Verified 11/28/19 08:49 [From Bactrim] trazodone Allergy Unknown Verified 11/28/19 08:49 trimethoprim [From Bactrim] Allergy Rash Verified 11/28/19 08:49 zolpidem [From Ambien] Allergy Unknown Verified 11/28/19 08:49 Family History Father Heart disease Hypertension Surgical History History of bilateral salpingo-oophorectomy History of hysterectomy Status post bilateral total hip replacement Social History household members: spouse Smoking Status: Never smoker alcohol intake: never substance use type: does not use Vital Signs Vital Signs Vital Signs: 02/15/23 22:21 02/15/23 22:23 02/15/23 23:08 Temperature 98.1 F 98 F Temperature Source Oral Pulse Rate 86 79 Pulse Rate [2] 78 Pulse Rate [3] 81 Pulse Rate [4] 74 Pulse Rate [Right hip reduction] 91 Respiratory Rate 16 16 Respiratory Rate [2] 11 L Respiratory Rate [3] 10 L Respiratory Rate [4] 13 Respiratory Rate [Right hip reduction] 13 Blood Pressure 111/80 105/64 Blood Pressure [2] 110/57 L Blood Pressure [3] 110/57 L Blood Pressure [4] 122/79 H Blood Pressure [Right hip reduction] 105/64 Blood Pressure Mean 90 Pulse Ox 95 90 Oxygen Delivery Method Room Air Nasal Cannula Oxygen Delivery Method [2] Nasal Cannula Oxygen Delivery Method [3] Nasal Cannula Oxygen Delivery Method [4] Nasal Cannula Oxygen Delivery Method [Right hip reduction] Nasal Cannula Oxygen Flow Rate (L/min) 2 Oxygen Flow Rate (L/min) [2] 2 Oxygen Flow Rate (L/min) [3] 6 Oxygen Flow Rate (L/min) [4] 4 Oxygen Flow Rate (L/min) [Right hip reduction] 2 Fraction of Inspired Oxygen (FIO2) [Right hip reduction] 2 02/15/23 23:20 02/15/23 23:30 02/15/23 23:25 Temperature Temperature Source Pulse Rate Pulse Rate [2] Pulse Rate [3] Pulse Rate [4] Pulse Rate [Right hip reduction] Respiratory Rate Respiratory Rate [2] Respiratory Rate [3] Respiratory Rate [4] Respiratory Rate [Right hip reduction] Blood Pressure Blood Pressure [2] Blood Pressure [3] Blood Pressure [4] Blood Pressure [Right hip reduction] Blood Pressure Mean Pulse Ox Oxygen Delivery Method Nasal Cannula Nasal Cannula Oxygen Delivery Method [2] Oxygen Delivery Method [3] Oxygen Delivery Method [4] Oxygen Delivery Method [Right hip reduction] Oxygen Flow Rate (L/min) 6 2 2 Oxygen Flow Rate (L/min) [2] Oxygen Flow Rate (L/min) [3] Oxygen Flow Rate (L/min) [4] Oxygen Flow Rate (L/min) [Right hip reduction] Fraction of Inspired Oxygen (FIO2) [Right hip reduction] 02/16/23 00:11 02/16/23 00:21 02/16/23 00:24 Temperature 98 F Temperature Source Pulse Rate 68 76 Pulse Rate [2] Pulse Rate [3] Pulse Rate [4] 84 Pulse Rate [Right hip reduction] Respiratory Rate 16 14 Respiratory Rate [2] Respiratory Rate [3] Respiratory Rate [4] 16 Respiratory Rate [Right hip reduction] Blood Pressure 107/68 132/89 H Blood Pressure [2] Blood Pressure [3] Blood Pressure [4] 118/53 L Blood Pressure [Right hip reduction] Blood Pressure Mean 81 Pulse Ox 94 93 Oxygen Delivery Method Nasal Cannula Nasal Cannula Oxygen Delivery Method [2] Oxygen Delivery Method [3] Oxygen Delivery Method [4] Nasal Cannula Oxygen Delivery Method [Right hip reduction] Oxygen Flow Rate (L/min) 2 2 Oxygen Flow Rate (L/min) [2] Oxygen Flow Rate (L/min) [3] Oxygen Flow Rate (L/min) [4] 2 Oxygen Flow Rate (L/min) [Right hip reduction] Fraction of Inspired Oxygen (FIO2) [Right hip reduction] 02/16/23 00:26 02/16/23 00:30 Temperature Temperature Source Pulse Rate Pulse Rate [2] Pulse Rate [3] Pulse Rate [4] Pulse Rate [Right hip reduction] Respiratory Rate Respiratory Rate [2] Respiratory Rate [3] Respiratory Rate [4] Respiratory Rate [Right hip reduction] Blood Pressure Blood Pressure [2] Blood Pressure [3] Blood Pressure [4] Blood Pressure [Right hip reduction] Blood Pressure Mean Pulse Ox Oxygen Delivery Method Nasal Cannula Nasal Cannula Oxygen Delivery Method [2] Oxygen Delivery Method [3] Oxygen Delivery Method [4] Oxygen Delivery Method [Right hip reduction] Oxygen Flow Rate (L/min) 2 2 Oxygen Flow Rate (L/min) [2] Oxygen Flow Rate (L/min) [3] Oxygen Flow Rate (L/min) [4] Oxygen Flow Rate (L/min) [Right hip reduction] Fraction of Inspired Oxygen (FIO2) [Right hip reduction] Physical Exam Narrative Right hip has abduction shortening and internal rotation. She has pain with hip motion. Left hip has no pain. Right lower extremity Intact. X-rays reviewed showing a posterior superior right hip dislocation. Case discussed with the ER doctor Imagaing Radiology Impression Hip/Pelvis X-Ray 02/15/23 22:35 IMPRESSION: Dislocation of the right femoral prosthesis in relation to the right acetabular component as described. No acute fracture. Electronically Signed: Sameera Villalobos MD at 22:55 EST , Pelvis X-Ray 02/15/23 23:40 IMPRESSION: Dislocation of the right hip prosthesis, similar to the prior exam. Electronically Signed: Carlos Coleman MD at 0:24 EST , Assessment & Plan Assessment/Plan (1) Dislocation of internal right hip prosthesis: QUALIFIERS: Encounter type: initial encounter Qualified Code(s): T84.020A - Dislocation of internal right hip prosthesis, initial encounter PLAN: Plan Her diagnosis and treatment options discussed at length. Patient's was present. She did wish to undergo attempted closed reduction. Risk of the procedure including but not limited to from anesthetic complications. Possibility of damage to nerves arteries tendons possibilities fractures, possibility of not being able to reduce her hip. No guarantees were stated or implied. She understands the risk of recurrent dislocation. Procedure: After obtaining appropriate consent patient underwent sedation was administered by the ER physician. With traction and countertraction while position on the bed with gentle internal and external of the hip and the patient pelvis being supported by the ER physician hip was reduced. Hip was flexed about 90 degrees at time of reduction. Knee was flexed at 90 degrees. Clinically it seemed to go back in. Hip lengths were now normal. Hip was not malrotated. Postreduction x-ray showed right hip to be in good position. Patient be placed in knee immobilizer. He has follow-up with Dr. Bean to discuss further treatment. He can do Tylenol for pain if needed.
== END 2023-02-16 01:37 | disposition home or self-care (01) ==
PROVIDERS: Emergency Provider Emergency Medicine; PCP Internal Medicine; Visit Provider Emergency Medicine
DX: T84.020A Dislocation of internal right hip prosthesis, initial encounter (principal); X58.XXXA Exposure to other specified factors, initial encounter; I10 Essential (primary) hypertension; Z96.643 Presence of artificial hip joint, bilateral; Z79.899 Other long term (current) drug therapy
CPT/HCPCS: 27265; 72170; 73502; 96374; 96376; 99152; 99284; A4216

== ENCOUNTER 2023-07-29 19:56 | Emergency (ER) | payer MEDICARE, OTHER, SELFPAY ==
[2023-07-29 19:57] VITALS: BP 192/94; PULSE 89; RESP 15; TEMP 36.7; O2SAT 99
[2023-07-29 20:08] VITALS: BMI 16.4
[2023-07-29] MEDS: oxyCODONE 5 MG Tablet PO (20:38)
--- NOTE | 2023-07-29 20:39 | RAD_ITS ---
EXAM: XR RIGHT HIP WITH PELVIS WHEN PERFORMED, 2 OR 3 VIEWS CLINICAL INDICATION: Pain TECHNIQUE: Two or three views of the right hip with pelvis when performed. COMPARISON: No relevant prior studies available. FINDINGS: BONES/JOINTS: Total bilateral hip arthroplasties. Degenerative findings in the lumbar spine. No displaced fracture. No destructive or sclerotic lesions. Note that overlapping bowel shadows may however obscure fine detail. Sacroiliac joint is unremarkable. No widening of the pubic symphysis. SOFT TISSUES: Unremarkable. No soft tissue swelling or gas. RAD/HIP, UNI W/ Pelvis 2-3 Views IMPRESSION: No acute findings in the pelvis or right hip. Electronically Signed: Marito Garcia MD at 20:59 EDT ,
--- NOTE | 2023-07-29 21:11 | EDS_ITS ---
HPI History of Present Illness Chief Complaint: Lower Extremity Injury Narrative Narrative: 77-year-old female past surgical history of bilateral hip replacements presents with right groin pain that she has had for at least 3 years. She and her relate history that she had a fall 3 years ago, and had a hip replacement. She denies any recent falls but states that she has had pain in her right hip chronically. She is enrolled in pain management. She ran out of her oxycodone which she takes. She states she has a prescription but is unable to fill it for at least 4 more days. No fevers or chills, no other symptoms. [facility] Medical History Severe protein-calorie malnutrition Neuropathic pain Irritable bowel syndrome Hypertension B12 deficiency Opioid dependence Anemia Home Medications ?Medication ?Instructions ?Recorded ?Last Taken ?Type hyoscyamine sulfate 0.125 mg 0.125 mg sublingual PRN PRN CROHNS 09/05/16 11/26/19 History sublingual tablet multivitamin (Multiple Vitamins 1 ea PO DAILY SUPPLEMENT 09/05/16 11/27/19 History tablet) clonidine HCl 0.1 mg tablet 0.1 - 0.2 mg PO TID BP 04/07/18 11/28/19 History ondansetron 4 mg disintegrating 4 mg PO Q6H PRN NAUSEA 04/07/18 Unknown History tablet cholecalciferol (vitamin D3) 25 2,000 unit PO DAILY SUPPLEMENT 07/26/18 11/26/19 History mcg (1,000 unit) tablet (Vitamin D3) lisinopril 10 mg tablet 10 mg PO DAILY BP 10/23/18 Unknown History acetaminophen 500 mg tablet 1,000 mg PO BID PRN PRN Pain 1-10 11/28/19 11/26/19 History Or Fever cyanocobalamin (vitamin B-12) 1,000 mcg IM QMONTH SUPPLEMENT 11/28/19 11/13/19 History 1,000 mcg/mL injection solution oxycodone 30 mg tablet 20 mg PO Q4H PRN PRN Pain 1-10 Or 11/28/19 11/27/19 History Fever calcium carb-ergocalciferol (vit 2 tab PO DAILY 07/12/21 Unknown History D2) 600 mg calcium-200 unit tablet Allergy/AdvReac Type Severity Reaction Status Date / Time amlodipine (From Norvasc) Allergy Unknown Verified 07/29/23 20:04 ampicillin Allergy Hives Verified 07/29/23 20:04 celecoxib (From Celebrex) Allergy Unknown Verified 07/29/23 20:04 cephalexin Allergy Unknown Verified 07/29/23 20:04 cyclobenzaprine (From Allergy Unknown Verified 07/29/23 20:04 Flexeril) levofloxacin (From Levaquin) Allergy Unknown Verified 07/29/23 20:04 mesalamine (From Pentasa) Allergy Unknown Verified 07/29/23 20:04 NSAIDS (Non-Steroidal Allergy Unknown Verified 07/29/23 20:04 Anti-Inflamma Penicillins Allergy Rash Verified 07/29/23 20:04 prochlorperazine (From Allergy Unknown Verified 07/29/23 20:04 Compazine) sulfamethoxazole (From Allergy Rash Verified 11/28/19 08:49 Bactrim) trazodone Allergy Unknown Verified 07/29/23 20:04 trimethoprim (From Bactrim) Allergy Rash Verified 07/29/23 20:04 zolpidem (From Ambien) Allergy Unknown Verified 07/29/23 20:04 Family History Father Heart disease Hypertension Surgical History Status post bilateral total hip replacement History of bilateral salpingo-oophorectomy History of hysterectomy Social History household members: spouse Smoking Status: Never smoker alcohol intake: never substance use type: does not use ROS ROS ED ROS Narrative Constitutional: No fever, no chills. HEENT: No sore throat. No neck pain. No loss of vision. No rhinorrhea. Cardiovascular: No chest pain. No palpitations. No pedal edema. Respiratory: No cough, no shortness of breath. Abdominal: No abdominal pain. No nausea or vomiting associated with right groin pain. Genitourinary: No dysuria. No hematuria. Musculoskeletal: No myalgias. Chronic right hip pain. Neurologic: No headaches. No dizziness. No lightheadedness. Skin: No rash. No change in color. Psychiatric: No depression. No anxiety. EXAM Physical Exam Narrative Exam Narrative: Afebrile. Vital signs noted. Regular rate and rhythm. Lungs clear to auscultation bilaterally. Abdomen soft nontender with normoactive bowel sounds. Positive tenderness to palpation right groin, no palpable hernia. Extension and flexion of right hip and right knee intact. Palpable dorsalis pedis pulse, right. Const Vital Signs: 07/29/23 19:57 Temperature 98.0 F Temperature Source Temporal Pulse Rate 89 Respiratory Rate 15 Blood Pressure 192/94 H Blood Pressure Mean 126 Pulse Ox 99 Oxygen Delivery Method Room Air MDM MDM MDM Narrative Medical decision making narrative: I reviewed the patient's prescription monitoring program and she recently had a prescription filled for 14 days on the fifth of the month for 8420 mg oxycodone tablets. She was given 5 mg here initially and x-rays obtained of the pelvis and right hip were obtained. As the PACS system is down I am unable to individually interpreted the x-ray, but I reviewed the radiology report which states there is no acute fracture of the pelvis or right hip. At this point in time, as she is enrolled in pain management and already has a prescription, I will give her an additional dose of pain medication here, but I feel she can be discharged to follow-up with pain management. I explained to her that I am unable to write her prescription or give her pain medication for home use. Disposition is discharged in stable condition. History & Record Review Discussion w/independent historian: Patient Radiography X-Ray: Read by Radiologist (PACS system is down so I am unable to individually interpreted x-rays or visualize them.) Diagnostic Testing: Clinical Impression(s) from Imaging Studies Hip/Pelvis X-Ray 07/29/23 20:39 IMPRESSION: No acute findings in the pelvis or right hip. Electronically Signed: Marito Garcia MD at 20:59 EDT Reading Location ID and State: [facility] / [place] , Service support , Discharge Plan Triage Chief Complaint: Lower Extremity Injury ED Provider: Elia Amor Dx/Rx/DC Orders Clinical Impression: Chronic right hip pain, Chronic pain Instructions: ED Chronic Pain Prescriptions: No Action multivitamin [Multiple Vitamins] 1 EACH tablet 1 ea PO DAILY hyoscyamine sulfate 0.125 MG tablet, sublingual 0.125 mg sublingual PRN PRN (Reason: CROHNS) Rx Instructions: 1-2 tabs under the tongue before meals and at bedtime clonidine HCl 0.1 MG tablet 0.1 - 0.2 mg PO TID Rx Instructions: BP DEPENDENT ondansetron 4 MG tablet 4 mg PO Q6H PRN cholecalciferol (vitamin D3) [Vitamin D3] 1,000 UNIT tablet 2,000 unit PO DAILY lisinopril 10 tablet 10 mg PO DAILY Rx Instructions: 1-2 tabs, adjust based on blood pressure readings at home acetaminophen 500 MG tablet 1,000 mg PO BID PRN PRN (Reason: Pain 1-10 Or Fever) cyanocobalamin (vitamin B-12) 1,000 MCG/ML solution 1,000 mcg IM QMONTH oxycodone 30 MG tablet 20 mg PO Q4H PRN PRN (Reason: Pain 1-10 Or Fever) Calcium + Vitamin D 600 mg calcium- 200 unit Tablet 2 tab PO DAILY Primary Care Provider: Mercedes Leonard Referrals: Mercedes Leonard MD [Primary Care Provider] - Activity Restrictions/Additional Instructions: Follow-up with your pain management physician as soon as possible. Have your pain medication refilled when you are able to on the of this month. Print Language: Ukrainian Disposition Disposition: Home, Self Care
[2023-07-29] MEDS: oxyCODONE 5 MG Tablet 10 MG PO (21:39)
== END 2023-07-29 21:48 | disposition home or self-care (01) ==
PROVIDERS: Emergency Provider Emergency Medicine; PCP Internal Medicine; Visit Provider Emergency Medicine
DX: M25.551 Pain in right hip (principal); G89.29 Other chronic pain
CPT/HCPCS: 73502; 99282

== ENCOUNTER 2023-12-25 08:09 | Emergency (ER) | payer MEDICARE, OTHER, SELFPAY ==
[2023-12-25 08:10] VITALS: BP 179/121; PULSE 120; RESP 24; TEMP 36.8; O2SAT 94; BMI 19.3
[2023-12-25 08:15] VITALS: BP 179/121; PULSE 123; RESP 15; TEMP 36.8; O2SAT 94
[2023-12-25] MEDS: Ondansetron 4 MG/2 ML Vial IV (08:21)
[2023-12-25] MEDS: 0.9% Normal Saline (500mL Bag) 250 ML 999 ML IV (08:22)
[2023-12-25] MEDS: Morphine 4 MG/ML Syringe IV (08:22)
[2023-12-25 08:47] LABS: Absolute Lymphocyte Count 0.87 X10^3/uL (0.83-4.51); Absolute Neutrophil Count 5.9 X10^3/uL (2.0-7.7); Basophil# 0.04 X10^3/uL; Basophil% 0.5 % (0-1); Hemoglobin 12.2 g/dL (12.0-15.0); Lymphocyte # 0.87 X10^3/ul (0.83-4.51); Lymphocyte % 11.9 % (19-41); Mean Corp Hgb Conc 32.1 g/dL (32-36); Mean Corpuscular Hgb 27.9 pg (27.0-32.0); Mean Corpuscular Volume 86.8 fL (81-99); Monocyte# 0.42 X10^3/uL; Monocyte% 5.7 % (0-10); NRBC Flagged by Analyzer 0 % (0-5); Neutrophil # 5.92 X10^3/uL (2.7-7.7); Neutrophil % 80.9 % (47-70); Platelet Count 308 K/mm3 (150-450); RBC Distribution Width CV 14.7 % (11.6-14.6); Red Blood Count 4.38 M/mm3 (4.2-5.4); White Blood Count 7.3 K/mm3 (4.4-11.0)
[2023-12-25] MEDS: HYDROmorphone 1 MG/ML Syringe IV (08:53)
[2023-12-25 08:59] VITALS: BP 177/98; PULSE 119; RESP 19; O2SAT 94
[2023-12-25 09:09] LABS: Lactic Acid 1.5 mmol/L (0.4-1.9)
[2023-12-25 09:10] LABS: AST(SGOT) 24 U/L (15-37); Alanine Aminotransfer ALT/SGPT 20 U/L (13-56); Alkaline Phosphatase 151 U/L (45-117); Anion Gap 8 (5-15); BUN 19 mg/dL (7-18); BUN/Creat Ratio 19.9 RATIO (10-20); Bilirubin, Direct 0.14 mg/dL (0.00-0.30); Calcium,Total 9.3 mg/dL (8.5-10.1); Chloride 101 mmol/L (98-107); Creatinine, Serum 0.96 mg/dL (0.55-1.02); EST Glomerular Filtration Rate 60 mL/min (>60); Est Glom Filt Rate - Afr Amer 73 mL/min (>60); Estimated Creatinine Clearance 42.89 ml/min; Globulin 4.5 g/dL (2.2-4.2); Glucose 166 mg/dL (74-106); Lipase < 10 U/L (13-75); Potassium 4.5 mmol/L (3.5-5.1); Protein, Total 8.5 g/dL (6.4-8.2); Sodium Level 131 mmol/L (136-145)
[2023-12-25 09:42] VITALS: BP 176/95; PULSE 118; RESP 20; TEMP 36.4; O2SAT 93
[2023-12-25 10:14] LABS: Mucous, Urine 0 SEEN /hpf (<or=2+); Red Blood Cells-Urine 0 SEEN /hpf (0-5)
[2023-12-25 10:16] LABS: Color, Urine Yellow (Yellow); Glucose, Dipstick Normal (Normal); Ketone-Dipstick 15 mg/dl (Negative); Leukocyte Esterase-Dipstick Negative /ul (Negative); Nitrite-Dipstick Negative (Negative); Occult Blood-Urine 25 /ul (Negative); Protein-Dipstick 30 mg/dl (Negative); Urine Bilirubin Dipstick Negative (Negative); Urine Clarity Clear (Clear); Urine Urobilinogen Normal (Normal)
[2023-12-25 10:25] LABS: Bacteria 2+ /hpf (None Seen); Squamous Epithelial Cells - UA 0-5 SEEN /hpf (5-10); White Blood Cells 0-5 SEEN /hpf (0-5)
[2023-12-25 10:32] VITALS: BP 166/96; PULSE 104; RESP 16; TEMP 36.4; O2SAT 93
[2023-12-25 12:08] VITALS: BP 158/99; PULSE 128; RESP 16; TEMP 36.4; O2SAT 95
== END 2023-12-25 13:00 | disposition home or self-care (01) ==
PROVIDERS: Emergency Provider Emergency Medicine; PCP Internal Medicine; Visit Provider Emergency Medicine
DX: R10.9 Unspecified abdominal pain (principal); F11.20 Opioid dependence, uncomplicated; K59.00 Constipation, unspecified; R11.10 Vomiting, unspecified; G89.29 Other chronic pain
CPT/HCPCS: 71045; 74177; 80048; 80076; 81001; 83605; 83690; 85025; 93005; 96361; 96374; 96375; 96376; 99285; J7040; Q9967; A4216; J2405

== ENCOUNTER 2023-12-26 00:59 | Emergency (ER) | payer MEDICARE, OTHER, SELFPAY ==
[2023-12-26 01:00] VITALS: BP 179/123; PULSE 105; RESP 16; TEMP 36.7; O2SAT 93; BMI 19.2
[2023-12-26 01:08] VITALS: BP 162/103
--- NOTE | 2023-12-26 02:35 | EDS_ITS ---
HPI History of Present Illness Chief Complaint: Abd Pain Informant: spouse/S.O. Narrative Narrative: 78-year-old female presenting to the emergency room abdominal pain. states that she has not had a good bowel movement for several days. There is seen in the emergency department earlier today for his felt that the patient would benefit from some enemas which she refused. Patient and her elected to try oral medication but the was not able to get her to take any of the medicine now she is simply moaning and not answering any questions. states that she has not had anything to eat for 3 days. Has been trying to get her to drink fluids. [facility] Medical History Severe protein-calorie malnutrition Neuropathic pain Irritable bowel syndrome Hypertension B12 deficiency Opioid dependence Anemia Home Medications ?Medication ?Instructions ?Recorded ?Last Taken ?Type hyoscyamine sulfate 0.125 mg 0.125 mg sublingual PRN PRN CROHNS 09/05/16 11/26/19 History sublingual tablet multivitamin (Multiple Vitamins 1 ea PO DAILY SUPPLEMENT 09/05/16 11/27/19 History tablet) clonidine HCl 0.1 mg tablet 0.1 - 0.2 mg PO TID BP 04/07/18 11/28/19 History ondansetron 4 mg disintegrating 4 mg PO Q6H PRN NAUSEA 04/07/18 Unknown History tablet cholecalciferol (vitamin D3) 25 2,000 unit PO DAILY SUPPLEMENT 07/26/18 11/26/19 History mcg (1,000 unit) tablet (Vitamin D3) lisinopril 10 mg tablet 10 mg PO DAILY BP 10/23/18 Unknown History acetaminophen 500 mg tablet 1,000 mg PO BID PRN PRN Pain 1-10 11/28/19 11/26/19 History Or Fever cyanocobalamin (vitamin B-12) 1,000 mcg IM QMONTH SUPPLEMENT 11/28/19 11/13/19 History 1,000 mcg/mL injection solution calcium carb-ergocalciferol (vit 2 tab PO DAILY 07/12/21 Unknown History D2) 600 mg calcium-200 unit tablet dicyclomine 20 mg tablet 20 mg PO TID 12/25/23 Unknown History docusate sodium 100 mg capsule 100 mg PO BID #60 caps 12/25/23 Unknown Rx (Colace) oxycodone 20 mg tablet 30 mg PO Q4H PRN PRN pain 12/25/23 Unknown History polyethylene glycol 3350 17 17 g PO DAILY #238 grams 12/25/23 Unknown Rx gram/dose oral powder (Miralax) Allergy/AdvReac Type Severity Reaction Status Date / Time amlodipine (From Norvasc) Allergy Unknown Verified 07/29/23 20:04 ampicillin Allergy Hives Verified 07/29/23 20:04 celecoxib (From Celebrex) Allergy Unknown Verified 07/29/23 20:04 cephalexin Allergy Unknown Verified 07/29/23 20:04 cyclobenzaprine (From Allergy Unknown Verified 07/29/23 20:04 Flexeril) levofloxacin (From Levaquin) Allergy Unknown Verified 07/29/23 20:04 mesalamine (From Pentasa) Allergy Unknown Verified 07/29/23 20:04 NSAIDS (Non-Steroidal Allergy Unknown Verified 07/29/23 20:04 Anti-Inflamma Penicillins Allergy Rash Verified 07/29/23 20:04 prochlorperazine (From Allergy Unknown Verified 07/29/23 20:04 Compazine) sulfamethoxazole (From Allergy Rash Verified 11/28/19 08:49 Bactrim) trazodone Allergy Unknown Verified 07/29/23 20:04 trimethoprim (From Bactrim) Allergy Rash Verified 07/29/23 20:04 zolpidem (From Ambien) Allergy Unknown Verified 07/29/23 20:04 Family History Father Heart disease Hypertension Surgical History Status post bilateral total hip replacement History of bilateral salpingo-oophorectomy History of hysterectomy Social History household members: spouse Smoking Status: Never smoker alcohol intake: never substance use type: does not use ROS ROS ED Review of Systems ROS Unobtainable: due to mental status EXAM Physical Exam Narrative Exam Narrative: She will however make very deliberate movements like removing my hand from her abdomen or adjusting herself in the bed for more comfortable position. Const Vital Signs: 12/26/23 01:00 12/26/23 01:08 12/26/23 04:28 Temperature 98.1 F Temperature Source Oral Pulse Rate 105 H 127 H Respiratory Rate 16 14 Blood Pressure 179/123 H 162/103 H 159/99 H Blood Pressure Mean 141 122 119 Pulse Ox 93 94 Oxygen Delivery Method Room Air Room Air 12/26/23 06:24 Temperature Temperature Source Pulse Rate 79 Respiratory Rate 18 Blood Pressure 145/60 H Blood Pressure Mean 88 Pulse Ox Oxygen Delivery Method Positive well nourished and well developed General Appearance ED: well developed HEENT Reports normocephalic, head/scalp atraumatic and moist mucous membranes Eyes PERRL and EOMs intact bilaterally Neck no lymphadenopathy, supple and no JVD Resp normal respiratory effort and clear to auscultation bilaterally Cardio regular rate, regular rhythm and no murmurs GI normal to inspection, nondistended, normoactive bowel sounds and non-tender Palpation: soft Back/Spine no CVA tenderness and normal ROM Extremity normal to inspection General Extremety ED: Negative for edema General Extremity: Negative for edema Neuro Neuro Narrative: Patient moaning and rubbing her abdomen Sensorium / Orientation: alert Motor Exam: strength 5/5 throughout Psych Psych Narrative: Unable to assess Skin no rashes or lesions noted and no wounds MDM MDM MDM Narrative Medical decision making narrative: Differential diagnosis includes but not limited to volvulus constipation sepsis dehydration White count 10.1 hemoglobin 12.9. BUN 22 creatinine 0.87 glucose of 132. I reviewed the patient's CT. She received an enema and over period of hours the patient had several large firm balls of stool. Patient was able to drink a bottle of magnesium citrate. She states intermittently will talk with nursing. When I am in the room she moans. Talked with her and I do wonder if there is a underlying dementia with her based on this behavior which he states that he has noticed a decline over the past several years but not has ever been addressed by primary care and so he does not know if that is something that they have talked about without him. He does not feel very comfortable taking her home based on how she is currently acting. She is still moaning and rubbing her abdomen. I can speak with the hospitalist regarding a potential admission. While waiting for the hospitalist to call back the patient had a very large bowel movement. She feels much better. Her to give her some food and see if she can tolerate. She states she most likely can go home now. She is now actually speaking to me. History & Record Review Discussion w/independent historian: Patient Lab Data Attestation: I reviewed the patient's lab results. Labs: Laboratory Results - last 24 hr 12/26/23 03:11 WBC 10.1 RBC 4.67 Hgb 12.9 Hct 39.6 MCV 84.8 MCH 27.6 MCHC 32.6 RDW Std Deviation 45.6 H RDW Coeff of Ama 14.9 H Plt Count 329 MPV 11.3 Immature Gran % (Auto) 0.400 Neut % (Auto) 82.2 H Lymph % (Auto) 9.3 L Barry % (Auto) 7.9 Eos % (Auto) 0.0 Baso % (Auto) 0.2 Absolute Neuts (auto) 8.3 H Absolute Lymphs (auto) 0.94 Nucleated RBC % 0 Sodium 133 L Potassium 3.7 Chloride 98 Carbon Dioxide 23.0 Anion Gap 11 BUN 22 H Creatinine 0.87 Estim Creat Clear Calc 46.98 Est GFR (MDRD) Af Amer 82 Est GFR (MDRD) Non-Af 68 BUN/Creatinine Ratio 25.4 H Glucose 132 H Calcium 9.6 Discharge Plan Triage Chief Complaint: Abd Pain ED Provider: Srinath Paulino Dx/Rx/DC Orders Clinical Impression: Abdominal pain, Constipation Prescriptions: No Action multivitamin [Multiple Vitamins] 1 EACH tablet 1 ea PO DAILY hyoscyamine sulfate 0.125 MG tablet, sublingual 0.125 mg sublingual PRN PRN (Reason: CROHNS) Rx Instructions: 1-2 tabs under the tongue before meals and at bedtime clonidine HCl 0.1 MG tablet 0.1 - 0.2 mg PO TID Rx Instructions: BP DEPENDENT ondansetron 4 MG tablet 4 mg PO Q6H PRN cholecalciferol (vitamin D3) [Vitamin D3] 1,000 UNIT tablet 2,000 unit PO DAILY lisinopril 10 tablet 10 mg PO DAILY Rx Instructions: 1-2 tabs, adjust based on blood pressure readings at home acetaminophen 500 MG tablet 1,000 mg PO BID PRN PRN (Reason: Pain 1-10 Or Fever) cyanocobalamin (vitamin B-12) 1,000 MCG/ML solution 1,000 mcg IM QMONTH Calcium + Vitamin D 600 mg calcium- 200 unit Tablet 2 tab PO DAILY dicyclomine 20 mg tablet 20 mg PO TID oxycodone 20 mg tablet 30 mg PO Q4H PRN PRN (Reason: pain) polyethylene glycol 3350 [Miralax] 17 gram/dose powder 17 g PO DAILY Qty: 238 0RF docusate sodium [Colace] 100 mg capsule 100 mg PO BID Qty: 60 0RF Primary Care Provider: Mercedes Leonard Referrals: Mercedes Leonard MD [Primary Care Provider] - 3-5 Days Print Language: Citizen Of [place] Disposition Disposition: Home, Self Care
[2023-12-26 03:32] LABS: Absolute Lymphocyte Count 0.94 X10^3/uL (0.83-4.51); Absolute Neutrophil Count 8.3 X10^3/uL (2.0-7.7); Basophil# 0.02 X10^3/uL; Basophil% 0.2 % (0-1); Hematocrit 39.6 % (37-47); Hemoglobin 12.9 g/dL (12.0-15.0); Lymphocyte # 0.94 X10^3/ul (0.83-4.51); Lymphocyte % 9.3 % (19-41); Mean Corp Hgb Conc 32.6 g/dL (32-36); Mean Corpuscular Hgb 27.6 pg (27.0-32.0); Mean Corpuscular Volume 84.8 fL (81-99); Mean Platelet Vol. 11.3 fl (6.2-12.0); Monocyte# 0.79 X10^3/uL; Monocyte% 7.9 % (0-10); NRBC Flagged by Analyzer 0 % (0-5); Neutrophil # 8.27 X10^3/uL (2.7-7.7); Neutrophil % 82.2 % (47-70); Platelet Count 329 K/mm3 (150-450); RBC Distribution Width CV 14.9 % (11.6-14.6); RBC Distribution Width SD 45.6 fl (35.1-43.9); Red Blood Count 4.67 M/mm3 (4.2-5.4); White Blood Count 10.1 K/mm3 (4.4-11.0)
[2023-12-26 03:40] LABS: Anion Gap 11 (5-15); BUN 22 mg/dL (7-18); BUN/Creat Ratio 25.4 RATIO (10-20); Calcium,Total 9.6 mg/dL (8.5-10.1); Chloride 98 mmol/L (98-107); Creatinine, Serum 0.87 mg/dL (0.55-1.02); EST Glomerular Filtration Rate 68 mL/min (>60); Est Glom Filt Rate - Afr Amer 82 mL/min (>60); Estimated Creatinine Clearance 46.98 ml/min; Glucose 132 mg/dL (74-106); Potassium 3.7 mmol/L (3.5-5.1); Sodium Level 133 mmol/L (136-145)
[2023-12-26 04:28] VITALS: BP 159/99; PULSE 127; RESP 14; O2SAT 94
[2023-12-26] MEDS: Magnesium Citrate 300 ML PO (05:49)
[2023-12-26 06:24] VITALS: BP 145/60; PULSE 79; RESP 18
--- NOTE | 2023-12-26 07:11 | ED.RN ---
pt had a huge liquid brown/yellow stool. rogerio-care given,pt richard well.
[2023-12-26 08:00] VITALS: BP 144/99; PULSE 120; RESP 18; O2SAT 94
[2023-12-26 08:40] VITALS: BP 151/79; PULSE 64; RESP 16; TEMP 36.6; O2SAT 99
== END 2023-12-26 08:42 | disposition home or self-care (01) ==
PROVIDERS: Emergency Provider Emergency Medicine; PCP Internal Medicine; Visit Provider Emergency Medicine
DX: R10.9 Unspecified abdominal pain (principal); K59.00 Constipation, unspecified; I10 Essential (primary) hypertension; Z79.899 Other long term (current) drug therapy
CPT/HCPCS: 80048; 85025; 99285; A4216

== ENCOUNTER 2023-12-28 11:04 | Emergency (ER) | payer MEDICARE, OTHER, SELFPAY ==
[2023-12-28] VITALS (10 sets, daily range): BP systolic 146–182; BP diastolic 84–102; PULSE 76–108; RESP 13–24; TEMP 36.6; O2SAT 93–100; BMI 21.0
--- NOTE | 2023-12-28 11:46 | CT_ITS ---
STUDY: CT BRAIN WITHOUT CONTRAST REASON FOR EXAM: Female, 78 years old. Mental status change. Weakness. RADIATION DOSAGE (If Supplied By Facility): CTDIvol = ( 44.99 ) mGy, DLP = ( 812.98 ) mGycm TECHNIQUE: Transaxial CT imaging of the brain was performed without administration of intravenous contrast material. Individualized dose optimization techniques were used for this CT. COMPARISON: Comparison is made with prior study dated October 23, 2018. FINDINGS: Normal soft tissue structures. Normal calvarium. There is mild cerebral atrophy with widening of the extra-axial spaces and ventricular dilatation. There are areas of decreased attenuation within the white matter tracts of the supratentorial brain, consistent with microvascular disease changes. Normal basal ganglia and thalami. Normal brainstem. Normal cerebellum. There is evidence of a right intraventricular bleed with blood in the right lateral ventricle as well as the posterior horns of the right and left ventricles. There is evidence of a intracerebral hematoma deep in the right parietal lobe with surrounding edema and mass effect. No significant shift of the midline is seen at this time. Normal visualized paranasal sinuses. CT/Brain/Head without Contrast IMPRESSION: Acute intracerebral hematoma involving the right parietal lobe with a surrounding edema and mass effect. Blood in the right lateral ventricle as well as small amount of blood in the posterior horn of the left lateral ventricle. N.B. : The above Results were Read Back by Robb West MD to Mariana De Leon DO, and understanding confirmed on 12/28/2023 12:43:55 (ET). Electronically Signed: Robb West MD at 12:45 EST ,
--- NOTE | 2023-12-28 11:46 | EKG12_ITS ---
Test Reason : WEAKNESS Blood Pressure : */* mmHG Vent. Rate : 96 BPM Atrial Rate : 96 BPM P-R Int : 170 ms QRS Dur : 74 ms QT Int : 394 ms P-R-T Axes : 68 86 73 degrees QTcB Int : 497 ms Sinus rhythm with Premature atrial complexes Prolonged QT Abnormal ECG Confirmed by MARY ELLSWORTH, PIPER ([id number]), editor at large ANNIA MORALES ([id number]) on 01/02/2024 7:46:57 AM Referred By: Confirmed By: PIPER HERNANDEZ MD
--- NOTE | 2023-12-28 11:47 | EDS_ITS ---
HPI History of Present Illness Chief Complaint: Weakness Detail of Chief Complaint: Generalized weakness and failure to thrive Informant: patient and spouse/S.O. Narrative Narrative: Patient presents to the emergency department complaint generalized weakness and failure to thrive. states that she has had a mental status international exchange coordinator the last 7 days or so. She has had some constipation issues and she was seen in the emergency department about 3 days ago and had an enema with good results. Patient not eating and drinking. She still ambulatory with assistance. Per she had 2 episodes recently where she fell like she needed to go to the bathroom but forgot to drop her pants down and urinated on herself and this happened today and several days ago. is worried about possibility of stroke. She has not had any falls or injuries. She has history of Crohn's. She has had a gastrectomy. [facility] Medical History Severe protein-calorie malnutrition Neuropathic pain Irritable bowel syndrome Hypertension B12 deficiency Opioid dependence Anemia Home Medications ?Medication ?Instructions ?Recorded ?Last Taken ?Type hyoscyamine sulfate 0.125 mg 0.125 mg sublingual PRN PRN CROHNS 09/05/16 11/26/19 History sublingual tablet multivitamin (Multiple Vitamins 1 ea PO DAILY SUPPLEMENT 09/05/16 11/27/19 History tablet) clonidine HCl 0.1 mg tablet 0.1 - 0.2 mg PO TID BP 04/07/18 11/28/19 History ondansetron 4 mg disintegrating 4 mg PO Q6H PRN NAUSEA 04/07/18 Unknown History tablet cholecalciferol (vitamin D3) 25 2,000 unit PO DAILY SUPPLEMENT 07/26/18 11/26/19 History mcg (1,000 unit) tablet (Vitamin D3) lisinopril 10 mg tablet 10 mg PO DAILY BP 10/23/18 Unknown History acetaminophen 500 mg tablet 1,000 mg PO BID PRN PRN Pain 1-10 11/28/19 11/26/19 History Or Fever cyanocobalamin (vitamin B-12) 1,000 mcg IM QMONTH SUPPLEMENT 11/28/19 11/13/19 History 1,000 mcg/mL injection solution calcium carb-ergocalciferol (vit 2 tab PO DAILY 07/12/21 Unknown History D2) 600 mg calcium-200 unit tablet dicyclomine 20 mg tablet 20 mg PO TID 12/25/23 Unknown History docusate sodium 100 mg capsule 100 mg PO BID #60 caps 12/25/23 Unknown Rx (Colace) oxycodone 20 mg tablet 30 mg PO Q4H PRN PRN pain 12/25/23 Unknown History polyethylene glycol 3350 17 17 g PO DAILY #238 grams 12/25/23 Unknown Rx gram/dose oral powder (Miralax) Allergy/AdvReac Type Severity Reaction Status Date / Time amlodipine (From Norvasc) Allergy Unknown Verified 07/29/23 20:04 ampicillin Allergy Hives Verified 07/29/23 20:04 celecoxib (From Celebrex) Allergy Unknown Verified 07/29/23 20:04 cephalexin Allergy Unknown Verified 07/29/23 20:04 cyclobenzaprine (From Allergy Unknown Verified 07/29/23 20:04 Flexeril) levofloxacin (From Levaquin) Allergy Unknown Verified 07/29/23 20:04 mesalamine (From Pentasa) Allergy Unknown Verified 07/29/23 20:04 NSAIDS (Non-Steroidal Allergy Unknown Verified 07/29/23 20:04 Anti-Inflamma Penicillins Allergy Rash Verified 07/29/23 20:04 prochlorperazine (From Allergy Unknown Verified 07/29/23 20:04 Compazine) sulfamethoxazole (From Allergy Rash Verified 11/28/19 08:49 Bactrim) trazodone Allergy Unknown Verified 07/29/23 20:04 trimethoprim (From Bactrim) Allergy Rash Verified 07/29/23 20:04 zolpidem (From Ambien) Allergy Unknown Verified 07/29/23 20:04 Family History Father Heart disease Hypertension Surgical History Status post bilateral total hip replacement History of bilateral salpingo-oophorectomy History of hysterectomy Social History household members: spouse Smoking Status: Never smoker alcohol intake: never substance use type: does not use ROS ROS ED Review of Systems ROS Unobtainable: other Constitutional Constitutional ED: Reports lethargy; Denies chills, fever(s), sweats or weight loss Eyes Eyes: Denies blurry vision, change in vision or diplopia ENT ENT ED: Denies rhinorrhea or sore throat Cardiovascular Cardiovascular: Denies chest pain, orthopnea or racing heartbeat Respiratory/Chest Respiratory/Chest: Denies cough, dyspnea, dyspnea on exertion, orthopnea or sputum Gastrointestinal Gastrointestinal: Denies abdominal pain, diarrhea, nausea or vomiting Genitourinary Genitourinary ED: Denies dysuria, hematuria or urinary frequency Musculoskeletal Musculoskeletal: Denies arthralgias, back pain, myalgias or neck pain Integumentary Denies abscess, Abrasions or rash Neurologic Neurologic: Reports weakness and other Details: Mental status change ; Denies headache(s) Psychiatric Psychiatric: Denies anxiety, depression or suicidal thoughts Endocrine Endocrinology: Denies polydipsia, polyphagia or polyuria Hematologic/Lymphatic Hematologic/Lymphatic: Denies easy bleeding, easy bruising or lymphadenopathy Allergic/Immunologic Allergic/Immunologic ED: Denies mouth swelling, tongue swelling or urticaria EXAM Physical Exam Const Vital Signs: 12/28/23 11:05 12/28/23 11:11 12/28/23 11:16 Temperature 98 F Temperature Source Temporal Pulse Rate 99 100 Respiratory Rate 23 H 22 H Respiratory Effort Normal Non-Labored Blood Pressure 146/102 H 165/92 H Blood Pressure Mean 116 116 Pulse Ox 96 93 Oxygen Delivery Method Room Air Room Air 12/28/23 12:22 Temperature Temperature Source Pulse Rate 77 Respiratory Rate 18 Respiratory Effort Blood Pressure 178/86 H Blood Pressure Mean 116 Pulse Ox 97 Oxygen Delivery Method Room Air Positive well nourished and well developed General Appearance ED: well developed and NAD HEENT Reports TM's clear and moist mucous membranes normocephalic and atraumatic; Negative for trauma or tenderness Tympanic Membrane ED: Yes TM's clear Eyes PERRL and EOMs intact bilaterally General Eye ED: Negative for pale conjunctiva or scleral icterus Neck no lymphadenopathy, supple and no JVD General: Negative for tenderness Chest Wall inspection of chest normal and palpation of chest normal Chest: Negative for tenderness Resp normal respiratory effort and clear to auscultation bilaterally Effort and Inspection: Negative for respiratory distress or pain with movement Auscultation: Negative for rhonchi, wheezes or diminished lung sounds Cardio regular rate, regular rhythm, S1 normal heart sound, S2 normal heart sound and no murmurs Peripheral Pulses: pulses 2+ throughout GI normal to inspection, nondistended, normoactive bowel sounds, soft to palpation, non-tender, non-distended and no masses Back/Spine no CVA tenderness and no thoracic nor lumbar tenderness Extremity normal to inspection General Extremety ED: Negative for edema General Extremity: Negative for edema Neuro CN's II-XII intact bilaterally, no sensory deficits noted and gait normal Neuro Narrative: Alert to person and place but not to time. No focal deficits. Patient keeps her eyes closed and moans frequently. She does follow commands appropriately. She answers questions. Sensorium / Orientation: awake, alert, oriented to person, oriented to place and oriented to time Motor Exam: strength 5/5 throughout and strength abnormal Psych mental status grossly normal Skin no rashes or lesions noted and no wounds MDM MDM MDM Narrative Medical decision making narrative: Patient presents with concern for mental status change and failure to thrive. S he is not been eating or drinking. She is been more confused. Just moaning at times. She was seen in the emergency department few days ago and given an enema for constipation and at that time apparently had some abdominal pain complaints. Patient really denies any complaints otherwise. She is alert to person and place but not to time. IV line established. EKG obtained arrival shows sinus rhythm with ventricular rate of 95 bpm with prolonged QT. CBC with differential showed a white count of 8.5 with hemoglobin 13.8 and platelet count of 377. Chemistries unremarkable. AST slightly elevated 39 and ALT was 30. Troponin normal at 25. Urinalysis unremarkable. CT scan of the brain obtained without contrast showed right intraventricular hemorrhage with right intra parenchymal hemorrhage. Discussed with patient and her and they would like to be transferred to [facility] [place] for definitive care. Lab Data Attestation: I reviewed the patient's lab results. Labs: Laboratory Results - last 24 hr 12/28/23 12/28/23 11:22 12:05 WBC 8.5 RBC 4.91 Hgb 13.8 Hct 41.3 MCV 84.1 MCH 28.1 MCHC 33.4 RDW Std Deviation 44.8 H RDW Coeff of Ama 14.6 Plt Count 377 MPV 11.8 Immature Gran % (Auto) 0.600 Neut % (Auto) 77.2 H Lymph % (Auto) 13.8 L Clay % (Auto) 8.2 Eos % (Auto) 0.0 Baso % (Auto) 0.2 Absolute Neuts (auto) 6.6 Absolute Lymphs (auto) 1.18 Nucleated RBC % 0 Sodium 131 L Potassium 3.8 Chloride 94 L Carbon Dioxide 27.0 Anion Gap 10 BUN 34 H Creatinine 0.90 Estim Creat Clear Calc 2.05 Est GFR (MDRD) Af Amer 79 Est GFR (MDRD) Non-Af 65 BUN/Creatinine Ratio 37.9 H Glucose 110 H Calcium 9.7 Total Bilirubin 0.50 AST 39 H ALT 30 Alkaline Phosphatase 137 H Troponin I High Sens 25 Total Protein 8.9 H Albumin 4.2 Globulin 4.7 H Albumin/Globulin Ratio 0.9 Urine Color Straw Urine Clarity Clear Urine pH 6.0 Ur Specific [place] 1.010 Urine Protein Negative Urine Glucose (UA) Normal Urine Ketones Negative Urine Occult Blood 10 H Urine Nitrite Negative Urine Bilirubin Negative Urine Urobilinogen Normal Ur Leukocyte Esterase 100 H Radiography Diagnostic Testing: Clinical Impression(s) from Imaging Studies Brain CT 12/28/23 11:46 IMPRESSION: Acute intracerebral hematoma involving the right parietal lobe with a surrounding edema and mass effect. Blood in the right lateral ventricle as well as small amount of blood in the posterior horn of the left lateral ventricle. N.B. : The above Results were Read Back by Robb West MD to Mariana De Leon DO, and understanding confirmed on 12/28/2023 12:43:55 (ET). Electronically Signed: Robb West MD at 12:45 EST , Chest X-Ray 12/28/23 12:30 IMPRESSION: Findings suggestive scarring in the right upper lobe. Stable examination. Electronically Signed: Robb West MD at 12:46 EST , 1 view chest x-ray obtained interpreted by myself as no evidence of infiltrate or pneumothorax or acute disease process. Radiology felt there was findings suggestive of scarring in the right upper lobe otherwise stable exam. EKG Initial EKG: Attestation: I personally reviewed and interpreted this EKG as follows: Comments: Sinus rhythm with ventricular rate of 96 bpm with prolonged QT Discharge Plan Triage Chief Complaint: Weakness ED Provider: Mariana De Leon Dx/Rx/DC Orders Clinical Impression: Intracranial hemorrhage, Acute alteration in mental status, History of hypert ension Prescriptions: No Action multivitamin [Multiple Vitamins] 1 EACH tablet 1 ea PO DAILY hyoscyamine sulfate 0.125 MG tablet, sublingual 0.125 mg sublingual PRN PRN (Reason: CROHNS) Rx Instructions: 1-2 tabs under the tongue before meals and at bedtime clonidine HCl 0.1 MG tablet 0.1 - 0.2 mg PO TID Rx Instructions: BP DEPENDENT ondansetron 4 MG tablet 4 mg PO Q6H PRN cholecalciferol (vitamin D3) [Vitamin D3] 1,000 UNIT tablet 2,000 unit PO DAILY lisinopril 10 tablet 10 mg PO DAILY Rx Instructions: 1-2 tabs, adjust based on blood pressure readings at home acetaminophen 500 MG tablet 1,000 mg PO BID PRN PRN (Reason: Pain 1-10 Or Fever) cyanocobalamin (vitamin B-12) 1,000 MCG/ML solution 1,000 mcg IM QMONTH Calcium + Vitamin D 600 mg calcium- 200 unit Tablet 2 tab PO DAILY dicyclomine 20 mg tablet 20 mg PO TID oxycodone 20 mg tablet 30 mg PO Q4H PRN PRN (Reason: pain) polyethylene glycol 3350 [Miralax] 17 gram/dose powder 17 g PO DAILY Qty: 238 0RF docusate sodium [Colace] 100 mg capsule 100 mg PO BID Qty: 60 0RF Primary Care Provider: Mercedes Leonard Referrals: Mercedes Leonard MD [Primary Care Provider] - Print Language: Vietnamese Disposition Disposition: DC/Tx to Another Type of HCF
[2023-12-28] MEDS: 0.9% Normal Saline (1000mL) 1,000 ML 1000 ML IV (12:02)
[2023-12-28 12:13] LABS: Bacteria 0 SEEN /hpf (None Seen); Mucous, Urine 0 SEEN /hpf (<or=2+)
[2023-12-28 12:22] LABS: Absolute Lymphocyte Count 1.18 X10^3/uL (0.83-4.51); Absolute Neutrophil Count 6.6 X10^3/uL (2.0-7.7); Basophil# 0.02 X10^3/uL; Basophil% 0.2 % (0-1); Hematocrit 41.3 % (37-47); Hemoglobin 13.8 g/dL (12.0-15.0); Lymphocyte # 1.18 X10^3/ul (0.83-4.51); Lymphocyte % 13.8 % (19-41); Mean Corp Hgb Conc 33.4 g/dL (32-36); Mean Corpuscular Hgb 28.1 pg (27.0-32.0); Mean Corpuscular Volume 84.1 fL (81-99); Mean Platelet Vol. 11.8 fl (6.2-12.0); Monocyte% 8.2 % (0-10); NRBC Flagged by Analyzer 0 % (0-5); Neutrophil # 6.58 X10^3/uL (2.7-7.7); Neutrophil % 77.2 % (47-70); Platelet Count 377 K/mm3 (150-450); RBC Distribution Width CV 14.6 % (11.6-14.6); RBC Distribution Width SD 44.8 fl (35.1-43.9); Red Blood Count 4.91 M/mm3 (4.2-5.4); White Blood Count 8.5 K/mm3 (4.4-11.0)
[2023-12-28 12:24] LABS: Color, Urine Straw (Yellow); Glucose, Dipstick Normal (Normal); Ketone-Dipstick Negative (Negative); Leukocyte Esterase-Dipstick 100 /ul (Negative); Nitrite-Dipstick Negative (Negative); Occult Blood-Urine 10 /ul (Negative); Protein-Dipstick Negative (Negative); Urine Bilirubin Dipstick Negative (Negative); Urine Clarity Clear (Clear); Urine Urobilinogen Normal (Normal)
--- NOTE | 2023-12-28 12:30 | RAD_ITS ---
STUDY: X-RAY CHEST REASON FOR EXAM: Female, 78 years old. Weakness TECHNIQUE: Single AP portable view of the chest. COMPARISON: Comparison is made with prior study dated December 25, 2023. FINDINGS: EKG electrodes are seen. Stable elevation of the right hemidiaphragm. Stable mild increase in markings in the right upper lobe suggestive of scarring. There is no demonstrated pleural abnormality. Calcification of the mitral valve annulus. Normal mediastinum and ebony. Normal visualized pulmonary arteries. Normal visualized aortic arch and descending thoracic aorta. Normal visualized thoracic spine. Healed left rib fractures. There is no demonstrated abnormality of the visualized soft tissue structures of the upper abdomen. RAD/Chest 1 View (Portable) IMPRESSION: Findings suggestive scarring in the right upper lobe. Stable examination. Electronically Signed: Robb West MD at 12:46 EST ,
[2023-12-28 12:47] LABS: ALB/GLOB Ratio 0.9 RATIO (0.9-2.4); AST(SGOT) 39 U/L (15-37); Alanine Aminotransfer ALT/SGPT 30 U/L (13-56); Albumin, Serum 4.2 g/dL (3.2-5.0); Alkaline Phosphatase 137 U/L (45-117); Anion Gap 10 (5-15); BUN 34 mg/dL (7-18); BUN/Creat Ratio 37.9 RATIO (10-20); Calcium,Total 9.7 mg/dL (8.5-10.1); Chloride 94 mmol/L (98-107); EST Glomerular Filtration Rate 65 mL/min (>60); Est Glom Filt Rate - Afr Amer 79 mL/min (>60); Estimated Creatinine Clearance 2.05 ml/min; Globulin 4.7 g/dL (2.2-4.2); Glucose 110 mg/dL (74-106); Potassium 3.8 mmol/L (3.5-5.1); Protein, Total 8.9 g/dL (6.4-8.2); Sodium Level 131 mmol/L (136-145); Troponin-I HS 25 pg/mL (3.0-54.0)
[2023-12-28 12:51] LABS: Red Blood Cells-Urine 0-5 SEEN /hpf (0-5); Squamous Epithelial Cells - UA 0-5 SEEN /hpf (5-10); White Blood Cells 0-5 SEEN /hpf (0-5)
--- NOTE | 2023-12-28 13:15 | ED.RN ---
Dr. Bragg notified of pt's bp 180/99. Orders received.
[2023-12-28] MEDS: Labetalol (Prefilled) 20 MG/4 ML Vial IV ×2 (13:22→14:13)
--- NOTE | 2023-12-28 13:51 | ED.RN ---
Dr. Bragg notified sbp improved but still in 170's. Orders received for second dose of labetalol.
--- NOTE | 2023-12-28 14:08 | ED.RN ---
Pharmacy called second time for labetalol, indicates not stocked in accudose.
--- NOTE | 2023-12-28 14:25 | ED.RN ---
EMS arrived for transport, report given.
--- NOTE | 2023-12-28 14:36 | CHAPLAIN ---
Type of Pastoral Visit _x__ Initial Visit ___ Follow-up Visit ___ On-call Visit ___ General Patient Visit ___ Spiritual Assessment ___ Family Conference ___ Bereavement ___ Rapid Response ___ Code Blue ___ Other (describe below) Pastoral Care Referral From ___ Patient ___ Family _x__ Nurse ___ Physician ___ Rubber Engraver ___ Hub Associate ___ Other (describe below) Sacrament/Intervention _x__ Active listening ___ Anointing ___ Restorationist ___ Bereavement ___ Communion ___ Ashley exploration ___ _x__ Life review _x__ Prayer ___ Reconciliation ___ Sacrament of Sick _x__ Supportive presence ___ Wedding ___ Other (describe below) Pastoral Comments during rounds in the ED, this patient was waiting for transfer to an [facility]; nurse recommended a visit of support to the spouse in particular; couple met in the ED room and patient is able to answer simple questions but rarely opens her eyes in the time of conversation; spouse is open to talk about covers several topics of their situation and his life in younger years; pt is concerned about transportation to the hospital in [place] but SW team comes into the room to explain how he will get there; pt rests quietly in the bed while the spouse is talkative and receptive to the conversation and support; pt is asked about prayer which is agreeable; however spouse states that they are spiritual people but not shinto people;
--- NOTE | 2023-12-28 17:08 | CM.ED ---
Social work Referral source: nursing Reason for referral: resources Nursing requested this mortgage or loan underwriter and MARIA ELENA Hartman to meet with patient and patient?s , Heri, to discuss possible resources to help patient?s care for patient in the home more safely. Prior to SWs entering the room, patient brain bleed was discovered and patient was being transferred to [facility]. When entering the room, patient was asleep in the bed, but patient?s was able to discuss patient?s case with SWs. Patient?s reported that his biggest concern was not wanting to drive to [place] due to not feeling comfortable. Patient?s reported having double vision that makes nighttime driving difficult. Patient?s reported having nobody to take him to [place] to be with patient due to having no children and having elderly neighbors and friends. Patient?s requested help with finding transportation to [facility] in order to be with patient. This SW called [employer] ([phone]) and spoke with Raza. Raza stated they would consider this type of transportation, but they could not offer it today due to their drivers not having availability. Raza reported same day requests being difficult to accommodate. MARIA ELENA Hartman called [employer] ([phone]) and spoke with Carlo, the photography coordinator. Carol stated they would be able to help with transportation today and are willing to provide the a ride home from [place].? Carol asked this mortgage or loan underwriter to provide patient with her direct cell to coordinate. SWs re-entered patient?s room to inform patient?s of transportation to [place] being possible. Educated to details of transportation and provided with number to Carol at [employer].? Helped the make sure his cell phone was working, so that he did not miss calls from [employer] [facility].? Patient?s was very grateful for the help received. reports plan to stay in [place] and to have money and a credit card to use.?? Much emotional support and supportive listening provided. ??Patient remained mostly asleep during the conversations. Patient was picked up by [facility] for transfer to [facility]. Patient?s was encouraged to speak with SWs at [facility] for any further needs. ? Pia Franco, REAL ESTATE AGENT/BROKER, AGED OR DISABLED CARER
== END 2023-12-28 14:38 | disposition other institution (70) ==
PROVIDERS: Emergency Provider Emergency Medicine; PCP Internal Medicine; Visit Provider Emergency Medicine
DX: I62.9 Nontraumatic intracranial hemorrhage, unspecified (principal); Z79.4 Long term (current) use of insulin; Z79.899 Other long term (current) drug therapy
CPT/HCPCS: 70450; 71045; 80053; 81001; 84484; 85025; 93005; 96361; 96374; 96376; 99285; P9612; A4216